=== PATIENT | female | born 1945 | race Caucasian/White ===

== ENCOUNTER 2018-06-07 09:00 | Outpatient (RCR) | payer MEDICARE, MEDICAID, SELFPAY ==
--- NOTE | 2018-06-04 09:00 | PTTR_ITS ---
DATE: 06/04/18 SUBJECTIVE: Alla indicates that she continues to note good improvement that has been made with her L shoulder. Denies any discomfort with her ADL's. Manual therapy: ([id number]). AROM reveals continued limited end range flexion and scaption approximately 10-20 degrees in comparison to contralateral side, continues to be extremely limited with IR bilaterally. Did receive mobilization of the L GH joint while in supine position. Mobilization did include inferior/posterior glides, caudal distraction, AAROM throughout all planes. Did utilize hold/relax with end range IR/ER with good results. Also performed PNF D1-D2 patterns for 10 reps each AA without complaints of discomfort as well as rhythmic stabilization at 80, 90 and 100 degrees of flexion against minimal resistance. Therapeutic procedures ([id number]). * x See flow sheet: focus was on scap stabilization and light cuff strengthening. * X Provided skilled instruction in proper exercise performance: * X Provided skilled manual cues to facilitate proper muscle recruitment and/ or movement pattern: Did receive 5 mins of cryotherapy to L shoulder at conclusion of therex. Direct treatment time: 35 MINS Total treatment time: 40 MINS SG/dl
--- NOTE | 2018-06-07 09:00 | PN_ITS ---
Date: 06/07/18 Referring: Marielos Caldera MD Referring Provider Diagnosis: chronic left shoulder pain Physical Therapy Diagnosis: left shoulder rotator cuff pathology Reporting period: 05/18/18-06/07/18 Subjective: Patient reports she feels like she is 98% better since starting PT. She is having no pain presently. States she has pain every once in while that she thinks is arthritis related. States she has been doing her HEP. Objective: ROM: Left shoulder AROM flexion 145 degrees, abduction 150 degrees, FIR to L2, extension 40 degrees, ER 60 degrees. Right shoulder AROM flexion 145 degrees, abduction 145 degrees, FIR T10, extension 40 degrees, ER 65 degrees. Strength: Left shoulder strength flexion 5/5, extension 5/5, ER 4+/5, ER 4+/5, abduction 5/5. Left elbow flexion and extension 5/5. Right shoulder flexion 5/5 , extension 5/5, abduction 5/5, ER 4+5, IR 4+/5. Right elbow flexion and extension 5/5. DASH score: 6.5% impaired Treatment: Manual therapy [id number] x 1. Performed reassessment of shoulder ROM and strength. Therapeutic Procedures [id number] x 1. Reviewed home exercise program with patient to ensure correct technique for scapular stabilization and rotator cuff strengthening. Patient given orange theratube for progression of HEP. Direct treatment time: 30 minutes Total treatment time: 30 minutes Assessment: Patient is a 73 year-old female referred for PT services with the diagnosis of chronic left shoulder pain. Patient presents with clinical signs and symptoms consistent with left rotator cuff pathology. She reports she is 98 % better since starting PT. She has no pain presently. States she has pain every once in a while and thinks its arthritic pain. At initial evaluation her pain rating was 6/10 at rest and 8/ Improvements were made in shoulder flexion, extension, and ER AROM. Improvements were made in left shoulder abductors, ER, IR, and elbow flexors strength as well in comparison to IE.. Her DASH score is 6.5% impaired compared to 35% impaired at initial evaluation. G-Codes (fill in modifier after appropriate code): Patient's primary functional limitation is in the category of: Projected Goal: Carrying,Moving, and handling objects : [id number] CI Discharge status: Carrying, Moving, and handling objects: [id number]-[CI] STG: __4__ weeks. 1. Patient will report no more than 5/10 pain in her left shoulder. Goat met. 2. Patient will demonstrate 5 degrees increase in left shoulder AROM. Goal met for left shoulder flexion, extension, and ER. Not met for abduction. 3. Patient will score 25% impaired or less on the DASH. Goal met. 4. Independent HEP. Goal met. LTG: __8__ weeks. 1. Patient will report no more than 3/10 pain in left shoulder. Goal met. 2. Patient will show 10 degree improvement in left shoulder AROM. Goal met for flexion, extension, and ER. No met for abduction. 3. Patient will demonstrate half grade improvement or better in left shoulder strength. Goal met. 4. Patient will score 19% impaired or less on the DASH. Goal met. 5. Independent HEP. Goal met. Plan: Plan to discharge from formal PT treatment at this time. All of the patient s goals have been met except for 10 degree improvement in left shoulder abduction. Patient instructed to continue with home exercise program for self management. Patient is in agreement with plan.
== END 2018-07-02 23:59 | disposition home or self-care (01) ==
LOC: PT 09:00
PROVIDERS: PCP Family Medicine; Referring Provider Family Medicine; Visit Provider Family Medicine
DX: M25.512 Pain in left shoulder (principal); S43.422D Sprain of left rotator cuff capsule, subsequent encounter; M25.812 Other specified joint disorders, left shoulder; R29.3 Abnormal posture
CPT/HCPCS: 97110; 97140

== ENCOUNTER → 2018-06-11 01:52 | Outpatient (CLI) | payer MEDICARE, SELFPAY ==
[2018-06-11 11:10] LABS: HCT 40.8 % (36.0-46.0); HGB 13.6 g/dL (12.0-15.5); Mean Corp. HGB Concentration 33.3 g/dL (32.0-36.0); Mean Corpuscular Hemoglobin 29.4 pg (27.0-33.0); Mean Corpuscular Volume 88.1 fL (80-95); Mean Platelet Volume 10.2 fL (8.0-11.0); Platelet Count 242 x1000/uL (130-400); RBC 4.63 m/cumm (4.00-5.20); White Blood Cell Count 3.71 k/cumm (4.4-10.8)
[2018-06-11 11:20] LABS: Hemoglobin A1C 6.4 % (4.5-6.2)
[2018-06-11 11:34] LABS: ALT 39 U/L (12-78); AST 29 U/L (15-37); Albumin 3.3 g/dL (3.4-5.0); Alkaline Phosphatase 96 U/L (46-116); BUN 12 mg/dL (7-18); Bilirubin, Total 0.4 mg/dL (0.2-1.0); CREATININE 0.74 mg/dL (0.55-1.02); Calcium 8.8 mg/dL (8.5-10.1); Chloride 100 mmol/L (98-107); Glucose 92 mg/dL (70-100); NT-proBNP 58 pg/mL; Potassium 4.8 mmol/L (3.5-5.1); Sodium 134 mmol/L (136-145); TSH (W/Ref FT4) 0.14 uIU/mL (0.358-3.74)
[2018-06-11 12:02] LABS: FREE T4 1.22 ng/dL (0.76-1.46)
[2018-06-11 12:15] LABS: Cholesterol 163 mg/dL (50-200); HDL Cholesterol 37 mg/dL (40-60); LDL CHOLESTEROL 101 mg/dL (<100); Triglyceride 209 mg/dL (30-150)
== END ==
PROVIDERS: PCP Family Medicine; Visit Provider Family Medicine
DX: E03.9 Hypothyroidism, unspecified (principal); E78.5 Hyperlipidemia, unspecified; I50.9 Heart failure, unspecified; R06.02 Shortness of breath; R73.09 Other abnormal glucose
CPT/HCPCS: 36415; 80053; 80061; 83721; 85027; 83036; 83880; 84439; 84443

== ENCOUNTER → 2018-06-14 12:53 | Outpatient (CLI) | payer MEDICARE, MEDICAID, SELFPAY ==
--- NOTE | 2018-06-14 13:00 | PFT_ITS ---
DATE OF SERVICE: June 14, 2018 REQUESTING PROVIDER: Marielos Caldera M.D. INTERPRETATION OF STUDY: Spirometry shows no evidence of obstructive airways disease. There was significant bronchodilator response which was mostly related to very poor patient effort for pre-bronchodilator spirometry, almost completely unacceptable patient effort. LUNG VOLUMES: Show no evidence of restriction. DIFFUSION CAPACITY: Mildly reduced, even when corrected to alveolar volume. AIRWAYS RESISTANCE: Normal. IMPRESSION: Pre-bronchodilator spirometry is an unacceptable patient effort. Post- bronchodilator spirometry shows mild obstructive airways disease. This is associated with mild diffusion defect. Clinical correlation recommended. cc: Kam Rothman/ct D/T: 06/16
[2018-06-14] MEDS: Inhaler, Assist Device 1 EACH MC (13:36)
[2018-06-14] MEDS: Albuterol HFA 18 GM 200 PUFF INH IH (13:36)
== END ==
PROVIDERS: PCP Family Medicine; Visit Provider Family Medicine
DX: R06.2 Wheezing (principal)
CPT/HCPCS: 94060; 94150; 94726; 94729

== ENCOUNTER → 2018-06-25 00:03 | Outpatient (CLI) | payer MEDICARE, MEDICAID, SELFPAY ==
--- NOTE | 2018-06-25 10:40 | MERGE_ITS ---
*[facility]* *[facility]* [address] [place] [address] Date of study: 06/25/2018 Transthoracic Echocardiography M-mode, complete 2D, complete spectral Doppler, and color Doppler *STUDY CONCLUSIONS* Summary: 1. Left ventricle: The cavity size was normal. Wall thickness was increased in a pattern of mild LVH. Systolic function was at the lower limits of normal. The estimated ejection fraction was 50-55%. Wall motion was normal; there were no regional wall motion abnormalities. 2. Right ventricle: The cavity size was normal. Systolic function was low normal. 3. Left atrium: The atrium was mildly dilated. 4. Aortic root: The aortic root was mildly dilated (39 mm). 5. Mitral valve: Mildly calcified annulus. Mildly thickened leaflets. There was mild regurgitation. 6. Inferior vena cava: The vessel was patent and normal in size. The respirophasic diameter changes were in the normal range (greater than or equal to 50%), consistent with normal central venous pressure. *PATIENT PRESENTATION* Height: 152.4cm ((60in) ) S/D Pressure: 1741 / 74 Weight: 86.2kg ((189.6lb) ) BSA: 1.96m^2 Test start time: 10:40 AM. Test stop time: 11:40 AM. ORDERING Marielos Caldera REFERRING Marielos Caldera PERFORMING Unknown PERFORMING [facility] [employer] RT Celestina Baird)(SHANTELLE)BUTCH *PROCEDURE DATA* Procedure information: The patient was identified by two identifiers. This study was interpreted by [facility]. Pertinent images and digital data are archived for permanent storage and are available for subsequent review. No prior study was available for comparison. Study status: Routine. Transthoracic echocardiography. M-mode, complete 2D, complete spectral Doppler, and color Doppler. A Transthoracic Echocardiogram was performed. Scanning was performed from the parasternal, apical, subcostal, and suprasternal notch acoustic windows. Images were obtained using an [id number] cardiac ultrasound machine. Image quality was adequate. Study completion: The patient tolerated the procedure well. There were no complications. History: PMH: Wheezing. Shortness of breath. *CARDIAC ANATOMY* Left ventricle: The cavity size was normal. Wall thickness was increased in a pattern of mild LVH. Systolic function was at the lower limits of normal. The estimated ejection fraction was 50-55%. Wall motion was normal; there were no regional wall motion abnormalities. Findings consistent with diastolic dysfunction. There was no evidence of elevated ventricular filling pressure by Doppler parameters. Aortic valve: Trileaflet; normal thickness leaflets. Mobility was not restricted. Doppler: Transvalvular velocity was within the normal range. There was no stenosis. There was no significant regurgitation. VTI ratio of LVOT to aortic valve: 0.88. Valve area (VTI): 2.7cm^2. Indexed valve area (VTI): 1.4cm^2/m^2. Peak velocity ratio of LVOT to aortic valve: 0.64. Valve area (Vmax): 2cm^2. Indexed valve area (Vmax): 1cm^2/m^2. Mean velocity ratio of LVOT to aortic valve: 0.62. Valve area (Vmean): 1.9cm^2. Indexed valve area (Vmean): 1cm^2/m^2. Mean gradient (S): 3.4mm Hg. Peak gradient (S): 7.2mm Hg. Aorta: Aortic root: The aortic root was mildly dilated (39 mm). Mitral valve: Mildly calcified annulus. Mildly thickened leaflets. Mobility was not restricted. Doppler: Transvalvular velocity was within the normal range. There was no evidence for stenosis. There was mild regurgitation. Valve area by pressure half-time: 2.7cm^2. Indexed valve area by pressure half-time: 1.4cm^2/m^2. Left atrium: The atrium was mildly dilated. Right ventricle: The cavity size was normal. Systolic function was low normal. Pulmonic valve: Poorly visualized. Doppler: Transvalvular velocity was within the normal range. There was no evidence for stenosis. There was mild regurgitation. Tricuspid valve: Structurally normal valve. Doppler: Transvalvular velocity was within the normal range. There was no evidence for stenosis. There was mild regurgitation. Pulmonary artery: Poorly visualized. Pulmonary systolic pressure was in the range of 30mm Hg to 35mm Hg. Right atrium: The atrium was normal in size. Pericardium: There was no pericardial effusion. Systemic veins: Inferior vena cava: Not well visualized. The vessel was patent and normal in size. The respirophasic diameter changes were in the normal range (greater than or equal to 50%), consistent with normal central venous pressure. Baseline ECG: Bradycardia. Measurements Left ventricle Value 12/09/2016 Reference LV ID, ED, PLAX 4.5 cm 4.5 3.5 - 6.0 LV ID, ES, PLAX 3.2 cm 2.8 2.1 - 4.0 LV PW thickness, ED, PLAX 1.1 cm 1.1 LV end-diastolic volume, 49 ml 1-p A2C LV ejection fraction, 1-p 52 % 56 A2C LV end-diastolic volume, 61 ml 1-p A4C LV ejection fraction, 1-p 50 % 53 A4C LV e', lateral 0.038 m/sec LV E/e', lateral 18 LV e', medial 0.046 m/sec LV E/e', medial 15 LV e', average 0.042 m/sec LV E/e', average 16 Ventricular septum Value 12/09/2016 Reference IVS thickness, ED, PLAX 1.0 cm 1.2 LVOT Value 12/09/2016 Reference LVOT ID, A-P 2.0 cm 2.0 LVOT area 3.1 cm^2 3 LVOT peak velocity, S 0.86 m/sec 0.8 LVOT mean velocity, S 0.54 m/sec LVOT VTI, S 24.3 cm 18.6 LVOT peak gradient, S 2.9 mm Hg LVOT mean gradient, S 1.4 mm Hg 1.2 Stroke volume (SV), LVOT 75 ml DP Stroke index (SV/bsa), 38 ml/m^2 LVOT DP Aortic valve Value 12/09/2016 Reference Aortic valve peak 1.3 m/sec velocity, S Aortic valve mean 0.87 m/sec velocity, S Aortic valve VTI, S 27.5 cm Aortic mean gradient, S 3.4 mm Hg Aortic peak gradient, S 7.2 mm Hg VTI ratio, LVOT/AV 0.88 Aortic valve area, VTI 2.7 cm^2 2 Velocity ratio, peak, 0.64 LVOT/AV Aortic valve area, peak 2 cm^2 2.5 velocity Velocity ratio, mean, 0.62 LVOT/AV Aortic valve area, mean 1.9 cm^2 velocity Aortic valve area/bsa, 1 cm^2/m^2 mean velocity Aorta Value 12/09/2016 Reference Aortic root ID, ED 3.9 cm 4.1 Ascending aorta ID, A-P, S 3.1 cm 3.3 RVOT Value 12/09/2016 Reference RVOT VTI, S 15.8 cm 16.2 Left atrium Value 12/09/2016 Reference LA ID, A-P, ES 2.9 cm LA ID/bsa, A-P 1.5 cm/m^2 <=2.2 LA area, ES, A4C 17.7 cm^2 18 8.8 - 23.4 LA area, ES, A2C 20 cm^2 20 LA volume/bsa, ES, 1-p A4C 29 ml/m^2 24 LA volume, ES, 2-p 55 ml LA volume/bsa, ES, 2-p 28 ml/m^2 LA/aortic root ratio 0.75 0.75 Mitral valve Value 12/09/2016 Reference Mitral E-wave peak 0.68 m/sec 0.59 velocity Mitral A-wave peak 0.87 m/sec 0.87 velocity Mitral deceleration time (H) 278 ms 150 - 230 Mitral pressure half-time 81 ms 89 Mitral E/A ratio, peak 0.77 0.68 Mitral valve area, PHT, DP 2.7 cm^2 2.5 Pulmonary veins Value 12/09/2016 Reference Pulmonary vein peak 0.59 m/sec velocity, S Pulmonary vein peak 0.38 m/sec velocity, D Pulmonary vein velocity 1.53 ratio, peak, S/D Pulmonary vein A-wave 0.33 m/sec reversal peak velocity Pulmonary vein A-wave 177 ms reversal duration Tricuspid valve Value 12/09/2016 Reference Tricuspid regurg peak 3.1 m/sec 2.3 velocity Tricuspid peak RV-RA 39.2 mm Hg 21.5 gradient Right atrium Value 12/09/2016 Reference RA area, ES, A4C 14.9 cm^2 18 8.3 - 19.5 Legend: (L) and (H) miguel values outside specified reference range. I have personally reviewed the images and have reviewed and edited the reported findings. Electronically signed by Niocle Camacho 06/25/2018 15:35
== END ==
PROVIDERS: PCP Family Medicine; Visit Provider Family Medicine
DX: R06.02 Shortness of breath (principal); R06.2 Wheezing; I05.1 Rheumatic mitral insufficiency
CPT/HCPCS: 93306

== ENCOUNTER 2018-10-05 00:32 | Outpatient (CLI) | payer MEDICARE, MEDICAID, SELFPAY ==
--- NOTE | 2018-10-05 08:50 | DI.MAMMO_ITS ---
SYMPTOM/DIAGNOSIS: SCREENING, Z12.31 MAMMOGRAMS: Mammograms were interpreted according to the usual protocol including computer analysis with CAD system, tomosynthesis and C view imaging. Comparison is made with the prior examinations. No suspicious masses or microcalcifications are seen. There is no definite evidence of malignancy. IMPRESSION: Negative mammogram. Routine screening is recommended. Category 1 , breast density B. MQSA ASSESSMENT OF FINDINGS: Negative. Category 1. Patient will receive a letter notifying them of these results. BI-RADS category B. There are scattered areas of fibroglandular density.
== END 2018-10-05 00:52 ==
PROVIDERS: PCP Family Medicine; Visit Provider Family Medicine
DX: Z12.31 Encounter for screening mammogram for malignant neoplasm of breast (principal)
CPT/HCPCS: 77063; 77067

== ENCOUNTER 2019-02-07 09:16 | Outpatient (CLI) | payer MEDICARE, MEDICAID, SELFPAY ==
[2019-02-07 12:49] LABS: Hemoglobin A1C 6.4 % (4.5-6.2)
[2019-02-07 12:54] LABS: COMMENT (LAB VIEW ONLY) 53.95 mg/dL
[2019-02-07 13:06] LABS: ALT 61 U/L (12-78); AST 38 U/L (15-37); Albumin 3.2 g/dL (3.4-5.0); Alkaline Phosphatase 96 U/L (46-116); Anion Gap 8.7 mmol/L (3-11); BUN 16 mg/dL (7-18); Bilirubin, Total 0.3 mg/dL (0.2-1.0); CO2 27.3 mmol/L (21.0-32.0); CREATININE 0.95 mg/dL (0.55-1.02); Calcium 9.7 mg/dL (8.5-10.1); Chloride 100 mmol/L (98-107); Cholesterol 199 mg/dL (50-200); Glucose 138 mg/dL (70-100); HDL Cholesterol 42 mg/dL (40-60); LDL CHOLESTEROL 134 mg/dL (<100); Potassium 4.6 mmol/L (3.5-5.1); Sodium 136 mmol/L (136-145); TSH (W/Ref FT4) 9.36 uIU/mL (0.358-3.74); Triglyceride 157 mg/dL (30-150)
[2019-02-07 13:11] LABS: Microalb ug/mg Crea 1676.9 ug/mg Cr
[2019-02-07 13:31] LABS: FREE T4 0.73 ng/dL (0.76-1.46)
== END 2019-02-07 09:36 ==
PROVIDERS: PCP Family Medicine; Visit Provider Family Medicine
DX: E11.9 Type 2 diabetes mellitus without complications (principal); E03.9 Hypothyroidism, unspecified; E78.5 Hyperlipidemia, unspecified; I10 Essential (primary) hypertension; R73.09 Other abnormal glucose
CPT/HCPCS: 36415; 80053; 80061; 83721; 82043; 82570; 83036; 84439; 84443

== ENCOUNTER 2019-12-01 01:27 | Outpatient (CLI) | payer MEDICARE, MEDICAID, SELFPAY ==
--- NOTE | 2019-12-01 11:20 | DI.MAMMO_ITS ---
EXAM: MAMMO SCREENING CLINICAL HISTORY: screening Z12.39 TECHNIQUE: Mammograms were interpreted according to the usual protocol including computer analysis w [employer] CAD system, tomosynthesis and C-view imaging. COMPARISON: October 2018 FINDINGS: The breasts are of moderate density with fairly symmetrical distribution of fibroglandular tissue. N o dominant mass or clumped microcalcification. Current examination is compared with previous examina tions including October 2018 and there has been no gross interval change in appearance in comparison with the previous studies. IMPRESSION: No specific evidence of malignancy at this time. Routine screening examinations are suggested at yea rly intervals in this age group according to the ACS/ACR guidelines. Category 1, breast density categ ory B. BI-RADS Cat 1 - Negative Breast Density - Category B - Scattered areas of fibroglandular density
== END 2019-12-01 01:47 ==
PROVIDERS: PCP Family Medicine; Visit Provider Family Medicine
DX: Z12.31 Encounter for screening mammogram for malignant neoplasm of breast (principal)
CPT/HCPCS: 77063; 77067

== ENCOUNTER 2019-12-02 00:11 | Outpatient (CLI) | payer MEDICARE, MEDICAID, SELFPAY ==
[2019-12-02 12:26] LABS: Hemoglobin A1C 6.3 % (3.8-5.6)
[2019-12-02 12:33] LABS: ALT 41 U/L (14-59); AST 26 U/L (15-37); Albumin 3.3 g/dL (3.4-5.0); Alkaline Phosphatase 85 U/L (46-116); Anion Gap 6.2 mmol/L (3-11); BUN 19 mg/dL (7-18); Bilirubin, Total 0.5 mg/dL (0.2-1.0); CO2 27.8 mmol/L (21.0-32.0); CREATININE 0.75 mg/dL (0.55-1.02); Calcium 8.8 mg/dL (8.5-10.1); Calculated LDL 97 mg/dL (<100); Chloride 98 mmol/L (98-107); Cholesterol 159 mg/dL (<200); Glucose 101 mg/dL (74-106); HDL Cholesterol 40 mg/dL (40-60); Sodium 132 mmol/L (136-145); TSH (W/Ref FT4) 6.53 uIU/mL (0.36-3.74); Total Protein 6.8 g/dL (6.4-8.2); Triglyceride 113 mg/dL (<150)
[2019-12-02 12:51] LABS: FREE T4 0.96 ng/dL (0.76-1.46)
[2019-12-02 13:17] LABS: COMMENT (LAB VIEW ONLY) 76.36 mg/dL
[2019-12-02 13:36] LABS: Microalb ug/mg Crea 501.3 ug/mg Cr
== END 2019-12-02 00:31 ==
PROVIDERS: PCP Family Medicine; Visit Provider Family Medicine
DX: E11.9 Type 2 diabetes mellitus without complications (principal); E78.5 Hyperlipidemia, unspecified; E83.52 Hypercalcemia; I10 Essential (primary) hypertension; I49.8 Other specified cardiac arrhythmias; K21.0 Gastro-esophageal reflux disease with esophagitis
CPT/HCPCS: 36415; 80053; 80061; 82043; 82570; 83036; 84439; 84443

== ENCOUNTER 2020-08-13 02:09 | Outpatient (CLI) | payer MEDICARE, MEDICAID, SELFPAY ==
[2020-08-13 13:03] LABS: ALT 44 U/L (14-59); AST 30 U/L (15-37); Albumin 3.7 g/dL (3.4-5.0); Alkaline Phosphatase 99 U/L (46-116); Anion Gap 7.2 mmol/L (3-11); BUN 16 mg/dL (7-18); Bilirubin, Total 0.4 mg/dL (0.2-1.0); CO2 30.8 mmol/L (21.0-32.0); CREATININE 0.76 mg/dL (0.55-1.02); Calcium 9.1 mg/dL (8.5-10.1); Calculated LDL 94 mg/dL (<100); Chloride 95 mmol/L (98-107); Cholesterol 168 mg/dL (<200); Glucose 97 mg/dL (74-106); HDL Cholesterol 48 mg/dL (40-60); Potassium 4.6 mmol/L (3.5-5.1); Sodium 133 mmol/L (136-145); TSH (W/Ref FT4) 1.87 uIU/mL (0.36-3.74); Total Protein 7.6 g/dL (6.4-8.2); Triglyceride 134 mg/dL (<150)
[2020-08-13 13:11] LABS: Hemoglobin A1C 6.2 % (<5.7)
[2020-08-13 13:24] LABS: Bilirubin Negative (Negative); Blood Negative (Negative); Clarity Clear (Clear); Glucose Negative (Negative); Ketones Negative (Negative); Leukocyte Esterase Trace (Negative); Nitrite Negative (Negative); Urobilinogen 0.2 EU/dL (Up TO 0.2); pH 7.5 (5-8)
[2020-08-13 13:36] LABS: Bacteria Few HPF (Negative); Epithelial Cells Many HPF (Negative); Other Cells Few Renal (Negative)
[2020-08-13 13:37] LABS: C & S Indicated? No/Sq. Contamination; Casts Negative LPF (Negative); Crystals Negative HPF (Negative); Mucus Negative (Negative)
== END 2020-08-13 02:29 ==
PROVIDERS: PCP Family Medicine; Visit Provider Family Medicine
DX: E11.9 Type 2 diabetes mellitus without complications (principal); E78.5 Hyperlipidemia, unspecified; E03.9 Hypothyroidism, unspecified; I10 Essential (primary) hypertension; I49.8 Other specified cardiac arrhythmias; R82.998 Other abnormal findings in urine
CPT/HCPCS: 36415; 80053; 80061; 81003; 81015; 83036; 84443

== ENCOUNTER 2020-12-07 09:20 | Inpatient (IN) | payer MEDICARE, MEDICAID, SELFPAY ==
[2020-12-07] VITALS (49 sets, daily range): BP systolic 133–191; BP diastolic 60–88; PULSE 55–82; RESP 12–23; TEMP 36.4–36.9; O2SAT 92–99
--- NOTE | 2020-12-07 09:15 | RT.EKG_ITS ---
APPROVED REPORT Exam: Resting ECG Patient Location: E HR:65 bpm ECG Measurements Heart Rate 65 AXIS OR 184 P 54 QRSd 107 QRS 55 QT 422 T 104 QTc 440 Conclusion Sinus rhythm...normal P axis, V-rate 60- 99 Anteroseptal infarct, age indeterminate...Q >35mS, T neg, V1-V2
--- NOTE | 2020-12-07 09:30 | RT.EKG_ITS ---
APPROVED REPORT Exam: Resting ECG Patient Location: E HR:60 bpm ECG Measurements Heart Rate 60 AXIS TN 190 P 59 QRSd 105 QRS 68 QT 455 T 110 QTc 457 Conclusion Sinus rhythm...normal P axis, V-rate 60- 99 Anteroseptal infarct, age indeterminate...Q >35mS, T neg, V1-V2
--- NOTE | 2020-12-07 09:30 | DI.CT_ITS ---
EXAM: CT HEAD WO CLINICAL HISTORY: ams. TECHNIQUE: Imaging Protocol: Axial computed tomography images with coronal and sagittal reformatted images were created and reviewed COMPARISON: No previous for comparison. FINDINGS: Ventricles and Extra axial spaces: Normal in size and morphology for the patient's age. Hemorrhage: None. Cerebral parenchyma: There are areas of decreased attenuation in the white matter most consistent wit h chronic microvascular ischemic change. No evidence of an acute territorial infarct. Midline shift: None. Brainstem/Cerebellum: Normal. Calvarium: Normal. Visualized Paranasal sinuses/Mastoids: Mild mucosal thickening in the maxillary sinuses. The remaini ng visualized paranasal sinuses are clear. Soft Tissues: Unremarkable. IMPRESSION: No acute intracranial process. Results of this exam have been verbally communicated with provider. RADIATION DOSE DELIVERED: 805.52mGy.cm Total DLP DATA REPOSITORY: All CT scans at this facility are submitted to the National Radiology Data Registry (NRDR) Dose Index Registry (DIR) with the [employer] ([employer]). RADIATION OPTIMIZATION: All CT scans at this facility use at least one of these dose optimization te chniques: automated exposure control; mA and/or kV adjustment per patient size (includes targeted exa ms where dose is matched to clinical indication); or iterative reconstruction.
[2020-12-07] MEDS: Normal Saline 1,000 ML 1000 ML IV (09:51)
[2020-12-07] MEDS: Normal Saline Flush 10 ML SYR IVP ×2 (09:51→17:35)
--- NOTE | 2020-12-07 09:53 | W.ED.GENAD ---
Discharge Plan Discharge Details Chief Complaint: AMS/LOC Primary Care Provider: Marielos Caldera ED Provider: Rasheeda Keith Home Meds and New Rx's Prescriptions: No Action albuterol sulfate 90 mcg/actuation HFA aerosol inhaler 2 puff IH 6XD PRN (Reason: shortness of breath or wheezing) Qty: 18 RF: 8 fluoxetine 40 mg capsule 40 mg PO DAILY Qty: 90 RF: 12 losartan 100 mg tablet 100 mg PO DAILY Qty: 90 RF: 4 omeprazole 40 mg capsule,delayed release(DR/EC) 40 mg PO DAILY Qty: 90 RF: 12 oxybutynin chloride 5 mg tablet 5 mg PO BID Qty: 180 RF: 4 pravastatin 40 mg tablet 40 mg PO DAILY Qty: 90 RF: 4 levothyroxine 112 mcg tablet 112 mcg PO DAILY Qty: 90 RF: 12 fluconazole 150 mg tablet 150 mg PO Q3D Qty: 2 RF: 0 qmecxqbh-cuwi-jfkjjx-hyalur ac 1 EACH capsule 2 cap PO DAILY RF: 0 docusate sodium [Colace] 100 MG capsule 100 mg PO BID Qty: 180 RF: 4 mirtazapine 7.5 mg tablet 7.5 mg PO HS Qty: 90 RF: 2 famotidine 40 mg tablet 40 mg PO DAILY Qty: 90 RF: 5 multivitamin [Once Daily] Tablet 1 tab PO DAILY Qty: 90 RF: 4 acetaminophen [Acetaminophen Extra Strength] 500 mg tablet 1,000 mg PO TID PRN Qty: 270 RF: 4 sennosides-docusate sodium [Senna with Docusate Sodium] 8.6-50 mg tablet 2 tab PO DAILY Qty: 180 RF: 11 betamethasone dipropionate 0.05 % cream 1 applic topical BID PRN (Reason: skin irritation) Qty: 45 RF: 2 triamcinolone acetonide 0.1 % cream 1 applic TP BID Qty: 80 RF: 2 Medical Decision Making Patient is alert, oriented, this is a change from yesterday per sisterMary Beth who I spoke with, patient is a full CODE STATUS confirmed No visible signs of trauma, I suspect her symptoms are related to hyponatremia confounded by urinary tract infection Patient received 1 L of saline, I will not give additional saline secondary to risk for cerebral edema She received ceftriaxone for urinary tract infection, urine culture pending Magnesium 1.6, supplemented EKG does not show acute pathology, initial troponin 0.18, repeat troponin request of admitting hospitalist 0.17, Dr. Cruz has agreed to admit the patient to inpatient status at this time, remains confused but stable throughout this evaluation Suspect troponin secondary to restrain from illness CT brain does not show acute pathology per radiology interpretation and my review, no evidence of CVA or intracranial trauma Chest x-ray shows evidence of possible volume overload Differential Diagnosis Differential Diagnosis: Electrolyte abnormality, urinary tract infection, subdural hematoma, CVA Medical Records Medical records reviewed: Yes I reviewed the patient's medical records. HPI This 75-year-old female presents with alteration in mental status. She was found by caregiver to be slowed and confused. Patient cannot tell me any complaints at this time. She was found seated and without evidence of trauma. EMS checked her blood sugar and found it to be 180. She also had normal vital signs per EMS. The last time she was known well was caregiver recheck 2 weeks prior. There was no noted vomiting, no incontinence stool or urine. The hospital in disarray. The dog was also well cared for per EMS. Unable to obtain additional history secondary to mental status change General Date/Time Provider Initiated Documentation: 12/07/20 09:21. Related Data Home Medications Medication Instructions Recorded Confirmed lenpsknx-regg-trvvuz-hyalur ac 2 cap PO DAILY 10/17/13 12/07/20 docusate sodium [Colace] 100 mg PO BID #180 tab-cap 05/04/18 12/07/20 albuterol sulfate 90 mcg/actuation 2 puff IH 6XD PRN #18 gm 11/03/19 12/07/20 aerosol inhaler mirtazapine 7.5 mg tablet 7.5 mg PO HS #90 tab 02/02/20 12/07/20 famotidine 40 mg tablet 40 mg PO DAILY #90 tab 03/16/20 12/07/20 multivitamin 1 tab PO DAILY #90 tab-cap 03/16/20 12/07/20 acetaminophen 500 mg tablet 1,000 mg PO TID PRN #270 tab-cap 04/03/20 12/07/20 sennosides 8.6 mg-docusate sodium 2 tab PO DAILY #180 tab-cap 04/27/20 12/07/20 50 mg tablet fluoxetine 40 mg capsule 40 mg PO DAILY #90 tab-cap 05/01/20 12/07/20 levothyroxine 112 mcg tablet 112 mcg PO DAILY #90 tab-cap 05/01/20 12/07/20 losartan 100 mg tablet 100 mg PO DAILY #90 tab-cap 05/01/20 12/07/20 omeprazole 40 mg capsule,delayed 40 mg PO DAILY #90 tab-cap 05/01/20 12/07/20 release oxybutynin chloride 5 mg tablet 5 mg PO BID #180 tab-cap 05/01/20 12/07/20 pravastatin 40 mg tablet 40 mg PO DAILY #90 tab-cap 05/01/20 12/07/20 betamethasone dipropionate 0.05 % 1 applic TOPICAL BID PRN #45 g 07/23/20 12/07/20 topical cream triamcinolone acetonide 0.1 % 1 applic TP BID #80 gm 08/08/20 12/07/20 topical cream fluconazole 150 mg tablet 150 mg PO Q3D #2 tab 11/08/20 12/07/20 Previous Rx's Medication Instructions Recorded docusate sodium [Colace] 100 mg PO BID #180 tab-cap 05/04/18 albuterol sulfate 90 mcg/actuation 2 puff IH 6XD PRN #18 gm 11/03/19 aerosol inhaler mirtazapine 7.5 mg tablet 7.5 mg PO HS #90 tab 02/02/20 famotidine 40 mg tablet 40 mg PO DAILY #90 tab 03/16/20 multivitamin 1 tab PO DAILY #90 tab-cap 03/16/20 acetaminophen 500 mg tablet 1,000 mg PO TID PRN #270 tab-cap 04/03/20 sennosides 8.6 mg-docusate sodium 2 tab PO DAILY #180 tab-cap 04/27/20 50 mg tablet fluoxetine 40 mg capsule 40 mg PO DAILY #90 tab-cap 05/01/20 levothyroxine 112 mcg tablet 112 mcg PO DAILY #90 tab-cap 05/01/20 losartan 100 mg tablet 100 mg PO DAILY #90 tab-cap 05/01/20 omeprazole 40 mg capsule,delayed 40 mg PO DAILY #90 tab-cap 05/01/20 release oxybutynin chloride 5 mg tablet 5 mg PO BID #180 tab-cap 05/01/20 pravastatin 40 mg tablet 40 mg PO DAILY #90 tab-cap 05/01/20 betamethasone dipropionate 0.05 % 1 applic TOPICAL BID PRN #45 g 07/23/20 topical cream triamcinolone acetonide 0.1 % 1 applic TP BID #80 gm 08/08/20 topical cream fluconazole 150 mg tablet 150 mg PO Q3D #2 tab 11/08/20 Allergies Allergy/AdvReac Type Severity Reaction Status Date / Time No Known Allergies Allergy Verified 11/08/20 08:24 General Stated Complaint: AMS/LOC [place]: 2 Review of Systems Unobtainable due to mental status [facility] Medical History (Updated 08/04/20 @ 20:42 by Katharina Ricardo NP) Abnormal cervical Papanicolaou smear (10/01/00) Age-related macular degeneration Ankle joint pain (06/21/13) Rickets as a child Balance problem Bilateral impacted cerumen (07/31/15) Bronchospasm Cataract (01/19/18) Cataract Chronic left shoulder pain (05/04/18) Depressive disorder (12/04/11) Diabetes Diverticulitis of colon 04/11 pre-op H P by Dr. Al Reid for lap sigmoid resection, secondary to acute episodes of diverticulitis. 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 Essential hypertension (10/14/13) Fall in exam room while getting off exam table Fatigue (06/21/13) Grief (03/04/16) Hip pain (06/24/13) Hypercalcemia (12/04/16) Hyperlipidemia (06/21/13) Hyponatremia (07/01/13) Hypothyroidism (06/24/13) Low back pain (06/21/13) XRay 09/09 - DJD, R hip DJD MRI - severe djd, no stenosis Low back pain (06/21/13) Multiple excoriations (07/20/14) Other specified cardiac dysrhythmias (10/01/04) bradycardia by ECG; Holter=rare PAC/PVC/burst SVT; <3sec pause Other specified cardiac dysrhythmias (10/01/04) Pelvic abscess (11/05/09) 10/10 CT: SMALL RESIDUAL ABSCESSED CAVITY IN CENTRAL PELVIS, W/ FISTULA BETWEEN ABSCESS SIGMOID COLON Pelvic abscess (11/05/09) Pruritic disorder (01/10/14) Reflux esophagitis (12/08/16) Rickets Sensorineural hearing loss, bilateral (01/14/18) Vaginitis and vulvovaginitis Wheezing (05/04/18) ? voacl cord dysfunction Surgical History Abdominal hysterectomy (~1983) Cholecystectomy (~1979) drainage of pelvic abcess Extraction of cataract LEFT EYE;12/14/17; DR. ALICEA Status post abdominal hysterectomy Status post cholecystectomy Status post hip replacement Status post incision and drainage Total replacement of hip (~2008) LEFT Family History (Updated 11/09/20 @ 15:32 by Janelle Armas) Mother , AGE 92 Diabetes Heart disease Father Heart disease Stomach cancer Sister Depression Heart disease COPD (chronic obstructive pulmonary disease) Asthma Brother Diabetes Essential hypertension Heart disease Hyperlipidemia Asthma Social History (Updated 11/09/20 @ 15:32 by Janelle Armas) Smoking/Tobacco Use Status: Never Smoking risk assessment performed?: Yes Alcohol Intake: current Alcohol Intake frequency: 0-2 drinks per day Alcohol type: beer and wine Drug use: Never Substance use type: does not use Caregiver/Support person: No Household members: spouse and none Housing: house Communication Needs: None Do you need help understanding health information?: Never Pets and animals: Yes Pets and animals: dog(s) Sexually active: No Do you think of yourself as: straight/heterosexual Current gender identity: female and decline to answer What is your relationship status?: How often do you talk on the phone with friends or family?: three or more times per week How often do you get together with friends or relatives?: once per week How often do you attend jainism or restoration services?: 4 or more times per year Do you belong to any clubs or organized social groups?: no Panel score (0-1 are the most socially isolated patients): 2 What type of physical activity do you participate in: walking Duration: 15-30 minutes/day Frequency: 1-2 times per week [place]/Episcopalian: Jewish Special medina needs: No Seatbelt use: always Helmet use: Yes Helmet use: always Drive intox or ride w/intox school bus driver/custodian: No Do you feel safe in your relationship?: Yes Victim of physical abuse: No Victim of emotional abuse: No Victim of sexual abuse: No Would you like helpful sources: No Exam Const General: cooperative and well groomed HENMT Head: normal to inspection Mouth: no muffled voice and oral mucosa abnormal Throat: uvula midline Eyes Pupils: PERRL Other: Follow light in all directions Neck Other: No carotid bruit Resp Effort & Inspection: normal respiratory effort Auscultation: clear to auscultation bilaterally Cardio Rate: regular rate Rhythm: regular rhythm GI Inspection: normal to inspection Auscultation: normal bowel sounds Other: Nontender Back/Spine/Pelvis Other: No palpable tenderness, no visible sign of trauma Skin General skin exam: no rashes or lesions noted Neuro General: patient alert and patient awake Other: Able to follow basic commands but generally weak Able to cross fingers bilaterally and push down on the hand with feet Extrem General: normal to inspection Course Vital Signs Vital signs: Vital Signs Temperature 36.7 C 12/07/20 09:18 Pulse 82 12/07/20 09:18 Respiratory Rate 20 12/07/20 09:18 Blood Pressure 191/71 H 12/07/20 09:18 Pulse Oximetry 95 12/07/20 09:18 Temperature 36.7 C 12/07/20 09:18 Temperature Source Skin 12/07/20 09:18 Pulse 82 12/07/20 09:18 Respiratory Rate 20 12/07/20 09:18 Respiratory Effort Non-Labored 12/07/20 09:52 Blood Pressure 191/71 H 12/07/20 09:18 Blood Pressure Position Sitting 12/07/20 09:18 Pulse Oximetry 95 12/07/20 09:18 Oxygen Delivery Method Room Air 12/07/20 09:18 Oxygen Flow Rate 0 12/07/20 09:18 Critical Care Time Critical Care Time Critical Care Time: Yes Total Critical Care Time: 35 Attestation: Critical care time was obtained for close observation for elevated troponin, hyponatremia, alteration of mental status, telemetry, IV fluid resuscitation, telemetry monitoring, and inpatient admission
[2020-12-07 09:59] LABS: Abs Immature Grans 0.07 10^3/uL (0.0-0.06); Absolute Basophil Count 0.03 10^3/uL (0.0-0.2); Absolute Eosinophil Count 0.03 10^3/uL (0.0-0.7); Absolute Lymphocyte Count 1.16 10^3/uL (1.2-3.4); Absolute Neutrophil Count 13.08 10^3/uL (1.2-6.7); Basophils % 0.2; Eosinophils % 0.2; HCT 40.3 % (36.0-46.0); HGB 14.2 g/dL (11.2-15.7); Immature Grans % 0.4; Lymphocytes % 7.4; MCH 30.7 pg (27.0-33.0); MCHC 35.2 % (32.0-36.0); MPV 9.3 fL (8.0-11.0); Monocytes % 8.3; Neutrophils % 83.5; Nucleated RBC 0 %; Platelet Count 311 10^3/uL (130-400); RBC 4.63 10^6/uL (3.93-5.22); RDW 12.2 % (11.7-14.6); RDW-SD 39.2 fL; WBC 15.67 10^3/uL (4.4-10.8)
[2020-12-07 10:04] LABS: Bilirubin Negative (Negative); Blood Negative (Negative); Clarity Sl Cloudy (Clear); Glucose Negative (Negative); Ketones Negative (Negative); Leukocyte Esterase Negative (Negative); Nitrite Negative (Negative); Specific Gravity 1.025 (1.005-1.025); Urobilinogen 0.2 EU/dL (Up TO 0.2); pH 7.5 (5-8)
[2020-12-07 10:07] LABS: ALT 73 U/L (14-59); AST 50 U/L (15-37); Albumin 3.3 g/dL (3.4-5.0); Alkaline Phosphatase 96 U/L (46-116); Anion Gap 6.6 mmol/L (3-11); BUN 19 mg/dL (7-18); Bilirubin, Total 0.8 mg/dL (0.2-1.0); CO2 28.4 mmol/L (21.0-32.0); CREATININE 0.7 mg/dL (0.55-1.02); Calcium 8.7 mg/dL (8.5-10.1); Chloride 85 mmol/L (98-107); Glucose 142 mg/dL (74-106); Magnesium 1.6 mg/dL (1.8-2.4); Potassium 4.6 mmol/L (3.5-5.1); Total Protein 7.7 g/dL (6.4-8.2)
[2020-12-07 10:09] LABS: Sodium 120 mmol/L (136-145); Troponin I 0.18 ng/mL (<0.06)
[2020-12-07 10:10] LABS: Epithelial Cells Rare HPF (Negative); Other Cells Rare Renal (Negative)
--- NOTE | 2020-12-07 10:10 | NUR.NOTE ---
Nursing Note: Pt states she doesn't take any meds but is confused at this time. PCP is Dr. Caldera, last clinic visit was 11/08, medication list was reconciled using clinic visit note. Unknown if/when she last took them since that visit.
[2020-12-07 10:11] LABS: C & S Indicated? Yes; Casts Negative LPF (Negative); Crystals Many Amorphous HPF (Negative); Mucus Moderate (Negative)
--- NOTE | 2020-12-07 10:12 | DI.RAD_ITS ---
EXAM: XR CHEST 1V IN DI DEPT CLINICAL HISTORY: ams TECHNIQUE: 2D digital imaging was performed. COMPARISON: CR CHEST 2 VIEWS PA,LAT from 01/11/2017 CR LEFT SHOULDER COMPLETE from 05/10/2018 FINDINGS: MEDIASTINUM: Normal. HEART: Normal. PULMONARY VASCULATURE: There is prominence of the pulmonary vasculature which may be due to crowding of the pulmonary vasculature due to poor inspiration versus pulmonary venous congestion. Atheroscler osis of the thoracic aorta is noted. LUNGS: No focal consolidating infiltrates. There is poor inspiration. PLEURAL SPACE: No pleural effusion or pneumothorax. BONE:Degenerative changes in the spine. OTHER FINDINGS:Normal. IMPRESSION: 1. Low lung volumes. 2. Prominence of the pulmonary vasculature. This may be due to crowding secondary to poor inspiratio n versus pulmonary venous congestion. Please correlate clinically. DATA REPOSITORY: RADIATION DOSE DELIVERED:
[2020-12-07] MEDS: MAGNESIUM SULFATE 1 GM/100 ML BAG IVPB (10:28)
[2020-12-07 13:01] LABS: Troponin I 0.17 ng/mL (<0.06)
--- NOTE | 2020-12-07 15:23 | W.PM.HP.N ---
Date of service: 12/07/20 Time of Service: 15:24 Assessment and Plan Assessment and plan (1) Diabetes: Status: Chronic Assessment and plan: Diet controlled. A1c in November was 5.8. Diabetic diet. Qualifiers: Diabetes mellitus type: type 2 Diabetes mellitus keno terminal operator insulin use: without keno terminal operator use Diabetes mellitus complication status: without complication Qualified Code(s): E11.9 - Type 2 diabetes mellitus without complications (2) Hypothyroidism: Status: Chronic Assessment and plan: Cont Levothyroxine TSH 3.7. Qualifiers: Hypothyroidism type: unspecified Qualified Code(s): E03.9 - Hypothyroidism, unspecified (3) Hyperlipidemia: Status: Chronic Assessment and plan: Cont pravastatin Qualifiers: Hyperlipidemia type: unspecified Qualified Code(s): E78.5 - Hyperlipidemia, unspecified (4) Essential hypertension: Status: Chronic Assessment and plan: Cont Losartan Monitor (5) Depressive disorder: Status: Chronic Assessment and plan: Cont Prozac. Monitor affect. (6) Hyponatremia: Status: Acute Assessment and plan: Na 120. Has had previously per records. Her sister was contacted and did not believe that she drinks copious amounts of water/fluids. She felt the patient didn't drink enough. Urine osmolality pending. Fluid restriction of 1500ml/day. Lasix 20mg IV x 1. Monitor. (7) Urinary tract infection: Status: Acute Assessment and plan: Culture pending. Rocephin given in ED; continue daily and adjust per culture results. History of Present Illness History of Present Illness Chief Complaint: confusion and weakness Narrative: This is a 75 yo female with a h/o DM2/not taking medications (A1c 5.8 11/2020), Hypothyroidism, HLD, HTN, depression. Her sister noted that she seemed mildly confused the day prior to admission and a caregiver noted the same on the day of admission; slow in her response time and using only short sentences. The patient denies any falls/trauma. EMS called. Blood glucose was 180. Vital signs were normal. Her UA was positive, WBC count elevated at 15.6 and her Na was 120. COVID testing sent. Rocephin administered in the ED. Admitted for further evaluation and treatment. Review of Systems All systems reviewed & are unremarkable except as noted in HPI and below and Unobtainable due to (Pt is confused; ROS from sister and ED provider) [facility] Medical History Abnormal cervical Papanicolaou smear (10/01/00) Age-related macular degeneration Ankle joint pain (06/21/13) Rickets as a child Balance problem Bilateral impacted cerumen (07/31/15) Bronchospasm Cataract (01/19/18) Cataract Chronic left shoulder pain (05/04/18) Depressive disorder (12/04/11) Diabetes Diverticulitis of colon 04/11 pre-op H P by Dr. Al Reid for lap sigmoid resection, secondary to acute episodes of diverticulitis. 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 Essential hypertension (10/14/13) Fall in exam room while getting off exam table Fatigue (06/21/13) Grief (03/04/16) Hip pain (06/24/13) Hypercalcemia (12/04/16) Hyperlipidemia (06/21/13) Hyponatremia (07/01/13) Hypothyroidism (06/24/13) Low back pain (06/21/13) XRay 09/09 - DJD, R hip DJD MRI - severe djd, no stenosis Low back pain (06/21/13) Multiple excoriations (07/20/14) Other specified cardiac dysrhythmias (10/01/04) bradycardia by ECG; Holter=rare PAC/PVC/burst SVT; <3sec pause Other specified cardiac dysrhythmias (10/01/04) Pelvic abscess (11/05/09) 10/10 CT: SMALL RESIDUAL ABSCESSED CAVITY IN CENTRAL PELVIS, W/ FISTULA BETWEEN ABSCESS SIGMOID COLON Pelvic abscess (11/05/09) Pruritic disorder (01/10/14) Reflux esophagitis (12/08/16) Rickets Sensorineural hearing loss, bilateral (01/14/18) Vaginitis and vulvovaginitis Wheezing (05/04/18) ? voacl cord dysfunction Surgical History Abdominal hysterectomy (~1983) Cholecystectomy (~1979) drainage of pelvic abcess Extraction of cataract LEFT EYE;12/14/17; DR. ALICEA Status post abdominal hysterectomy Status post cholecystectomy Status post hip replacement Status post incision and drainage Total replacement of hip (~2008) LEFT Family History Mother , AGE 92 Diabetes Heart disease Father Heart disease Stomach cancer Sister Depression Heart disease COPD (chronic obstructive pulmonary disease) Asthma Brother Diabetes Essential hypertension Heart disease Hyperlipidemia Asthma Social History Smoking/Tobacco Use Status: Never Smoking risk assessment performed?: Yes Alcohol Intake: current Alcohol Intake frequency: 0-2 drinks per day Alcohol type: beer and wine Drug use: Never Substance use type: does not use Caregiver/Support person: No Household members: spouse and none Housing: house Communication Needs: None Do you need help understanding health information?: Never Pets and animals: Yes Pets and animals: dog(s) Sexually active: No Do you think of yourself as: straight/heterosexual Current gender identity: female and decline to answer What is your relationship status?: How often do you talk on the phone with friends or family?: three or more times per week How often do you get together with friends or relatives?: once per week How often do you attend congregation or amish services?: 4 or more times per year Do you belong to any clubs or organized social groups?: no Panel score (0-1 are the most socially isolated patients): 2 What type of physical activity do you participate in: walking Duration: 15-30 minutes/day Frequency: 1-2 times per week [place]/Evangelical: Restorationist Special medina needs: No Seatbelt use: always Helmet use: Yes Helmet use: always Drive intox or ride w/intox pick up and delivery driver: No Do you feel safe in your relationship?: Yes Victim of physical abuse: No Victim of emotional abuse: No Victim of sexual abuse: No Would you like helpful sources: No Meds Home Medications and Allergies Home Medications Medication Instructions Recorded Confirmed Type vdfspqst-dpzq-mzhlbq-hyalur ac 2 cap PO DAILY 10/17/13 12/07/20 History docusate sodium [Colace] 100 mg PO BID #180 tab-cap 05/04/18 12/07/20 Rx albuterol sulfate 90 mcg/actuation 2 puff IH 6XD PRN #18 gm 11/03/19 12/07/20 Rx aerosol inhaler mirtazapine 7.5 mg tablet 7.5 mg PO HS #90 tab 02/02/20 12/07/20 Rx famotidine 40 mg tablet 40 mg PO DAILY #90 tab 03/16/20 12/07/20 Rx multivitamin 1 tab PO DAILY #90 tab-cap 03/16/20 12/07/20 Rx acetaminophen 500 mg tablet 1,000 mg PO TID PRN #270 tab-cap 04/03/20 12/07/20 Rx sennosides 8.6 mg-docusate sodium 2 tab PO DAILY #180 tab-cap 04/27/20 12/07/20 Rx 50 mg tablet fluoxetine 40 mg capsule 40 mg PO DAILY #90 tab-cap 05/01/20 12/07/20 Rx levothyroxine 112 mcg tablet 112 mcg PO DAILY #90 tab-cap 05/01/20 12/07/20 Rx losartan 100 mg tablet 100 mg PO DAILY #90 tab-cap 05/01/20 12/07/20 Rx omeprazole 40 mg capsule,delayed 40 mg PO DAILY #90 tab-cap 05/01/20 12/07/20 Rx release oxybutynin chloride 5 mg tablet 5 mg PO BID #180 tab-cap 05/01/20 12/07/20 Rx pravastatin 40 mg tablet 40 mg PO DAILY #90 tab-cap 05/01/20 12/07/20 Rx betamethasone dipropionate 0.05 % 1 applic TOPICAL BID PRN #45 g 07/23/20 12/07/20 Rx topical cream triamcinolone acetonide 0.1 % 1 applic TP BID #80 gm 08/08/20 12/07/20 Rx topical cream fluconazole 150 mg tablet 150 mg PO Q3D #2 tab 11/08/20 12/07/20 Rx Allergies Allergy/AdvReac Type Severity Reaction Status Date / Time No Known Allergies Allergy Verified 11/08/20 08:24 Exam Const General: cooperative, no acute distress and well groomed Nutritional Appearance: obese Orientation: alert and oriented to person [facility] Head: normocephalic and atraumatic Eyes Sclera: sclerae normal Pupils: PERRL Resp Effort & Inspection: normal respiratory effort Auscultation: clear to auscultation bilaterally Cardio Rate: regular rate Rhythm: regular rhythm Heart Sounds: S1 normal and S2 normal GI Palpation: soft and nontender Auscultation: normal bowel sounds Skin General skin exam: no rashes or lesions noted Neuro General: patient alert, moves all extremities and no focal motor deficits Cranial Nerves: gag reflex normal Extrem General: no pedal edema and no calf tenderness Psych Appearance: grossly normal Mood: congruent mood Affect: normal affect Results Labs Result diagrams: 12/07/20 09:37 12/07/20 09:37 Labs: Laboratory Results - last 24 hr 12/07/20 12/07/20 12/07/20 09:37 09:37 09:37 WBC 15.67 H RBC 4.63 Hgb 14.2 Hct 40.3 MCV 87.0 MCH 30.7 MCHC 35.2 RDW 12.2 Plt Count 311 MPV 9.3 Immature Gran % 0.4 Neutrophils % 83.5 Lymphocytes % 7.4 Monocytes % 8.3 Eosinophils % 0.2 Basophils % 0.2 Nucleated RBC % 0 Absolute Neutrophils 13.08 H Absolute Lymphocytes 1.16 L Absolute Monocytes 1.30 H Absolute Eosinophils 0.03 Absolute Basophils 0.03 Sodium 120 L* Potassium 4.6 Chloride 85 L Carbon Dioxide 28.4 Anion Gap 6.6 BUN 19 H Creatinine 0.7 Estimated GFR/1.73 m2 >= 60.00 Glucose 142 H Calcium 8.7 Magnesium 1.6 L Total Bilirubin 0.8 AST 50 H ALT 73 H Alkaline Phosphatase 96 Troponin I 0.18 H* Total Protein 7.7 Albumin 3.3 L TSH 3.70 Urine Color Urine Clarity Urine pH Ur Specific Smithers Urine Protein Urine Ketones Urine Blood Urine Nitrite Urine Bilirubin Urine Urobilinogen Ur Leukocyte Esterase Urine RBC Urine WBC Ur Epithelial Cells Urine Crystals Urine Bacteria Urine Casts Urine Mucus Urine Other Ur Culture Indicated? Urine Glucose 12/07/20 12/07/20 12/07/20 09:40 12:30 12:30 WBC RBC Hgb Hct MCV MCH MCHC RDW Plt Count MPV Immature Gran % Neutrophils % Lymphocytes % Monocytes % Eosinophils % Basophils % Nucleated RBC % Absolute Neutrophils Absolute Lymphocytes Absolute Monocytes Absolute Eosinophils Absolute Basophils Sodium Potassium Chloride Carbon Dioxide Anion Gap BUN Creatinine Estimated GFR/1.73 m2 Glucose Calcium Magnesium Total Bilirubin AST ALT Alkaline Phosphatase Troponin I 0.17 H* Cancelled Total Protein Albumin TSH Urine Color Yellow Urine Clarity Sl cloudy Urine pH 7.5 Ur Specific [place] 1.025 Urine Protein >=300 H Urine Ketones Negative Urine Blood Negative Urine Nitrite Negative Urine Bilirubin Negative Urine Urobilinogen 0.2 Ur Leukocyte Esterase Negative Urine RBC 5-10 H Urine WBC 10-20 H Ur Epithelial Cells Rare Urine Crystals Many amorphous Urine Bacteria Urine Casts Negative Urine Mucus Moderate Urine Other Rare renal Ur Culture Indicated? Yes Urine Glucose Negative 12/07/20 12/07/20 13:30 14:22 WBC RBC Hgb Hct MCV MCH MCHC RDW Plt Count MPV Immature Gran % Neutrophils % Lymphocytes % Monocytes % Eosinophils % Basophils % Nucleated RBC % Absolute Neutrophils Absolute Lymphocytes Absolute Monocytes Absolute Eosinophils Absolute Basophils Sodium Potassium Chloride Carbon Dioxide Anion Gap BUN Creatinine Estimated GFR/1.73 m2 Glucose Calcium Magnesium Total Bilirubin AST ALT Alkaline Phosphatase Troponin I Cancelled Cancelled Total Protein Albumin TSH Urine Color Urine Clarity Urine pH Ur Specific Smithers Urine Protein Urine Ketones Urine Blood Urine Nitrite Urine Bilirubin Urine Urobilinogen Ur Leukocyte Esterase Urine RBC Urine WBC Ur Epithelial Cells Urine Crystals Urine Bacteria Urine Casts Urine Mucus Urine Other Ur Culture Indicated? Urine Glucose Last Vital Signs Temp 36.7 C 12/07/20 09:18 Pulse 62 12/07/20 14:37 Resp 15 12/07/20 13:10 BP 140/62 12/07/20 13:01 Pulse Ox 94 12/07/20 12:10 COVID-19 Screening Have you, or household traveled for leisure in last 14 days?: No
[2020-12-07] MEDS: Furosemide 20 MG/2 ML VIAL IVP (16:17)
[2020-12-07 16:55] LABS: Troponin I 0.12 ng/mL (<0.06)
[2020-12-07] MEDS: Enoxaparin 40 MG/0.4 ML SYR SC (17:12)
[2020-12-07] MEDS: Aspirin 81 MG CHEW PO (17:16)
[2020-12-07] MEDS: Ondansetron 4 MG/2 ML VIAL IVP (17:35)
[2020-12-07] MEDS: amLODIPine 5 MG TAB PO (17:36)
[2020-12-07] MEDS: Pravastatin 40 MG TAB PO (19:41)
[2020-12-07] MEDS: Docusate Sodium 100 MG CAP PO (19:41)
[2020-12-07] MEDS: Oxybutynin 5 MG TAB PO (19:41)
[2020-12-07] MEDS: Mirtazapine 15 MG TAB 7.5 MG PO (21:39)
[2020-12-07 22:30] LABS: Osmolality, Urine 623 mOsm/kg (150-1,150)
[2020-12-07 22:34] LABS: COVID-19 RT-PCR UVMMC Result Negative (Negative)
[2020-12-08] VITALS (35 sets, daily range): BP systolic 133–177; BP diastolic 57–92; PULSE 61–84; RESP 15–24; TEMP 36.6–37.3; O2SAT 91–95
--- NOTE | 2020-12-08 | DI.RAD_ITS ---
EXAM: XR PORTABLE CHEST AP CLINICAL HISTORY: aspiration episode TECHNIQUE: 2D digital imaging was performed. COMPARISON: CR XR CHEST 1V IN DI DEPT from 12/07/2020 FINDINGS: MEDIASTINUM: Normal. HEART: Stable mild cardiomegaly. PULMONARY VASCULATURE: Normal. Atherosclerosis and tortuosity of the thoracic aorta. LUNGS: No focal consolidating infiltrates. The initial film shows poor inspiration and crowding the pulmonary vasculature. The subsequent upright AP portable image shows improved appearance of the pul monary vasculature and interstitium. There may be mild persistent interstitial prominence present. PLEURAL SPACE: No pleural effusion or pneumothorax. BONE:Within normal limits for the patient's age. OTHER FINDINGS:Surgical clips in the right upper quadrant of the abdomen which may reflect prior chol ecystectomy. IMPRESSION: Poor inspiration and crowding of pulmonary vasculature on the initial film which appears to clear on subsequent image. Mild persistent interstitial prominence is seen. Mild pulmonary edema or pneumoni a can't be excluded. No focal consolidating infiltrates. DATA REPOSITORY: RADIATION DOSE DELIVERED:
[2020-12-08] MEDS: Levothyroxine 112 MCG TAB PO (05:57)
[2020-12-08] MEDS: Sennosides/Docusate Sodium TAB 2 TAB PO (08:05)
[2020-12-08] MEDS: Multivitamin TAB 1 TAB PO (08:06)
[2020-12-08] MEDS: FLUoxetine 20 MG CAP 40 MG PO (08:06)
[2020-12-08] MEDS: Aspirin 81 MG CHEW PO (08:06)
[2020-12-08] MEDS: Docusate Sodium 100 MG CAP PO ×2 (08:06→19:50)
[2020-12-08] MEDS: Oxybutynin 5 MG TAB PO ×2 (08:06→19:51)
[2020-12-08] MEDS: Omeprazole 20 MG CAPCR 40 MG PO (08:06)
[2020-12-08] MEDS: Famotidine 20 MG TAB PO (08:06)
[2020-12-08] MEDS: amLODIPine 5 MG TAB PO (08:06)
--- NOTE | 2020-12-08 08:22 | PDOC.CMIN ---
- If Service Date Differs Date of service: 12/08/20 Time of Service: 08:22 Care Management Initial Assess REASON FOR HOSPITALIZATION:: Urinary Tract Infection and Hyponatremia. PAST MEDICAL HISTORY/PAST SURGICAL HISTORY:: Medical History: Abnormal cervical Papanicolaou smear (10/01/00),. Age-related macular degeneration, Ankle joint pain (06/21/13) - Rickets as a child, Balance problem, Bilateral impacted cerumen (07/31/15), Bronchospasm, Cataract (01/19/18), Chronic left shoulder pain (05/04/18),. Depressive disorder (12/04/11), Diabetes, Diverticulitis of colon - 04/11 pre-op H - P by Dr. Al Reid for lap sigmoid resection, secondary to acute episodes of diverticulitis. - 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, Essential hypertension (10/14/13), Fall in exam room while getting off exam table, Fatigue (06/21/13), Grief (03/04/16), Hip pain (06/24/13), Hypercalcemia (12/04/16), Hyperlipidemia (06/21/13), Hyponatremia (07/01/13), Hypothyroidism (06/24/13), Low back pain (06/21/13) - XRay 09/09 - DJD, R hip DJD, MRI - severe djd, no stenosis, Low back pain (06/21/13), Multiple excoriations (07/20/14), Other specified cardiac dysrhythmias (10/01/04), bradycardia by ECG; Holter=rare PAC/PVC/burst SVT; <3sec pause, Pelvic abscess (11/05/09) - 10/10 CT: SMALL RESIDUAL ABSCESSED CAVITY IN CENTRAL PELVIS, W/ FISTULA BETWEEN ABSCESS SIGMOID COLON, Pruritic disorder (01/10/14), Reflux esophagitis (12/08/16), Rickets, Sensorineural hearing loss, bilateral (01/14/18),. Vaginitis and vulvovaginitis, Wheezing (05/04/18), and ? vocal cord dysfunction. Surgical History: Abdominal hysterectomy (~1983), Cholecystectomy (~1979), drainage of pelvic abcess, Extraction of cataract - LEFT EYE;12/14/17; DR. ALICEA, Status post abdominal hysterectomy,. Status post cholecystectomy, Status post hip replacement, Status post incision and drainage, and Total replacement of hip (~2008) - LEFT. PREVIOUS FUNCTIONAL STATUS/SOCIAL/FAMILY SUPPORTS:: Alla is and lives alone in her own home in [place], [place], with her Pomeranian named Tiny. Alla enjoys playing cards with her sister and likes doing word searches. Per her sister, Mary Beth, Alla was twice. She did not have any children of her own but she and her first adopted two children. Unfortunately, after her first and Alla remarried, she became estranged from the children who were adults by then. 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 Her family supports consist of her sister, a brother who lives in [place], and a nephew who resides locally and helps fix things at her home. CURRENT FUNCTIONAL STATUS:: Alla is laying in bed watching television when CM comes to meet with her. She is pleasantly confused. She shares she became confused a few days ago and does not understand why. CM briefly discusses with her that as we age, medical problems such as UTIs can sometimes cause confusion. CM will continue to follow. ADVANCE DIRECTIVES:: COLST on file, Mary Beth Glass (sister) listed as healthcare agent. Has patient been provided with info about the portal/API?: No Did the patient sign up for the portal?: No CODE STATUS:: DNR/DNI INSURANCE COVERAGE / FINANCIAL ISSUES:: Medicaid and Medicare. CURRENT HOME/COMMUNITY SERVICES/EQUIPMENT:: Per her sister, Alla has a homemaker through [employer] who cleans her house on a weekly to bi-weekly basis. Prior to [facility], she attended [employer] 3 times a week. Alla owns a cane and FWW but, according to Mary Beth, only uses the FWW to walk to her mailbox. PRIMARY CARE PHYSICIAN:: Marielos Caldera MD POTENTIAL DISCHARGE NEEDS:: Follow up appointment with PCP and increased Home Health services. PATIENT/FAMILY EDUCATION NEEDS:: Discharge instructions, limitations, follow up plan of care including Ask Me Three and self management. ANTICIPATED BARRIERS TO DISCHARGE:: Patient's increased level of confusion and ability to care for herself. TRANSPORTATION:: To be determined based on discharge plan. If returning home, transport will be provided by her sister, Mary Beth, via private vehicle. PLAN:: Plan remains to be determined based on progress and Alla's ability to care for herself at home. CM will continue to follow.
[2020-12-08 09:28] LABS: Abs Immature Grans 0.04 10^3/uL (0.0-0.06); Absolute Basophil Count 0.02 10^3/uL (0.0-0.2); Absolute Eosinophil Count 0.01 10^3/uL (0.0-0.7); Absolute Lymphocyte Count 1.25 10^3/uL (1.2-3.4); Absolute Monocyte Count 0.89 10^3/uL (0.1-0.8); Absolute Neutrophil Count 8.59 10^3/uL (1.2-6.7); Basophils % 0.2; Eosinophils % 0.1; HCT 40.3 % (36.0-46.0); HGB 14.3 g/dL (11.2-15.7); Immature Grans % 0.4; Lymphocytes % 11.6; MCH 30.5 pg (27.0-33.0); MCHC 35.5 % (32.0-36.0); MCV 85.9 fL (80-95); MPV 9.3 fL (8.0-11.0); Monocytes % 8.2; Neutrophils % 79.5; Nucleated RBC 0 %; Platelet Count 317 10^3/uL (130-400); RBC 4.69 10^6/uL (3.93-5.22); RDW 12.3 % (11.7-14.6); RDW-SD 38.1 fL
[2020-12-08 09:43] LABS: ALT 62 U/L (14-59); AST 37 U/L (15-37); Albumin 3.2 g/dL (3.4-5.0); Alkaline Phosphatase 91 U/L (46-116); Anion Gap 8.5 mmol/L (3-11); BUN 21 mg/dL (7-18); Bilirubin, Total 0.8 mg/dL (0.2-1.0); CO2 26.5 mmol/L (21.0-32.0); CREATININE 0.8 mg/dL (0.55-1.02); Calcium 8.6 mg/dL (8.5-10.1); Chloride 84 mmol/L (98-107); Glucose 155 mg/dL (74-106); Magnesium 1.8 mg/dL (1.8-2.4); Total Protein 7.7 g/dL (6.4-8.2)
[2020-12-08 09:48] LABS: Sodium 119 mmol/L (136-145); Troponin I 0.07 ng/mL (<0.06)
--- NOTE | 2020-12-08 10:44 | PGE_ITS ---
Date of Service Date of service: 12/08/20 Time of Service: 10:44 Assessment and Plan Assessment and plan (1) Acute hyponatremia: Status: Acute Assessment and plan: Unfortunately, sodium is worse today. Ddx: dilutional (?acute CHF), due to medications (ARB, SSRI). Hold losartan. Diurese, monitoring I/O's and daily weights. TSH ok. Move to the ICU for closer monitoring of mental status and sodiums (concern for development of locked-in syndrome). (2) Non-STEMI (non-ST elevated myocardial infarction): Status: Acute Assessment and plan: asymptomatic. ?is this related to pulmonary edema. Echo ordered. Monitor BPs and volume status. Diuresing. Continue baby asa. Keep on tele. Patient's HR too low to initiate BB. Check fasting lipids. (3) Toxic metabolic encephalopathy: Status: Acute Assessment and plan: Multifactorial - due to UTI (POA) +/- hyponatremia +/- disorientation from dementia. Monitor mental status in the ICU. Continue empiric ceftriaxone. Await urine C&S (4) Urinary tract infection: Status: Acute Assessment and plan: Present on admission. As above. (5) Essential hypertension: Status: Chronic Assessment and plan: Losartan d/c'ed due to hyponatremia. Continue amlodipine; has prn clinidine ordered. (6) Diabetes: Status: Chronic Assessment and plan: Diet controlled (A1C 5.8). Continue carb consistent diet; add sodium restriction. Add SSI. Qualifiers: Diabetes mellitus type: type 2 Diabetes mellitus retirement insulin use: without retirement use Diabetes mellitus complication status: without complication Qualified Code(s): E11.9 - Type 2 diabetes mellitus without complications (7) Hypothyroidism: Status: Chronic Assessment and plan: TSH adequate. Continue levothyroxine. Qualifiers: Hypothyroidism type: unspecified Qualified Code(s): E03.9 - Hypothyroidism, unspecified (8) Hyperlipidemia: Status: Chronic Assessment and plan: Check FLP. Continue pravastatin Qualifiers: Hyperlipidemia type: unspecified Qualified Code(s): E78.5 - Hyperlipidemia, unspecified (9) Depressive disorder: Status: Chronic Assessment and plan: Serotonergic drugs could be contributing to hyponatremia. Consider d/c. (10) COVID-19 ruled out by laboratory testing: Status: Ruled-out (11) DVT prophylaxis: Status: Acute Assessment and plan: SC lovenox (12) Discharge planning issues: Status: Acute Assessment and plan: DNR/DNI Transfer to ICU for closer observation of neuro status as sodium is worse today. Total Critical Care Time 40 minutes. Subjective Subjective Interval history since last seen: Ms Tompkins remains pleasantly confused, per nursing. She denies dizziness, headache, nausea/vomiting, chest pain, shortness of breath. She was seen by Dr Caldera today - she has a COLST form saying she is DNR/DNI. Exam Narrative Exam Narrative: General: Very pleasant elderly obese female, A&Ox2, requires that each question be asked twice for her to answer it properly HEENT: EOMI, MMM Heart: RRR, no m/r/g Lungs: diminished breath sounds at B bases; I do not hear crackles, though these were reported earlier today Abdomen: soft, nontender, nondistended Extremities: no edema BLEs Objective Last Vital Signs Temp 37.3 C 12/08/20 07:45 Pulse 61 12/08/20 07:45 Resp 17 12/08/20 07:45 BP 147/75 H 12/08/20 07:45 Pulse Ox 93 12/08/20 07:45 Laboratory Results - last 24 hr 12/07/20 12/07/20 12/07/20 09:40 11:45 12:30 WBC RBC Hgb Hct MCV MCH MCHC RDW Plt Count MPV Immature Gran % Neutrophils % Lymphocytes % Monocytes % Eosinophils % Basophils % Nucleated RBC % Absolute Neutrophils Absolute Lymphocytes Absolute Monocytes Absolute Eosinophils Absolute Basophils Sodium Potassium Chloride Carbon Dioxide Anion Gap BUN Creatinine Estimated GFR/1.73 m2 Glucose Calcium Magnesium Total Bilirubin AST ALT Alkaline Phosphatase Troponin I 0.17 H* Total Protein Albumin Urine Osmolality 623 SARS-CoV-2 (PCR) Negative Nasopharyn COVID-19 PCR Not Applicable Ref Test Perform Site [facility] 12/07/20 12/07/20 12/07/20 12:30 13:30 14:22 WBC RBC Hgb Hct MCV MCH MCHC RDW Plt Count MPV Immature Gran % Neutrophils % Lymphocytes % Monocytes % Eosinophils % Basophils % Nucleated RBC % Absolute Neutrophils Absolute Lymphocytes Absolute Monocytes Absolute Eosinophils Absolute Basophils Sodium Potassium Chloride Carbon Dioxide Anion Gap BUN Creatinine Estimated GFR/1.73 m2 Glucose Calcium Magnesium Total Bilirubin AST ALT Alkaline Phosphatase Troponin I Cancelled Cancelled Cancelled Total Protein Albumin Urine Osmolality SARS-CoV-2 (PCR) [facility] Ref Test Perform Site 12/07/20 12/08/20 12/08/20 16:27 09:20 09:20 WBC 10.80 D RBC 4.69 Hgb 14.3 Hct 40.3 MCV 85.9 MCH 30.5 MCHC 35.5 RDW 12.3 Plt Count 317 MPV 9.3 Immature Gran % 0.4 Neutrophils % 79.5 Lymphocytes % 11.6 Monocytes % 8.2 Eosinophils % 0.1 Basophils % 0.2 Nucleated RBC % 0 Absolute Neutrophils 8.59 H Absolute Lymphocytes 1.25 Absolute Monocytes 0.89 H Absolute Eosinophils 0.01 Absolute Basophils 0.02 Sodium 119 L* Potassium 4.0 Chloride 84 L Carbon Dioxide 26.5 Anion Gap 8.5 BUN 21 H Creatinine 0.8 Estimated GFR/1.73 m2 >= 60.00 Glucose 155 H Calcium 8.6 Magnesium 1.8 Total Bilirubin 0.8 AST 37 ALT 62 H Alkaline Phosphatase 91 Troponin I 0.12 H* 0.07 Total Protein 7.7 Albumin 3.2 L Urine Osmolality SARS-CoV-2 (PCR) Nasopharyn COVID-19 PCR Ref Test Perform Site
[2020-12-08] MEDS: Furosemide 20 MG/2 ML VIAL IVP ×2 (10:51→15:56)
[2020-12-08] MEDS: Normal Saline Flush 10 ML SYR IVP (10:52)
[2020-12-08] MEDS: Normal Saline 500 ML 30 ML IV (11:00)
[2020-12-08 12:18] LABS: Anion Gap 8.4 mmol/L (3-11); BUN 22 mg/dL (7-18); CO2 27.6 mmol/L (21.0-32.0); CREATININE 0.7 mg/dL (0.55-1.02); Calcium 8.5 mg/dL (8.5-10.1); Chloride 83 mmol/L (98-107); Glucose 130 mg/dL (74-106); Potassium 3.9 mmol/L (3.5-5.1)
[2020-12-08 12:21] LABS: Sodium 119 mmol/L (136-145)
--- NOTE | 2020-12-08 13:07 | PCNE_ITS ---
Date of service: 12/08/20 Time of Service: 09:07 History of Present Illness History of Present Illness Chief Complaint: mental status changes Narrative: Patient is a 75-year-old woman who has been a primary care patient of mine for about 20 years. She was admitted because of weakness and mental status changes and found to have a sodium of 120. She is being tested for UTI the differential is diabetes insipidus versus medications. I did speak to her sister Mary Beth who said that on Thursday she was doing well. She was playing cards and had normal cognition. By her cognition had greatly deteriorated and it was almost impossible for her play cards. On Thursday she came to the emergency room with the above findings. She was admitted to [facility] on telemetry. Patient did not recognize me. She smiled when she saw me but she could not come up with my name. This is unusual she states that she was feeling better. And had no real concerns or complaints. I did hear her prior to me entering the room saying that she was thirsty Consults Consult date: 12/08/20 Requesting physician: Isabella Hicks Assessment and Plan Assessment and plan (1) Acute hyponatremia: Status: Acute (2) Physician orders for life-sustaining treatment (POLST) form indicates patient wish for [id number] status: Status: Acute (3) Urinary tract infection: Status: Acute (4) Diabetes: Status: Chronic Qualifiers: Diabetes mellitus type: type 2 Diabetes mellitus mcfp insulin use: without mcfp use Diabetes mellitus complication status: without complication Qualified Code(s): E11.9 - Type 2 diabetes mellitus without complications (5) Palliative care patient: Status: Acute Assessment and plan: CODE STATUS?Alla and I have talked about this on numerous occasions. In November she made the decision to be DNR/DNI. A COLST form is in the EMR. While in the emergency room she was made a full code. I did speak with Sister Mary Beth who went known for many years and she agreed with Alla's choice to be DNR/DNI. She is uncertain if she was asked when she spoke with the ER providers. She also stated Alla Would not want a feeding tube although this was not clear on her COLST form. She did have a bump in her troponin. It is now normalized. I had spoken with Dr. Hicks about the [place] prison up her lung sosa on both sides. She was going to order an echo. Patient's sodium was not back when I saw her. I have asked nursing to contact Sister Mary Beth and let her know what it was when it was back. Prior to doing today's note, her sodium did return. It was actually lower than what it had been. There have been times when Prozac has been known to cause hyponatremia. She is presently on this. We will discuss with Dr. Hicks about stopping the Prozac. Dr. Hicks will be doing more of a work-up regarding the low sodium Covid NEGATIVE Review of Systems Unobtainable due to mental condition (Patient states that she is feeling good, but uncertain due to mental status) Cardiovascular Cardiovascular: Denies chest pain and Denies dyspnea Respiratory Respiratory: Denies dyspnea Gastrointestinal Gastrointestinal: Denies abdominal pain Psychiatric Psychiatric: Denies depression [facility] Medical History (Updated 12/08/20 @ 13:17 by Marielos Caldera MD, [place]) Abnormal cervical Papanicolaou smear (10/01/00) Age-related macular degeneration Ankle joint pain (06/21/13) Rickets as a child Balance problem Bilateral impacted cerumen (07/31/15) Bronchospasm Cataract (01/19/18) Cataract Chronic left shoulder pain (05/04/18) Depressive disorder (12/04/11) Diabetes Diverticulitis of colon 04/11 pre-op H P by Dr. Al Reid for lap sigmoid resection, secondary to acute episodes of diverticulitis. 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 Essential hypertension (10/14/13) Fall in exam room while getting off exam table Fatigue (06/21/13) Grief (03/04/16) Hip pain (06/24/13) Hypercalcemia (12/04/16) Hyperlipidemia (06/21/13) Hyponatremia (07/01/13) Hypothyroidism (06/24/13) Low back pain (06/21/13) XRay 09/09 - DJD, R hip DJD MRI - severe djd, no stenosis Low back pain (06/21/13) Multiple excoriations (07/20/14) Other specified cardiac dysrhythmias (10/01/04) bradycardia by ECG; Holter=rare PAC/PVC/burst SVT; <3sec pause Other specified cardiac dysrhythmias (10/01/04) Pelvic abscess (11/05/09) 10/10 CT: SMALL RESIDUAL ABSCESSED CAVITY IN CENTRAL PELVIS, W/ FISTULA BETWEEN ABSCESS SIGMOID COLON Pelvic abscess (11/05/09) Pruritic disorder (01/10/14) Reflux esophagitis (12/08/16) Rickets Sensorineural hearing loss, bilateral (01/14/18) Vaginitis and vulvovaginitis Wheezing (05/04/18) ? voacl cord dysfunction Surgical History Abdominal hysterectomy (~1983) Cholecystectomy (~1979) drainage of pelvic abcess Extraction of cataract LEFT EYE;12/14/17; DR. ALICEA Status post abdominal hysterectomy Status post cholecystectomy Status post hip replacement Status post incision and drainage Total replacement of hip (~2008) LEFT Family History Mother , AGE 92 Diabetes Heart disease Father Heart disease Stomach cancer Sister Depression Heart disease COPD (chronic obstructive pulmonary disease) Asthma Brother Diabetes Essential hypertension Heart disease Hyperlipidemia Asthma Social History Smoking/Tobacco Use Status: Never Smoking risk assessment performed?: Yes Alcohol Intake: current Alcohol Intake frequency: 0-2 drinks per day Alcohol type: beer and wine Drug use: Never Substance use type: does not use Caregiver/Support person: No Household members: spouse and none Housing: house Communication Needs: None Do you need help understanding health information?: Never Pets and animals: Yes Pets and animals: dog(s) Sexually active: No Do you think of yourself as: straight/heterosexual Current gender identity: female and decline to answer What is your relationship status?: How often do you talk on the phone with friends or family?: three or more times per week How often do you get together with friends or relatives?: once per week How often do you attend religious or rastafarian services?: 4 or more times per year Do you belong to any clubs or organized social groups?: no Panel score (0-1 are the most socially isolated patients): 2 What type of physical activity do you participate in: walking Duration: 15-30 minutes/day Frequency: 1-2 times per week Medina/Moravian: Yarsani Special medina needs: No Seatbelt use: always Helmet use: Yes Helmet use: always Drive intox or ride w/intox wrecking car driver: No Do you feel safe in your relationship?: Yes Victim of physical abuse: No Victim of emotional abuse: No Victim of sexual abuse: No Would you like helpful sources: No Exam Narrative Exam Narrative: 75-year-old woman sitting in her chair. Her glasses of water is empty. She is smiling and cooperative. She does not have any JVD. I can hear crackles prison up her chest and both sides. Cardiac exam normal rate, a little muffled today Extremities?there is no edema today. Skin she has multiple excoriations. She itches constantly and has for many years. IMPRESSION: Head CT No acute intracranial process. Resp Effort & Inspection: able to speak in complete sentences (short sentences) Results Last Vital Signs Temp 98.2 F 12/08/20 12:46 Pulse 72 12/08/20 12:46 Resp 19 12/08/20 12:01 BP 133/72 12/08/20 12:01 Pulse Ox 94 12/08/20 12:01 Labs Result diagrams: 12/08/20 09:20 12/08/20 12:04 Labs: Laboratory Results - last 24 hr 12/07/20 12/07/20 12/07/20 09:40 11:45 16:27 WBC RBC Hgb Hct MCV MCH MCHC RDW Plt Count MPV Immature Gran % Neutrophils % Lymphocytes % Monocytes % Eosinophils % Basophils % Nucleated RBC % Absolute Neutrophils Absolute Lymphocytes Absolute Monocytes Absolute Eosinophils Absolute Basophils Sodium Potassium Chloride Carbon Dioxide Anion Gap BUN Creatinine Estimated GFR/1.73 m2 Glucose Calcium Magnesium Total Bilirubin AST ALT Alkaline Phosphatase Troponin I 0.12 H* Total Protein Albumin Urine Osmolality 623 SARS-CoV-2 (PCR) Negative Nasopharyn COVID-19 PCR Not Applicable Ref Test Perform Site [facility] [facility] 12/08/20 12/08/20 12/08/20 09:20 09:20 12:04 WBC 10.80 D RBC 4.69 Hgb 14.3 Hct 40.3 MCV 85.9 MCH 30.5 MCHC 35.5 RDW 12.3 Plt Count 317 MPV 9.3 Immature Gran % 0.4 Neutrophils % 79.5 Lymphocytes % 11.6 Monocytes % 8.2 Eosinophils % 0.1 Basophils % 0.2 Nucleated RBC % 0 Absolute Neutrophils 8.59 H Absolute Lymphocytes 1.25 Absolute Monocytes 0.89 H Absolute Eosinophils 0.01 Absolute Basophils 0.02 Sodium 119 L* 119 L* Potassium 4.0 3.9 Chloride 84 L 83 L Carbon Dioxide 26.5 27.6 Anion Gap 8.5 8.4 BUN 21 H 22 H Creatinine 0.8 0.7 Estimated GFR/1.73 m2 >= 60.00 >= 60.00 Glucose 155 H 130 H Calcium 8.6 8.5 Magnesium 1.8 Total Bilirubin 0.8 AST 37 ALT 62 H Alkaline Phosphatase 91 Troponin I 0.07 Total Protein 7.7 Albumin 3.2 L Urine Osmolality SARS-CoV-2 (PCR) Nasopharyn COVID-19 PCR Ref Test Perform Site
--- NOTE | 2020-12-08 13:45 | NUR.NOTE ---
Nursing Note: Patient choked on her carrots at lunch time today. This nurse called kitchen and requested future meals be soft and chopped.
[2020-12-08 14:03] LABS: NT-proBNP 6298 pg/mL (<300)
[2020-12-08] MEDS: Enoxaparin 40 MG/0.4 ML SYR SC (14:03)
--- NOTE | 2020-12-08 16:25 | DI.VRAD_ITS ---
PROCEDURE INFORMATION: Exam: XR Chest, 1 View Exam date and time: 12/08/2020 4:10 PM Age: 75 years old Clinical indication: Other: Aspiration episode TECHNIQUE: Imaging protocol: XR of the chest Views: 1 view. COMPARISON: CR XR CHEST 1V IN DI DEPT 12/07/2020 10:06 AM FINDINGS: Tubes, catheters and devices: Overlying EKG wires Lungs: Patchy bilateral opacities may represent multifocal pneumonia including COVID-19.. Pleural spaces: Possible small left pleural effusion Heart/Mediastinum: Stable cardiac silhouette Bones/joints: Stable IMPRESSION: Patchy bilateral opacities may represent multifocal pneumonia including COVID-19.. Dictated and Authenticated by: Neftali Keating MD. Ordering:MINNA Mason MD
[2020-12-08] MEDS: Insulin Aspart 300 UNITS/3 ML PEN SC (17:16)
[2020-12-08 18:16] LABS: Anion Gap 9.5 mmol/L (3-11); BUN 23 mg/dL (7-18); CO2 26.5 mmol/L (21.0-32.0); CREATININE 0.8 mg/dL (0.55-1.02); Calcium 8.7 mg/dL (8.5-10.1); Chloride 80 mmol/L (98-107); Glucose 195 mg/dL (74-106); Potassium 3.9 mmol/L (3.5-5.1)
[2020-12-08 18:21] LABS: Sodium 116 mmol/L (136-145)
[2020-12-08] MEDS: SODIUM CHLORIDE 3% 100 ML 600 ML IV ×2 (19:03→21:45)
[2020-12-08] MEDS: Pravastatin 40 MG TAB PO (19:51)
[2020-12-08] MEDS: Lachydrin 12% LOTION 225 GM BTL TP (20:08)
[2020-12-08 21:26] LABS: BUN 24 mg/dL (7-18); CO2 26.5 mmol/L (21.0-32.0); CREATININE 0.8 mg/dL (0.55-1.02); Calcium 8.4 mg/dL (8.5-10.1); Glucose 152 mg/dL (74-106); Potassium 3.8 mmol/L (3.5-5.1)
[2020-12-08 21:28] LABS: Sodium 118 mmol/L (136-145)
[2020-12-08 21:29] LABS: Anion Gap 8.5 mmol/L (3-11); Chloride 83 mmol/L (98-107)
[2020-12-08] MEDS: Mirtazapine 15 MG TAB 7.5 MG PO (22:26)
[2020-12-09] VITALS (35 sets, daily range): BP systolic 109–174; BP diastolic 39–94; PULSE 53–81; RESP 15–24; TEMP 36.1–37.2; O2SAT 91–97
[2020-12-09 00:09] LABS: BUN 24 mg/dL (7-18); CREATININE 0.8 mg/dL (0.55-1.02); Calcium 8.2 mg/dL (8.5-10.1); Chloride 84 mmol/L (98-107); Glucose 152 mg/dL (74-106); Potassium 3.7 mmol/L (3.5-5.1)
[2020-12-09 00:10] LABS: Sodium 118 mmol/L (136-145)
[2020-12-09] MEDS: SODIUM CHLORIDE 3% 100 ML 600 ML IV (00:40)
[2020-12-09 03:15] LABS: Anion Gap 7.2 mmol/L (3-11); BUN 26 mg/dL (7-18); CO2 26.8 mmol/L (21.0-32.0); CREATININE 0.8 mg/dL (0.55-1.02); Calcium 8.4 mg/dL (8.5-10.1); Chloride 85 mmol/L (98-107); Glucose 136 mg/dL (74-106); Potassium 3.8 mmol/L (3.5-5.1)
[2020-12-09 03:21] LABS: Sodium 119 mmol/L (136-145)
[2020-12-09] MEDS: SODIUM CHLORIDE 3% 500 ML 600 ML IV (03:45)
[2020-12-09] MEDS: Levothyroxine 112 MCG TAB PO (05:51)
[2020-12-09 06:34] LABS: Abs Immature Grans 0.05 10^3/uL (0.0-0.06); Absolute Basophil Count 0.05 10^3/uL (0.0-0.2); Absolute Eosinophil Count 0.11 10^3/uL (0.0-0.7); Absolute Lymphocyte Count 1.64 10^3/uL (1.2-3.4); Absolute Monocyte Count 1.95 10^3/uL (0.1-0.8); Basophils % 0.4; Eosinophils % 0.9; HGB 14.3 g/dL (11.2-15.7); Immature Grans % 0.4; MCH 30.5 pg (27.0-33.0); MCHC 35.8 % (32.0-36.0); MCV 85.3 fL (80-95); MPV 9.3 fL (8.0-11.0); Monocytes % 16.6; Neutrophils % 67.7; Nucleated RBC 0 %; Platelet Count 321 10^3/uL (130-400); RBC 4.69 10^6/uL (3.93-5.22); RDW 12.2 % (11.7-14.6); RDW-SD 37.6 fL; WBC 11.72 10^3/uL (4.4-10.8)
[2020-12-09 06:39] LABS: Absolute Neutrophil Count 7.93 10^3/uL (1.2-6.7)
[2020-12-09 06:52] LABS: Calculated LDL 97 mg/dL (<100); Cholesterol 173 mg/dL (<200); HDL Cholesterol 56 mg/dL (40-60); Magnesium 1.7 mg/dL (1.8-2.4); Triglyceride 101 mg/dL (<150)
[2020-12-09 06:54] LABS: Anion Gap 8.7 mmol/L (3-11); BUN 25 mg/dL (7-18); CO2 25.3 mmol/L (21.0-32.0); CREATININE 0.8 mg/dL (0.55-1.02); Calcium 8.4 mg/dL (8.5-10.1); Chloride 87 mmol/L (98-107); Glucose 135 mg/dL (74-106); Potassium 3.7 mmol/L (3.5-5.1)
[2020-12-09 07:01] LABS: Sodium 121 mmol/L (136-145)
[2020-12-09] MEDS: Famotidine 20 MG TAB PO (08:11)
[2020-12-09] MEDS: Multivitamin TAB 1 TAB PO (08:11)
[2020-12-09] MEDS: Omeprazole 20 MG CAPCR 40 MG PO (08:11)
[2020-12-09] MEDS: Sennosides/Docusate Sodium TAB 2 TAB PO (08:11)
[2020-12-09] MEDS: Furosemide 20 MG/2 ML VIAL IVP ×2 (08:12→17:14)
[2020-12-09] MEDS: Aspirin 81 MG CHEW PO (08:12)
[2020-12-09] MEDS: Docusate Sodium 100 MG CAP PO ×2 (08:12→19:32)
[2020-12-09] MEDS: Normal Saline Flush 10 ML SYR IVP ×2 (08:12→09:27)
[2020-12-09] MEDS: Oxybutynin 5 MG TAB PO ×2 (08:12→19:32)
--- NOTE | 2020-12-09 08:20 | PGE_ITS ---
Date of Service Date of service: 12/09/20 Time of Service: 10:08 Assessment and Plan Assessment and plan (1) Acute hyponatremia: Status: Acute Assessment and plan: SIADH suspected, and there is definitely a dilutional/hypervolemic component. Initiated on conivaptan. We have now also d/c'ed prozac and mirtazapine in addition to continuing holding ARB. S/p hypertonic saline overnight. Continue lasix for now. Continue to trend BMP Q6H. Continue fluid restriction. Keep in the ICU. (2) Non-STEMI (non-ST elevated myocardial infarction): Status: Acute Assessment and plan: asymptomatic. ?is this related to pulmonary edema. Echo ordered. Monitor BPs and volume status. Diuresing. Continue baby asa. Keep on tele. Patient's HR too low to initiate BB. lipids at goal (3) Aspiration pneumonia: Status: Suspected Assessment and plan: Change abx to zosyn. Await repeat CXR. Obtain swallow eval. Continue modified diet (minced/moist/mildly thick) (4) Dysphagia: Status: Acute Assessment and plan: As above. (5) Toxic metabolic encephalopathy: Status: Acute Assessment and plan: Multifactorial - due to possible mild UTI (POA) +/- hyponatremia +/- disorientation from dementia. Monitor mental status in the ICU. Mental status remains stable with correction of sodium. Continue to monitor. (6) Urinary tract infection: Status: Resolved Assessment and plan: Present on admission. D/c ceftriaxone. Further antibiotics on this admission are aimed at suspected aspiration pneumonia. (7) Essential hypertension: Status: Chronic Assessment and plan: Monitor BP on conivaptan/lasix. Conivaptan interacts with amlodipine - d/c'ed. Losartan d/c'ed due to hyponatremia. HR too low to initiated BB. Consider hydralazine PO. has prn clonidine (8) Diabetes: Status: Chronic Assessment and plan: Diet controlled (A1C 5.8). Continue carb consistent diet with sodium restriction. Continue SSI. Qualifiers: Diabetes mellitus type: type 2 Diabetes mellitus care home insulin use: without supervisor intermediates use Diabetes mellitus complication status: without complication Qualified Code(s): E11.9 - Type 2 diabetes mellitus without complications (9) Hypothyroidism: Status: Chronic Assessment and plan: TSH adequate. Continue levothyroxine. Qualifiers: Hypothyroidism type: unspecified Qualified Code(s): E03.9 - Hypothyroidism, unspecified (10) Hyperlipidemia: Status: Chronic Assessment and plan: Lipids at goal. Continue pravastatin Qualifiers: Hyperlipidemia type: unspecified Qualified Code(s): E78.5 - Hyperlipidemia, unspecified (11) Depressive disorder: Status: Chronic Assessment and plan: D/c prozac and mirtazapine. (12) COVID-19 ruled out by laboratory testing: Status: Ruled-out (13) DVT prophylaxis: Status: Acute Assessment and plan: SC lovenox (14) Discharge planning issues: Status: Acute Assessment and plan: DNR/DNI Keep in ICU Total Critical Care Time 40 minutes. Subjective Subjective Interval history since last seen: Ms Tompkins denies headache, dizziness, visual changes, chest pain, shortness of breath, nausea. A&Ox2 (thinks she is in the [facility]). Received hypertonic saline last night. Initiated on Conivaptan now. Na had gone down to 116, now 121. Afebrile. SBPs 129-170s. Neurologically intact. No seizures. No arrhythmias. Chocking on food - doing better with chopped moistened meats, mildly thick. No cough. Exam Narrative Exam Narrative: General: Very pleasant elderly obese female, A&Ox2, neurologically unchanged from yesterday, attempting to do a word puzzle HEENT: EOMI, MMM Heart: RRR, no m/r/g Lungs: diminished breath sounds at B bases, no crackles Abdomen: soft, nontender, nondistended Extremities: no edema BLEs Objective Last Vital Signs Temp 37.2 C 12/09/20 04:00 Pulse 64 12/09/20 07:01 Resp 21 12/09/20 07:01 BP 144/63 H 12/09/20 07:01 Pulse Ox 93 12/09/20 07:01 Laboratory Results - last 24 hr 12/08/20 12/08/20 12/08/20 09:20 09:20 09:20 WBC 10.80 D RBC 4.69 Hgb 14.3 Hct 40.3 MCV 85.9 MCH 30.5 MCHC 35.5 RDW 12.3 Plt Count 317 MPV 9.3 Immature Gran % 0.4 Neutrophils % 79.5 Lymphocytes % 11.6 Monocytes % 8.2 Eosinophils % 0.1 Basophils % 0.2 Nucleated RBC % 0 Absolute Neutrophils 8.59 H Absolute Lymphocytes 1.25 Absolute Monocytes 0.89 H Absolute Eosinophils 0.01 Absolute Basophils 0.02 Sodium 119 L* Potassium 4.0 Chloride 84 L Carbon Dioxide 26.5 Anion Gap 8.5 BUN 21 H Creatinine 0.8 Estimated GFR/1.73 m2 >= 60.00 Glucose 155 H Calcium 8.6 Magnesium 1.8 Total Bilirubin 0.8 AST 37 ALT 62 H Alkaline Phosphatase 91 Troponin I 0.07 NT-Pro-B Natriuret Pep Cancelled Total Protein 7.7 Albumin 3.2 L Triglycerides Total Cholesterol LDL Cholesterol, Calc HDL Cholesterol 12/08/20 12/08/20 12/08/20 09:20 12:04 18:02 WBC RBC Hgb Hct MCV MCH MCHC RDW Plt Count MPV Immature Gran % Neutrophils % Lymphocytes % Monocytes % Eosinophils % Basophils % Nucleated RBC % Absolute Neutrophils Absolute Lymphocytes Absolute Monocytes Absolute Eosinophils Absolute Basophils Sodium 119 L* 116 L* Potassium 3.9 3.9 Chloride 83 L 80 L Carbon Dioxide 27.6 26.5 Anion Gap 8.4 9.5 BUN 22 H 23 H Creatinine 0.7 0.8 Estimated GFR/1.73 m2 >= 60.00 >= 60.00 Glucose 130 H 195 H Calcium 8.5 8.7 Magnesium Total Bilirubin AST ALT Alkaline Phosphatase Troponin I NT-Pro-B Natriuret Pep 6298 H Total Protein Albumin Triglycerides Total Cholesterol LDL Cholesterol, Calc HDL Cholesterol 12/08/20 12/08/20 12/08/20 21:10 22:00 23:50 WBC RBC Hgb Hct MCV MCH MCHC RDW Plt Count MPV Immature Gran % Neutrophils % Lymphocytes % Monocytes % Eosinophils % Basophils % Nucleated RBC % Absolute Neutrophils Absolute Lymphocytes Absolute Monocytes Absolute Eosinophils Absolute Basophils Sodium 118 L* Cancelled 118 L* Potassium 3.8 Cancelled 3.7 Chloride 83 L Cancelled 84 L Carbon Dioxide 26.5 Cancelled 26.0 Anion Gap 8.5 Cancelled 8.0 BUN 24 H Cancelled 24 H Creatinine 0.8 Cancelled 0.8 Estimated GFR/1.73 m2 >= 60.00 Cancelled >= 60.00 Glucose 152 H Cancelled 152 H Calcium 8.4 L Cancelled 8.2 L Magnesium Total Bilirubin AST ALT Alkaline Phosphatase Troponin I NT-Pro-B Natriuret Pep Total Protein Albumin Triglycerides Total Cholesterol LDL Cholesterol, Calc HDL Cholesterol 12/09/20 12/09/20 12/09/20 00:00 03:00 06:09 WBC RBC Hgb Hct MCV MCH MCHC RDW Plt Count MPV Immature Gran % Neutrophils % Lymphocytes % Monocytes % Eosinophils % Basophils % Nucleated RBC % Absolute Neutrophils Absolute Lymphocytes Absolute Monocytes Absolute Eosinophils Absolute Basophils Sodium Cancelled 119 L* Potassium Cancelled 3.8 Chloride Cancelled 85 L Carbon Dioxide Cancelled 26.8 Anion Gap Cancelled 7.2 BUN Cancelled 26 H Creatinine Cancelled 0.8 Estimated GFR/1.73 m2 Cancelled >= 60.00 Glucose Cancelled 136 H Calcium Cancelled 8.4 L Magnesium 1.7 L Total Bilirubin AST ALT Alkaline Phosphatase Troponin I NT-Pro-B Natriuret Pep Total Protein Albumin Triglycerides 101 Total Cholesterol 173 LDL Cholesterol, Calc 97 HDL Cholesterol 56 12/09/20 12/09/20 06:09 06:09 WBC 11.72 H RBC 4.69 Hgb 14.3 Hct 40.0 MCV 85.3 MCH 30.5 MCHC 35.8 RDW 12.2 Plt Count 321 MPV 9.3 Immature Gran % 0.4 Neutrophils % 67.7 Lymphocytes % 14.0 Monocytes % 16.6 Eosinophils % 0.9 Basophils % 0.4 Nucleated RBC % 0 Absolute Neutrophils 7.93 H Absolute Lymphocytes 1.64 Absolute Monocytes 1.95 H Absolute Eosinophils 0.11 Absolute Basophils 0.05 Sodium 121 L* Potassium 3.7 Chloride 87 L Carbon Dioxide 25.3 Anion Gap 8.7 BUN 25 H Creatinine 0.8 Estimated GFR/1.73 m2 >= 60.00 Glucose 135 H Calcium 8.4 L Magnesium Total Bilirubin AST ALT Alkaline Phosphatase Troponin I NT-Pro-B Natriuret Pep Total Protein Albumin Triglycerides Total Cholesterol LDL Cholesterol, Calc HDL Cholesterol Objective Narrative Objective Narrative: CXR: pending this morning. CXR from yesterday: per my read: pulmonary edema with cephalization [facility] read: Patchy bilateral opacities may represent multifocal pneumonia including COVID-19. (Patient tested negative for COVID-19, not requiring oxygen, not short of breath, not coughing, does not clinically have COVID-19).
[2020-12-09] MEDS: Lachydrin 12% LOTION 225 GM BTL TP ×3 (09:28→19:32)
[2020-12-09] MEDS: MAGNESIUM SULFATE 2 GM/50 ML BAG IVPB (09:28)
[2020-12-09] MEDS: Normal Saline 500 ML IV (09:39)
--- NOTE | 2020-12-09 09:41 | IN_ITS ---
Date of service: 12/09/20 Time of Service: 09:15 PT Notes Visit Reasons: URINARY TRACT INFECTION, HYPONATREMIA Inpatient Physical Therapy Evaluation Date: 12/09/20 Referring Doctor: Dr. Isabella Hicks PT Orders: PT CONSULT: Limited ability Precautions: Fall risk, standard precautions Patient Profile/Admitting Diagnosis: Patient is a 75-year-old woman admitted to [facility] ICU on 12/07/20 secondary to urinary tract infection and hyponatremia. Patient's caregiver indicated she is more confused and was slow to response and using short sentences. There was no incidence of fall. PMHX: Medical History Abnormal cervical Papanicolaou smear (10/01/00) Age-related macular degeneration Ankle joint pain (06/21/13) Rickets as a child Balance problem Bilateral impacted cerumen (07/31/15) Bronchospasm Cataract (01/19/18) Cataract Chronic left shoulder pain (05/04/18) Depressive disorder (12/04/11) Diabetes Diverticulitis of colon 04/11 pre-op H P by Dr. Al Reid for lap sigmoid resection, secondary to acute episodes of diverticulitis. 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 Essential hypertension (10/14/13) Fall in exam room while getting off exam table Fatigue (06/21/13) Grief (03/04/16) Hip pain (06/24/13) Hypercalcemia (12/04/16) Hyperlipidemia (06/21/13) Hyponatremia (07/01/13) Hypothyroidism (06/24/13) Low back pain (06/21/13) XRay 09/09 - DJD, R hip DJD MRI - severe djd, no stenosis Low back pain (06/21/13) Multiple excoriations (07/20/14) Other specified cardiac dysrhythmias (10/01/04) bradycardia by ECG; Holter=rare PAC/PVC/burst SVT; <3sec pause Other specified cardiac dysrhythmias (10/01/04) Pelvic abscess (11/05/09) 10/10 CT: SMALL RESIDUAL ABSCESSED CAVITY IN CENTRAL PELVIS, W/ FISTULA BETWEEN ABSCESS SIGMOID COLON Pelvic abscess (01/04/10) Pruritic disorder (01/10/14) Reflux esophagitis (12/08/16) Rickets Sensorineural hearing loss, bilateral (01/14/18) Vaginitis and vulvovaginitis Wheezing (05/04/18) ? voacl cord dysfunction Surgical History Abdominal hysterectomy (~1983) Cholecystectomy (~1979) drainage of pelvic abcess Extraction of cataract LEFT EYE;12/14/17; DR. ALICEA Status post abdominal hysterectomy Status post cholecystectomy Status post hip replacement Status post incision and drainage Total replacement of hip (~2008) LEFT Social History/Home Situation: Patient lives in a single level trailer with ramp upon entry. She has grab bars in her bathroom. Difficult to gain home situatio n as patient does indicate her sister who lives in [place] checks on her frequently and it sounds though there is a caregiver as well. Equipment Owned/DME: Standard cane and front wheeled walker Subjective: Patient met she is feeling better. Is agreeable to evaluation. No complaints of pain. Objective: General Observation: Upon start of initial valuation patient seated in chair in room. Nursing states she had assist x1 minimally for supine to sit and sit to chair transfers. She has IV ports in both upper extremities, on telemetry, catheter, O2 saturation monitor right hand Mental Status: Alert and oriented to person and place but not time Pain: None ROM: Right Upper Extremity: GH flexion 140, abduction 120, elbow flexion and extension within functional limits. Left Upper Extremity: GH ready, abduction 120, elbow flexion extension within functional limits Right Lower Extremity: Hip flexion 110 degrees in sitting, abduction 30 degrees, external rotation 30 degrees, internal rotation 15. Knee flexion and extension within functional limits. Ankle ROM within functional limits. Left Lower Extremity: Hip flexion 95 degrees in sitting active assisted 105, abduction 20 degrees, external rotation 20 degrees,internal rotation 10. Flexion and extension within functional limits. Ankle range of motion within functional limits Strength: Right Upper Extremity: Glenohumeral joint flexion 4/5, abduction 4 -/5, bicep 4/5, tricep 4/5. Good labor relations director Left Upper Extremity: Glenohumeral joint flexion 4/5, abduction 4 -/5, bicep and tricep 4/5. Good labor relations director Right Lower Extremity: Hip flexion 4/5, abduction in sitting 4/5, hip adduction 4/5, quads 4/5, hamstrings 4 -/5, plantar and dorsiflexion 4/5. Left Lower Extremity: Hip flexion 4 -/5, abduction in sitting 4/5, hip adduction 4/5 in sitting, quads 4/5, hamstrings 4 -/5, plantarflexion and dorsiflexion 4/5 Sensation: Intact sensation light touch bilateral lower extremities Bed Mobility/Transfers: Bed mobility: Min assist x1 (per nursing) Supine?sit: Min assist x1 (per nursing) Sit to stand: Min assist x1 to front wheeled walker verbal cues for hand placement and shifting weight forward in chair Stand to sit: Contact-guard x1 with verbal cues for proper hand placement on chair Gait: 10 feet x 2 with contact-guard x1 use of front wheeled walker. Balance: Static Sitting: Good Dynamic Sitting: Good Static Standing: Fair Dynamic Standing: Fair Special Tests: Mobility Limitations Standardized Measure [facility] AM-PAC 6 clicks Basic Mobility Inpatient Short Form: Raw Score: 17 standardized Score: 42.13 CMS Score: 50.57 Informed Consent/Education: Patient instructed in purpose of PT consult and plan of care. Assessment: Patient is a 75 year old female referred to physical therapy services with the diagnosis of urinary tract infection and hyponatremia. Patient presents with clinical signs and symptoms consistent with above diagnosis, as demonstrated by the following impairment level findings: 1. Decreased by lower extremity strength major muscle groups. 2. Impaired activity tolerance 3. Impaired standing balance. Impairments are contributing to the following functional limitations: AMPAC score. 1. Increased dependence with transfers 2. Inability to safely ambulate without assistive device assistance 3. Increase completion time for mobility ADL performance 4. Increased fall risk Patient is assessed as a [] Low 52754 X Moderate 24610 [] High 55242 complexity based on the following: History: 75-year-old female with multiple medical comorbidities. Complicating factors include underlying balance impairment and extensive past medical history Examination: See above Presentation: evolving Decision Making: Moderate 97135 Goals: Goals X1 week 1. Supine-Sit: SBA 2. Sit-Supine: Independent 3. Sit-Stand: SBA with FWW 4. Stand-Sit : SBA from FWW 5. Bed-Chair: SBA with use of FWW 6. Chair-Bed: SBA with use of FWW 7. Gait: 150 with CG x1 and use of FWW Plan of Care/Treatment Plan: 1-2x/day, 7 days/week x 1 week. Plan of care has been reviewed with the DAYCARE WORKER providing the service under Physical Therapy direction. Initiate Physical Therapy intervention for strengthening, bed mobility, transfers, gait, stairs, balance training, use of assistive device. DISCHARGE RECOMMENDATIONS: Recommend SNF vs HHPT with caregiver if applicable. TREATMENT CODE/TIME: 86035 initial eval, 9:15-9:45 Gaudencio Sparrow PT, DPT Disclaimer: This note was created using [employer] voice recognition software. It was reviewed for major content. However, there may be multiple small discrepancies and errors due to the voice recognition aspects of the software.
[2020-12-09] MEDS: PIPERACILLIN/TAZO 3.375 GM in Normal Saline 50 ML IVPB ×3 (10:10→22:28)
--- NOTE | 2020-12-09 10:50 | DI.RAD_ITS ---
EXAM: XR PORTABLE CHEST AP CLINICAL HISTORY: follow up aspiration event TECHNIQUE: 2D digital imaging was performed. COMPARISON: CR,XR XR PORTABLE CHEST AP from 12/08/2020 FINDINGS: There is continued clearing of the lungs. No new infiltrates are seen no pleural effusion is present . Cardiac silhouette appears stable. IMPRESSION: Continued clearing of the lungs. No new infiltrates. DATA REPOSITORY: RADIATION DOSE DELIVERED:
--- NOTE | 2020-12-09 11:09 | DI.VRAD_ITS ---
PROCEDURE INFORMATION: Exam: XR Chest, 1 View Exam date and time: 12/09/2020 8:27 AM Age: 75 years old Clinical indication: Other: F/u aspiration event TECHNIQUE: Imaging protocol: XR of the chest Views: 1 view. COMPARISON: CR XR PORTABLE CHEST AP 12/08/2020 3:55 PM FINDINGS: Lungs: Decreasing pulmonary vascular congestion. Improving aeration bilaterally with mild patchy opacities remaining in the right upper lobe and left base. Pleural spaces: Unremarkable. No pleural effusion. No pneumothorax. Heart/Mediastinum: Cardiac silhouette stable. Bones/joints: Unremarkable. IMPRESSION: 1. Decreasing pulmonary vascular congestion. 2. Improving aeration bilaterally with mild patchy opacities remaining in the right upper lobe and left base. Dictated and Authenticated by: Lizbeth Villanueva MD. Ordering:MINNA Mason MD
[2020-12-09 12:16] LABS: Anion Gap 8.7 mmol/L (3-11); BUN 27 mg/dL (7-18); CO2 26.3 mmol/L (21.0-32.0); CREATININE 0.8 mg/dL (0.55-1.02); Calcium 8.4 mg/dL (8.5-10.1); Chloride 87 mmol/L (98-107); Glucose 123 mg/dL (74-106); Potassium 3.7 mmol/L (3.5-5.1)
[2020-12-09 12:30] LABS: Sodium 122 mmol/L (136-145)
[2020-12-09] MEDS: Enoxaparin 40 MG/0.4 ML SYR SC (13:35)
--- NOTE | 2020-12-09 14:32 | W.PALPGNOTE ---
Date of service: 12/09/20 Time of Service: 10:32 Assessment and Plan Assessment and plan (1) Aspiration pneumonia: Status: Suspected (2) Acute metabolic encephalopathy: Status: Acute (3) Hyponatremia: Status: Acute (4) Palliative care patient: Status: Acute Assessment and plan: Reassurance regarding her dog being safe with Mary Beth She was better today and that she recognized who I was but could not come up with my name. Regarding dysphagia?I think speech therapy would be good. She does not have any teeth and so I think it makes it very difficult for her to have a regular diet Hyponatremia starting to reverse with IV therapy, fluid restriction and Lasix Patient remains DNR/DNI. Baseline Alla is a wonderful kind person, but cognitively has a difficult time and needs help from her sister to do some basic things such as shopping Thank you for this consult Subjective Subjective Interval history since last seen: Alla stated that she felt like she was doing better, but was very tired.SHe remains in the ICU due to hyponatremia. Dr Hicks had stopped many of her meds due to the potential to cause adverse reactions of hyponatremia No CP, headache, loss of taste or smell, runny nose,nausea and vomiting or diarrhea. Exam Narrative Exam Narrative: Alal knew I was her dr, but couldn't remember my name. She knew she was in the hospital Xray today: mona(s) humphrey RAD:XR portable chest AP EXAM: XR PORTABLE CHEST AP CLINICAL HISTORY: follow up aspiration event TECHNIQUE: 2D digital imaging was performed. COMPARISON: CR,XR XR PORTABLE CHEST AP from 12/08/2020 FINDINGS: There is continued clearing of the lungs. No new infiltrates are seen no pleural effusion is present. Cardiac silhouette appears stable. IMPRESSION: Continued clearing of the lungs. No new infiltrates. Resp Effort & Inspection: able to speak in complete sentences Other: decrease in rales in posterior lung sosa from yesterday Objective Last Vital Signs Temp 97.9 F 12/09/20 12:42 Pulse 68 12/09/20 12:42 Resp 15 12/09/20 12:42 BP 143/71 H 12/09/20 12:00 Pulse Ox 92 12/09/20 12:42 Laboratory Results - last 24 hr 12/08/20 12/08/20 12/08/20 18:02 21:10 22:00 WBC RBC Hgb Hct MCV MCH MCHC RDW Plt Count MPV Immature Gran % Neutrophils % Lymphocytes % Monocytes % Eosinophils % Basophils % Nucleated RBC % Absolute Neutrophils Absolute Lymphocytes Absolute Monocytes Absolute Eosinophils Absolute Basophils Sodium 116 L* 118 L* Cancelled Potassium 3.9 3.8 Cancelled Chloride 80 L 83 L Cancelled Carbon Dioxide 26.5 26.5 Cancelled Anion Gap 9.5 8.5 Cancelled BUN 23 H 24 H Cancelled Creatinine 0.8 0.8 Cancelled Estimated GFR/1.73 m2 >= 60.00 >= 60.00 Cancelled Glucose 195 H 152 H Cancelled Calcium 8.7 8.4 L Cancelled Magnesium Triglycerides Total Cholesterol LDL Cholesterol, Calc HDL Cholesterol 12/08/20 12/09/20 12/09/20 23:50 00:00 03:00 WBC RBC Hgb Hct MCV MCH MCHC RDW Plt Count MPV Immature Gran % Neutrophils % Lymphocytes % Monocytes % Eosinophils % Basophils % Nucleated RBC % Absolute Neutrophils Absolute Lymphocytes Absolute Monocytes Absolute Eosinophils Absolute Basophils Sodium 118 L* Cancelled 119 L* Potassium 3.7 Cancelled 3.8 Chloride 84 L Cancelled 85 L Carbon Dioxide 26.0 Cancelled 26.8 Anion Gap 8.0 Cancelled 7.2 BUN 24 H Cancelled 26 H Creatinine 0.8 Cancelled 0.8 Estimated GFR/1.73 m2 >= 60.00 Cancelled >= 60.00 Glucose 152 H Cancelled 136 H Calcium 8.2 L Cancelled 8.4 L Magnesium Triglycerides Total Cholesterol LDL Cholesterol, Calc HDL Cholesterol 12/09/20 12/09/20 12/09/20 06:09 06:09 06:09 WBC 11.72 H RBC 4.69 Hgb 14.3 Hct 40.0 MCV 85.3 MCH 30.5 MCHC 35.8 RDW 12.2 Plt Count 321 MPV 9.3 Immature Gran % 0.4 Neutrophils % 67.7 Lymphocytes % 14.0 Monocytes % 16.6 Eosinophils % 0.9 Basophils % 0.4 Nucleated RBC % 0 Absolute Neutrophils 7.93 H Absolute Lymphocytes 1.64 Absolute Monocytes 1.95 H Absolute Eosinophils 0.11 Absolute Basophils 0.05 Sodium 121 L* Potassium 3.7 Chloride 87 L Carbon Dioxide 25.3 Anion Gap 8.7 BUN 25 H Creatinine 0.8 Estimated GFR/1.73 m2 >= 60.00 Glucose 135 H Calcium 8.4 L Magnesium 1.7 L Triglycerides 101 Total Cholesterol 173 LDL Cholesterol, Calc 97 HDL Cholesterol 56 12/09/20 12:00 WBC RBC Hgb Hct MCV MCH MCHC RDW Plt Count MPV Immature Gran % Neutrophils % Lymphocytes % Monocytes % Eosinophils % Basophils % Nucleated RBC % Absolute Neutrophils Absolute Lymphocytes Absolute Monocytes Absolute Eosinophils Absolute Basophils Sodium 122 L* Potassium 3.7 Chloride 87 L Carbon Dioxide 26.3 Anion Gap 8.7 BUN 27 H Creatinine 0.8 Estimated GFR/1.73 m2 >= 60.00 Glucose 123 H Calcium 8.4 L Magnesium Triglycerides Total Cholesterol LDL Cholesterol, Calc HDL Cholesterol
[2020-12-09] MEDS: Insulin Aspart 300 UNITS/3 ML PEN SC (17:08)
--- NOTE | 2020-12-09 17:23 | PDOC.CMPRO ---
- If Service Date Differs Date of service: 12/09/20 Time of Service: 17:23 Care Management Progress Note S/O: Alla is laying in bed watching television when CM comes to meet with her. She remains pleasantly confused. She talks about her dog Tiny and how small he was when he came to live with her. Alla's sodium level was low at 118 upon admission yesterday. Per MD note, the hyponatremia is being treated with IV therapy. Lab work drawn this morning reveals a sodium level of 122. CM will continue to follow. A: Alla is a 75 year old female who was admitted to [facility] on 12/08/2020 for a urinary tract infection and hyponatremia. P: Plan remains to be determined based on progress. If Alla continues to improve, anticipate she will likely return home with new services when medically cleared by provider. CM will continue to support patient and assess for discharge planning needs.
[2020-12-09 18:30] LABS: Anion Gap 7.5 mmol/L (3-11); BUN 28 mg/dL (7-18); CO2 26.5 mmol/L (21.0-32.0); CREATININE 1.1 mg/dL (0.55-1.02); Calcium 8.6 mg/dL (8.5-10.1); Chloride 88 mmol/L (98-107); Estimated GFR 48.42 (mL/min/1.73m2); Glucose 154 mg/dL (74-106); Potassium 4.2 mmol/L (3.5-5.1)
[2020-12-09 18:31] LABS: Sodium 122 mmol/L (136-145)
[2020-12-09] MEDS: Pravastatin 40 MG TAB PO (19:32)
[2020-12-10] VITALS (20 sets, daily range): BP systolic 110–170; BP diastolic 50–92; PULSE 52–77; RESP 16–24; TEMP 36.1–37.6; O2SAT 92–98
[2020-12-10 00:32] LABS: Anion Gap 6.3 mmol/L (3-11); BUN 30 mg/dL (7-18); CO2 27.7 mmol/L (21.0-32.0); CREATININE 1.1 mg/dL (0.55-1.02); Calcium 8.4 mg/dL (8.5-10.1); Chloride 91 mmol/L (98-107); Estimated GFR 48.42 (mL/min/1.73m2); Glucose 133 mg/dL (74-106); Sodium 125 mmol/L (136-145)
[2020-12-10] MEDS: PIPERACILLIN/TAZO 3.375 GM in Normal Saline 50 ML IVPB ×2 (03:18→10:00)
[2020-12-10] MEDS: Levothyroxine 112 MCG TAB PO (05:49)
[2020-12-10 07:09] LABS: HCT 43.1 % (36.0-46.0); HGB 14.9 g/dL (11.2-15.7); MCH 30.2 pg (27.0-33.0); MCHC 34.6 % (32.0-36.0); MCV 87.2 fL (80-95); MPV 9.3 fL (8.0-11.0); Nucleated RBC 0 %; Platelet Count 303 10^3/uL (130-400); RBC 4.94 10^6/uL (3.93-5.22); RDW 12.5 % (11.7-14.6); RDW-SD 39.7 fL; WBC 12.18 10^3/uL (4.4-10.8)
[2020-12-10 07:16] LABS: Anion Gap 7.2 mmol/L (3-11); BUN 28 mg/dL (7-18); CO2 28.8 mmol/L (21.0-32.0); Calcium 8.3 mg/dL (8.5-10.1); Chloride 92 mmol/L (98-107); Estimated GFR 54.05 (mL/min/1.73m2); Glucose 110 mg/dL (74-106); Magnesium 2.2 mg/dL (1.8-2.4); Potassium 3.8 mmol/L (3.5-5.1); Sodium 128 mmol/L (136-145)
[2020-12-10 07:29] LABS: Absolute Eosinophil Count 0.12 10^3/uL (0.0-0.7); Absolute Lymphocyte Count 2.19 10^3/uL (1.2-3.4); Absolute Neutrophil Count 8.65 10^3/uL (1.2-6.7); Atypical Lymphocytes % 4; Myelocytes % 1
[2020-12-10 07:30] LABS: Diff Comment Manual Differential; RBC Morphology Normal
--- NOTE | 2020-12-10 07:36 | DI.US_ITS ---
APPROVED REPORT EXAM: Comprehensive 2D, Doppler, and color-flow Echocardiogram Patient Location: In-Patient Construction Director: Myrna Ayoub RDCS (AE) Indications: CHF Other Information Study Quality: Fair. Technically limited study due to body habitus, inability to position patient. Conclusion Left Ventricle : The left ventricle is normal size. The left ventricular systolic function is mildly reduced There is normal left ventricular wall thickness. There is normal LV segmental wall motion. T he diastolic function is abnormal. LVEF is 45%. Right Ventricle : Right ventricle is not well visualized. Right ventricular systolic function could n ot be assessed. The RVSP is 25.4mmHg. Atria : The left atrium size is normal. The right atrium size is normal. Valves: There are no hemodynamically significant valvular lesions. Great Vessels : The aortic root is normal in size. The ascending aorta is normal in size. Due to poor image quality, the IVC could not be assessed. Paired to study from 06/25/2018, patient's ejection fraction has decreased slightly. Wall motion Left Ventricle The left ventricle is normal size. The left ventricular systolic function is mildly reduced There is normal left ventricular wall thickness. There is normal LV segmental wall motion. The diastolic funct ion is abnormal. There is no ventricular septal defect visualized. LVEF is 45%. Right Ventricle Right ventricle is not well visualized. Right ventricular systolic function could not be assessed. Th e RVSP is 25.4mmHg. Atria The left atrium size is normal. The right atrium size is normal. The interatrial septum is intact wit h no evidence for an atrial septal defect. Aortic Valve The aortic valve is normal in structure. Aortic valve is trileaflet. There is no aortic valvular sten osis. No aortic regurgitation is present. Mitral Valve Moderate mitral annular calcification. No evidence of mitral valve stenosis. Trace mitral regurgitati on. Tricuspid Valve The tricuspid valve is normal in structure. There is no tricuspid valve stenosis. Trace tricuspid reg urgitation. Pulmonic Valve The pulmonary valve is normal in structure. There is no pulmonic valvular stenosis. Trace pulmonic re gurgitation. Great Vessels The aortic root is normal in size. The ascending aorta is normal in size. Due to poor image quality, the IVC could not be assessed. Pericardium There is no pericardial effusion. 2D Dimensions IVSD d PLAX 1.02 cm F: 0.6-1.0 LV Vol A2C d MOD 120.3 mL LVPW d PLAX 1.02 cm F: 0.6 - 1.0 LV Vol A4C d MOD 109.4 mL LVID d PLAX 4.57 cm F: 3.8 - 5.2 LV EF A4C MOD 42.8 % LVDs 3.40 cm F: 2.2 - 3.5 LV EF A2C MOD 45.3 % Ao Root d 2.98 cm F: 2.7 - 3.3 LV EF Biplane MOD 45.0 % RA Area A4C 15.91 cm2 SV 53.83 mL Ao Asc Diam d 3.09 cm F: 2.3 - 3.1 LV EF Teichholz 49.4 % LVEF ([facility]) 44.98 % F: 54 - 74 LV Volume 119.67 mL F: 46 - 106 LV Volume Index 65.03 mL/m2 F: 29 - 61 LV Vol Biplane MOD 119.7 mL FS 24.85 % M-Mode TAPSE 1.56 cm (M/F) >1.7 LV Diastology MV E' medial 0.037 (>0.07 m/s) E/A Ratio 0.7 LV E/e MED 15.55 (<14) MV E Vmax 0.57 (0.4-1.3 m/s) MV E' lateral 0.044 (>0.1 m/s) MV A Vmax 0.80 (0.4-1.3 m/s) LV E/e LAT 12.95 (<14) MV E/A Ratio 0.71 MV E/E' medial 15.59 MV E/E' lateral 12.99 Aortic Valve LVOT Area 2.85 cm2 AoV Area Vmax 2.23 cm2 LVOT Vmax 1.03 m/s ROSELINE Mean Carlin. 1.90 cm2 LVOT Mean Carlin. 0.58 m/s LVOT Peak Grad 4.3 mmHg LVOT Mean Grad 1.7 mmHg LVOT VTI 0.218 m LVOT Diam s 1.90 cm AoV Vmax 1.32 m/s Velocity Ratio 0.78 AoV Mean Carlin. 0.87 m/s AoV Peak Grad 7.0 mmHg LVOT SV 62.24 mL AoV Mean Grad 3.4 mmHg AoV VTI 0.240 m AoV Area VTI 2.59 cm2 Mitral Valve MV DT 315 (160-240 msec) MV PHT 91 msec MV Area PHT 2.41 cm2 Pulmonary Valve PV Vmax 0.91 (0.5-1.5 m/s) RVOT Peak Gr. 2.30 mmHg PV Peak Grad 3.3 mmHg RVOT Mean Gr. 1.10 mmHg PV Mean Grad 2.0 mmHg RVOT VTI 0.159 m PV VTI 0.191 m RVOT Vmax 0.76 m/s Tricuspid Valve TR Peak Grad 22.3 mmHg TR Vmax 2.37 m/s RA Pressure 3.00 mmHg RVSP (TR) 25.4 mmHg
--- NOTE | 2020-12-10 07:53 | W.PALPGNOTE ---
Date of service: 12/10/20 Time of Service: 07:53 Assessment and Plan Assessment and plan (1) Dysphagia: Status: Acute (2) Acute hyponatremia: Status: Acute (3) Palliative care patient: Status: Acute Assessment and plan: She is more cognitively aware - called me by name today! She is anxious to get home to her dog Numbers improving. Dr. Hicks is doing a great job determining cause of her hyponatremia. I am glad that it is improving. Alal did ask me about taking medication for her memory. We will address this outpatient when I see her after her discharge. I recommend PT zechariah Spoke rene Clinton, her sister. She has a scheduled Covid Vaccine on Thursday. Please be aware of this so gordo can reschedule or do thru HH Has difficulties with constipation. PLease be sure she is having a BM daily Subjective Subjective Interval history since last seen: Alla is feeling much better. She is anxious to get home and be with her dog. She immediately called me Marielos when I walked in the room. Exam Narrative Exam Narrative: Laboratory Tests 08/13/20 11/08/20 12/07/20 08:25 08:28 11:45 WBC Sodium Creatinine Estimated GFR/1.73 m2 >= 60.00 Hemoglobin A1c 5.8 H Total Cholesterol 168 LDL Cholesterol, Calc 94 TSH 1.87 SARS-CoV-2 (PCR) Negative 12/09/20 12/09/20 12/10/20 06:09 18:12 06:30 WBC 11.72 H Sodium 122 L* 128 L Creatinine 1.1 H 1.0 Estimated GFR/1.73 m2 Hemoglobin A1c Total Cholesterol LDL Cholesterol, Calc TSH SARS-CoV-2 (PCR) 12/10/20 06:30 WBC 12.18 H Sodium Creatinine Estimated GFR/1.73 m2 Hemoglobin A1c Total Cholesterol LDL Cholesterol, Calc TSH SARS-CoV-2 (PCR) 12/09/20 EXAM: XR PORTABLE CHEST AP CLINICAL HISTORY: follow up aspiration event TECHNIQUE: 2D digital imaging was performed. COMPARISON: CR,XR XR PORTABLE CHEST AP from 12/08/2020 FINDINGS: There is continued clearing of the lungs. No new infiltrates are seen no pleural effusion is present. Cardiac silhouette appears stable. IMPRESSION: Continued clearing of the lungs. No new infiltrates. She is much more bright eyed. She is appropriately answering questions. She is pretty fixated on going home. Heart sounds are muffled. I still hear some rales posteriorly but not as much as the last couple of days. GI Palpation: soft and no hepatosplenomegaly Objective Last Vital Signs Temp 97.9 F 12/10/20 04:02 Pulse 57 L 12/10/20 07:00 Resp 19 12/10/20 07:00 BP 150/58 H 12/10/20 07:00 Pulse Ox 94 12/10/20 07:00 Laboratory Results - last 24 hr 12/09/20 12/09/20 12/10/20 12:00 18:12 00:10 WBC RBC Hgb Hct MCV MCH MCHC RDW Plt Count MPV Immature Gran % Neutrophils % Lymphocytes % Atypical Lymphs % Monocytes % Eosinophils % Basophils % Myelocytes % Nucleated RBC % Absolute Neutrophils Absolute Lymphocytes Absolute Monocytes Absolute Eosinophils Absolute Basophils RBC Morphology Sodium 122 L* 122 L* 125 L Potassium 3.7 4.2 4.0 Chloride 87 L 88 L 91 L Carbon Dioxide 26.3 26.5 27.7 Anion Gap 8.7 7.5 6.3 BUN 27 H 28 H 30 H Creatinine 0.8 1.1 H 1.1 H Estimated GFR/1.73 m2 >= 60.00 48.42 48.42 Glucose 123 H 154 H 133 H Calcium 8.4 L 8.6 8.4 L Magnesium 12/10/20 12/10/20 06:30 06:30 WBC 12.18 H RBC 4.94 Hgb 14.9 Hct 43.1 MCV 87.2 MCH 30.2 MCHC 34.6 RDW 12.5 Plt Count 303 MPV 9.3 Immature Gran % See Differential Neutrophils % 71.0 Lymphocytes % 14.0 Atypical Lymphs % 4 Monocytes % 9.0 Eosinophils % 1.0 Basophils % 0.0 Myelocytes % 1 Nucleated RBC % 0 Absolute Neutrophils 8.65 H Absolute Lymphocytes 2.19 Absolute Monocytes 1.10 H Absolute Eosinophils 0.12 Absolute Basophils 0.00 RBC Morphology Normal Sodium 128 L Potassium 3.8 Chloride 92 L Carbon Dioxide 28.8 Anion Gap 7.2 BUN 28 H Creatinine 1.0 Estimated GFR/1.73 m2 54.05 Glucose 110 H Calcium 8.3 L Magnesium 2.2
[2020-12-10] MEDS: Lachydrin 12% LOTION 225 GM BTL TP ×2 (08:00→19:32)
--- NOTE | 2020-12-10 08:29 | W.PM.PROGNOT ---
Date of Service Date of service: 12/10/20 Time of Service: 12:10 Assessment and Plan Assessment and plan (1) Acute hyponatremia: Status: Acute Assessment and plan: SIADH suspected, and there is definitely a dilutional/hypervolemic component. Na 128 now post conivaptan x 24 hrs, transitioned to tolvaptan. We d/c'ed prozac and mirtazapine in addition to continuing holding ARB. S/p hypertonic saline. Continue lasix. Monitor I/O's and daily weights. Next BMP tomorrow am. Can likely transfer out of ICU. Continue fluid restriction. (2) Non-STEMI (non-ST elevated myocardial infarction): Status: Acute Assessment and plan: asymptomatic - however, the patient was also confused. ?is this related to pulmonary edema. EKG this am looks different. Troponins did turn around. Echo without wall motion abnormalities, but with worsened EF (45%; also diastolic dysfunction). Discussed with the patient and with Dr Caldera: will obtain an MPI tomorrow. Monitor BPs and volume status. Diuresing. Continue baby asa. Continue cardiac catheterization technician. Patient's HR too low to initiate BB. lipids at goal (3) Aspiration pneumonia: Status: Suspected Assessment and plan: Switch abx to augmentin. Await swallow eval. Continue modified diet (minced/moist/mildly thick) (4) Dysphagia: Status: Acute Assessment and plan: As above. (5) Toxic metabolic encephalopathy: Status: Resolved Assessment and plan: Multifactorial - due to possible mild UTI (POA) +/- hyponatremia +/- disorientation from dementia. Much better. Continue to monitor. (6) Urinary tract infection: Status: Resolved Assessment and plan: Present on admission. Further antibiotics on this admission are aimed at suspected aspiration pneumonia. (7) Essential hypertension: Status: Chronic Assessment and plan: Monitor BP on tolvaptan/lasix. Conivaptan interacts with amlodipine - d/c'ed. Losartan d/c'ed due to hyponatremia. HR too low to initiated BB. Consider hydralazine PO. has prn clonidine (8) Diabetes: Status: Chronic Assessment and plan: Diet controlled (A1C 5.8). Continue carb consistent diet with sodium restriction. Continue SSI. Qualifiers: Diabetes mellitus complication status: without complication Diabetes mellitus traffic officer insulin use: without traffic officer use Diabetes mellitus type: type 2 Qualified Code(s): E11.9 - Type 2 diabetes mellitus without complications (9) Hypothyroidism: Status: Chronic Assessment and plan: TSH adequate. Continue levothyroxine. Qualifiers: Hypothyroidism type: unspecified Qualified Code(s): E03.9 - Hypothyroidism, unspecified (10) Hyperlipidemia: Status: Chronic Assessment and plan: Lipids at goal. Continue pravastatin Qualifiers: Hyperlipidemia type: unspecified Qualified Code(s): E78.5 - Hyperlipidemia, unspecified (11) Depressive disorder: Status: Chronic Assessment and plan: No longer on prozac and mirtazapine due to hyponatremia. (12) COVID-19 ruled out by laboratory testing: Status: Ruled-out (13) DVT prophylaxis: Status: Acute Assessment and plan: SC lovenox (14) Discharge planning issues: Status: Acute Assessment and plan: DNR/DNI Transfer out of ICU. Subjective Subjective Interval history since last seen: Ms Tompkins states she is feeling generally better. She does not know what feels better specifically. She denies dizziness, headache, visual changes, chest pain, shortness of breath, nausea. Mentation has improved dramatically, both per nursing and per Dr Caldera who saw the patient this morning. The patient recognized Dr Caldera. UOP 1150/12 hrs. Conivaptan bag finished. Na 128 this am. NSR 60, 150/58, 94-98% RA. On fluid restriction. Exam Narrative Exam Narrative: General: Very pleasant elderly obese female, A&Ox3 today, definitely sharper/faster answers. She did not remember the names of Trump/Biden. HEENT: EOMI, MMM Heart: RRR, no m/r/g Lungs: diminished breath sounds at B bases, no crackles Abdomen: soft, nontender, nondistended Extremities: no edema BLEs Objective Last Vital Signs Temp 36.6 C 12/10/20 04:02 Pulse 57 L 12/10/20 07:00 Resp 19 12/10/20 07:00 BP 150/58 H 12/10/20 07:00 Pulse Ox 94 12/10/20 07:00 Laboratory Results - last 24 hr 12/09/20 12/09/20 12/10/20 12:00 18:12 00:10 WBC RBC Hgb Hct MCV MCH MCHC RDW Plt Count MPV Immature Gran % Neutrophils % Lymphocytes % Atypical Lymphs % Monocytes % Eosinophils % Basophils % Myelocytes % Nucleated RBC % Absolute Neutrophils Absolute Lymphocytes Absolute Monocytes Absolute Eosinophils Absolute Basophils RBC Morphology Sodium 122 L* 122 L* 125 L Potassium 3.7 4.2 4.0 Chloride 87 L 88 L 91 L Carbon Dioxide 26.3 26.5 27.7 Anion Gap 8.7 7.5 6.3 BUN 27 H 28 H 30 H Creatinine 0.8 1.1 H 1.1 H Estimated GFR/1.73 m2 >= 60.00 48.42 48.42 Glucose 123 H 154 H 133 H Calcium 8.4 L 8.6 8.4 L Magnesium 12/10/20 12/10/20 06:30 06:30 WBC 12.18 H RBC 4.94 Hgb 14.9 Hct 43.1 MCV 87.2 MCH 30.2 MCHC 34.6 RDW 12.5 Plt Count 303 MPV 9.3 Immature Gran % See Differential Neutrophils % 71.0 Lymphocytes % 14.0 Atypical Lymphs % 4 Monocytes % 9.0 Eosinophils % 1.0 Basophils % 0.0 Myelocytes % 1 Nucleated RBC % 0 Absolute Neutrophils 8.65 H Absolute Lymphocytes 2.19 Absolute Monocytes 1.10 H Absolute Eosinophils 0.12 Absolute Basophils 0.00 RBC Morphology Normal Sodium 128 L Potassium 3.8 Chloride 92 L Carbon Dioxide 28.8 Anion Gap 7.2 BUN 28 H Creatinine 1.0 Estimated GFR/1.73 m2 54.05 Glucose 110 H Calcium 8.3 L Magnesium 2.2 Objective Narrative Objective Narrative: Echo: Left Ventricle : The left ventricle is normal size. The left ventricular systolic function is mildly reduced There is normal left ventricular wall thickness. There is normal LV segmental wall motion. The diastolic function is abnormal. LVEF is 45%. Right Ventricle : Right ventricle is not well visualized. Right ventricular systolic function could not be assessed. The RVSP is 25.4mmHg. Atria : The left atrium size is normal. The right atrium size is normal. Valves: There are no hemodynamically significant valvular lesions. Great Vessels : The aortic root is normal in size. The ascending aorta is normal in size. Due to poor image quality, the IVC could not be assessed. Paired to study from 06/25/2018, patient's ejection fraction has decreased slightly. EKG: Changes to QRS morphology in leads V3-V5, repeat pending. Consider septal infarct. This is new from EKG on 12/07/2020.
[2020-12-10] MEDS: Sennosides/Docusate Sodium TAB 2 TAB PO (09:25)
[2020-12-10] MEDS: Aspirin 81 MG CHEW PO (09:25)
[2020-12-10] MEDS: Famotidine 20 MG TAB PO (09:25)
[2020-12-10] MEDS: Oxybutynin 5 MG TAB PO ×2 (09:25→19:30)
[2020-12-10] MEDS: Omeprazole 20 MG CAPCR 40 MG PO (09:26)
[2020-12-10] MEDS: Multivitamin TAB 1 TAB PO (09:26)
[2020-12-10] MEDS: Furosemide 20 MG/2 ML VIAL IVP ×2 (09:27→16:29)
[2020-12-10] MEDS: Docusate Sodium 100 MG CAP PO ×2 (09:27→19:31)
--- NOTE | 2020-12-10 09:39 | PT.INTREAT ---
Date of service: 12/10/20 Time of Service: 08:50 PT Notes Visit Reasons: URINARY TRACT INFECTION, HYPONATREMIA Inpatient Physical Therapy Treatment Note [facility] Date: 12/10/2020 PRECAUTIONS: Fall SUBJECTIVE: Alla is pleasant and agreeable to participating in PT. When asked how she is feeling today, she reports I'm not sure, I haven't been out of bed yet. OBJECTIVE: PAIN: No c/o pain BED MOBILITY/TRANSFERS Supine-sit: Min A with HOB at 30 degrees Sit-stand: SBA Stand-sit: SBA Bed-Chair: SBA Chair-bed: SBA GAIT Assistive Device: FWW Weight bearing: Full Assist: CGA-SBA in a.m.; SBA in p.m. Distance: 50' in a.m.; 200' + 75' in p.m. Deviation: Cues for FWW management THEREX: Patient was instructed in a LE strengthening program, in a seated position, as per flow sheet. She requires verbal and visual cueing for proper exercise performance. STAIRS: Up/down 3x4 and 2x6 using B rails and a step-to pattern with CGA TOILETING: Patient toileted with assist ASSESSMENT: Patient tolerated session well, without complaint. She was able to tolerate a progression in gait distance with FWW support and CGA-SBA. She requires cueing for FWW management due to several instances of path deviations which led to hitting stationary items. PLAN: Patient would benefit from continued gait and transfer training, as well as continued global strengthening for improved mobility. TREATMENT CODE/TIME: Session 1: 30 minutes; 13981, [id number] (08:50) Session 2: 30 minutes; 13968 x2 (15:05)
--- NOTE | 2020-12-10 10:00 | RT.EKG_ITS ---
APPROVED REPORT Exam: Resting ECG Patient Location: I HR:60 bpm ECG Measurements Heart Rate 60 AXIS CA 179 P 54 QRSd 92 QRS 87 QT 480 T 110 QTc 478 Conclusion Sinus rhythm...normal P axis, V-rate 60- 99 Anteroseptal infarct, age indeterminate...Q >35mS, T neg, V1-V2 Abnormal T, consider ischemia, lateral leads...T <-0.20mV, I aVL V5 V6
[2020-12-10] MEDS: Tolvaptan 15 MG TAB PO (11:13)
--- NOTE | 2020-12-10 12:07 | PHA.REVIEW ---
Pharmacy Admission Review - Admission Clinical Review (Last Updated 12/07/20 @ 15:37 by Tigre Cruz MD) Dysphagia (Acute) Palliative care patient (Acute) Discharge planning issues (Acute) DVT prophylaxis (Acute) Toxic metabolic encephalopathy (Acute) Acute metabolic encephalopathy (Acute) Non-STEMI (non-ST elevated myocardial infarction) (Acute) Acute hyponatremia (Acute) Physician orders for life-sustaining treatment (POLST) form indicates patient wish for [id number] status (Acute) Hyponatremia (Acute 07/01/13) No Known Allergies Allergy (Verified 11/08/20 08:24) Height 5 ft 0.5 in Weight 88.7 kg - Renal Dosing Renal Dosing: BUN 28 mg/dL (7-18) H 12/10/20 06:30 Creatinine 1.0 mg/dL (0.55-1.02) 12/10/20 06:30 Medications needing adjustments: Reviewed (Crcl ~48.7 mL/min using adjusted body weight, current meds okay. Famotidine renally adjusted.) - Anticoagulation Anticoagulation: Hgb 14.9 g/dL (11.2-15.7) 12/10/20 06:30 Hct 43.1 % (36.0-46.0) 12/10/20 06:30 Plt Count 303 10^3/uL (130-400) 12/10/20 06:30 Creatinine 1.0 mg/dL (0.55-1.02) 12/10/20 06:30 DVT Prohphylaxis: Reviewed Medications: Enoxaparin Therapeutic Anticoagulation: N/A - Opiate Usage Evaluate Pain Scale/Pains Meds: N/A - Relevant Labs Sodium 128 mmol/L (136-145) L 12/10/20 06:30 Potassium 3.8 mmol/L (3.5-5.1) 12/10/20 06:30 Chloride 92 mmol/L (98-107) L 12/10/20 06:30 Magnesium 2.2 mg/dL (1.8-2.4) 12/10/20 06:30 Electrolytes, C-Reactive P, ESR: Reviewed (Sodium improved. Conivaptan ordered x1 bag as that was all that was in the hospital, unable to get from [facility] or other hospitals. Tolvaptan ordered X1 dose today, provider to reassess tomorrow.) - DM Control DM Control: Glucose 110 mg/dL (74-106) H 12/10/20 06:30 Finger Stick Blood Glucose 108 Finger Stick Blood Glucose 112 Insulin Dosing: Reviewed (BG mildly elevated, has sliding scale aspart ordered) - Heart Failure/NM Heart Failure/NM: Troponin I 0.07 ng/mL (<0.06) 12/08/20 09:20 NT-Pro-B Natriuret Pep 6298 pg/mL (<300) H 12/08/20 09:20 NT-Pro-B Natriuret Pep Cancelled 12/08/20 09:20 EF%, WILLIAMS's, B-Blockers, Diuretics: Reviewed - BP Control BP Control: Blood Pressure 137/67 Blood Pressure 137/60 Blood Pressure 137/60 Blood Pressure 137/60 Blood Pressure 150/62 Blood Pressure 150/58 If elevated: Reviewed (Has been mainly elevated so far this admission, but within normal limits most recently.) - Qtc Review If Elevated: N/A (QTc 457 on admission, new EKG done today bu no report yet.) - IV to PO Switch IV Medications: Reviewed - Home Meds Home Med List reviewed: Reviewed (Separate admin of levothyroxine from multivitamin.) Relevent Home Meds Not ordered & why?: losartan, mirtazapine, and fluoxetine (held due to sodium), fluconazole, glucosamine/chondroitin, triamcinolone - Current meds Current Medication Order Review: Intervened (Pt has senna/docusate and docusate ordered in the morning, will ask provider about possibly spreading out the docusate dosing. Palliative note mentions pt should have a BM daily, but no BM since 12/07 documented.) - Comments Comments/Follow Ups: Watch BP, BG, sodium, SCr, and for med changes (renal dose adjustments, additional BM meds if needed, home meds pending sodium). Antibiotic Activity - Pharmacy Antibiotic Review Pharmacy Antibiotic Activity: Reviewed, no change (Zosyn ordered to cover for aspiration pneumonia.)
--- NOTE | 2020-12-10 12:15 | RT.EKG_ITS ---
APPROVED REPORT Exam: Resting ECG Patient Location: I HR:61 bpm ECG Measurements Heart Rate 61 AXIS MO 174 P 54 QRSd 94 QRS 117 QT 478 T 113 QTc 481 Conclusion Sinus rhythm...normal P axis, V-rate 60- 99 Anteroseptal infarct, age indeterminate...Q >35mS, T neg, V1-V2 Abnormal T, consider ischemia, lateral leads...T <-0.20mV, I aVL V5 V6
[2020-12-10 12:20] LABS: Anion Gap 9.8 mmol/L (3-11); BUN 28 mg/dL (7-18); CO2 27.2 mmol/L (21.0-32.0); Calcium 8.4 mg/dL (8.5-10.1); Chloride 91 mmol/L (98-107); Estimated GFR 54.05 (mL/min/1.73m2); Glucose 109 mg/dL (74-106); Potassium 3.8 mmol/L (3.5-5.1); Sodium 128 mmol/L (136-145)
--- NOTE | 2020-12-10 13:51 | PDOC.CMPRO ---
- If Service Date Differs Date of service: 12/10/20 Time of Service: 13:51 Care Management Progress Note S/O: Alla was sitting up in her chair when CM met with her. She stated that she feels that she would do better in a more private room. Later in the afternoon, she was transferred to M/S. The MD was in the room when CM was visiting, who stated that she is being recommended for a stress test tomorrow, which Alla is agreeable to. Her discharge plan will be determined by the results of the stress test. Alla reported that she does not currently have any services at home, but she is open to having help. CM will coordinate HH services, if indicated. CM will continue to follow. A: Alla is a 75 year old female who was admitted to [facility] on 12/08/2020 for a urinary tract infection and hyponatremia. P: Plan remains to be determined based on progress. If Alla continues to improve, anticipate she will likely return home with new HH services when medically cleared by provider. CM will continue to support patient and assess for discharge planning needs.
[2020-12-10] MEDS: Senna TAB 1 TAB PO ×2 (14:03→19:31)
[2020-12-10] MEDS: Bisacodyl 5 MG TABEC PO (14:03)
[2020-12-10] MEDS: Enoxaparin 40 MG/0.4 ML SYR SC (14:04)
--- NOTE | 2020-12-10 14:51 | W.NUTRFU ---
Date of service: 12/10/20 Time of Service: 14:51 Nutritional Follow up NOTE: 75 year old endentulous female admitted with aspiration PNA, dysphagia, with diet controlled DM. Most recent A1c: 5.8%. Followed by pallative care. BMI indicates class 1 obesity. Following diabetic moist and minced diet with mildly thick liquids. PO intake has been adequate to meet nutrient and fluid needs. BS well controlled. Not at nutritional risk at this time. Will continue to follow. Time Spent in Nutritional Counseling and Treatment: 0
[2020-12-10] MEDS: Normal Saline Flush 10 ML SYR IVP (16:29)
[2020-12-10] MEDS: Insulin Aspart 300 UNITS/3 ML PEN SC (17:06)
--- NOTE | 2020-12-10 18:07 | W.SPSTE ---
Date of service: 12/10/20 Time of Service: 18:07 Subjective Patient received upright in chair watching television; alert and orientedx2, required verbal cue for name of hospital/current location; mild confusion during conversation, however able to express wants/needs and follow 1-2 step directions. States she has had to go [to the bathroom] 3 times tonight, also stated she wants to go home. Required assistance with utilizing remote for television. Stated she has been confused sometimes about the system here. Objective Objective Clinical (Bedside) Swallow Evaluation Speech Language Pathology Referring Doctor: Isabella Hicks MD WATER TEAM LEADER Orders: aspiration episode Precautions: DNR/DNI, Palliative care patient HPI: 75 year old edentulous female admitted 12/07/20 with UTI, aspiration pna, dysphagia, with diet controlled DM, following diabetic moist and minced diet with mildly thick liquids upon evaluation. Transferred from ICU to [place] today with improvements in cognitive status. Also followed by RD: PO intake has been adequate to meet nutrient and fluid needs, is not at nutritional risk at this time. Imaging: Chest X-Ray 12/10/20 IMPRESSION: 1. Decreasing pulmonary vascular congestion. 2. Improving aeration bilaterally with mild patchy opacities remaining in the right upper lobe and left base. PMHX: Medical History Abnormal cervical Papanicolaou smear (10/01/00) Age-related macular degeneration Ankle joint pain (06/21/13) Rickets as a child Balance problem Bilateral impacted cerumen (07/31/15) Bronchospasm Cataract (01/19/18) Cataract Chronic left shoulder pain (05/04/18) Depressive disorder (12/04/11) Diabetes Diverticulitis of colon 04/11 pre-op H P by Dr. Al Reid for lap sigmoid resection, secondary to acute episodes of diverticulitis. 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 Essential hypertension (10/14/13) Fall in exam room while getting off exam table Fatigue (06/21/13) Grief (03/04/16) Hip pain (06/24/13) Hypercalcemia (12/04/16) Hyperlipidemia (06/21/13) Hyponatremia (07/01/13) Hypothyroidism (06/24/13) Low back pain (06/21/13) XRay 09/09 - DJD, R hip DJD MRI - severe djd, no stenosis Low back pain (06/21/13) Multiple excoriations (07/20/14) Other specified cardiac dysrhythmias (10/01/04) bradycardia by ECG; Holter=rare PAC/PVC/burst SVT; <3sec pause Other specified cardiac dysrhythmias (10/01/04) Pelvic abscess (11/05/09) 10/10 CT: SMALL RESIDUAL ABSCESSED CAVITY IN CENTRAL PELVIS, W/ FISTULA BETWEEN ABSCESS SIGMOID COLON Pelvic abscess (11/05/09) Pruritic disorder (01/10/14) Reflux esophagitis (12/08/16) Rickets Sensorineural hearing loss, bilateral (01/14/18) Vaginitis and vulvovaginitis Wheezing (05/04/18) ? vocal cord dysfunction Surgical History Abdominal hysterectomy (~1983) Cholecystectomy (~1979) drainage of pelvic abcess Extraction of cataract LEFT EYE;12/14/17; DR. ALICEA Status post abdominal hysterectomy Status post cholecystectomy Status post hip replacement Status post incision and drainage Total replacement of hip (~2008) LEFT Social History/Home Situation: Patient lives in a single level trailer with ramp upon entry. She has grab bars in her bathroom. Difficult to gain home situation as patient does indicate her sister who lives in [place] checks on her frequently and it sounds though there is a caregiver as well. Equipment Owned/DME: Standard cane and front wheeled walker, requires verbal cueing during use per most recent PT note OBJECTIVE: Predisposing dysphagia risk factors: hx toxic metabolic encephalopathy, hyponatremia, reflux esophagitis Clinical signs of possible chronic dysphagia: cough with po intake Precipitating dysphagia risk factors / triggering event: UTI, altered mental status Temp: 98.4 F RR: 16 / room air Cranial nerve exam / Oral Motor: CN V: facial sensation intact to light touch labial protrusion symmetrical labial coordination/ROM WFL Jaw excursion/lateralization intact mastication impaired secondary to edentulous status lingual/labial sensation intact suspect superior hyoid movement is intact although cannot rule out at bedside CN VII: lateral sulcus residue absent anterior spillage not observed salivation intact CN IX/X: palatal elevation -unable to view Vocal Quality -WFL taste -WFL onset of swallow -suspect WFL pharyngeal residue -WFL per report nasopharyngeal regurgitation -none reported by patient CN XII: lingual protrusion symmetrical lingual coordination/ROM WFL lingual residue absent Dentition/Oral Structures/Hygiene: edentulous oral hygiene appears adequate-reports consistent and appropriate oral care regimen Language: verbal expression/fluency-intact however slow processing speed noted during conversation, naming-intact, repetition-intact, and auditory comprehension WFL with verbal cues (lack of visual cues with mask) Hearing: Unknown Mental Status: AAOx2, requires cue for identifying current location/town; recall of current events mostly intact, deficits noted with delayed recall Speech: WFL; slightly reduced intelligibility secondary to edentulous status Laryngeal function exam: Secretions: WFL Vocal quality: WFL MPT: DNT S/Z ratio: DNT Pitch range: WFL Cough: (volitional) perceptually WFL PO intake IDDSI 0: 3 oz water via cup [place] Swallow Protocol: Pass negative (-) overt s/s aspiration IMPRESSIONS: Patient is at low-moderate risk for recurrent aspiration-related pulmonary complications at this time, given adequate oral hygiene & presumed reduced immunocompetence; improvements in physical mobility and overall pulmonary function likely to further reduce this risk. Changes in mental status/confusion should be monitored during po intake, recommend 1:1 distant supervision for all PO intake, risk management as outlined below. Instrumentation: N/A at this time Diet Texture Modification(s): IDDSI Level(s) 5-Minced & Moist Solids 0-Thin Liquids Medication Intake: Whole with 0-Thin Liquids or 4-Pureed solids as tolerated Alter medications only as advised by MD or Pharmacist RISK MANAGEMENT: Oral hygiene 3x per day using friction with toothbrush on all oral structures as tolerated HOB upright as tolerated; upright for all PO intake. Encourage physical mobility as tolerated. Level of Assistance/Supervision: 1:1 distant supervision for all PO intake PO intake only when awake/alert Strategies/Adaptations/Assistive Equipment: Reduce auditory and/or visual distractions when eating Provide verbal and/or visual cues to use recommended strategies Small sips and bites when eating Slow rate of intake Posture/Positioning Needs: Maintain upright position at least 30 minutes after meals Avoid meals/snacks 2-3 hours prior to reclining/sleeping Sleep with head of bed elevated to reduce likelihood of nocturnal reflux Specialist referrals: N/A Ancillary tests: N/A Therapy: WATER TEAM LEADER to monitor while on unit. Please re-consult PRN. Goal: Patient to demonstrate safe/efficient po intake with IDDSI levels 5-Minced & Moist Solids, 0-Thin Liquids with risk management as outlined, as evidenced by negative overt s/sx aspiration within 1 week PLAN: WATER TEAM LEADER to follow. Milla Ulrich MA CCC-WATER TEAM LEADER [phone] WATER TEAM LEADER CPT Code: 48950 Clinical Swallowing Evaluation
[2020-12-10] MEDS: Pravastatin 40 MG TAB PO (19:31)
[2020-12-10] MEDS: Amoxicillin 875/Clav. 125 TAB PO (19:31)
[2020-12-11] VITALS (7 sets, daily range): BP systolic 122–159; BP diastolic 72–82; PULSE 59–69; RESP 17–20; TEMP 36–37.2; O2SAT 91–96
[2020-12-11] MEDS: Levothyroxine 112 MCG TAB PO (06:55)
[2020-12-11 07:27] LABS: BUN 30 mg/dL (7-18); CREATININE 0.8 mg/dL (0.55-1.02); Calcium 8.9 mg/dL (8.5-10.1); Chloride 95 mmol/L (98-107); Glucose 109 mg/dL (74-106); Magnesium 2.3 mg/dL (1.8-2.4); Potassium 4.1 mmol/L (3.5-5.1); Sodium 131 mmol/L (136-145)
--- NOTE | 2020-12-11 08:00 | DI.NM_ITS ---
APPROVED REPORT Exam: Pharmacologic Patient Location: In-Patient Room/Bed: 228 Stress Nurse: Maci Cosme RN Ordering Provider:KECIA MENENDEZ, Contact Number: [phone] BMI: 38.07 Baseline Rhythm: Sinus Bradycardia Comment: T wave abnormality, inversion in lead aVL and V2 Indications: NSTEMI and EKG changes this admission Medical History Medical History: NSTEMI, DM II, hypothyroidism, HLD, HTN, depression, hyponatremia, fatigue, bradycar reggie Cardiac Medications: ASA, enoxaparin, famotidine, furosemide, levothyroxine, omeprazole, pravastatin, insulin Allergies: NKA Cardiac Risk Factors: family hx, HTN, diabetes, HLD Previous Cardiac Procedures: None Pretest Chest Pain Characteristics: None Exercise History: Sedentary Lung Sounds: Clear to auscultation, Clear to auscultation Heart Sounds: Regular Stress Test Details Test: Pharmacologic stress testing performed using 0.4 mg of regadenoson per 5 mL given IV over 10 s econds. Reason for pharmacologic stress test: physical limitation. Nuclear Acquisition: Rest Tc-99m/Stress Tc-99m 1 day Rest Isotope: Tc-99m Sestamibi. Dose: 11.0 Date: 12/11/20 Injection Time: 0900 Stress Isotope: Tc-99m Sestamibi. Dose: 37.0 Date: 12/11/20 Injection Time: 1110 HR Resting HR Supine: 57 bpm Max Heart Rate (APMHR): 145.902720 bpm Target HR (85% APMHR): 123.017230 bpm Max HR Achieved: 82 bpm % of APMHR: 56.55 Recovery HR: 73 bpm BP Resting BP Supine: 136/80 mmHg Max BP: 130/80 mmHg Recovery BP: 130/80 mmHg ECG Resting ECG: Sinus Bradycardia Ectopy: PVC Comment: T wave inversion noted in leads aVL and V2 Stress ECG: Sinus Rhythm ST Change: No significant ST segment changes noted Arrhythmia: None Recovery ECG: Sinus Rhythm Recovery ST Change: No significant ST segment changes noted Clinical Stress Symptoms: None Rate Pressure Product: 08943 Stress ECG Conclusion 1. This is a pharmacological stress test. 2. The ECG portion of this exam is nondiagnostic. 3. Patient no symptoms suggestive of ischemia. Stress Test Summary STAGE HR BP Symptoms NOTES Supine 57 136/80 1 min post Lexiscan injection 72 130/78 3 min post Lexiscan injection 80 128/74 6 min post Lexiscan injection 73 130/80 MPI Conclusion Ejection fraction was 54% with stress. There were no wall motion abnormalities. There is no evidence of ischemia on the imaging portion exam. This represents a normal SPECT stress test. Radiologist Interpretation Radiologist agrees with Health Informatics Specialist's Interpretation. Radiologist Interpretation by: Ashley Jimenez MD Interpretation Date/Time: 12/12/2020 14:22:21
--- NOTE | 2020-12-11 08:25 | PT.INTREAT ---
Date of service: 12/11/20 Time of Service: 07:45 PT Notes Visit Reasons: URINARY TRACT INFECTION, HYPONATREMIA Inpatient Physical Therapy Treatment Note [facility] Date: 12/11/2020 PRECAUTIONS: Fall SUBJECTIVE: Alla is pleasant and agreeable to participating in PT. She reports that she is feeling good and that she slept well. In afternoon, patient is hesitant but agreeable to participating in PT, she states that she is very tired as she has had a very busy day. OBJECTIVE: PAIN: No c/o pain BED MOBILITY/TRANSFERS Supine-sit: SBA with HOB flat Sit-supine: S with HOB flat Sit-stand: SBA in a.m.; S in p.m. Stand-sit: SBA in a.m.; S in p.m. Bed-Chair: SBA in a.m.; S in p.m. Chair-bed: SBA in a.m.; S in p.m. GAIT Assistive Device: FWW 4WW in a.m.; FWW in p.m. Weight bearing: Full Assist: SBA Distance: 150' with FWW 50' with 4WW in a.m.; 150' in p.m. Deviation: Cues for FWW management THEREX: Patient was instructed in a LE strengthening program, in a supine position, as per flow sheet. She requires verbal and visual cueing for proper exercise performance. STAIRS: Up/down 3x4 and 2x6 using B rails and a step-to pattern with supervision ASSESSMENT: Patient tolerated session well, without complaint. She was able to tolerate a progression in gait distance with FWW support and SBA. She requires cueing for FWW and 4WW management due to several instances of path deviations which led to hitting stationary items and holding it out at a distance. PLAN: Patient would benefit from continued gait and transfer training, as well as continued global strengthening for improved mobility. TREATMENT CODE/TIME: Session 1: 30 minutes; 76465, 51806 (07:45) Session 2: 10 minutes; 48768 (14:45)
[2020-12-11] MEDS: Regadenoson 0.4 MG/5 ML SYR IVP (11:06)
[2020-12-11] MEDS: Omeprazole 20 MG CAPCR 40 MG PO (12:46)
[2020-12-11] MEDS: Aspirin 81 MG CHEW PO (12:46)
[2020-12-11] MEDS: Famotidine 20 MG TAB PO (12:46)
[2020-12-11] MEDS: Furosemide 20 MG TAB PO ×2 (12:46→17:03)
[2020-12-11] MEDS: Multivitamin TAB 1 TAB PO (12:46)
[2020-12-11] MEDS: Amoxicillin 875/Clav. 125 TAB PO ×2 (12:47→20:09)
[2020-12-11] MEDS: Insulin Aspart 300 UNITS/3 ML PEN SC (12:51)
--- NOTE | 2020-12-11 14:21 | W.PM.DS.N ---
Date of service: 12/11/20 Time of Service: 14:21 DS: Diagnosis Discharge Diagnosis (1) Acute hyponatremia: Status: Resolved (2) Non-STEMI (non-ST elevated myocardial infarction): Status: Acute (3) Aspiration pneumonia: Status: Suspected (4) Dysphagia: Status: Acute (5) Toxic metabolic encephalopathy: Status: Resolved (6) Urinary tract infection: Status: Resolved (7) Essential hypertension: Status: Chronic (8) Diabetes: Status: Chronic (9) Hypothyroidism: Status: Chronic (10) Hyperlipidemia: Status: Chronic (11) Depressive disorder: Status: Chronic (12) COVID-19 ruled out by laboratory testing: Status: Ruled-out Discharge Plan Disposition Patient Disposition: HOME W/HOME HEALTH SERVICE Condition: Stable Discharge Details Reason For Visit: URINARY TRACT INFECTION, HYPONATREMIA Admit Date/Time: 12/07/20 11:10 Admit Provider: Tigre Cruz Attending Provider: Tigre Cruz Primary Care Provider: Marielos Caldera [facility] Course Hospital Course: This is a 75 yo female with a history of diet controlled type 2 DM with A1c 5.8 11/2020, Hypothyroidism, HLD, HTN, depression presented to the ED with mild confusion as per reported by her sister, starting the day prior to presentation; she was reportedly slow in her response time and using only short sentences. The patient denies any falls/trauma. Work up in the ED was concerning for a UA that appeared positive, WBC count elevated at 15.6 and Na of 120. COVID testing sent and was negative. She was started on Rocephin and admitted for further evaluation and treatment. Overnight her sodium worsened and her losartan was placed on hold and she was put on lasix. She was moved to ICU and received hypertonic saline. SIADH suspected and she was initiated on conivaptan and then transitioned to tolvaptan. her sodium remained stable after treatment and she was maintained on fluid restriction of 1500 cc. sodium on discharge is 130 prozac and mirtazapine were then discontinued and ARB continues to be held. she should have her bmp checked tomorrow and then directed by pcp. Hospitalization also complicated by aspiration pneumonia and ceftriaxone broadened to zosyn. her respiratory status remained stable. she was seen by speech and diet modifications were initiated which she tolerated well. she will complete a one week course of augmentin and continue with minced & moist solids with thin liquids. Elevated troponin, NSTEMI possibly related to pulmonary edema. EKG with subtle differences. Troponins did trend downward. Echo without wall motion abnormalities, but with worsened EF (45%; also diastolic dysfunction). She underwent a stress MPI which showed no evidence of ischemia or wall motion abnormalities. discharge discussed with Dr Hicks. Home Meds and New Rx's Prescriptions: New aspirin 81 mg Tablet,Chewable 81 mg PO DAILY Qty: 0 RF: 0 amoxicillin-pot clavulanate 875-125 mg Tablet 1 tab PO BID Qty: 14 RF: 0 Continued albuterol sulfate 90 mcg/actuation HFA aerosol inhaler 2 puff IH 6XD PRN (Reason: shortness of breath or wheezing) Qty: 18 RF: 8 omeprazole 40 mg capsule,delayed release(DR/EC) 40 mg PO DAILY Qty: 90 RF: 12 oxybutynin chloride 5 mg tablet 5 mg PO BID Qty: 180 RF: 4 pravastatin 40 mg tablet 40 mg PO DAILY Qty: 90 RF: 4 levothyroxine 112 mcg tablet 112 mcg PO DAILY Qty: 90 RF: 12 docusate sodium [Colace] 100 MG capsule 100 mg PO BID Qty: 180 RF: 4 famotidine 40 mg tablet 40 mg PO DAILY Qty: 90 RF: 5 multivitamin [Once Daily] Tablet 1 tab PO DAILY Qty: 90 RF: 4 acetaminophen [Acetaminophen Extra Strength] 500 mg tablet 1,000 mg PO TID PRN Qty: 270 RF: 4 sennosides-docusate sodium [Senna with Docusate Sodium] 8.6-50 mg tablet 2 tab PO DAILY Qty: 180 RF: 11 triamcinolone acetonide 0.1 % cream 1 applic TP BID Qty: 80 RF: 2 Discontinued fluoxetine 40 mg capsule 40 mg PO DAILY Qty: 90 RF: 12 losartan 100 mg tablet 100 mg PO DAILY Qty: 90 RF: 4 fluconazole 150 mg tablet 150 mg PO Q3D Qty: 2 RF: 0 nywnttew-duiu-cdhica-hyalur ac 1 EACH capsule 2 cap PO DAILY RF: 0 mirtazapine 7.5 mg tablet 7.5 mg PO HS Qty: 90 RF: 2 Discharge Instructions Instructions: Heart Failure (DC), Hyponatremia (DC), Aspiration Pneumonia (DC) Additional Instructions: continue to hold fluoxetine, losartan and mirtazapine. limit free water to 1 1/2 liters per day. weight yourself 2 times weekly and report greater than 5 pound weight gain have basic metabolic panel drawn on December Maintain upright position at least 30 minutes after meals Avoid meals/snacks 2-3 hours prior to reclining/sleeping Sleep with head of bed elevated to reduce likelihood of nocturnal reflux Stand Alone Forms: Nursing Discharge Form Referrals: Marielos Caldera MD, [place] [Primary Care Provider] - 12/17/20 3:00 pm Activity:: Activity as Tolerated Equipment/Supplies:: No Equipment Needed Diet:: minced and moist solids, thin liquids Discharge Orders Other Ambulatory Orders: Basic Metabolic Panel (Routine) Location: None Selected Ordered By: Aida Lerner DS: Summary Time Spent with Patient providing and/or coordinating discharge services: Greater than 30 minutes Status at Discharge Functional status at discharge: uses cane/walker Overall status at discharge: patient is back to baseline Mental Status: mental status grossly normal Speech and Movement: speech and movement normal Mood: congruent mood Affect: normal affect Exam Const General: cooperative, no acute distress and well groomed Nutritional Appearance: obese Orientation: alert and oriented to person HENFL Head: normocephalic and atraumatic Eyes Sclera: sclerae normal Pupils: PERRL Resp Effort & Inspection: normal respiratory effort and able to speak in complete sentences Auscultation: clear to auscultation bilaterally Cardio Rate: regular rate Rhythm: regular rhythm Heart Sounds: S1 normal and S2 normal GI Palpation: soft, no hepatosplenomegaly and nontender Auscultation: normal bowel sounds Skin General skin exam: no rashes or lesions noted Neuro General: patient alert, moves all extremities, no focal motor deficits and other (poor historian) Cranial Nerves: gag reflex normal Extrem General: no pedal edema Psych Appearance: grossly normal Mental Status: mental status grossly normal Speech and Movement: speech and movement normal Mood: congruent mood Affect: normal affect DS: Data Vitals/I&O Vitals and I&O: Vital Signs Temperature 36.9 C 12/11/20 07:58 Temperature Source Temporal Artery Scan 12/11/20 07:58 Pulse 69 12/11/20 07:58 Pulse Rhythm Regular 12/11/20 08:30 Pulse 61 12/10/20 09:11 Respiratory Rate 19 12/11/20 07:58 Respiratory Effort Non-Labored 12/11/20 08:30 Respiratory Depth Normal 12/11/20 08:30 Respiratory Pattern Normal 12/11/20 08:30 Blood Pressure 137/78 12/11/20 07:58 Blood Pressure Mean 84 12/10/20 11:01 Blood Pressure Position Supine 12/09/20 23:30 Pulse Oximetry 92 12/11/20 07:58 Oxygen Delivery Method Room Air 12/11/20 07:58 Oxygen Flow Rate 0 12/11/20 07:58 Pain Level 0 12/11/20 07:58 Comment 12/10/20 22:59 Intake & Output 12/10/20 12/11/20 12/11/20 23:59 11:59 23:59 Intake Total 140 / 240 100 / 100 Output Total 250 / 250 Balance 140 / -910 -150 / -150 Intake: IV 20 / 120 Oral 120 / 120 100 / 100 Output: Urine 250 / 250 Other: Urine Color Pale Yellow Urine Appearance Clear Clear Stool Size Large Stool Characteristics Formed Hard Voiding Methods Toilet Toilet Data Completed and Pending Labs on day of discharge: Labs from last 24 hours 12/11/20 06:40 Sodium 131 L Potassium 4.1 Chloride 95 L Carbon Dioxide 30.0 Anion Gap 6.0 BUN 30 H Creatinine 0.8 Estimated GFR/1.73 m2 >= 60.00 Glucose 109 H Calcium 8.9 Magnesium 2.3 Preliminary micro results at discharge 12/07/20 09:40 Urine Culture - Preliminary Urine - Reflex from Enterococcus Faecalis Gram Positive Diana,Mixed [facility] Medical History (Updated 12/11/20 @ 15:43 by Aida Lerner NP) Abnormal cervical Papanicolaou smear (10/01/00) Age-related macular degeneration Ankle joint pain (06/21/13) Rickets as a child Balance problem Bilateral impacted cerumen (07/31/15) Bronchospasm Cataract (01/19/18) Cataract Chronic left shoulder pain (05/04/18) Depressive disorder (12/04/11) Diabetes Diverticulitis of colon 04/11 pre-op H P by Dr. Al Reid for lap sigmoid resection, secondary to acute episodes of diverticulitis. 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 Essential hypertension (10/14/13) Fall in exam room while getting off exam table Fatigue (06/21/13) Grief (03/04/16) Hip pain (06/24/13) Hypercalcemia (12/04/16) Hyperlipidemia (06/21/13) Hyponatremia (07/01/13) Hypothyroidism (06/24/13) Low back pain (06/21/13) XRay 09/09 - DJD, R hip DJD MRI - severe djd, no stenosis Low back pain (06/21/13) Multiple excoriations (07/20/14) Other specified cardiac dysrhythmias (10/01/04) bradycardia by ECG; Holter=rare PAC/PVC/burst SVT; <3sec pause Other specified cardiac dysrhythmias (10/01/04) Pelvic abscess (11/05/09) 10/10 CT: SMALL RESIDUAL ABSCESSED CAVITY IN CENTRAL PELVIS, W/ FISTULA BETWEEN ABSCESS SIGMOID COLON Pelvic abscess (11/05/09) Pruritic disorder (01/10/14) Reflux esophagitis (12/08/16) Rickets Sensorineural hearing loss, bilateral (01/14/18) Vaginitis and vulvovaginitis Wheezing (05/04/18) ? voacl cord dysfunction Surgical History Abdominal hysterectomy (~1983) Cholecystectomy (~1979) drainage of pelvic abcess Extraction of cataract LEFT EYE;12/14/17; DR. ALICEA Status post abdominal hysterectomy Status post cholecystectomy Status post hip replacement Status post incision and drainage Total replacement of hip (~2008) LEFT Family History Mother , AGE 92 Diabetes Heart disease Father Heart disease Stomach cancer Sister Depression Heart disease COPD (chronic obstructive pulmonary disease) Asthma Brother Diabetes Essential hypertension Heart disease Hyperlipidemia Asthma Social History Smoking/Tobacco Use Status: Never Smoking risk assessment performed?: Yes Alcohol Intake: current Alcohol Intake frequency: 0-2 drinks per day Alcohol type: beer and wine Drug use: Never Substance use type: does not use Caregiver/Support person: No Household members: spouse and none Housing: house Communication Needs: None Do you need help understanding health information?: Never Pets and animals: Yes Pets and animals: dog(s) Sexually active: No Do you think of yourself as: straight/heterosexual Current gender identity: female and decline to answer What is your relationship status?: How often do you talk on the phone with friends or family?: three or more times per week How often do you get together with friends or relatives?: once per week How often do you attend alevism or anglican services?: 4 or more times per year Do you belong to any clubs or organized social groups?: no Panel score (0-1 are the most socially isolated patients): 2 What type of physical activity do you participate in: walking Duration: 15-30 minutes/day Frequency: 1-2 times per week Medina/Mosque: Muslim Special medina needs: No Seatbelt use: always Helmet use: Yes Helmet use: always Drive intox or ride w/intox transport truck driver: No Do you feel safe in your relationship?: Yes Victim of physical abuse: No Victim of emotional abuse: No Victim of sexual abuse: No Would you like helpful sources: No
--- NOTE | 2020-12-11 14:52 | PDOC.HHF2F_ITS ---
Home Health Certification Home Health Certification: 1. Encounter Date and Reason I certify that JUSTYN JONES was seen by Aida Lerner on 12/11/20 and that I had a [id number] encounter with this patient that meets the physician face to face encounter requirements. 2. Clinical Findings Supporting Skilled Need and Homebound Status I certify that home health services are medically necessary, include either intermittent chcf and/or physical/speech therapy, and that this patient is homebound in that absences from the home require considerable and taxing effort and are infrequent or of short duration, or are attributable to the need to receive medical care. [X] (a) Attached documentation from encounter provides clinical findings supporting skilled need and homebound status (including what assistance patient requires to leave the home). The encounter with the patient was in whole, or in part, for the following medical condition, which is the primary reason for home health care: URINARY TRACT INFECTION, HYPONATREMIA [facility]: routine medication oversight, nursing evaluation Physical Therapy: routine evaluation and treatment for continued gait and transfer training, as well as continued global strengthening for improved mobility. Homebound: patient is unable to safely need the house unattended d/t gait instability. 3. Certification and Authentication I certify that I composed the above information based on my clinical judgement relating to this patient's medical condition and, if applicable, clinical fin dings communicated to me by the NPP or inpatient physician who performed the Home Health Referral. All further orders will be obtained through (Community Based Physician - PCP)
[2020-12-11] MEDS: Enoxaparin 40 MG/0.4 ML SYR SC (15:13)
[2020-12-11] MEDS: Lachydrin 12% LOTION 225 GM BTL TP ×2 (15:14→20:10)
--- NOTE | 2020-12-11 15:32 | PDOC.CMDIS ---
- If Service Date Differs Date of service: 12/11/20 Time of Service: 15:32 Care Management Discharge Reason for Hospitalization: Urinary Tract Infection and Hyponatremia. Discharge Plan: Alla will return home today with new orders for HH RN, PT. She will stay with her sister for a couple of days post discharge to help with the transition after her acute admission. Her sister will drive her home, and will pickle cutter her prescriptions for her. CM discussed the plan with HH. She will follow up with her PCP and discharge plan of care. She is happy to be going home.
--- NOTE | 2020-12-11 15:42 | W.PM.PROGNOT ---
Date of Service Date of service: 12/11/20 Time of Service: 15:42 Assessment and Plan Assessment and plan (1) Acute hyponatremia: Status: Resolved Assessment and plan: SIADH suspected, and there is definitely a dilutional/hypervolemic component. Na 131 today now post conivaptan x 48 hrs, transitioned to tolvaptan. d/c'ed prozac and mirtazapine in addition to continuing holding ARB. S/p hypertonic saline. Continue lasix. Monitor I/O's and daily weights. repeat BMP tomorrow and later this week at home Continue fluid restriction. (2) Non-STEMI (non-ST elevated myocardial infarction): Status: Acute Assessment and plan: asymptomatic - however, the patient was also confused. ?is this related to pulmonary edema. EKG this am looks different. Troponins did turn around. Echo without wall motion abnormalities, but with worsened EF (45%; also diastolic dysfunction). MPI today. Monitor BPs and volume status. Diuresing. Continue baby asa. Continue quality assurance monitor. Patient's HR too low to initiate BB. lipids at goal (3) Aspiration pneumonia: Status: Suspected Assessment and plan: Switch abx to augmentin, complete one week. swallow eval. Continue modified diet (minced/moist/mildly thick) (4) Dysphagia: Status: Acute Assessment and plan: As above. (5) Urinary tract infection: Status: Resolved (6) Essential hypertension: Status: Chronic Assessment and plan: Monitor BP on tolvaptan/lasix and have been stable. Conivaptan interacts with amlodipine - d/c'ed. Losartan d/c'ed due to hyponatremia. HR too low to initiated BB. (7) Diabetes: Status: Chronic Assessment and plan: Diet controlled (A1C 5.8). Continue carb consistent diet with sodium restriction. Continue SSI. Qualifiers: Diabetes mellitus complication status: without complication Diabetes mellitus senior living insulin use: without buttermaker continuous churn use Diabetes mellitus type: type 2 Qualified Code(s): E11.9 - Type 2 diabetes mellitus without complications (8) Hypothyroidism: Status: Chronic Assessment and plan: TSH adequate. Continue levothyroxine. Qualifiers: Hypothyroidism type: unspecified Qualified Code(s): E03.9 - Hypothyroidism, unspecified (9) Hyperlipidemia: Status: Chronic Assessment and plan: Lipids at goal. Continue pravastatin Qualifiers: Hyperlipidemia type: unspecified Qualified Code(s): E78.5 - Hyperlipidemia, unspecified (10) Depressive disorder: Status: Chronic Assessment and plan: No longer on prozac and mirtazapine due to hyponatremia. (11) DVT prophylaxis: Status: Acute Assessment and plan: enoxaparin (12) Discharge planning issues: Status: Acute Assessment and plan: case management following, will go home with PT and nursing after Stress testing read, likely tomorrow discussed with DR Hicks Subjective Subjective Patient reports: no new complaints, feels better, tolerating liquids well, tolerating a regular diet, voiding w/o difficulty and afebrile Exam Const General: cooperative, no acute distress and well groomed Nutritional Appearance: obese Orientation: alert and oriented to person [facility] Head: normocephalic and atraumatic Eyes Sclera: sclerae normal Pupils: PERRL Resp Effort & Inspection: normal respiratory effort and able to speak in complete sentences Auscultation: clear to auscultation bilaterally Cardio Rate: regular rate Rhythm: regular rhythm Heart Sounds: S1 normal and S2 normal GI Palpation: soft, no hepatosplenomegaly and nontender Auscultation: normal bowel sounds Skin General skin exam: no rashes or lesions noted Neuro General: patient alert, moves all extremities, no focal motor deficits and other (poor historian) Cranial Nerves: gag reflex normal Extrem General: no pedal edema Psych Appearance: grossly normal Mood: congruent mood Affect: normal affect Objective Last Vital Signs Temp 36.9 C 12/11/20 07:58 Pulse 69 12/11/20 07:58 Resp 19 12/11/20 07:58 BP 137/78 12/11/20 07:58 Pulse Ox 92 12/11/20 07:58 Laboratory Results - last 24 hr 12/11/20 06:40 Sodium 131 L Potassium 4.1 Chloride 95 L Carbon Dioxide 30.0 Anion Gap 6.0 BUN 30 H Creatinine 0.8 Estimated GFR/1.73 m2 >= 60.00 Glucose 109 H Calcium 8.9 Magnesium 2.3
--- NOTE | 2020-12-11 15:46 | PDOC.CMPRO ---
- If Service Date Differs Date of service: 12/11/20 Time of Service: 15:46 Care Management Progress Note S/O: Alla was sitting up in her chair when CM met with her. She stated that she is feeling better and would like to return home. The provider planned to discharge her today following her stress test, as long as it was normal. CM coordinated a ride home from her sister, Mary Beth. Later, her discharge was cancelled. CM called and attempted to reach Mary Beth, without success. CM left a voicemail for her at 3:40. She was planning on picking up Alla at 4:15. CM notified HH about the delay in discharge as well. CM will continue to follow. A: Alla is a 75 year old female who was admitted to [facility] on 12/08/2020 for a urinary tract infection and hyponatremia. P: Anticipate Alla will return home with new HH RN, PT when medically cleared by provider. Her sister will pick her up via private vehicle. Alla will stay with her sister, Mary Beth for a few days prior to returning home. She will follow up with her PCP and discharge plan of care. CM will continue to support patient and assess for discharge planning needs.
--- NOTE | 2020-12-11 16:15 | CHAPLAIN ---
I visited Alla in the early afternoon and she was waiting to have lunch, which has been postponed due to tests. I checked with her nurse who was going to check on the late lunch that had been ordered for Alla. Alla was pleasant, and reserved in conversation. I will continue to visit.
[2020-12-11] MEDS: Acetaminophen 325 MG TAB 650 MG PO (20:08)
[2020-12-11] MEDS: Pravastatin 40 MG TAB PO (20:08)
[2020-12-11] MEDS: Senna TAB 1 TAB PO (20:08)
[2020-12-11] MEDS: Docusate Sodium 100 MG CAP PO (20:09)
[2020-12-11] MEDS: Oxybutynin 5 MG TAB PO (20:09)
[2020-12-12 03:19] VITALS: BP 148/71; PULSE 56; RESP 18; TEMP 36.4; O2SAT 94
[2020-12-12] MEDS: Levothyroxine 112 MCG TAB PO (06:52)
[2020-12-12 07:10] VITALS: PULSE 57
[2020-12-12] MEDS: Furosemide 20 MG TAB PO ×2 (08:12→15:05)
[2020-12-12] MEDS: Oxybutynin 5 MG TAB PO (08:12)
[2020-12-12] MEDS: Multivitamin TAB 1 TAB PO (08:12)
[2020-12-12] MEDS: Senna TAB 1 TAB PO (08:12)
[2020-12-12] MEDS: Docusate Sodium 100 MG CAP PO (08:12)
[2020-12-12] MEDS: Famotidine 20 MG TAB PO (08:13)
[2020-12-12] MEDS: Lachydrin 12% LOTION 225 GM BTL TP ×2 (08:13→15:05)
[2020-12-12] MEDS: Aspirin 81 MG CHEW PO (08:13)
[2020-12-12] MEDS: Amoxicillin 875/Clav. 125 TAB PO (08:13)
[2020-12-12] MEDS: Omeprazole 20 MG CAPCR 40 MG PO (08:13)
[2020-12-12 08:35] VITALS: BP 129/75; PULSE 60; RESP 18; TEMP 35.7; O2SAT 93
[2020-12-12 09:32] LABS: Anion Gap 7.8 mmol/L (3-11); BUN 29 mg/dL (7-18); CO2 29.2 mmol/L (21.0-32.0); CREATININE 0.9 mg/dL (0.55-1.02); Chloride 93 mmol/L (98-107); Glucose 136 mg/dL (74-106); Potassium 4.3 mmol/L (3.5-5.1); Sodium 130 mmol/L (136-145)
[2020-12-12 11:22] VITALS: BP 109/68; PULSE 59; RESP 18; TEMP 35.9; O2SAT 96
--- NOTE | 2020-12-12 12:25 | PT.INTREAT ---
Date of service: 12/12/20 Time of Service: 09:25 PT Notes Visit Reasons: URINARY TRACT INFECTION, HYPONATREMIA Inpatient Physical Therapy Treatment Note [facility] Date: 12/12/2020 PRECAUTIONS: Fall SUBJECTIVE: Alla is pleasant and agreeable to participating in PT. She hopes that she will be discharged home today, stating I don't like being in the hospital. OBJECTIVE: PAIN: No c/o pain BED MOBILITY/TRANSFERS Sit-stand: S Stand-sit: S Bed-Chair: S Chair-bed: S GAIT Assistive Device: FWW Weight bearing: Full Assist: S Distance: 400' in both a.m. and p.m. Deviation: Shuffling gait noted in p.m. THEREX: Patient was instructed in an UE and LE strengthening program, performed in a seated position, as per flow sheet. She requires verbal and visual cueing for proper exercise performance. ASSESSMENT: Patient tolerated session well, without complaint. She was able to tolerate a progression in gait distance with FWW support and supervision. PLAN: Patient would benefit from continued gait and transfer training, as well as continued global strengthening for improved mobility. TREATMENT CODE/TIME: Session 1: 25 minutes; [id number], [id number] (09:25) Session 2: 15 minutes; 70217 (15:00)
[2020-12-12] MEDS: Enoxaparin 40 MG/0.4 ML SYR SC (15:05)
[2020-12-12 16:12] VITALS: BP 116/66; PULSE 59; RESP 18; TEMP 36; O2SAT 100
--- NOTE | 2020-12-12 17:20 | PT.INDS ---
Date of service: 12/12/20 PT Notes Visit Reasons: URINARY TRACT INFECTION, HYPONATREMIA Physical Therapy Inpatient Discharge Summary Date: 12/12/2020 Dates of service: 12/09/2020 through 12/12/2020 This is a clinical summary of care provided on the duration of dates listed above. No charge was made in the completion of this documentation. Referring Doctor: Dr. Isabella Hicks PT Orders: PT CONSULT: Limited ability Precautions: Fall risk, standard precautions Patient Profile/Admitting Diagnosis: Patient is a 75-year-old woman admitted to [facility] ICU on 12/07/20 secondary to urinary tract infection and hyponatremia. Patient's caregiver indicated she is more confused and was slow to response and using short sentences. There was no incidence of fall. PMHX: Medical History Abnormal cervical Papanicolaou smear (10/01/00) Age-related macular degeneration Ankle joint pain (06/21/13) Rickets as a child Balance problem Bilateral impacted cerumen (07/31/15) Bronchospasm Cataract (01/19/18) Cataract Chronic left shoulder pain (05/04/18) Depressive disorder (12/04/11) Diabetes Diverticulitis of colon 04/11 pre-op H P by Dr. Al Reid for lap sigmoid resection, secondary to acute episodes of diverticulitis. 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 voacl cord dysfunction Surgical History Abdominal hysterectomy (~1983) Cholecystectomy (~1979) drainage of pelvic abcess Extraction of cataract LEFT EYE;12/14/17; DR. ALICEA Status post abdominal hysterectomy Status post cholecystectomy Status post hip replacement Status post incision and drainage Total replacement of hip (~2008) LEFT Social History/Home Situation: Patient lives in a single level trailer with ramp upon entry. She has grab bars in her bathroom. Difficult to gain home situation as patient does indicate her sister who lives in [place] checks on her frequently and it sounds though there is a caregiver as well. Equipment Owned/DME: Standard cane and front wheeled walker Subjective: NT. See most recent CHAINSTITCH TUNNEL ELASTIC OPERATOR notes. Objective: General Observation: NT. See most recent CHAINSTITCH TUNNEL ELASTIC OPERATOR notes. Mental Status: NT. See most recent CHAINSTITCH TUNNEL ELASTIC OPERATOR notes. Pain: NT. See most recent CHAINSTITCH TUNNEL ELASTIC OPERATOR notes. ROM: Right Upper Extremity: GH flexion 140, abduction 120, elbow flexion and extension within functional limits. Left Upper Extremity: GH ready, abduction 120, elbow flexion extension within functional limits Right Lower Extremity: Hip flexion 110 degrees in sitting, abduction 30 degrees, external rotation 30 degrees, internal rotation 15. Knee flexion and extension within functional limits. Ankle ROM within functional limits. Left Lower Extremity: Hip flexion 95 degrees in sitting active assisted 105, abduction 20 degrees, external rotation 20 degrees,internal rotation 10. Flexion and extension within functional limits. Ankle range of motion within functional limits Strength: Right Upper Extremity: Glenohumeral joint flexion 4/5, abduction 4 -/5, bicep 4/5, tricep 4/5. Good medicinal chemist Left Upper Extremity: Glenohumeral joint flexion 4/5, abduction 4 -/5, bicep and tricep 4/5. Good medicinal chemist Right Lower Extremity: Hip flexion 4/5, abduction in sitting 4/5, hip adduction 4/5, quads 4/5, hamstrings 4 -/5, plantar and dorsiflexion 4/5. Left Lower Extremity: Hip flexion 4 -/5, abduction in sitting 4/5, hip adduction 4/5 in sitting, quads 4/5, hamstrings 4 -/5, plantarflexion and dorsiflexion 4/5 Sensation: Intact sensation light touch bilateral lower extremities Bed Mobility/Transfers: Bed mobility: Independent Supine?sit: Independent Sit to stand: Supervision Stand to sit: Supervision Gait: Patient is able to tolerate up to 400 feet of level surface ambulation using the front wheeled walker with full weightbearing on bilateral lower extremities requiring only supervision assist. Shuffling gait Balance: Static Sitting: Normal Dynamic Sitting: Normal Static Standing: Fair Dynamic Standing: Fair Assessment: Alla demonstrated improvement in functional mobility performance during this episode of care as evidenced by mobility level above and goal status below. Patient continues to present with clinical signs and symptoms consistent with above diagnosis, as demonstrated by the following impairment level findings: 1. Decreased by lower extremity strength major muscle groups. 2. Impaired activity tolerance 3. Impaired standing balance Impairments are doing to contribute to the following functional limitations: AMPAC score. 1. Inability to safely ambulate without assistive device assistance 2. Increase completion time for mobility ADL performance 3. Increased fall risk Goals X1 week 1. Supine-Sit: SBA MET 2. Sit-Supine: Independent MET 3. Sit-Stand: SBA with FWW MET 4. Stand-Sit : SBA from FWW MET 5. Bed-Chair: SBA with use of FWW MET 6. Chair-Bed: SBA with use of FWW MET 7. Gait: 150 with CG x1 and use of FWW MET DISCHARGE RECOMMENDATIONS: Recommend SNF vs HHPT with caregiver if applicable. TREATMENT CODE/TIME: NC Thank you for the opportunity to participate in the care of this patient. Hayley Mendez PT, DPT, CLT [facility] [place], [place]
--- NOTE | 2020-12-12 17:46 | PDOC.CMDIS ---
- If Service Date Differs Date of service: 12/12/20 Time of Service: 17:46 LACE Index Scoring Tool - Questions: Length of Stay (in days): 4 - 6 Acuity (Admit via E.D.?): Yes Comorbidities: Previous M.I. E.D. Visits: 1 - Answers: Total Score: 9 Risk of Readmission: Low Risk Care Management Discharge Reason for Hospitalization: Urinary Tract Infection and Hyponatremia. Discharge Plan: Alla will return home with her sister today, who will drive her home. She will have new RN, PT. She will follow up with her PCP and discharge plan of care. She is happy to be going home. Patient/Family Education Needs: Review discharge instructions regarding activity and medications, discussion of self care needs. Services Needed at Discharge: Home Health Care Services (RN, PT)
== END 2020-12-12 16:55 | disposition home health service (06) | DRG 689 ==
LOC: ER 13:09 → MS 13:38 → ICU 12-08 11:18 → MS 12-10 21:01
PROVIDERS: Internal Medicine; Nurse Practitioner Acute Care; Admitting Provider Family Medicine; Emergency Provider Physician Assistant; PCP Family Medicine; Visit Provider Family Medicine
DX: N39.0 Urinary tract infection, site not specified (principal); I21.4 Non-ST elevation (NSTEMI) myocardial infarction; G92 Toxic encephalopathy; J69.0 Pneumonitis due to inhalation of food and vomit; E22.2 Syndrome of inappropriate secretion of antidiuretic hormone; E11.9 Type 2 diabetes mellitus without complications; E03.9 Hypothyroidism, unspecified; E78.5 Hyperlipidemia, unspecified; F32.9 Major depressive disorder, single episode, unspecified; H90.3 Sensorineural hearing loss, bilateral; M54.5 Low back pain; K21.00 Gastro-esophageal reflux disease with esophagitis, without bleeding; F03.90 Unspecified dementia, unspecified severity, without behavioral disturbance, psychotic disturbance, mood disturbance, and anxiety; Z20.828 Contact with and (suspected) exposure to other viral communicable diseases; Z66 Do not resuscitate; E66.9 Obesity, unspecified; R13.10 Dysphagia, unspecified; R00.1 Bradycardia, unspecified
CPT/HCPCS: 36415; 78452; 80048; 80053; 80061; 83935; 87077; 92610; 93005; 93016; 93018; 93306; 96361; 96365; 96367; 97110; 97162; 97530; 99222; 99232; 99233; 99239; 99254; 99291; J1650; U0003; U0005; 70450; 71045; 81003; 81015; 83735; 83880; 84443; 84484; 85025; 87086; 87186; 93010; 93017; J0696; J1941; J2405; J2543; J2785; J3475; J3490

== ENCOUNTER 2020-12-20 16:59 | Inpatient (IN) | payer MEDICARE, MEDICAID, SELFPAY ==
[2020-12-20] VITALS (17 sets, daily range): BP systolic 116–202; BP diastolic 45–111; PULSE 46–60; RESP 12–20; TEMP 36.2–36.5; O2SAT 93–98
--- NOTE | 2020-12-20 16:45 | RT.EKG_ITS ---
APPROVED REPORT Exam: Resting ECG Patient Location: E HR:54 bpm ECG Measurements Heart Rate [address] 186 P 51 QRSd 112 QRS 53 QT 454 T 88 QTc 431 Conclusion Sinus bradycardia...rate< 60 Low voltage, precordial leads...precordial leads <1.0mV Nonspecific T abnormalities, lateral leads...T <-0.10mV, I aVL V5 V6 I have reviewed and interpreted ECG and agree with software generated interpretation.
--- NOTE | 2020-12-20 16:59 | W.ED.GENAD ---
Discharge Plan Disposition Patient Disposition: [facility] INPATIENT Condition: Stable Discharge Details Clinical Impression: TIA (transient ischemic attack), Altered mental status, Vomiting Admit Date/Time: 12/20/20 19:14 Admit Provider: Vishnu Lo Attending Provider: Vishnu Lo Primary Care Provider: Marielos Caldera ED Provider: Karina Christianson Discharge Data Discharge Date/Time-TO BE ENTERED AT DEPARTURE: 12/20/20 20:40 Medical Decision Making 1700 -- 75-year-old female with a history of balance problem, diabetes, hypertension, hypothyroidism with recent hospital admission for hyponatremia, UTI, pneumonia and NSTEMI presented to the ED for possible stroke alert. EMS reported that patient had right-sided headache and weakness that resolved prior to arrival. Patient has no acute complaints at this time. Patient also had a fall at home yesterday with no reported injury. Patient does not recall the fall. Per discussion with care management earlier today, patient has been accepted to go to the [facility] on Thursday. Blood pressure hypertensive at 202/72. She is afebrile and appears nontoxic. She is currently oriented to person and place but not time which is her baseline. No focal deficits. No evidence of head trauma. Normal range of motion of extremities without deformity. Consider possible TIA, viral syndrome, dehydration, electrolyte abnormality, arrhythmia. We will check screening labs, urinalysis, CTA head and neck, chest x-ray. 1800 -- patient reported to be vomiting in radiology. Dose of Compazine will be taken to patient. Labs and imaging reviewed. White blood cell count normal at 10. Sodium 131. Troponin negative. Urinalysis negative for infection. CTA head and neck negative for acute findings. Chest x-ray negative. We will admit patient for continued monitoring, antiemetics, IV fluids, PT evaluation. Case discussed with hospitalist who accepts patient for admission. Medical Records Medical records reviewed: Yes I reviewed the patient's medical records. Imaging Data Radiologic Study: Radiologist's impression: XR Chest, 2 Views Exam date and time: 12/20/2020 6:26 PM Age: 75 years old Clinical indication: Other: Cvi/ TIA. Vomitting TECHNIQUE: Imaging protocol: XR of the chest Views: 2 views. COMPARISON: CR XR PORTABLE CHEST AP 12/09/2020 10:37 AM FINDINGS: Lungs: The lungs are clear. No consolidation. Pleural spaces: No pleural effusion. No pneumothorax. Heart/Mediastinum: No cardiomegaly. The mediastinal contour is unremarkable. Bones/joints: Degenerative spondylosis of the thoracic spine. Organs: Status post cholecystectomy. IMPRESSION: No acute abnormality. CT Angiography Head With Contrast, Arteries Exam date and time: 12/20/2020 5:50 PM Age: 75 years old Clinical indication: Weakness TECHNIQUE: Imaging protocol: Computed tomography angiography of the head with intravenous contrast. 3D rendering (Not supervised by radiologist): MIP and/or 3D reconstructed images were created by the technologist. Contrast material: OMNIPAQUE 350; Contrast volume: 90 ml; Contrast route: INTRAVENOUS (IV); COMPARISON: No relevant prior studies available. FINDINGS: ANTERIOR CIRCULATION: Right internal carotid artery: Mild calcified plaque of the right cavernous carotid artery with mild stenosis. Right middle cerebral artery: Unremarkable. No occlusion or significant stenosis. No aneurysm. Right anterior cerebral artery: Patent right A1 segment. Diminutive right A2 segment.. No occlusion or significant stenosis. No aneurysm. Left internal carotid artery: Mild calcified plaque within the left cavernous carotid artery with mild stenosis. Left middle cerebral artery: Unremarkable. No occlusion or significant stenosis. No aneurysm. Left anterior cerebral artery: Patent left A1 segment. Dominant left A2 segment. 4 mm aneurysm at a bifurcation of the left ALONA A2 segment within the anterior intrahemispheric fissure (axial images 79 and 80 of series 10 and coronal reformatted images 21 through 24 series 11). POSTERIOR CIRCULATION: Right vertebral artery: Unremarkable. No occlusion or significant stenosis. No aneurysm. Left vertebral artery: Unremarkable. No occlusion or significant stenosis. No aneurysm. Basilar artery: Unremarkable. No occlusion or significant stenosis. No aneurysm. Right posterior cerebral artery: Unremarkable. No occlusion or significant stenosis. No aneurysm. Left posterior cerebral artery: Unremarkable. No occlusion or significant stenosis. No aneurysm. Brain: Global cerebral atrophy is consistent with patient's age. Decreased attenuation within the white matter tracts of both cerebral hemispheres is nonspecific but typically seen with small vessel disease/chronic white matter ischemic changes of aging. No intracranial hemorrhage or mass effect. No intracranial mass or abnormal enhancement. No abnormal intra-axial or extra-axial fluid collections. Cerebral ventricles: Mild ventriculomegaly consistent with global cerebral atrophy. Bones/joints: Unremarkable. No acute fracture. Soft tissues: Unremarkable. IMPRESSION: 1. No intracranial arterial significant stenosis or occlusion. 2. 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 3. Global cerebral atrophy and findings typically seen with small vessel disease /chronic white-matter ischemic changes of aging. CT Angiography Neck With Contrast Exam date and time: 12/20/2020 5:50 PM Age: 75 years old Clinical indication: Weakness TECHNIQUE: Imaging protocol: Computed tomography angiography of the neck with intravenous contrast. 3D rendering (Not supervised by radiologist): MIP and/or 3D reconstructed images were created by the technologist. Contrast material: OMNIPQUE 350; Contrast volume: 90 ml; Contrast route: INTRAVENOUS (IV); COMPARISON: No relevant prior studies available. FINDINGS: Right common carotid artery: Minimal calcified plaque within the right common carotid artery without significant stenosis, occlusion or dissection. Right internal carotid artery: Minimal calcified plaque at the the right carotid bulb without stenosis, occlusion or dissection. Right external carotid artery: No occlusion or stenosis of the origin. Right vertebral artery: No stenosis. No dissection or occlusion. Left common carotid artery: No stenosis. No dissection or occlusion. Left internal carotid artery: Mild calcified plaque within the proximal left ICA with mild stenosis. Left external carotid artery: No occlusion or stenosis of the origin. Left vertebral artery: No stenosis. No dissection or occlusion. Bones/joints: Degenerative spondylosis throughout the cervical spine. No severe bony spinal stenosis. Soft tissues: Normal. No significant soft tissue swelling. IMPRESSION: Mild carotid atherosclerosis Lab Data Lab results reviewed: Yes I reviewed the patient's lab results. Labs: Laboratory Tests Range/Units 12/20/20 12/20/20 12/20/20 17:35 17:35 17:35 WBC (4.4-10.8) 10^3/uL 10.22 RBC (3.93-5.22) 10^6/uL 4.80 Hgb (11.2-15.7) g/dL 14.4 Hct (36.0-46.0) % 43.0 MCV (80-95) fL 89.6 MCH (27.0-33.0) pg 30.0 MCHC (32.0-36.0) % 33.5 RDW (11.7-14.6) % 12.7 Plt Count (130-400) 10^3/uL 328 MPV (8.0-11.0) fL 9.6 Immature Gran % 0.3 Neutrophils % 77.0 Lymphocytes % 12.4 Monocytes % 8.2 Eosinophils % 1.6 Basophils % 0.5 Nucleated RBC % % 0 Absolute Neutrophils (1.2-6.7) 10^3/uL 7.87 H Absolute Lymphocytes (1.2-3.4) 10^3/uL 1.27 Absolute Monocytes (0.1-0.8) 10^3/uL 0.84 H Absolute Eosinophils (0.0-0.7) 10^3/uL 0.16 Absolute Basophils (0.0-0.2) 10^3/uL 0.05 PT (9.3-11.0) sec 10.4 INR (0.9-1.1) 1.0 APTT (21.0-27.5) sec 23.8 Sodium (136-145) mmol/L 131 L Potassium (3.5-5.1) mmol/L 4.2 Chloride (98-107) mmol/L 95 L Carbon Dioxide (21.0-32.0) mmol/L 28.8 Anion Gap (3-11) mmol/L 7.2 BUN (7-18) mg/dL 14 Creatinine (0.55-1.02) mg/dL 0.7 Estimated GFR/1.73 m2 (mL/min/1.73m2) >= 60.00 Glucose (74-106) mg/dL 129 H Calcium (8.5-10.1) mg/dL 9.3 Magnesium (1.8-2.4) mg/dL 1.9 Total Bilirubin (0.2-1.0) mg/dL 0.3 AST (15-37) U/L 23 ALT (14-59) U/L 39 Alkaline Phosphatase (46-116) U/L 88 Troponin I (<0.06) ng/mL < 0.05 Total Protein (6.4-8.2) g/dL 7.7 Albumin (3.4-5.0) g/dL 3.2 L Urine Color (Yellow) Urine Clarity (Clear) Urine pH (5-8) Ur Specific Gooding (1.005-1.025) Urine Protein (Negative) mg/dL Urine Ketones (Negative) mg/dL Urine Blood (Negative) Urine Nitrite (Negative) Urine Bilirubin (Negative) Urine Urobilinogen (Up TO 0.2) EU/dL Ur Leukocyte Esterase (Negative) Urine RBC (0-2) HPF Urine WBC (0-5) HPF Ur Epithelial Cells (Negative) HPF Urine Crystals (Negative) HPF Urine Bacteria (Negative) HPF Urine Casts (Negative) LPF Urine Mucus (Negative) Urine Other (Negative) Ur Culture Indicated? Urine Glucose (Negative) mg/dL Range/Units 12/20/20 18:52 WBC (4.4-10.8) 10^3/uL RBC (3.93-5.22) 10^6/uL Hgb (11.2-15.7) g/dL Hct (36.0-46.0) % MCV (80-95) fL MCH (27.0-33.0) pg MCHC (32.0-36.0) % RDW (11.7-14.6) % Plt Count (130-400) 10^3/uL MPV (8.0-11.0) fL Immature Gran % Neutrophils % Lymphocytes % Monocytes % Eosinophils % Basophils % Nucleated RBC % % Absolute Neutrophils (1.2-6.7) 10^3/uL Absolute Lymphocytes (1.2-3.4) 10^3/uL Absolute Monocytes (0.1-0.8) 10^3/uL Absolute Eosinophils (0.0-0.7) 10^3/uL Absolute Basophils (0.0-0.2) 10^3/uL PT (9.3-11.0) sec INR (0.9-1.1) APTT (21.0-27.5) sec Sodium (136-145) mmol/L Potassium (3.5-5.1) mmol/L Chloride (98-107) mmol/L Carbon Dioxide (21.0-32.0) mmol/L Anion Gap (3-11) mmol/L BUN (7-18) mg/dL Creatinine (0.55-1.02) mg/dL Estimated GFR/1.73 m2 (mL/min/1.73m2) Glucose (74-106) mg/dL Calcium (8.5-10.1) mg/dL Magnesium (1.8-2.4) mg/dL Total Bilirubin (0.2-1.0) mg/dL AST (15-37) U/L ALT (14-59) U/L Alkaline Phosphatase (46-116) U/L Troponin I (<0.06) ng/mL Total Protein (6.4-8.2) g/dL Albumin (3.4-5.0) g/dL Urine Color (Yellow) Yellow Urine Clarity (Clear) Clear Urine pH (5-8) 7.0 Ur Specific Gooding (1.005-1.025) 1.025 Urine Protein (Negative) mg/dL >=300 H Urine Ketones (Negative) mg/dL Negative Urine Blood (Negative) Trace-intact H Urine Nitrite (Negative) Negative Urine Bilirubin (Negative) Negative Urine Urobilinogen (Up TO 0.2) EU/dL 0.2 Ur Leukocyte Esterase (Negative) Negative Urine RBC (0-2) HPF 5-10 H Urine WBC (0-5) HPF 0-2 Ur Epithelial Cells (Negative) HPF Many Urine Crystals (Negative) HPF Negative Urine Bacteria (Negative) HPF Negative Urine Casts (Negative) LPF Negative Urine Mucus (Negative) Negative Urine Other (Negative) Negative Ur Culture Indicated? No/sq. contamination Urine Glucose (Negative) mg/dL Negative ECG Data Attestation: I personally reviewed and interpreted this ECG (s) as follows: Interpretation: Rate of 54, sinus, no acute ST elevation or depression. No acute change from previous EKG. WA 186. QRS 112. QTc 431. HPI General Mode of arrival: EMS. Date/Time Provider Initiated Documentation: 12/20/20 17:04. Limitations to Documentation: no limitations. Information obtained by: patient and family. HPI Narrative: Patient is a 75-year-old female with a history of balance problem, depression, diabetes, hypertension presents for evaluation for potential stroke. EMS called to report that patient had an episode of a headache and an episode of right-sided weakness today that are now resolved. Patient stated she had a headache on her right side and behind her right eye that lasted approximately 1 hour and then resolved. Patient denies any headache at present. Patient does not recall an episode of right-sided this. Case discussed with patient's sister over the phone who stated that patient has been newly using a walker and she fell in the bathroom today but there was no report of trauma. She states it appeared that patient had a brief episode of right-sided weakness and she was unable to elaborate on this. She states that patient has been more confused lately and staring out the window and does not appear to be acting like himself . She states patient has been sleeping more than usual. Patient has been accepted to be a resident of the [facility] as of next Thursday. Sister also states that patient was newly started on Aricept. She states patient vomited a few times yesterday and she is unsure of his due to this medication. She states she is also concerned that patient is potentially depressed. Patient denies any current headache, chest pain, shortness breath, abdominal pain, dizziness. She states patient is usually oriented to person and place but not time at baseline. Related Data Home Medications Medication Instructions Recorded Confirmed docusate sodium [Colace] 100 mg PO BID #180 tab-cap 05/04/18 12/20/20 albuterol sulfate 90 mcg/actuation 2 puff IH 6XD PRN #18 gm 11/03/19 12/20/20 aerosol inhaler famotidine 40 mg tablet 40 mg PO DAILY #90 tab 03/16/20 12/20/20 multivitamin 1 tab PO DAILY #90 tab-cap 03/16/20 12/20/20 acetaminophen 500 mg tablet 1,000 mg PO TID PRN #270 tab-cap 04/03/20 12/20/20 sennosides 8.6 mg-docusate sodium 2 tab PO DAILY #180 tab-cap 04/27/20 12/20/20 50 mg tablet levothyroxine 112 mcg tablet 112 mcg PO DAILY #90 tab-cap 05/01/20 12/20/20 omeprazole 40 mg capsule,delayed 40 mg PO DAILY #90 tab-cap 05/01/20 12/20/20 release oxybutynin chloride 5 mg tablet 5 mg PO BID #180 tab-cap 05/01/20 12/20/20 pravastatin 40 mg tablet 40 mg PO DAILY #90 tab-cap 05/01/20 12/20/20 triamcinolone acetonide 0.1 % 1 applic TP BID #80 gm 08/08/20 12/20/20 topical cream aspirin 81 mg PO DAILY #0 tab 12/11/20 12/20/20 donepezil 10 mg tablet 10 mg PO DAILY #30 tab 12/17/20 12/20/20 Previous Rx's Medication Instructions Recorded docusate sodium [Colace] 100 mg PO BID #180 tab-cap 05/04/18 albuterol sulfate 90 mcg/actuation 2 puff IH 6XD PRN #18 gm 11/03/19 aerosol inhaler famotidine 40 mg tablet 40 mg PO DAILY #90 tab 03/16/20 multivitamin 1 tab PO DAILY #90 tab-cap 03/16/20 acetaminophen 500 mg tablet 1,000 mg PO TID PRN #270 tab-cap 04/03/20 sennosides 8.6 mg-docusate sodium 2 tab PO DAILY #180 tab-cap 04/27/20 50 mg tablet levothyroxine 112 mcg tablet 112 mcg PO DAILY #90 tab-cap 05/01/20 omeprazole 40 mg capsule,delayed 40 mg PO DAILY #90 tab-cap 05/01/20 release oxybutynin chloride 5 mg tablet 5 mg PO BID #180 tab-cap 05/01/20 pravastatin 40 mg tablet 40 mg PO DAILY #90 tab-cap 05/01/20 triamcinolone acetonide 0.1 % 1 applic TP BID #80 gm 08/08/20 topical cream aspirin 81 mg PO DAILY #0 tab 12/11/20 donepezil 10 mg tablet 10 mg PO DAILY #30 tab 12/17/20 Allergies Allergy/AdvReac Type Severity Reaction Status Date / Time No Known Allergies Allergy Verified 12/20/20 17:08 General [place]: 2 Review of Systems All systems reviewed & are unremarkable except as noted in HPI and below Constitutional Constitutional: Reports as per HPI, Denies chills, Denies fever(s) and Reports headache(s) Eyes Eyes: Denies blurry vision ENT Ears, Nose, Mouth, and Throat: Denies dizziness, Reports headache(s), Denies sore throat and Denies throat swelling Cardiovascular Cardiovascular: Denies chest pain and Denies dyspnea Respiratory Respiratory: Denies cough and Denies dyspnea Gastrointestinal Gastrointestinal: Denies abdominal pain, Denies diarrhea and Denies vomiting Genitourinary Genitourinary: Denies hematuria and Denies dysuria Musculoskeletal Musculoskeletal: Denies back pain and Denies numbness Integumentary/Breasts Skin/Breast: Denies lesions and Denies rash Neurologic Neurologic: Denies dizziness, Reports headache(s), Denies localized weakness and Denies numbness Allergic/Immunologic Allergic/Immunologic: Denies throat swelling REPLACED BY [facility] Medical History Abnormal cervical Papanicolaou smear (10/01/00) Age-related macular degeneration Ankle joint pain (06/21/13) Rickets as a child Balance problem Bilateral impacted cerumen (07/31/15) Bronchospasm Cataract (01/19/18) Cataract Chronic left shoulder pain (05/04/18) Depressive disorder (12/04/11) Diabetes Diverticulitis of colon 04/11 pre-op H P by Dr. Al Reid for lap sigmoid resection, secondary to acute episodes of diverticulitis. 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 Essential hypertension (10/14/13) Fall in exam room while getting off exam table Fatigue (06/21/13) Grief (03/04/16) Hip pain (06/24/13) Hypercalcemia (12/04/16) Hyperlipidemia (06/21/13) Hyponatremia (07/01/13) Hypothyroidism (06/24/13) Low back pain (06/21/13) XRay 09/09 - DJD, R hip DJD MRI - severe djd, no stenosis Low back pain (06/21/13) Multiple excoriations (07/20/14) Other specified cardiac dysrhythmias (10/01/04) bradycardia by ECG; Holter=rare PAC/PVC/burst SVT; <3sec pause Other specified cardiac dysrhythmias (10/01/04) Pelvic abscess (11/05/09) 10/10 CT: SMALL RESIDUAL ABSCESSED CAVITY IN CENTRAL PELVIS, W/ FISTULA BETWEEN ABSCESS SIGMOID COLON Pelvic abscess (11/05/09) Pruritic disorder (01/10/14) Reflux esophagitis (12/08/16) Rickets Sensorineural hearing loss, bilateral (01/14/18) Vaginitis and vulvovaginitis Wheezing (05/04/18) ? voacl cord dysfunction Surgical History Abdominal hysterectomy (~1983) Cholecystectomy (~1979) drainage of pelvic abcess Extraction of cataract LEFT EYE;12/14/17; DR. ALICEA Status post abdominal hysterectomy Status post cholecystectomy Status post hip replacement Status post incision and drainage Total replacement of hip (~2008) LEFT Family History Mother , AGE 92 Diabetes Heart disease Father Heart disease Stomach cancer Sister Depression Heart disease COPD (chronic obstructive pulmonary disease) Asthma Brother Diabetes Essential hypertension Heart disease Hyperlipidemia Asthma Social History Smoking/Tobacco Use Status: Never Smoking risk assessment performed?: Yes Alcohol Intake: former Drug use: Never Substance use type: does not use Caregiver/Support person: No Household members: spouse and none Housing: house Communication Needs: None Do you need help understanding health information?: Never Pets and animals: Yes Pets and animals: dog(s) Sexually active: No Do you think of yourself as: straight/heterosexual Current gender identity: female What is your relationship status?: How often do you talk on the phone with friends or family?: three or more times per week How often do you get together with friends or relatives?: once per week How often do you attend evangelical or pentecostalism services?: 4 or more times per year Do you belong to any clubs or organized social groups?: no Panel score (0-1 are the most socially isolated patients): 2 What type of physical activity do you participate in: walking Duration: 15-30 minutes/day Frequency: 1-2 times per week Medina/Muslim: Spiritism Special medina needs: No Seatbelt use: always Helmet use: Yes Helmet use: always Drive intox or ride w/intox crude oil driver: No Do you feel safe at home: Yes Do you feel safe in your relationship?: Yes Victim of physical abuse: No Victim of emotional abuse: No Victim of sexual abuse: No Would you like helpful sources: No Exam Const General: cooperative and no acute distress HENMT Head: normal to inspection Face and sinus: normal facial exam Eyes General: appearance normal, both eyes and all related structures Pupils: PERRL EOM: EOM intact bilaterally Neck Neck: normal visual inspection and No submandibular swelling Lymphatic: no lymphadenopathy noted Chest Chest: normal inspection of the chest and no tenderness Resp Effort & Inspection: normal respiratory effort and able to speak in complete sentences Auscultation: clear to auscultation bilaterally Cardio Rate: regular rate Rhythm: regular rhythm GI Inspection: normal to inspection Palpation: soft, not firm, not rigid and nontender Auscultation: normal bowel sounds Back/Spine/Pelvis Thoracic/Lumbar Spine: thoracic and lumbar spine normal to inspection Skin General skin exam: no rashes or lesions noted Neuro General: patient alert, patient awake, patient oriented x3 and no meningeal signs Cranial Nerves: CN's II-XI intact bilaterally Cognition: normal cognition Speech: speech normal Motor: muscle tone normal throughout Sensory Exam: no sensory deficits noted Extrem General: normal to inspection, full ROM, capillary refill normal, no calf tenderness bilaterally and no edema Psych Appearance: grossly normal Mental Status: mental status grossly normal Speech and Movement: speech and movement normal Affect: normal affect
--- NOTE | 2020-12-20 17:15 | DI.RAD_ITS ---
EXAM: XR CHEST 2V PA LATERAL CLINICAL HISTORY: possible cva, r/o acute disease. TECHNIQUE: 2D digital imaging was performed. COMPARISON: Prior chest x-ray 12/09/2020 FINDINGS: Heart size is upper normal, unchanged in the mediastinum is not widened Lungs are clear. No infiltrates nor pleural effusions. IMPRESSION: No acute pulmonary findings. DATA REPOSITORY: RADIATION DOSE DELIVERED:
--- NOTE | 2020-12-20 17:15 | DI.CT_ITS ---
EXAM: CT BRAIN NECK CTA CLINICAL HISTORY: headache, weakness, r/o acute cva. TECHNIQUE: Imaging Protocol: Axial CT angiography was performed with multi-slice acquisition and mu lti-planar and/or 3D reconstructions. CONTRAST MATERIAL: Intravenous: Omnipaque 350 Contrast volume:structured data in ml COMPARISON: CT,NM MPI RESTING AND STRESS from 12/24/2016 FINDINGS: CTA Neck W: Aortic arch anatomy: Cannot be assessed as the images of this study start above the level of the aort ic arch. Anterior circulation: The visualized common carotid arteries are slightly tortuous but without significant stenosis in thei r visualized lumens. There is mild calcified plaque at the right carotid bifurcation without significant stenosis at this level nor in the proximal right internal carotid artery. There is no significant plaque at the left carotid bifurcation. Some calcified plaque is noted on the medial wall of the left internal carotid artery located 8 millimeters above the bifurcation but with only mild stenosis at this level. above this level the visualized internal carotid arteries are patent in the upper neck. Posterior circulation: Both vertebral arteries originated conventional fashion off of the subclavian arteries. There is no obvious significant stenosis within the subclavian arteries proximal to the vertebral artery takeoff points. Both vertebral arteries ascend with normal and approximately equal luminal diameters within the foramen transversarium. There is no evidence of intraluminal filling defects within these vessels nor dissection flap in both contribute to the formation of the basilar artery at the skull base. CTA Brain W: Anterior circulation: There is calcification within the flores of the internal carotid arteries in the cavernous sinuses but no hemodynamically significant stenosis. Both middle cerebral arteries are demonstrated to be patent out to the sylvian fissure branches. Lef t A1 segment is patent. Left a 2 segment is dominant. There is fusiform dilatation at a bifurcation of the left anterior cerebral artery within the anterior interhemispheric fissure. Posterior circulation: Basilar artery is formed by both vertebral arteries.. Distally it gives off superior cerebellar mt leslie and both right and left posterior cerebral arteries are patent. There is no evidence of aneurys m at the tip of the basilar artery. CT BRAIN: There is no evidence of intracranial hemorrhage. No ring enhancing lesions. Amount of inv olutional changes consistent with the patient's age. Periventricular hypodensities consistent with c hronic small vessel disease. IMPRESSION: 1. 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 No other aneurysm is evident. 2. No evidence of significant intracranial arterial stenosis nor intraluminal thrombus. 3. Chronic small vessel ischemic changes in the periventricular white matter noted. No evidence of intracranial hemorrhage and no ring enhancing lesions in the brain. Although there is no significant stenosis in the carotid arteries in the neck, please note that the i mages of this study start above the level of the aortic arch and therefore it is not possible to dete rmine if there is significant stenosis of the origin of the great vessels off of the aortic arch on t his study. RADIATION DOSE DELIVERED: 2,336.57mGy.cm Total DLP DATA REPOSITORY: All CT scans at this facility are submitted to the National Radiology Data Registry (NRDR) Dose Index Registry (DIR) with the [employer] (ACR). RADIATION OPTIMIZATION: All CT scans at this facility use at least one of these dose optimization te chniques: automated exposure control; mA and/or kV adjustment per patient size (includes targeted exa ms where dose is matched to clinical indication); or iterative reconstruction.
[2020-12-20 17:51] LABS: Abs Immature Grans 0.03 10^3/uL (0.0-0.06); Absolute Basophil Count 0.05 10^3/uL (0.0-0.2); Absolute Eosinophil Count 0.16 10^3/uL (0.0-0.7); Absolute Lymphocyte Count 1.27 10^3/uL (1.2-3.4); Absolute Monocyte Count 0.84 10^3/uL (0.1-0.8); Absolute Neutrophil Count 7.87 10^3/uL (1.2-6.7); Basophils % 0.5; Eosinophils % 1.6; HGB 14.4 g/dL (11.2-15.7); Immature Grans % 0.3; Lymphocytes % 12.4; MCHC 33.5 % (32.0-36.0); MCV 89.6 fL (80-95); MPV 9.6 fL (8.0-11.0); Monocytes % 8.2; Nucleated RBC 0 %; Platelet Count 328 10^3/uL (130-400); RDW 12.7 % (11.7-14.6); RDW-SD 41.4 fL; WBC 10.22 10^3/uL (4.4-10.8)
[2020-12-20 18:08] LABS: PTT Activated 23.8 sec (21.0-27.5); Prothrombin Time 10.4 sec (9.3-11.0)
[2020-12-20 18:10] LABS: ALT 39 U/L (14-59); AST 23 U/L (15-37); Albumin 3.2 g/dL (3.4-5.0); Alkaline Phosphatase 88 U/L (46-116); Anion Gap 7.2 mmol/L (3-11); BUN 14 mg/dL (7-18); Bilirubin, Total 0.3 mg/dL (0.2-1.0); CO2 28.8 mmol/L (21.0-32.0); CREATININE 0.7 mg/dL (0.55-1.02); Calcium 9.3 mg/dL (8.5-10.1); Chloride 95 mmol/L (98-107); Glucose 129 mg/dL (74-106); Magnesium 1.9 mg/dL (1.8-2.4); Potassium 4.2 mmol/L (3.5-5.1); Sodium 131 mmol/L (136-145); Total Protein 7.7 g/dL (6.4-8.2)
[2020-12-20 18:11] LABS: Troponin I < 0.05 ng/mL (<0.06)
[2020-12-20] MEDS: Prochlorperazine 10 MG/2 ML VIAL IVP (18:20)
[2020-12-20] MEDS: Normal Saline 50 ML (18:21)
[2020-12-20] MEDS: Normal Saline - Diluent 50 ML VIAL IV (18:32)
[2020-12-20] MEDS: Omnipaque 350 MG/ML 100 ML BTL IJ (18:33)
--- NOTE | 2020-12-20 18:53 | DI.VRAD_ITS ---
Addendum created by Osito Medrano MD on 12/20/2020 6:56:21 PM EST: THIS REPORT CONTAINS FINDINGS THAT MAY BE CRITICAL TO PATIENT CARE. The pertinent findings were verbally communicated via telephone conference with Karina Christianson at 6:56 PM EST on 12/20/2020. The findings were acknowledged and understood. Initial report created on 12/20/2020 6:52:55 PM EST: PROCEDURE INFORMATION: Exam: CT Angiography Head With Contrast, Arteries Exam date and time: 12/20/2020 5:50 PM Age: 75 years old Clinical indication: Weakness TECHNIQUE: Imaging protocol: Computed tomography angiography of the head with intravenous contrast. 3D rendering (Not supervised by radiologist): MIP and/or 3D reconstructed images were created by the technologist. Contrast material: OMNIPAQUE 350; Contrast volume: 90 ml; Contrast route: INTRAVENOUS (IV); COMPARISON: No relevant prior studies available. FINDINGS: ANTERIOR CIRCULATION: Right internal carotid artery: Mild calcified plaque of the right cavernous carotid artery with mild stenosis. Right middle cerebral artery: Unremarkable. No occlusion or significant stenosis. No aneurysm. Right anterior cerebral artery: Patent right A1 segment. Diminutive right A2 segment.. No occlusion or significant stenosis. No aneurysm. Left internal carotid artery: Mild calcified plaque within the left cavernous carotid artery with mild stenosis. Left middle cerebral artery: Unremarkable. No occlusion or significant stenosis. No aneurysm. Left anterior cerebral artery: Patent left A1 segment. Dominant left A2 segment. 4 mm aneurysm at a bifurcation of the left AL[place] A2 segment within the anterior intrahemispheric fissure (axial images 79 and 80 of series 10 and coronal reformatted images 21 through 24 series 11). POSTERIOR CIRCULATION: Right vertebral artery: Unremarkable. No occlusion or significant stenosis. No aneurysm. Left vertebral artery: Unremarkable. No occlusion or significant stenosis. No aneurysm. Basilar artery: Unremarkable. No occlusion or significant stenosis. No aneurysm. Right posterior cerebral artery: Unremarkable. No occlusion or significant stenosis. No aneurysm. Left posterior cerebral artery: Unremarkable. No occlusion or significant stenosis. No aneurysm. Brain: Global cerebral atrophy is consistent with patient's age. Decreased attenuation within the white matter tracts of both cerebral hemispheres is nonspecific but typically seen with small vessel disease/chronic white matter ischemic changes of aging. No intracranial hemorrhage or mass effect. No intracranial mass or abnormal enhancement. No abnormal intra-axial or extra-axial fluid collections. Cerebral ventricles: Mild ventriculomegaly consistent with global cerebral atrophy. Bones/joints: Unremarkable. No acute fracture. Soft tissues: Unremarkable. IMPRESSION: 1. No intracranial arterial significant stenosis or occlusion. 2. 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 3. Global cerebral atrophy and findings typically seen with small vessel disease /chronic white-matter ischemic changes of aging. PROCEDURE INFORMATION: Exam: CT Angiography Neck With Contrast Exam date and time: 12/20/2020 5:50 PM Age: 75 years old Clinical indication: Weakness TECHNIQUE: Imaging protocol: Computed tomography angiography of the neck with intravenous contrast. 3D rendering (Not supervised by radiologist): MIP and/or 3D reconstructed images were created by the technologist. Contrast material: OMNIPQUE 350; Contrast volume: 90 ml; Contrast route: INTRAVENOUS (IV); COMPARISON: No relevant prior studies available. FINDINGS: Right common carotid artery: Minimal calcified plaque within the right common carotid artery without significant stenosis, occlusion or dissection. Right internal carotid artery: Minimal calcified plaque at the the right carotid bulb without stenosis, occlusion or dissection. Right external carotid artery: No occlusion or stenosis of the origin. Right vertebral artery: No stenosis. No dissection or occlusion. Left common carotid artery: No stenosis. No dissection or occlusion. Left internal carotid artery: Mild calcified plaque within the proximal left ICA with mild stenosis. Left external carotid artery: No occlusion or stenosis of the origin. Left vertebral artery: No stenosis. No dissection or occlusion. Bones/joints: Degenerative spondylosis throughout the cervical spine. No severe bony spinal stenosis. Soft tissues: Normal. No significant soft tissue swelling. IMPRESSION: Mild carotid atherosclerosis with mild stenosis of the left ICA. REFERENCES: NASCET CRITERIA. The degree of internal carotid artery stenosis is based on NASCET criteria. Normal is no stenosis. Mild is less than 50% stenosis. Moderate is 50-69% stenosis. Severe is 70% to 99% stenosis. Total occlusion is no detectable patent lumen. Dictated and Authenticated by: Osito Medrano MD. Ordering:JONES Collins MD
--- NOTE | 2020-12-20 18:56 | DI.VRAD_ITS ---
PROCEDURE INFORMATION: Exam: XR Chest, 2 Views Exam date and time: 12/20/2020 6:26 PM Age: 75 years old Clinical indication: Other: Cvi/ TIA. Vomitting TECHNIQUE: Imaging protocol: XR of the chest Views: 2 views. COMPARISON: CR XR PORTABLE CHEST AP 12/09/2020 10:37 AM FINDINGS: Lungs: The lungs are clear. No consolidation. Pleural spaces: No pleural effusion. No pneumothorax. Heart/Mediastinum: No cardiomegaly. The mediastinal contour is unremarkable. Bones/joints: Degenerative spondylosis of the thoracic spine. Organs: Status post cholecystectomy. IMPRESSION: No acute abnormality. Dictated and Authenticated by: Osito Medrano MD. Ordering:JONES Collins MD
[2020-12-20 18:59] LABS: Bilirubin Negative (Negative); Blood Trace-intact (Negative); Clarity Clear (Clear); Glucose Negative (Negative); Ketones Negative (Negative); Leukocyte Esterase Negative (Negative); Nitrite Negative (Negative); Specific Gravity 1.025 (1.005-1.025); Urobilinogen 0.2 EU/dL (Up TO 0.2)
[2020-12-20] MEDS: Normal Saline 500 ML IV (19:03)
[2020-12-20 19:05] LABS: WBC 0-2 HPF (0-5)
[2020-12-20 19:06] LABS: Bacteria Negative HPF (Negative); C & S Indicated? No/Sq. Contamination; Casts Negative LPF (Negative); Crystals Negative HPF (Negative); Epithelial Cells Many HPF (Negative); Mucus Negative (Negative); Other Cells Negative (Negative)
[2020-12-20 19:26] LABS: Source Nasopharynx
[2020-12-20 20:08] LABS: COVID-19 PCR Negative (Negative); Influenza A PCR Negative (Negative); Influenza B PCR Negative (Negative); RSV PCR Negative (Negative)
--- NOTE | 2020-12-20 22:58 | W.PM.HP.N ---
Date of service: 12/20/20 Time of Service: 22:58 Assessment and Plan Assessment and plan (1) TIA (transient ischemic attack): Status: Acute Assessment and plan: You agree with the concern for transient ischemic attack. She is at high risk based on her ABCD2 or and that should be admitted for observation. She has been been placed on telemetry. 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 We will treat with aspirin and high intensity statin therapy and await MRI. (2) Vomiting: Status: Acute Assessment and plan: Patient does not remember this, though it is documented by others. Benign exam, but she was just started on donepezil which can commonly cause nausea and vomiting. Given is very unlikely this medication will improve her cognitive status at this stage, I will hold this. (3) Dysphagia: Status: Acute Assessment and plan: Speech therapy note from last admission reviewed, given dysphagia diet. (4) Altered mental status: Status: Acute Assessment and plan: Possibly related to cerebrovascular disease as above. No signs of seizure-like activity. Given her dementia, I am holding her anticholinergic. (5) Hyponatremia: Status: Acute Assessment and plan: Mild at this point, not low enough to cause symptoms. Monitor and reinstitute fluid restriction if trending down. (6) Hypothyroidism: Status: Chronic Assessment and plan: TSH was within normal range earlier this month. Continue current dose of levothyroxine. Qualifiers: Hypothyroidism type: unspecified Qualified Code(s): E03.9 - Hypothyroidism, unspecified (7) Essential hypertension: Status: Chronic Assessment and plan: Blood pressure elevated on admission, but given concern for cerebrovascular disease I would not give any additional antihypertensives and permit some hypertension to maintain cerebral perfusion. (8) Urinary tract infection: Status: Resolved Assessment and plan: Culture from earlier this week growing Enterococcus that is pansensitive. She has been on amoxicillin clavulanic acid, will continue just the amoxicillin as this should suffice. (9) DVT prophylaxis: Status: Acute Assessment and plan: Lovenox (10) Discharge planning issues: Status: Acute Assessment and plan: Patient is currently stable on the medical floor. DNR/DNI is documented. She is a palliative care patient with Dr. Caldera as her PCP, will consult plan of care in case they are able to help give us input. History of Present Illness History of Present Illness Chief Complaint: Headache, right-sided weakness Narrative: 75-year-old female with recent admission for non-ST elevation IL, aspiration pneumonia, and acute hyponatremia who was brought to the emergency room by EMS after a stroke alert for a new right-sided headache and weakness. The headache was constant behind the right eye. Both symptoms resolved in about an hour, and are not currently present. She does not complain of nausea, but sister reports that she vomited several times since yesterday. She also vomited while in the radiology department. Sister also reports that she has been dazed for the past 2 days. She also reports a fall, which the patient does not remember. Of note, the patient was seen in the clinic on December 17 and treated for urinary tract infection with amoxicillin/clavulanic acid. She was also started on donepezil for cognitive impairment with Mini-Mental status 16 out of 30. Details of history from the patient are not limited by her cognitive and memory impairment chronic progressive issue per the patient's chart. Review of Systems Constitutional Constitutional: Denies anorexia, Denies chills, Denies fever(s) and Denies weight loss Eyes Eyes: Denies change in vision, Denies diplopia, Denies irritation and Denies loss of vision ENT Ears, Nose, Mouth, and Throat: Denies dysphagia, Denies vertigo, Denies dizziness, Denies nasal congestion, Denies nasal discharge and Denies sore throat Cardiovascular Cardiovascular: Denies chest pain, Denies palpitations and Denies orthopnea Respiratory Respiratory: Denies cough, Denies excessive phlegm production and Denies wheezing Gastrointestinal Gastrointestinal: Denies abdominal pain, Denies dysphagia, Denies heartburn and Denies vomiting Genitourinary Genitourinary: Denies hematuria, Denies dysuria and Denies urinary incontinence Integumentary/Breasts Skin/Breast: Denies rash and Denies skin ulcer Neurologic Neurologic: Denies vertigo, Denies dizziness, Denies lack of coordination, Denies loss of vision and Denies sensory deficit Psychiatric Psychiatric: Denies mood swings and Denies panic attacks Endocrine Endocrine: Denies palpitations Hematologic/Lymphatic Hematologic/Lymphatic: Denies easy bleeding Allergic/Immunologic Allergic/Immunologic: Denies wheezing [facility] Medical History Abnormal cervical Papanicolaou smear (10/01/00) Age-related macular degeneration Ankle joint pain (06/21/13) Rickets as a child Balance problem Bilateral impacted cerumen (07/31/15) Bronchospasm Cataract (01/19/18) Cataract Chronic left shoulder pain (05/04/18) Depressive disorder (12/04/11) Diabetes Diverticulitis of colon 04/11 pre-op H P by Dr. Al Reid for lap sigmoid resection, secondary to acute episodes of diverticulitis. 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 Essential hypertension (10/14/13) Fall in exam room while getting off exam table Fatigue (06/21/13) Grief (03/04/16) Hip pain (06/24/13) Hypercalcemia (12/04/16) Hyperlipidemia (06/21/13) Hyponatremia (07/01/13) Hypothyroidism (06/24/13) Low back pain (06/21/13) XRay 09/09 - DJD, R hip DJD MRI - severe djd, no stenosis Low back pain (06/21/13) Multiple excoriations (07/20/14) Other specified cardiac dysrhythmias (10/01/04) bradycardia by ECG; Holter=rare PAC/PVC/burst SVT; <3sec pause Other specified cardiac dysrhythmias (10/01/04) Pelvic abscess (11/05/09) 10/10 CT: SMALL RESIDUAL ABSCESSED CAVITY IN CENTRAL PELVIS, W/ FISTULA BETWEEN ABSCESS SIGMOID COLON Pelvic abscess (11/05/09) Pruritic disorder (01/10/14) Reflux esophagitis (12/08/16) Rickets Sensorineural hearing loss, bilateral (01/14/18) Vaginitis and vulvovaginitis Wheezing (05/04/18) ? voacl cord dysfunction Surgical History Abdominal hysterectomy (~1983) Cholecystectomy (~1979) drainage of pelvic abcess Extraction of cataract LEFT EYE;12/14/17; DR. ALICEA Status post abdominal hysterectomy Status post cholecystectomy Status post hip replacement Status post incision and drainage Total replacement of hip (~2008) LEFT Family History Mother , AGE 92 Diabetes Heart disease Father Heart disease Stomach cancer Sister Depression Heart disease COPD (chronic obstructive pulmonary disease) Asthma Brother Diabetes Essential hypertension Heart disease Hyperlipidemia Asthma Social History Smoking/Tobacco Use Status: Never Smoking risk assessment performed?: Yes Alcohol Intake: former Drug use: Never Substance use type: does not use Caregiver/Support person: No Household members: spouse and none Housing: house Communication Needs: None Do you need help understanding health information?: Never Pets and animals: Yes Pets and animals: dog(s) Sexually active: No Do you think of yourself as: straight/heterosexual Current gender identity: female What is your relationship status?: How often do you talk on the phone with friends or family?: three or more times per week How often do you get together with friends or relatives?: once per week How often do you attend catholic or presybeterian services?: 4 or more times per year Do you belong to any clubs or organized social groups?: no Panel score (0-1 are the most socially isolated patients): 2 What type of physical activity do you participate in: walking Duration: 15-30 minutes/day Frequency: 1-2 times per week Medina/Hindu: Scientologist Special medina needs: No Seatbelt use: always Helmet use: Yes Helmet use: always Drive intox or ride w/intox milk tanker driver: No Do you feel safe at home: Yes Do you feel safe in your relationship?: Yes Victim of physical abuse: No Victim of emotional abuse: No Victim of sexual abuse: No Would you like helpful sources: No Meds Home Medications and Allergies Home Medications Medication Instructions Recorded Confirmed Type docusate sodium [Colace] 100 mg PO BID #180 tab-cap 05/04/18 12/20/20 Rx albuterol sulfate 90 mcg/actuation 2 puff IH 6XD PRN #18 gm 11/03/19 12/20/20 Rx aerosol inhaler famotidine 40 mg tablet 40 mg PO DAILY #90 tab 03/16/20 12/20/20 Rx multivitamin 1 tab PO DAILY #90 tab-cap 03/16/20 12/20/20 Rx acetaminophen 500 mg tablet 1,000 mg PO TID PRN #270 tab-cap 04/03/20 12/20/20 Rx sennosides 8.6 mg-docusate sodium 2 tab PO DAILY #180 tab-cap 04/27/20 12/20/20 Rx 50 mg tablet levothyroxine 112 mcg tablet 112 mcg PO DAILY #90 tab-cap 05/01/20 12/20/20 Rx omeprazole 40 mg capsule,delayed 40 mg PO DAILY #90 tab-cap 05/01/20 12/20/20 Rx release oxybutynin chloride 5 mg tablet 5 mg PO BID #180 tab-cap 05/01/20 12/20/20 Rx pravastatin 40 mg tablet 40 mg PO DAILY #90 tab-cap 05/01/20 12/20/20 Rx triamcinolone acetonide 0.1 % 1 applic TP BID #80 gm 08/08/20 12/20/20 Rx topical cream amoxicillin-pot clavulanate 1 tab PO BID #14 tab 12/11/20 Rx aspirin 81 mg PO DAILY #0 tab 12/11/20 12/20/20 Rx donepezil 10 mg tablet 10 mg PO DAILY #30 tab 12/17/20 12/20/20 Rx Allergies Allergy/AdvReac Type Severity Reaction Status Date / Time No Known Allergies Allergy Verified 12/20/20 17:08 Exam Narrative Exam Narrative: GEN: Alert and oriented to self, tells me he is in [place]. pleasent and cooperative, but unable to give a linear history. No acute distress at rest. HEENT: Head atraumatic. Conjunctiva clear, no icterus. PEERL, EOMI. no rhinorrhea. MMM, OP benign. Neck is supple with no masses or lymphadenopathy, trachea midline. Symmetric carotid pulse bilaterally, no bruits. LUNGS: CTAB with normal effort CV: RRR with no murmurs, gallops, or rubs. ABD: +BS, soft, NT/ND EXT: no cyanosis, clubbing, or edema MSK: No joint redness or swelling NEURO: CN 2-12 grossly intact, though she does seem to neglect her left side and fever looking towards the right. Normal movement of 4 extremities. Normal speech and coordination. Negative pronator drift. SKIN: No rashs or open wounds. PSYCH: normal mood and affect Results Chest x-ray: No acute abnormality CT head and neck with contrast: IMPRESSION: 1. No acute intra-abdominal or pelvic process. No acute interval change compared to 11/15/2019. 2. No generalized ileus or bowel obstruction. 3. Scattered colon diverticuli without evidence of diverticulitis. 4. Compared to the prior examination dated 10/15/2020, once again noted are scattered areas of increased density within the skeleton (e.g. T10, and L2 through L5) - metastatic disease cannot be excluded. Labs Result diagrams: 12/20/20 17:35 12/20/20 17:35 Labs: Laboratory Results - last 24 hr 12/20/20 12/20/20 12/20/20 17:35 17:35 17:35 WBC 10.22 RBC 4.80 Hgb 14.4 Hct 43.0 MCV 89.6 MCH 30.0 MCHC 33.5 RDW 12.7 Plt Count 328 MPV 9.6 Immature Gran % 0.3 Neutrophils % 77.0 Lymphocytes % 12.4 Monocytes % 8.2 Eosinophils % 1.6 Basophils % 0.5 Nucleated RBC % 0 Absolute Neutrophils 7.87 H Absolute Lymphocytes 1.27 Absolute Monocytes 0.84 H Absolute Eosinophils 0.16 Absolute Basophils 0.05 PT 10.4 INR 1.0 APTT 23.8 Sodium 131 L Potassium 4.2 Chloride 95 L Carbon Dioxide 28.8 Anion Gap 7.2 BUN 14 Creatinine 0.7 Estimated GFR/1.73 m2 >= 60.00 Glucose 129 H Calcium 9.3 Magnesium 1.9 Total Bilirubin 0.3 AST 23 ALT 39 Alkaline Phosphatase 88 Troponin I < 0.05 Total Protein 7.7 Albumin 3.2 L Urine Color Urine Clarity Urine pH Ur Specific [place] Urine Protein Urine Ketones Urine Blood Urine Nitrite Urine Bilirubin Urine Urobilinogen Ur Leukocyte Esterase Urine RBC Urine WBC Ur Epithelial Cells Urine Crystals Urine Bacteria Urine Casts Urine Mucus Urine Other Ur Culture Indicated? Urine Glucose COVID-19 Source SARS-CoV-2 (PCR) Influenza Type A (PCR) Influenza Type B (PCR) RSV (PCR) 12/20/20 12/20/20 18:52 19:21 WBC RBC Hgb Hct MCV MCH MCHC RDW Plt Count MPV Immature Gran % Neutrophils % Lymphocytes % Monocytes % Eosinophils % Basophils % Nucleated RBC % Absolute Neutrophils Absolute Lymphocytes Absolute Monocytes Absolute Eosinophils Absolute Basophils PT INR APTT Sodium Potassium Chloride Carbon Dioxide Anion Gap BUN Creatinine Estimated GFR/1.73 m2 Glucose Calcium Magnesium Total Bilirubin AST ALT Alkaline Phosphatase Troponin I Total Protein Albumin Urine Color Yellow Urine Clarity Clear Urine pH 7.0 Ur Specific [place] 1.025 Urine Protein >=300 H Urine Ketones Negative Urine Blood Trace-intact H Urine Nitrite Negative Urine Bilirubin Negative Urine Urobilinogen 0.2 Ur Leukocyte Esterase Negative Urine RBC 5-10 H Urine WBC 0-2 Ur Epithelial Cells Many Urine Crystals Negative Urine Bacteria Negative Urine Casts Negative Urine Mucus Negative Urine Other Negative Ur Culture Indicated? No/sq. contamination Urine Glucose Negative COVID-19 Source Nasopharynx SARS-CoV-2 (PCR) Negative Influenza Type A (PCR) Negative Influenza Type B (PCR) Negative RSV (PCR) Negative Last Vital Signs Temp 36.2 C L 12/20/20 21:25 Pulse 47 L 12/20/20 22:33 Resp 20 12/20/20 21:25 BP 178/76 H 12/20/20 21:25 Pulse Ox 98 12/20/20 21:25 COVID-19 Screening Have you, or household traveled for leisure in last 14 days?: No Had IN PERSON contact w/suspected or confirmed C-19 person: No
[2020-12-20] MEDS: Enoxaparin 40 MG/0.4 ML SYR SC (23:05)
[2020-12-21] VITALS (9 sets, daily range): BP systolic 148–179; BP diastolic 74–89; PULSE 46–88; RESP 18; TEMP 36.1–36.6; O2SAT 94–100
--- NOTE | 2020-12-21 06:00 | DI.MRI_ITS ---
EXAM: MR BRAIN WO CLINICAL HISTORY: right sided weakness and headache, transient. TECHNIQUE: Multiplanar multisequence MRI of the brain was performed. CONTRAST MATERIAL: IV Contrast: ML of Dotarem contrast administered. COMPARISON: CT CT BRAIN NECK CTA from 12/20/[address] BRAIN NECK CTA from 12/20/2020 FINDINGS: The exam is somewhat limited by patient motion. There is moderate atrophy. There are prominent whit e matter changes bilaterally, roughly symmetric, consistent with sequela chronic microvascular ischem ia. No area of restricted diffusion is seen to indicate an acute infarct. No evidence of hemorrhage or mass. The ventricles are normal in size for the degree of atrophy. The orbits, sinuses and mast oid air cells are unremarkable. Vascular flow voids are intact. IMPRESSION: Atrophy and severe white matter changes of small vessel disease. No acute abnormality. DATA REPOSITORY:
[2020-12-21] MEDS: Levothyroxine 112 MCG TAB PO (06:19)
[2020-12-21 07:03] LABS: Anion Gap 7.6 mmol/L (3-11); BUN 12 mg/dL (7-18); CO2 26.4 mmol/L (21.0-32.0); CREATININE 0.7 mg/dL (0.55-1.02); Calcium 8.9 mg/dL (8.5-10.1); Chloride 98 mmol/L (98-107); Glucose 107 mg/dL (74-106); Potassium 3.9 mmol/L (3.5-5.1); Sodium 132 mmol/L (136-145)
[2020-12-21] MEDS: Docusate Sodium 100 MG CAP PO ×2 (08:36→20:08)
[2020-12-21] MEDS: Famotidine 20 MG TAB 40 MG PO (08:36)
[2020-12-21] MEDS: Aspirin 81 MG CHEW PO (08:36)
[2020-12-21] MEDS: Omeprazole 20 MG CAPCR 40 MG PO (08:36)
[2020-12-21] MEDS: Amoxicillin 875 MG TAB PO ×2 (08:36→20:08)
[2020-12-21] MEDS: Sennosides/Docusate Sodium TAB 2 TAB PO (08:36)
[2020-12-21] MEDS: Multivitamin TAB 1 TAB PO (08:36)
--- NOTE | 2020-12-21 09:27 | W.PM.PROGNOT ---
Date of Service Date of service: 12/21/20 Time of Service: 09:27 Assessment and Plan Assessment and plan (1) TIA (transient ischemic attack): Status: Acute Assessment and plan: no events on telemetry, uneventful overnight. 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 continue aspirin and high intensity statin therapy MRI pending. (2) Vomiting: Status: Acute Assessment and plan: resolved. antiemetics if needed. (3) Dysphagia: Status: Acute Assessment and plan: Speech therapy note from last admission reviewed, given dysphagia diet. (4) Altered mental status: Status: Acute Assessment and plan: Possibly related to cerebrovascular disease as above. No signs of seizure-like activity. Given her dementia, continue to hold anticholinergic. (5) Hyponatremia: Status: Acute Assessment and plan: Mild at this point, not low enough to cause symptoms. Monitor and reinstitute fluid restriction if trending down. (6) Hypothyroidism: Status: Chronic Assessment and plan: TSH was within normal range earlier this month. Continue current dose of levothyroxine. Qualifiers: Hypothyroidism type: unspecified Qualified Code(s): E03.9 - Hypothyroidism, unspecified (7) Essential hypertension: Status: Chronic Assessment and plan: Blood pressure elevated on admission, but given concern for cerebrovascular disease I would not give any additional antihypertensives and permit some hypertension to maintain cerebral perfusion. (8) Urinary tract infection: Status: Resolved Assessment and plan: Culture from earlier this week growing Enterococcus that is pansensitive. continue augmentin (9) DVT prophylaxis: Status: Acute Assessment and plan: Lovenox (10) Discharge planning issues: Status: Acute Assessment and plan: Patient is currently stable on the medical floor. DNR/DNI is documented. She is a palliative care patient with Dr. Caldera as her PCP, will consult plan of care in case they are able to help give us input. was to be admitted to the [facility], case management following, anticipate swing level discharge for possible LTCP discussed with DR Isaacs Subjective Subjective Patient reports: no new complaints, tolerating liquids well, tolerating a regular diet, voiding w/o difficulty and afebrile Interval history since last seen: patient appears back at her baseline, uneventful overnight. Exam Const General: cooperative, comfortable and no acute distress Nutritional Appearance: overweight Orientation: alert, awake and oriented to person [facility] Head: normal to inspection, normocephalic and atraumatic Mouth: oral mucosae normal Resp Effort & Inspection: normal respiratory effort Auscultation: clear to auscultation bilaterally Cardio Rate: regular rate Rhythm: regular rhythm GI Inspection: normal to inspection Palpation: soft Auscultation: normal bowel sounds Skin General skin exam: no rashes or lesions noted Neuro General: patient alert, patient awake, patient oriented x3 and moves all extremities Extrem General: normal to inspection, full ROM and pedal edema (trace) bilaterally Objective Last Vital Signs Temp 36.6 C 12/21/20 07:47 Pulse 55 L 12/21/20 07:47 Resp 18 12/21/20 07:47 BP 179/77 H 12/21/20 07:47 Pulse Ox 95 12/21/20 07:47 Laboratory Results - last 24 hr 12/20/20 12/20/20 12/20/20 17:35 17:35 17:35 WBC 10.22 RBC 4.80 Hgb 14.4 Hct 43.0 MCV 89.6 MCH 30.0 MCHC 33.5 RDW 12.7 Plt Count 328 MPV 9.6 Immature Gran % 0.3 Neutrophils % 77.0 Lymphocytes % 12.4 Monocytes % 8.2 Eosinophils % 1.6 Basophils % 0.5 Nucleated RBC % 0 Absolute Neutrophils 7.87 H Absolute Lymphocytes 1.27 Absolute Monocytes 0.84 H Absolute Eosinophils 0.16 Absolute Basophils 0.05 PT 10.4 INR 1.0 APTT 23.8 Sodium 131 L Potassium 4.2 Chloride 95 L Carbon Dioxide 28.8 Anion Gap 7.2 BUN 14 Creatinine 0.7 Estimated GFR/1.73 m2 >= 60.00 Glucose 129 H Calcium 9.3 Magnesium 1.9 Total Bilirubin 0.3 AST 23 ALT 39 Alkaline Phosphatase 88 Troponin I < 0.05 Total Protein 7.7 Albumin 3.2 L Urine Color Urine Clarity Urine pH Ur Specific [place] Urine Protein Urine Ketones Urine Blood Urine Nitrite Urine Bilirubin Urine Urobilinogen Ur Leukocyte Esterase Urine RBC Urine WBC Ur Epithelial Cells Urine Crystals Urine Bacteria Urine Casts Urine Mucus Urine Other Ur Culture Indicated? Urine Glucose COVID-19 Source SARS-CoV-2 (PCR) Influenza Type A (PCR) Influenza Type B (PCR) RSV (PCR) 12/20/20 12/20/20 12/21/20 18:52 19:21 06:34 WBC RBC Hgb Hct MCV MCH MCHC RDW Plt Count MPV Immature Gran % Neutrophils % Lymphocytes % Monocytes % Eosinophils % Basophils % Nucleated RBC % Absolute Neutrophils Absolute Lymphocytes Absolute Monocytes Absolute Eosinophils Absolute Basophils PT INR APTT Sodium 132 L Potassium 3.9 Chloride 98 Carbon Dioxide 26.4 Anion Gap 7.6 BUN 12 Creatinine 0.7 Estimated GFR/1.73 m2 >= 60.00 Glucose 107 H Calcium 8.9 Magnesium Total Bilirubin AST ALT Alkaline Phosphatase Troponin I Total Protein Albumin Urine Color Yellow Urine Clarity Clear Urine pH 7.0 Ur Specific [place] 1.025 Urine Protein >=300 H Urine Ketones Negative Urine Blood Trace-intact H Urine Nitrite Negative Urine Bilirubin Negative Urine Urobilinogen 0.2 Ur Leukocyte Esterase Negative Urine RBC 5-10 H Urine WBC 0-2 Ur Epithelial Cells Many Urine Crystals Negative Urine Bacteria Negative Urine Casts Negative Urine Mucus Negative Urine Other Negative Ur Culture Indicated? No/sq. contamination Urine Glucose Negative COVID-19 Source Nasopharynx SARS-CoV-2 (PCR) Negative Influenza Type A (PCR) Negative Influenza Type B (PCR) Negative RSV (PCR) Negative
--- NOTE | 2020-12-21 09:55 | PT.INIE ---
Date of service: 12/21/20 PT Notes Visit Reasons: ALTERED MENTAL STATUS, TIA, VOMITING Physical Therapy Inpatient Initial Evaluation Date: 12/21/2020 Referring Doctor: Vishnu fernandez MD PT Orders: PT CONSULT: Fall safety assessment. Frequent falls at home, admitted for TIA. Precautions: Fall. Standard. Activity as tolerated. Sensorineural hearing loss. Patient Profile/Admitting Diagnosis: Alla is a 75-year-old female who presented to the ED on 12/20/2020 with suspected stroke with complaints of right-sided headache and weakness. Per ED notes, patient fell yesterday and has reportedly been demonstrating periods of being dazed for the past 2 days prior to admission. Patient is diagnosed with TIA, vomiting, dysphagia, altered mental status, hyponatremia, hypothyroidism, essential hypertension and urinary tract infection. PMHX: Medical History Abnormal cervical Papanicolaou smear (10/01/00) Age-related macular degeneration Ankle joint pain (06/21/13) Rickets as a child Balance problem Bilateral impacted cerumen (07/31/15) Bronchospasm Cataract (01/19/18) Cataract Chronic left shoulder pain (05/04/18) Depressive disorder (12/04/11) Diabetes Diverticulitis of colon 04/11 pre-op H P by Dr. Al Reid for lap sigmoid resection, secondary to acute episodes of diverticulitis. 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 Essential hypertension (10/14/13) Fall in exam room while getting off exam table Fatigue (06/21/13) Grief (03/04/16) Hip pain (06/24/13) Hypercalcemia (12/04/16) Hyperlipidemia (06/21/13) Hyponatremia (07/01/13) Hypothyroidism (06/24/13) Low back pain (06/21/13) XRay 09/09 - DJD, R hip DJD MRI - severe djd, no stenosis Low back pain (06/21/13) Multiple excoriations (07/20/14) Other specified cardiac dysrhythmias (10/01/04) bradycardia by ECG; Holter=rare PAC/PVC/burst SVT; <3sec pause Other specified cardiac dysrhythmias (10/01/04) Pelvic abscess (11/05/09) 10/10 CT: SMALL RESIDUAL ABSCESSED CAVITY IN CENTRAL PELVIS, W/ FISTULA BETWEEN ABSCESS SIGMOID COLON Pelvic abscess (11/05/09) Pruritic disorder (01/10/14) Reflux esophagitis (12/08/16) Rickets Sensorineural hearing loss, bilateral (01/14/18) Vaginitis and vulvovaginitis Wheezing (05/04/18) ? voacl cord dysfunction Surgical History Abdominal hysterectomy (~1983) Cholecystectomy (~1979) drainage of pelvic abcess Extraction of cataract LEFT EYE;12/14/17; DR. ALICEA Status post abdominal hysterectomy Status post cholecystectomy Status post hip replacement Status post incision and drainage Total replacement of hip (~2008) LEFT Social History/Home Situation: Lives alone in a trailer home with a ramp to enter. She indicates that she has a sister and a lady who comes in regularly to help with chores, grocery shopping, and medical transportation. She is modified independent using the front wheeled walker prior to admission. Equipment Owned/DME: Front wheeled walker Subjective: Agreeable to PT consult. Reports pain on the right side of her forehead and her right eye at 5?6/10 that has been reported to nurse Pasha immediately who then gave the patient Tylenol. Patient reported good relief from pain with 1-2/10 pain at time of ambulation activity. Objective: General Observation: Seated on side reclining chair. Mental Status: Had a short-lived episode of needing maximal verbal cueing and redirection as she appeared dazed and not able to follow instructions during testing for dysmetria. Pain: 5-6/10 R frontotemporal pain ROM: Right Upper Extremity: Shoulder Flexion WFL. Shoulder abduction WFL. Elbow flexion WFL. Wrist flexion WFL. Opening and closing of hand WFL. Left Upper Extremity: Shoulder Flexion WFL. Shoulder abduction WFL. Elbow flexion WFL. Wrist flexion WFL. Opening and closing of hand WFL. Right Lower Extremity: Hip flexion WFL. Hip abduction WFL. Knee flexion WFL. Ankle dorsiflexion to neutral only. Ankle plantarflexion WFL. Left Lower Extremity: Hip flexion WFL. Hip abduction WFL. Knee flexion WFL. Ankle dorsiflexion to neutral only. Ankle plantarflexion WFL. Strength: Right Upper Extremity: Shoulder flexors 4-/5. Shoulder abductors 4-/5. Elbow flexors 4/5. Elbow extensors 4/5. Bag Adjuster strong. Left Upper Extremity: Shoulder flexors 4-/5. Shoulder abductors 4-/5. Elbow flexors 4/5. Elbow extensors 4/5. Bag Adjuster strong. Right Lower Extremity: Hip flexors 4-/5. Hip abductors 4-/5. Knee flexors 4/5. Knee extensors 4-/5. Ankle dorsiflexors 3-/5. Ankle plantarflexors 5/5. Left Lower Extremity:Hip flexors 4/5. Hip abductors 5/5. Knee flexors 5/5. Knee extensors 5/5. Ankle dorsiflexors 3-/5. Ankle plantarflexors 4/5. Sensation: Intact as to pain and pressure on bilateral lower extremities. Bed Mobility/Transfers: Sit to stand contact-guard assist Bed to chair contact-guard assist Chair to bed contact-guard assist Gait: Guided patient through level surface ambulation of 80 feet using front wheeled walker with full weight bearing and contact-guard assist with orthopedic shoes on on B sides. Reports resolution of right-sided frontal orbital headache to 1-12/12. Denies chest pain and dizziness throughout. Balance: Static Sitting: Normal Dynamic Sitting: Normal Static Standing: Fair Dynamic Standing: Fair Special Tests: Mobility Limitations Standardized Measure [facility] AM-PAC 6 clicks Basic Mobility Inpatient Short Form: Raw Score: 18 CMS Score: 47% deficit 4-stage balance test: Unable to maintain feet together, semitandem, full tandem and 1 legged stance for 10 seconds indicating at high risk for falls without use of a front wheeled walker. Dysmetria: Positive Dysdiadochokineisa: Positive Informed Consent/Education: Patient instructed in purpose of PT consult and plan of care. Assessment: BUE and LE strength symmetric. Unable to discriminate distance of objects in front of her. Limited ability to perform rapid alternating movements. At high risk for falls as indicated by 4-stage balance test. Demonstrated short-lived absence of awareness of objects on her left side with sustained head rotation to the right during testing. Requires the use of a front wheeled walker and assistance of another caregiver for safety of transfer and ambulation task performance at this time. Patient presents with clinical signs and symptoms consistent with current/admitting diagnoses that have resulted to mobility limitations, gait instability, generalized weakness, and impairment of motor control as demonstrated by the following impairment level findings: 1. Decreased strength to BUE/LE major muscle groups 2. Impaired standing balance 3. Impaired activity tolerance 4. Dysmetria 5. Dysdiadochokinesia 6. L hemineglect Impairments are contributing to the following functional limitations: 1. Increased dependence with transfers 2. Inability to safely ambulate without assistive device and physical assistance 3. Increase completion time for mobility ADL performance 4. Increased fall risk 5. Inability to negotiate steps alone safely Patient is assessed as a 40745 moderate complexity based on the following: History: 35-year-old female with impairment level findings, functional limitations, and past medical history as indicated above Examination: Demonstrable impairment in strength, balance, and mobility level with underlying impairments and functional limitations as documented above Presentation:Evolving Decision Makin moderate complexity Goals: Goals X1 week 1. Supine-Sit independent 2. Sit-Supine independent 3. Sit-Stand independent 4. Stand-Sit independent 5. Bed-Chair independent 6. Chair-Bed independent 7. Independent gait on level surface with use of least restrictive device for at least 300 feet without report of pain nor dyspnea 8. Independent stair negotiation while holding onto bilateral rails for at least 10 steps without report of pain nor dyspnea 9. Independent with home exercise program 10. Good static and dynamic standing balance/tolerance Plan of Care/Treatment Plan: 1-2x/day, 7 days/week x 1 week. Plan of care has been reviewed with the UPPER CUTTER MACHINE providing the service under Physical Therapy direction. Initiate Physical Therapy intervention for strengthening, bed mobility, transfers, gait, stairs, balance training, use of assistive device. DISCHARGE RECOMMENDATIONS: Home when medically cleared by hospitalist. Patient will benefit from home health PT services in order to progress mobility level using front wheeled walker, assess home safety, identify additional equipment needs, and establish a functional maintenance program that will increase ability of patient to remain at home. TREATMENT CODE/TIME: 97695 x 25 minutes, 00451 x 10 minutes beginning at 9:55 AM. Thank you for the opportunity to participate in the care of this patient. Hayley Mendez PT, DPT, CLT [facility] [place], [place]
[2020-12-21] MEDS: Acetaminophen 500 MG TAB 1000 MG PO (10:06)
--- NOTE | 2020-12-21 11:57 | CHAPLAIN ---
When I walked into Alla's room she began asking me questions, and telling me that she was waiting to hear from someone, but she wasn't sure who. She was sitting up in a chair and had the phone on the table in front of her. She didn't know if she'd spoke with any family members yet today. I let her nurse, CLAUDINE Pak, know that Alla was waiting to speak to someone, and he said now that she was awake, he would arrange for Alla's sister to call Alla.
[2020-12-21] MEDS: Ibuprofen 600 MG TAB PO (14:05)
--- NOTE | 2020-12-21 14:10 | INITIAL_ITS ---
- If Service Date Differs Date of service: 12/21/20 Time of Service: 14:10 Care Management Initial Assess REASON FOR HOSPITALIZATION:: Altered Mental Status, TIA, Vomiting PAST MEDICAL HISTORY/PAST SURGICAL HISTORY:: Medical History . Abnormal cervical Papanicolaou smear (10/01/00). Age- related macular degeneration. Ankle joint pain (06/21/13). Rickets as a child. Balance problem. Bilateral impacted cerumen (07/31/15). Bronchospasm. Cataract (01/19/18). Cataract. Chronic left shoulder pain (05/04/18). Depressive disorder (12/04/11). Diabetes. Diverticulitis of colon. 04/11 pre- op H P by Dr. Al Reid for lap sigmoid resection, secondary to acute episodes of diverticulitis. 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. Essential hypertension (10/14/13). Fall. in exam room while getting off exam table. Fatigue (06/21/13). Grief (03/04/16). Hip pain (06/24/13). Hypercalcemia (12/04/16). Hyperlipidemia (06/21/13). Hyponatremia (07/01/13). Hypothyroidism (06/24/13). Low back pain (06/21/13). XRay 09/09 - DJD, R hip DJD. MRI - severe djd, no stenosis. Low back pain (06/21/13). Multiple excoriations (07/20/14). Other specified cardiac dysrhythmias (10/01/04). bradycardia by ECG; Holter=rare PAC/PVC/burst SVT; <3sec pause. Other specified cardiac dysrhythmias (10/01/04). Pelvic abscess (11/05/09). 10/10 CT: SMALL RESIDUAL ABSCESSED CAVITY IN CENTRAL PELVIS, W/ FISTULA BETWEEN ABSCESS SIGMOID COLON. Pelvic abscess (11/05/09). Pruritic disorder (01/10/14). Reflux esophagitis (12/08/16). Rickets. Sensorineural hearing loss, bilateral (01/14/18). Vaginitis and vulvovaginitis. Wheezing (05/04/18). ? voacl cord dysfunction. Surgical History . Abdom inal hysterectomy (~1983). Cholecystectomy (~1979). drainage of pelvic abcess. Extraction of cataract. LEFT EYE;12/14/17; DR. ALICEA. Status post abdominal hysterectomy. Status post cholecystectomy. Status post hip replacement. Status post incision and drainage. Total replacement of hip (~2008). LEFT PREVIOUS FUNCTIONAL STATUS/SOCIAL/FAMILY SUPPORTS:: Alla is and lives alone in her own home in [place], [place], with her Pomeranian named Tiny. Alla enjoys playing cards with her sister and likes doing word searches. Per her sister, Mary Beth, Alla was twice. She did not have any children of her own but she and her first adopted two children. Unfortunately, after her first and Alla remarried, she became estranged from the children who were adults by then. 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 Her family supports consist of her sister, a brother who lives in [place], and a nephew who resides locally and helps fix things at her home. CURRENT FUNCTIONAL STATUS:: Alla was sitting up in her chair when CM met with her. She stated that she has a head ache, and is tired. She worked with PT today, who reported concern regarding her left sided weakness. CM will continue to follow. ADVANCE DIRECTIVES:: [employer] on file, Mary Beth Glass (sister) listed as healthcare agent. Has patient been provided with info about the portal/API?: No Did the patient sign up for the portal?: No CODE STATUS:: DNR/DNI INSURANCE COVERAGE / FINANCIAL ISSUES:: Medicaid and Medicare. CURRENT HOME/COMMUNITY SERVICES/EQUIPMENT:: Per her sister, Alla has a homemaker through [employer] who cleans her house on a weekly to bi-weekly basis. Prior to [employer], she attended [employer] 3 times a week. Alla owns a cane and FWW but, according to Mary Beth, only uses the FWW to walk to her mailbox. PRIMARY CARE PHYSICIAN:: Marielos Caldera POTENTIAL DISCHARGE NEEDS:: Alla's family and community supports have been working on placement at the [facility], and a bed offer was extended for Thursday. CM followed up on this referral and they now have a bed available for Thursday. PATIENT/FAMILY EDUCATION NEEDS:: Discharge instructions, limitations, follow up plan of care including Ask Me Three and self management. ANTICIPATED BARRIERS TO DISCHARGE:: Patient's increased level of confusion and ability to care for herself. TRANSPORTATION:: [facility] vs family to the [facility] PLAN:: Alla will transition to the [facility] on Thursday, when a bed becomes available. She will continue to be followed by Palliative care. She will transport by [facility] vs family via private vehicle. CM will continue to follow.
--- NOTE | 2020-12-21 15:03 | PT.INTREAT ---
Date of service: 12/21/20 Time of Service: 14:15 PT Notes Visit Reasons: ALTERED MENTAL STATUS, TIA, VOMITING Inpatient Physical Therapy Treatment Note [facility] Date: 12/21/2020 PRECAUTIONS: Fall SUBJECTIVE: Alla is pleasant and agreeable to participating in PT. She discusses that she will be going to the [facility] for rehab for a while, and that her dog, Jacquelin, is being cared for by her sister. OBJECTIVE: Patient noted to have some left-sided neglect. PAIN: No c/o pain BED MOBILITY/TRANSFERS Supine-sit: S Sit-stand: CGA Stand-sit: CGA GAIT Assistive Device: FWW Weight bearing: Full Assist: CGA - SBA Distance: 350' Deviation: Orthopedic shoes, cueing for increased step height, path deviation requiring max cueing to avoid hitting stationary objects THEREX: Patient was instructed in a LE and UE strengthening program, completed in a seated position, as per flow sheet. Strengthening and ROM appear equal, bilaterally. ASSESSMENT: Patient tolerated session well, without complaint. She demonstrates left-sided neglect, although appears to have equal strength and ROM, bilaterally. She was able to tolerate a progression in gait distance, although does require cueing for increased step-height for safety, as well as max cues to avoid stationary objects due to path deviation. PLAN: Continue with gait training and transfer training, as well as global strengthening TREATMENT CODE/TIME: 30 minutes; 55234, 72130 (14:15)
--- NOTE | 2020-12-21 15:34 | PHA.REVIEW ---
Pharmacy Admission Review - Admission Clinical Review (Last Reviewed 12/20/20 @ 23:05 by Vishnu Lo) TIA (transient ischemic attack) (Acute) Altered mental status (Acute) Vomiting (Acute) Dysphagia (Acute) Discharge planning issues (Acute) DVT prophylaxis (Acute) Hyponatremia (Acute 07/01/13) No Known Allergies Allergy (Verified 12/20/20 17:08) Height 5 ft Weight 76.1 kg - Renal Dosing Renal Dosing: BUN 12 mg/dL (7-18) 12/21/20 06:34 Creatinine 0.7 mg/dL (0.55-1.02) 12/21/20 06:34 Medications needing adjustments: Reviewed List of meds needing interventions: famotidine adjusted from 40mg to 20mg daily - Anticoagulation Anticoagulation: Hgb 14.4 g/dL (11.2-15.7) 12/20/20 17:35 Hct 43.0 % (36.0-46.0) 12/20/20 17:35 Plt Count 328 10^3/uL (130-400) 12/20/20 17:35 INR 1.0 (0.9-1.1) 12/20/20 17:35 Creatinine 0.7 mg/dL (0.55-1.02) 12/21/20 06:34 DVT Prohphylaxis: Reviewed Medications: Enoxaparin - Opiate Usage Evaluate Pain Scale/Pains Meds: N/A - Relevant Labs Sodium 132 mmol/L (136-145) L 12/21/20 06:34 Potassium 3.9 mmol/L (3.5-5.1) 12/21/20 06:34 Chloride 98 mmol/L (98-107) 12/21/20 06:34 Magnesium 1.9 mg/dL (1.8-2.4) 12/20/20 17:35 Electrolytes, C-Reactive P, ESR: Reviewed (hyponatremia not low enough to causes symptoms, restrict fluids of decreases further) - DM Control DM Control: Glucose 107 mg/dL (74-106) H 12/21/20 06:34 Insulin Dosing: N/A - Heart Failure/PA Heart Failure/PA: Troponin I < 0.05 ng/mL (<0.06) 12/20/20 17:35 EF%, WILLIAMS's, B-Blockers, Diuretics: Reviewed - BP Control BP Control: Blood Pressure 164/88 Blood Pressure 179/77 If elevated: Reviewed - Qtc Review If Elevated: Reviewed List meds needing interventions: QTc 431 on admission - IV to PO Switch IV Medications: Reviewed - Home Meds Home Med List reviewed: Reviewed Relevent Home Meds Not ordered & why?: oxybutynin and donepezil but both are not ordered likely to be dc'd -- Concurrent use of DONEPEZIL and OXYBUTYNIN may result in interference with the cholinergic effects of donepezil or the anticholinergic agent effects of oxybutynin; increased risk of seizure. - Current meds Current Medication Order Review: Reviewed - Comments Comments/Follow Ups: monitor BMP, med changes
--- NOTE | 2020-12-21 15:54 | PCNE_ITS ---
Date of service: 12/21/20 Time of Service: 16:55 History of Present Illness History of Present Illness Chief Complaint: altered mental status Narrative: Patient is a 75-year-old woman who is well-known to me. I have been her PCP for about 20 years. I also did see her in the hospital on her recent admission and earlier this week as an outpatient. She has had a big drying rack changer the last 2 weeks going from being independent and caring for her dog, playing cards with her sister, etc. to not really understanding some very simple tasks a nd procedures. I did do a Mini-Mental status exam. Baseline she probably would have been about 20 out of 30, but she was only 16 out of 30 on Thursday. She had asked me 3 times in the last week to give her some pills to help her memory. She felt that her memory was considerably better. Home health had been seeing her regularly at home after discharge. Her sister Mary Beth has been helpful with caring for pt. Unfortunately all of this tumbled down on when pts mental status worsened. She was brought back to the hospital and admitted for further care. Of note it was already coordinated for patient to move to the [facility] for residential care and if possible transition to assisted living when she improved. This was slated for Thursday. All the paperwork has been done. Consults Consult date: 12/21/20 Requesting physician: Vishnu Lo Assessment and Plan Assessment and plan (1) TIA (transient ischemic attack): Status: Acute (2) Altered mental status: Status: Acute (3) Dysphagia: Status: Acute (4) Palliative care patient: Status: Acute Assessment and plan: Although it did not show an acute event on her CT sca n, I do feel that the patient did have a definite event. She does have vascular dementia and recently scored 16 out of 30 on MMSE. I agree with Dr. Bean to discontinue the Aricept. I had just started this on Thursday mostly at the patient's request (3 times in about 5 days) She is stable today. Testing is near completion. I have heard from care management that they have moved up her moved to the [facility] to 12/25/2020. I think the sooner she gets settled with a better She continues to be hyponatremic, but significantly better than her last admission. I would cautiously put back the mirtazapine as that is not associated with hyponatremia. She did well on that with anxiety and improved sleep. She continues to be a DNR/DNI. She has discussed this with me approximately a month and a half ago prior to her recent event. I have also discussed this with her sister Mary Beth who agrees. Thank you very much for this consult Review of Systems Narrative: Patient said to me that she was feeling fine. She was not particularly tired. She had no chest pain, shortness of breath, belly pain. She did say to me about 4 times in 2 minutes that she was going to the [facility] to stay [facility] Medical History Abnormal cervical Papanicolaou smear (10/01/00) Age-related macular degeneration Ankle joint pain (06/21/13) Rickets as a child Balance problem Bilateral impacted cerumen (07/31/15) Bronchospasm Cataract (01/19/18) Cataract Chronic left shoulder pain (05/04/18) Depressive disorder (12/04/11) Diabetes Diverticulitis of colon 04/11 pre-op H P by Dr. Al Reid for lap sigmoid resection, secondary to acute episodes of diverticulitis. 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 Essential hypertension (10/14/13) Fall in exam room while getting off exam table Fatigue (06/21/13) Grief (03/04/16) Hip pain (06/24/13) Hypercalcemia (12/04/16) Hyperlipidemia (06/21/13) Hyponatremia (07/01/13) Hypothyroidism (06/24/13) Low back pain (06/21/13) XRay 09/09 - DJD, R hip DJD MRI - severe djd, no stenosis Low back pain (06/21/13) Multiple excoriations (07/20/14) Other specified cardiac dysrhythmias (10/01/04) bradycardia by ECG; Holter=rare PAC/PVC/burst SVT; <3sec pause Other specified cardiac dysrhythmias (10/01/04) Pelvic abscess (11/05/09) 10/10 CT: SMALL RESIDUAL ABSCESSED CAVITY IN CENTRAL PELVIS, W/ FISTULA BETWEEN ABSCESS SIGMOID COLON Pelvic abscess (11/05/09) Pruritic disorder (01/10/14) Reflux esophagitis (12/08/16) Rickets Sensorineural hearing loss, bilateral (01/14/18) Vaginitis and vulvovaginitis Wheezing (05/04/18) ? voacl cord dysfunction Surgical History Abdominal hysterectomy (~1983) Cholecystectomy (~1979) drainage of pelvic abcess Extraction of cataract LEFT EYE;12/14/17; DR. ALICEA Status post abdominal hysterectomy Status post cholecystectomy Status post hip replacement Status post incision and drainage Total replacement of hip (~2008) LEFT Family History Mother , AGE 92 Diabetes Heart disease Father Heart disease Stomach cancer Sister Depression Heart disease COPD (chronic obstructive pulmonary disease) Asthma Brother Diabetes Essential hypertension Heart disease Hyperlipidemia Asthma Social History Smoking/Tobacco Use Status: Never Smoking risk assessment performed?: Yes Alcohol Intake: former Drug use: Never Substance use type: does not use Caregiver/Support person: No Household members: spouse and none Housing: house Communication Needs: None Do you need help understanding health information?: Never Pets and animals: Yes Pets and animals: dog(s) Sexually active: No Do you think of yourself as: straight/heterosexual Current gender identity: female What is your relationship status?: How often do you talk on the phone with friends or family?: three or more times per week How often do you get together with friends or relatives?: once per week How often do you attend mu-ism or scientology services?: 4 or more times per year Do you belong to any clubs or organized social groups?: no Panel score (0-1 are the most socially isolated patients): 2 What type of physical activity do you participate in: walking Duration: 15-30 minutes/day Frequency: 1-2 times per week Medina/Yazdanism: Islam Special medina needs: No Seatbelt use: always Helmet use: Yes Helmet use: always Drive intox or ride w/intox trailer tank truck driver: No Do you feel safe at home: Yes Do you feel safe in your relationship?: Yes Victim of physical abuse: No Victim of emotional abuse: No Victim of sexual abuse: No Would you like helpful sources: No Exam Narrative Exam Narrative: Laboratory Tests 12/20/20 12/20/20 12/21/20 17:35 19:21 06:34 WBC 10.22 Hct 43.0 Sodium 132 L Glucose 107 H SARS-CoV-2 (PCR) Negative MRI 12/21/20: MRI:MR brain wo EXAM: MR BRAIN WO CLINICAL HISTORY: right sided weakness and headache, transient. TECHNIQUE: Multiplanar multisequence MRI of the brain was performed. CONTRAST MATERIAL: IV Contrast: ML of Dotarem contrast administered. COMPARISON: CT CT BRAIN NECK CTA from 12/20/[address] BRAIN NECK CTA from 12/20/2020 FINDINGS: The exam is somewhat limited by patient motion. There is moderate atrophy. There are prominent white matter changes bilaterally, roughly symmetric, consistent with sequela chronic microvascular ischemia. No area of restricted diffusion is seen to indicate an acute infarct. No evidence of hemorrhage or mass. The ventricles are normal in size for the degree of atrophy. The orbits, sinuses and mastoid air cells are unremarkable. Vascular flow voids are intact. IMPRESSION: Atrophy and severe white matter changes of small vessel disease. No acute abnormality. Patient is sitting in her chair. She is able to turn off the TV on her own. When I asked her questions she was a bit vague in answering them. She could easily do [id number] on the right side but could not on the left side. There was definitely left side neglect. Upper and lower extremities were 2+ bilaterally symmetrical for strength. Field of vision difficult to do due to patient's inattention. Her heart was somewhat muffled but sounded regular. Breath sounds were diminished but I did not appreciate any rales. Results Last Vital Signs Temp 97.0 F L 12/21/20 15:41 Pulse 66 12/21/20 15:41 Resp 18 12/21/20 15:41 BP 153/79 H 12/21/20 15:41 Pulse Ox 100 12/21/20 15:41 Labs Result diagrams: 12/23/20 06:25 12/23/20 06:25 Labs: Laboratory Results - last 24 hr 12/20/20 12/20/20 12/20/20 17:35 17:35 17:35 WBC 10.22 RBC 4.80 Hgb 14.4 Hct 43.0 MCV 89.6 MCH 30.0 MCHC 33.5 RDW 12.7 Plt Count 328 MPV 9.6 Immature Gran % 0.3 Neutrophils % 77.0 Lymphocytes % 12.4 Monocytes % 8.2 Eosinophils % 1.6 Basophils % 0.5 Nucleated RBC % 0 Absolute Neutrophils 7.87 H Absolute Lymphocytes 1.27 Absolute Monocytes 0.84 H Absolute Eosinophils 0.16 Absolute Basophils 0.05 PT 10.4 INR 1.0 APTT 23.8 Sodium 131 L Potassium 4.2 Chloride 95 L Carbon Dioxide 28.8 Anion Gap 7.2 BUN 14 Creatinine 0.7 Estimated GFR/1.73 m2 >= 60.00 Glucose 129 H Calcium 9.3 Magnesium 1.9 Total Bilirubin 0.3 AST 23 ALT 39 Alkaline Phosphatase 88 Troponin I < 0.05 Total Protein 7.7 Albumin 3.2 L Urine Color Urine Clarity Urine pH Ur Specific [place] Urine Protein Urine Ketones Urine Blood Urine Nitrite Urine Bilirubin Urine Urobilinogen Ur Leukocyte Esterase Urine RBC Urine WBC Ur Epithelial Cells Urine Crystals Urine Bacteria Urine Casts Urine Mucus Urine Other Ur Culture Indicated? Urine Glucose COVID-19 Source SARS-CoV-2 (PCR) Influenza Type A (PCR) Influenza Type B (PCR) RSV (PCR) 12/20/20 12/20/20 12/21/20 18:52 19:21 06:34 WBC RBC Hgb Hct MCV MCH MCHC RDW Plt Count MPV Immature Gran % Neutrophils % Lymphocytes % Monocytes % Eosinophils % Basophils % Nucleated RBC % Absolute Neutrophils Absolute Lymphocytes Absolute Monocytes Absolute Eosinophils Absolute Basophils PT INR APTT Sodium 132 L Potassium 3.9 Chloride 98 Carbon Dioxide 26.4 Anion Gap 7.6 BUN 12 Creatinine 0.7 Estimated GFR/1.73 m2 >= 60.00 Glucose 107 H Calcium 8.9 Magnesium Total Bilirubin AST ALT Alkaline Phosphatase Troponin I Total Protein Albumin Urine Color Yellow Urine Clarity Clear Urine pH 7.0 Ur Specific [place] 1.025 Urine Protein >=300 H Urine Ketones Negative Urine Blood Trace-intact H Urine Nitrite Negative Urine Bilirubin Negative Urine Urobilinogen 0.2 Ur Leukocyte Esterase Negative Urine RBC 5-10 H Urine WBC 0-2 Ur Epithelial Cells Many Urine Crystals Negative Urine Bacteria Negative Urine Casts Negative Urine Mucus Negative Urine Other Negative Ur Culture Indicated? No/sq. contamination Urine Glucose Negative COVID-19 Source Nasopharynx SARS-CoV-2 (PCR) Negative Influenza Type A (PCR) Negative Influenza Type B (PCR) Negative RSV (PCR) Negative
[2020-12-21] MEDS: Atorvastatin 40 MG TAB 80 MG PO (20:07)
[2020-12-21] MEDS: Enoxaparin 40 MG/0.4 ML SYR SC (21:22)
[2020-12-22] VITALS (10 sets, daily range): BP systolic 119–176; BP diastolic 67–85; PULSE 54–78; RESP 18–20; TEMP 36.2–37.1; O2SAT 91–98
[2020-12-22] MEDS: levETIRAcetam 1,000 MG in Normal Saline 100 ML 400 MG IVPB (03:33)
[2020-12-22] MEDS: LORazepam 2 MG/ML VIAL IVP (03:36)
--- NOTE | 2020-12-22 03:44 | W.PM.PROGNOT ---
Date of Service Date of service: 12/22/20 Time of Service: 03:44 Subjective Subjective Interval history since last seen: Called for seizure, described as generalized, lasting 2 minutes. No post ictal state, patient speaking immediately afterwards. 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 Stat BMP ordered. Patient then had second seizure, ordered for Keppra 1000 IV. At this point exam demonstrates patent awake and speaking, responding appropriately; left visual field cut and 1/5 left hemiparesis with upgoing toe on left. Patient then had a third seizure, which I witnessed. Vigorous tonic-clonic movements of the right, less so on left, with grunting sounds, but patient able to tell me her name during ictus. Given Ativan 2 IV, Keppra infusing in meantime. Alert and conversant immediately after. A/P: Seizures. Given the lack of LOC or post ictal state I think it more likely that we are in fact witnessing partial seizures, and would have to county court judge this then as having left cerebral focus give the predominance of right sided symptoms, though the presence of prior left hemiparesis could mask a more generalized nature. I cannot explain the left hemiparesis at this point, though it is noted that on initial presentation there was felt to have been some left sided neglect (though transient right sided weakness by history). In any case will obtain stat head CT, check electrolytes and continue Keppra for now. Objective Last Vital Signs Temp 36.1 C L 12/21/20 23:15 Pulse 88 12/21/20 23:15 Resp 18 12/21/20 23:15 BP 148/80 H 12/21/20 23:15 Pulse Ox 94 12/21/20 23:15 Laboratory Results - last 24 hr 12/21/20 06:34 Sodium 132 L Potassium 3.9 Chloride 98 Carbon Dioxide 26.4 Anion Gap 7.6 BUN 12 Creatinine 0.7 Estimated GFR/1.73 m2 >= 60.00 Glucose 107 H Calcium 8.9
--- NOTE | 2020-12-22 04:09 | DI.CT_ITS ---
EXAM: CT HEAD WO CLINICAL HISTORY: seizure, left hemiparesis. TECHNIQUE: Imaging Protocol: Axial computed tomography images with coronal and sagittal reformatted images were created and reviewed COMPARISON: CT CT BRAIN NECK CTA from 12/20/2020 MR MR BRAIN WO from 12/21/2020 Also reviewed brain MRI scan performed 12/21/2020 FINDINGS: There are no skull fractures nor fluid in the visualized paranasal sinuses. There is no evidence of intracranial hemorrhage, mass effect, or shift of midline structures. There are no extra-axial fluid collections. The ventricles are not enlarged or shifted and there is no blo od within the ventricular system nor within the basal cisterns. Again noted is abundant bilateral periventricular hypodensity consistent with chronic small vessel di sease. Moderate age related atrophy is again noted. IMPRESSION: No acute intracranial findings on this noninfused CT scan of the brain. Chronic white matter ischemic small vessel changes again noted. No evidence of intracranial hemorrhage, intra or extra-axial. Sign rib RADIATION DOSE DELIVERED: 764.03mGy.cm Total DLP DATA REPOSITORY: All CT scans at this facility are submitted to the National Radiology Data Registry (NRDR) Dose Index Registry (DIR) with the [employer] (A[employer]). RADIATION OPTIMIZATION: All CT scans at this facility use at least one of these dose optimization te chniques: automated exposure control; mA and/or kV adjustment per patient size (includes targeted exa ms where dose is matched to clinical indication); or iterative reconstruction.
[2020-12-22 04:21] LABS: Anion Gap 14.2 mmol/L (3-11); BUN 17 mg/dL (7-18); CO2 20.8 mmol/L (21.0-32.0); CREATININE 0.9 mg/dL (0.55-1.02); Chloride 95 mmol/L (98-107); Glucose 142 mg/dL (74-106); Potassium 3.8 mmol/L (3.5-5.1); Sodium 130 mmol/L (136-145)
--- NOTE | 2020-12-22 04:30 | DI.VRAD_ITS ---
PROCEDURE INFORMATION: Exam: CT Head Without Contrast Exam date and time: 12/22/2020 3:28 AM Age: 75 years old Clinical indication: Hemiplegia and hemiparesis; Nondominant left side; Patient HX: HX stroke, 3 seizures in last 24 hours, left hemiparesis, dominant side unknown TECHNIQUE: Imaging protocol: Computed tomography of the head without contrast. Radiation optimization: All CT scans at this facility use at least one of these dose optimization techniques: automated exposure control; mA and/or kV adjustment per patient size (includes targeted exams where dose is matched to clinical indication); or iterative reconstruction. COMPARISON: CT HEAD WO 12/07/2020 10:04 AM FINDINGS: Brain: Decreased attenuation within the periventricular white matter slightly more prominent on the right than the left, with more focal decreased attenuation at the level of the centrum semiovale on the right appears similar to the CT scan of 12/07/2020. There is moderate diffuse heterogeneity of the white matter attenuation, consistent with chronic white matter microangiopathic ischemic changes. There is moderate diffuse cerebral atrophy present. There is no evidence of intracranial hemorrhage. There is no evidence of acute intracranial injury or other pathologic process. There is no evidence of an acute ischemic event. Cerebral ventricles: The ventricular system demonstrates mild to moderate diffuse compensatory enlargement. Bones/joints: The orbits are normal without evidence of fracture. The bony cranium shows no evidence of injury or other acute pathologic processes. Paranasal sinuses: Mucoperiosteal thickening consistent with chronic sinusitis. No air-fluid levels to suggest evidence of acute sinusitis. Mastoid air cells: The mastoid aircells are normal. Orbital cavity: There is no evidence of retro-bulbar hemorrhage. There is no evidence of globe or lens injury. Vasculature: Vascular calcifications seen consistent with chronic atherosclerotic cerebrovascular disease. Soft tissues: The extracranial soft tissues are normal. IMPRESSION: 1. No evidence of an acute intracranial abnormality. 2. There is moderate age-related atrophy and chronic white matter ischemic changes, with compensatory ventricular dilation. 3. Decreased attenuation within the periventricular white matter slightly more prominent on the right than the left, with more focal decreased attenuation at the level of the centrum semiovale on the right appears similar to the CT scan of 12/07/2020. Dictated and Authenticated by: Osmani Thompson MD. Ordering:HUONG Mitchell MD
[2020-12-22] MEDS: Normal Saline 1,000 ML 75 ML IV ×2 (04:45→18:08)
[2020-12-22] MEDS: Normal Saline Flush 10 ML SYR IVP (04:46)
[2020-12-22] MEDS: levETIRAcetam 500 MG TAB PO ×2 (09:36→19:48)
[2020-12-22] MEDS: Omeprazole 20 MG CAPCR 40 MG PO (09:36)
[2020-12-22] MEDS: Sennosides/Docusate Sodium TAB 2 TAB PO (09:36)
[2020-12-22] MEDS: Aspirin 81 MG CHEW PO (09:37)
[2020-12-22] MEDS: Amoxicillin 875 MG TAB PO (09:37)
[2020-12-22] MEDS: Famotidine 20 MG TAB PO (09:37)
[2020-12-22] MEDS: Multivitamin TAB 1 TAB PO (09:37)
[2020-12-22] MEDS: Docusate Sodium 100 MG CAP PO ×2 (09:37→19:48)
--- NOTE | 2020-12-22 10:58 | PT.INTREAT ---
Date of service: 12/22/20 Time of Service: 10:58 PT Notes Visit Reasons: ALTERED MENTAL STATUS, TIA, VOMITING Inpatient Physical Therapy Treatment Note [facility] Date: 12/22/2020 PRECAUTIONS: Fall. L visual field cut vs. L hemineglect. SUBJECTIVE: Per Nurse Sammie, patient had 3 episodes of seizures and had a flaccid L upper extremity. Patient's eyes were closed when PT came in for session but she responded right away when her name was called. Agreed to getting out of bed for lunch. Denies any headache nor chest pain throughout this session. OBJECTIVE: Unable to discriminate objects on her left side. With PT on the patient's left and Nurse Sammie on the patient's right side, patient was asked if she could tell what color shirt we were wearing. Alla could not tell what color shirt PT was wearing but could identify Nurse Sammie's shirt as black. When PT moved to stand on the patient's R, she was able to correctly identify shirt color as blue. Noted L beating horizontal nystagmus provoked when patient turned head to L, none noted when she turned head to the right. L UE muscle tone improved and no longer flaccid with shoulder flexors and abductor muscle strength now at 3-/5, elbow and wrist also at 3-/5. Alligator Shear Operator was weak but functional enabling patient to hold onto walker handle. PAIN: None BED MOBILITY/TRANSFERS Supine to sit moderate ssist of 2 Sit to stand moderate assist of 2 Stand to sit moderate assist of 2 Bed to chair moderate assist of 2 GAIT Assistive Device: FWW Weight bearing: Full Assist: Minimal assist of 2 Distance: 3-5 steps Deviation: Required moderate to maximal cueing for safety with turn made towards the right side where patient can discriminate better ASSESSMENT: Left visual field cut vs. L hemineglect limits safety of mobility ADL performance at this time. Patient declined from being able to walk up to 350 feet yesterday to only 3-5 steps this morning due to weakness and new onset perceptual/visual deficit. Patient will continue to benefit from PT services to achieve initially established goals. Provided assistance with bed to bedside commode transfer as well as bedside commode to bedside reclining chair transfer with nurses Sammie and Roopa assisting. PLAN: Continue with PT plan of care achieve initially established goals TREATMENT CODE/TIME: [id number] x 57 minutes beginning at 10:58 AM.
--- NOTE | 2020-12-22 11:13 | W.PM.PROGNOT ---
Date of Service Date of service: 12/22/20 Time of Service: 11:13 Assessment and Plan Assessment and plan (1) Dysphagia: Status: Acute Assessment and plan: Swallowed pills this AM w/o difficulty (2) Urinary tract infection: Status: Resolved Assessment and plan: On Augmentin, however, cultures grew no organisms greater than 10-50,000 cfu's. Will stop Augmentin. (3) Hyponatremia: Status: Acute Assessment and plan: Now 130. Has been in the low 130's. Monitor. (4) Hyperlipidemia: Status: Chronic Assessment and plan: Now on high dose Atorvastatin Qualifiers: Hyperlipidemia type: unspecified Qualified Code(s): E78.5 - Hyperlipidemia, unspecified (5) Essential hypertension: Status: Chronic Assessment and plan: Holding ARB d/t potential cause of hyponatremia. Avoiding ACEI d/t hyponatremia. Will initiate amlodipine 5mg daily. (6) Seizure-like activity: Status: Acute Assessment and plan: Witnessed by staff and physician. Appeared to be tonic-clonic. Did verbalize during the episode witnessed by Dr. Rasmussen. No post-ictal state and no loss of bowel/bladder. Loaded with Keppra. Lethargic this AM but improving. Cont oral Keppra and will consult neurology; won't be available until Thursday. (7) Upper extremity weakness: Status: Acute Assessment and plan: Likely CVA' CT head this AM was negative for any acute findings. Pt had an MRI yesterday before developing L sided weakness and no acute findings were noted. Repeat CT head w and w/o contrast in AM Is on high dose statin and ASA Add Plavix 75mg daily. Subjective Subjective Patient reports: afebrile Interval history since last seen: S/P 3 episodes of seizure-like activity early this AM/overnight. See on-call hospitalist note. Now with LUE paresis. Exam Const General: no acute distress and lethargic Nutritional Appearance: obese HENMT Head: normocephalic and atraumatic Resp Effort & Inspection: normal respiratory effort Auscultation: clear to auscultation bilaterally Cardio Rate: regular rate Rhythm: regular rhythm Heart Sounds: S1 normal and S2 normal GI Palpation: soft Auscultation: normal bowel sounds Neuro General: other (asleep. Doesn't open eyes when wakened but does follow simple commands.) Cranial Nerves: PERRL and tongue midline Speech: other (Did not verbalize) Motor: strength abnormal (LUE 3/5 strength. LLE 3-4/5 with slow response.) Extrem General: no pedal edema and no calf tenderness Objective Last Vital Signs Temp 37.1 C 12/22/20 11:08 Pulse 61 12/22/20 11:08 Resp 19 12/22/20 11:08 BP 176/85 H 12/22/20 11:08 Pulse Ox 97 12/22/20 11:08 Laboratory Results - last 24 hr 12/22/20 03:40 Sodium 130 L Potassium 3.8 Chloride 95 L Carbon Dioxide 20.8 L Anion Gap 14.2 H BUN 17 Creatinine 0.9 Estimated GFR/1.73 m2 >= 60.00 Glucose 142 H Calcium 9.0
[2020-12-22] MEDS: Clopidogrel 75 MG TAB PO (11:42)
[2020-12-22] MEDS: amLODIPine 5 MG TAB PO (12:06)
[2020-12-22] MEDS: Ibuprofen 600 MG TAB PO (16:12)
[2020-12-22] MEDS: Acetaminophen 500 MG TAB 1000 MG PO (17:21)
--- NOTE | 2020-12-22 18:32 | PDOC.CMPRO ---
- If Service Date Differs Date of service: 12/22/20 Time of Service: 18:32 Care Management Progress Note S/O: Alla was lying in bed asleep each time CM came to see her and did not awaken when CM called her name. Early this morning, around 3 am, she had 3 episodes that appeared to be seizure-like activity, tonic/clonic in nature. During these episodes she was able to speak and did not appear post-ictal. Afterward she exhibited L sided weakness. A CT of her head did not show any acute changes but it is possible that she experienced a CVA, per hospitalist. She was loaded with Keppra per provider and remained quite sleepy throughout the morning. Per nursing report, Alla is confused. A: Alla is a 75 year old woman admitted on 12/20/20 with AMS and TIA P:Alla will transition to the [facility] when medically stable and a bed is available, likely on on Thursday. She will continue to be followed by Palliative care. She will transport by [facility] vs family via private vehicle. CM will continue to follow.
[2020-12-22] MEDS: Atorvastatin 40 MG TAB 80 MG PO (19:50)
[2020-12-22] MEDS: Enoxaparin 40 MG/0.4 ML SYR SC (21:22)
[2020-12-23] VITALS (10 sets, daily range): BP systolic 145–183; BP diastolic 70–88; PULSE 50–78; RESP 17–18; TEMP 36.4–36.8; O2SAT 94–98
[2020-12-23] MEDS: Levothyroxine 112 MCG TAB PO (05:26)
[2020-12-23] MEDS: Normal Saline 1,000 ML 75 ML IV ×2 (05:34→19:55)
[2020-12-23 06:55] LABS: Platelet Count 279 10^3/uL (130-400)
[2020-12-23 07:10] LABS: Anion Gap 6.9 mmol/L (3-11); BUN 15 mg/dL (7-18); CO2 28.1 mmol/L (21.0-32.0); CREATININE 0.7 mg/dL (0.55-1.02); Calcium 8.8 mg/dL (8.5-10.1); Chloride 98 mmol/L (98-107); Glucose 104 mg/dL (74-106); Potassium 3.9 mmol/L (3.5-5.1); Sodium 133 mmol/L (136-145)
--- NOTE | 2020-12-23 08:00 | DI.CT_ITS ---
EXAM: CT BRAIN CTA CLINICAL HISTORY: LUE weakness. Visual field deficit.. TECHNIQUE: Imaging Protocol: Axial CT angiography was performed with multi-slice acquisition and mu lti-planar and/or 3D reconstructions. IV Contrast Dose =85 cc CONTRAST MATERIAL: Intravenous: Omnipaque 350 Contrast volume:85 cc COMPARISON: Recent brain CT scan was reviewed. FINDINGS: CTA Brain W: Anterior circulation: Both internal carotid arteries are patent in the skull base-carotid canals as well as within the cave rnous sinuses. Both middle cerebral arteries are patent out to the sylvian fissure branches. No evidence of intralu brenna thrombus nor aneurysm in these vessels. Right A1 segment is patent. Left A1 segment is patent but thinner. 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 M ore distally in the anterior interhemispheric fissure there is prominent IM focal prominent diameter of the anterior cerebral artery which exhibits a diameter of 4.3 millimeters at this level. Posterior circulation: At the skull base both vertebral arteries contribute of the formation of the basilar artery which asc ends in somewhat dolichoectatic fashion but with patent lumen and no evidence of intraluminal thrombu s nor dissection. Distally the basilar artery gives off the superior cerebral arteries and above thi s level terminates as posterior cerebral arteries. The posterior cerebral arteries also benefit from thin posterior communicating arteries on both sides of the atqjla-ev-Lxzfov. There is no evidence o f aneurysm at the tip of the basilar artery. CT Head : No evidence of intracranial hemorrhage. Again noted is abundant bilateral periventricular hypodensity consistent with chronic small vessel di sease, as evident on study 1 day prior. IMPRESSION: 1. Patent intracerebral vessels with no evidence of intra arterial thrombus nor occlusion nor dissec tion. 2. 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 There is no evidence of hemorrhage at this level nor elsewhere in the brain 3. Focal fusiform prominence of the anterior cerebral artery in the anterior interhemispheric fissure noted, exhibiting diameter of 4-5 millimeters at this level. RADIATION DOSE DELIVERED: 1,940.98mGy.cm Total DLP 1,940.98mGy.cm Total DLP DATA REPOSITORY: All CT scans at this facility are submitted to the National Radiology Data Registry (NRDR) Dose Index Registry (DIR) with the [employer] (A[employer]). RADIATION OPTIMIZATION: All CT scans at this facility use at least one of these dose optimization te chniques: automated exposure control; mA and/or kV adjustment per patient size (includes targeted exa ms where dose is matched to clinical indication); or iterative reconstruction.
[2020-12-23] MEDS: Normal Saline Flush 10 ML SYR IVP ×2 (08:15→09:12)
[2020-12-23] MEDS: Famotidine 20 MG TAB PO (09:07)
[2020-12-23] MEDS: Aspirin 81 MG CHEW PO (09:07)
[2020-12-23] MEDS: amLODIPine 5 MG TAB PO (09:07)
[2020-12-23] MEDS: Sennosides/Docusate Sodium TAB 2 TAB PO (09:07)
[2020-12-23] MEDS: levETIRAcetam 500 MG TAB PO ×2 (09:07→19:55)
[2020-12-23] MEDS: Clopidogrel 75 MG TAB PO (09:08)
[2020-12-23] MEDS: Docusate Sodium 100 MG CAP PO ×2 (09:08→19:55)
[2020-12-23] MEDS: Multivitamin TAB 1 TAB PO (09:08)
[2020-12-23] MEDS: Normal Saline - Diluent 50 ML VIAL IV ×2 (09:10→09:11)
[2020-12-23] MEDS: Omnipaque 350 MG/ML 100 ML BTL 85 ML IJ (09:11)
--- NOTE | 2020-12-23 09:45 | DI.VRAD_ITS ---
Addendum created by Lizbeth Villanueva MD on 12/23/2020 9:53:44 AM EST: In addition, 4 mm aneurysm within the left A2 segment again noted, within the anterior interhemispheric fissure. Addendum created by Lizbeth Villanueva MD on 12/23/2020 9:46:13 AM EST: Previous examination dated 12/20/2020 now made available. Confirmation of aneurysm, seen better on previous imaging. Initial report created on 12/23/2020 9:44:48 AM EST: PROCEDURE INFORMATION: Exam: CT Angiography Head With Contrast, Arteries Exam date and time: 12/23/2020 12:00 AM Age: 75 years old Clinical indication: Other: Lue weakness. Visual field deficit. TECHNIQUE: Imaging protocol: Computed tomography angiography of the head with intravenous contrast. 3D rendering (Not supervised by radiologist): MIP and/or 3D reconstructed images were created by the technologist. Radiation optimization: All CT scans at this facility use at least one of these dose optimization techniques: automated exposure control; mA and/or kV adjustment per patient size (includes targeted exams where dose is matched to clinical indication); or iterative reconstruction. Contrast material: OMNIPAQUE 350; Contrast volume: 85 ml; Contrast route: INTRAVENOUS (IV); COMPARISON: CT BRAIN NECK CTA 12/20/2020 5:49 PM FINDINGS: ANTERIOR CIRCULATION: Right internal carotid artery: Unremarkable. Intracranial segment is patent with no significant stenosis. No aneurysm. Right middle cerebral artery: Unremarkable. No occlusion or significant stenosis. No aneurysm. Right anterior cerebral artery: Unremarkable. No occlusion or significant stenosis. No aneurysm. Left internal carotid artery: Unremarkable. Intracranial segment is patent with no significant stenosis. No aneurysm. Left middle cerebral artery: Unremarkable. No occlusion or significant stenosis. No aneurysm. Left anterior cerebral artery: No occlusion or significant stenosis. Questionable 2 mm aneurysm arising from the junction of the A1 segment and anterior communicating artery. Best visualized on axial images (series 11, image 26). POSTERIOR CIRCULATION: Right vertebral artery: Unremarkable. No occlusion or significant stenosis. No aneurysm. Left vertebral artery: Unremarkable. No occlusion or significant stenosis. No aneurysm. Basilar artery: Unremarkable. No occlusion or significant stenosis. No aneurysm. Right posterior cerebral artery: Unremarkable. No occlusion or significant stenosis. No aneurysm. Left posterior cerebral artery: Unremarkable. No occlusion or significant stenosis. No aneurysm. Brain: No definite mass, mass effect, or midline shift. Stable decreased attenuation in the periventricular white matter. Cerebral ventricles: No ventriculomegaly. Bones/joints: Unremarkable. No acute fracture. Soft tissues: Unremarkable. IMPRESSION: 1. No large vessel stenosis or occlusion. 2. Questionable 2 mm aneurysm on the left as detailed above. Dictated and Authenticated by: Lizbeth Villanueva MD. Ordering:CHIKI Landeros MD
--- NOTE | 2020-12-23 09:49 | PDOC.CMPRO ---
- If Service Date Differs Date of service: 12/23/20 Time of Service: 09:49 Care Management Progress Note S/O: Alla was sitting up in a chair when CM met with her. She was dozing and when awakened by CM stated that she was tired. She fell asleep again immediately and CM again spoke to her and when asked how she was feeling, repeated I am tired. She would not elaborate beyond that one statement. Per provider, Alla continues to exhibit left sided neglect. She has been interacting with staff and is alert and oriented X2 when awake. Alla's vital signs are stable and she complains only of a mild headache. A: Alla is a 75 year old woman admitted on 12/20/20 with AMS and TIA P:Alla will transition to the [facility] when medically stable and a bed is available, likely on on Thursday. She will continue to be followed by Palliative care. She will transport by [facility] vs family via private vehicle. CM will continue to follow.
--- NOTE | 2020-12-23 11:49 | PT.INTREAT ---
PT Notes Visit Reasons: ALTERED MENTAL STATUS, TIA, VOMITING Inpatient Physical Therapy Treatment Note [facility] Date: 12/23/20 SUBJECTIVE: Alla states that she is so tired, and unsure why. She reports missing her sister and her dog. She is agreeable to exercises, however refuses to stand or walk. OBJECTIVE: [] BED MOBILITY/TRANSFERS pt sitting in recliner, transferred using lift and nsg. THEREX: performed a global LE strength and stabilization routine while seated in chair. See flowsheet for details. ASSESSMENT: tolerated session fairly well. She kept falling asleep during ex routine, but I was able to arouse her with conversation, even though she did not open her eyes. I did go back to try to encourage her to walk and get out of her chair, but she refused a second time stating she has had enough and too tired. PLAN: continue to progress her global strength and functional mobility following PT POC. TREATMENT CODE/TIME: 20 min beginning at 1115. [id number].
--- NOTE | 2020-12-23 12:20 | W.PM.PROGNOT ---
Date of Service Date of service: 12/23/20 Time of Service: 12:20 Assessment and Plan Assessment and plan (1) Seizure-like activity: Status: Acute Assessment and plan: Witnessed by staff and physician. Appeared to be tonic-clonic. Did verbalize during the episode witnessed by Dr. Rasmussen. No post-ictal state and no loss of bowel/bladder. Loaded with Keppra. EEG order placed Cont oral Keppra and will consult neurology; won't be available until Thursday. (2) Upper extremity weakness: Status: Acute Assessment and plan: Likely CVA CT head this AM was negative for any acute findings. Pt had an MRI yesterday before developing L sided weakness and no acute findings were noted. Repeat CT head w and w/o contrast today negative Is on high dose statin and ASA continue Plavix 75mg daily. (3) Dysphagia: Status: Acute Assessment and plan: Swallowed pills this AM w/o difficulty (4) Hyponatremia: Status: Acute Assessment and plan: Now 130. Has been in the low 130's. Monitor. (5) Hyperlipidemia: Status: Chronic Assessment and plan: Now on high dose Atorvastatin Qualifiers: Hyperlipidemia type: unspecified Qualified Code(s): E78.5 - Hyperlipidemia, unspecified (6) Essential hypertension: Status: Chronic Assessment and plan: Holding ARB d/t potential cause of hyponatremia. Avoiding ACEI d/t hyponatremia. Will initiate amlodipine 5mg daily. discussed with DR Cruz Subjective Subjective Patient reports: tolerating liquids well, tolerating a regular diet and afebrile Interval history since last seen: patient continues to have periods of left sided neglect, leaning towards right side and able to talk and is awake during episodes of 'convulsions', she reports right sided headache, mild, with no nausea or vomiting or visual disturbances. Exam Const General: cooperative, comfortable and no acute distress Nutritional Appearance: overweight Orientation: alert, awake and oriented to person [facility] Head: normal to inspection, normocephalic and atraumatic Mouth: oral mucosae normal Resp Effort & Inspection: normal respiratory effort Auscultation: clear to auscultation bilaterally Cardio Rate: regular rate Rhythm: regular rhythm GI Inspection: normal to inspection Palpation: soft Auscultation: normal bowel sounds Skin General skin exam: no rashes or lesions noted Neuro General: patient alert, patient awake, patient oriented x3 and moves all extremities Extrem General: normal to inspection, full ROM and pedal edema (trace) bilaterally Objective Last Vital Signs Temp 36.5 C 12/23/20 11:13 Pulse 61 12/23/20 11:13 Resp 17 12/23/20 11:13 BP 164/88 H 12/23/20 11:13 Pulse Ox 95 12/23/20 11:13 Laboratory Results - last 24 hr 12/23/20 12/23/20 06:25 06:25 Plt Count 279 Sodium 133 L Potassium 3.9 Chloride 98 Carbon Dioxide 28.1 Anion Gap 6.9 BUN 15 Creatinine 0.7 Estimated GFR/1.73 m2 >= 60.00 Glucose 104 Calcium 8.8
[2020-12-23] MEDS: Acetaminophen 500 MG TAB 1000 MG PO (17:01)
[2020-12-23] MEDS: Atorvastatin 40 MG TAB 80 MG PO (19:55)
[2020-12-23] MEDS: Enoxaparin 40 MG/0.4 ML SYR SC (22:22)
[2020-12-24] VITALS (7 sets, daily range): BP systolic 150–177; BP diastolic 75–90; PULSE 54–89; RESP 18–20; TEMP 36.4–36.6; O2SAT 91–97
--- NOTE | 2020-12-24 | DI.MRI_ITS ---
EXAM: MR BRAIN WO/W CLINICAL HISTORY: r/o CVA, left sided hemiparesis TECHNIQUE: Multiplanar multisequence MRI of the brain was performed. Both noninfused and contrast i nfused sequences were performed. IV Contrast injected was 16 cc Dotarem. COMPARISON: MR MR BRAIN WO from 12/21/[address] and is brain CTA study FINDINGS: CEREBRAL PARENCHYMA: No evidence of intracranial hemorrhage, mass effect nor shift of midline structu re. No extraaxial fluid collections. There is symmetrical atrophy. The again noted is abundant bilateral periventricular signal abnormality consistent with chronic smal l vessel disease. There also signal abnormality in the central daniel. None of these findings are ass ociated with hemorrhage, surrounding edema, nor abnormal enhancement. However, there is an area of a bnormal enhancement in the right temporal lobe, medial aspect extending from the middle cranial fossa posteriorly and measuring 4.5 cm by 1 cm, exhibiting minimal increased signal on diffusion imaging PITUITARY GLAND: No mass nor parasellar abnormality. No obvious abnormality in the cavernous sinuses. FLOW VOIDS: The expected flow void are noted. No evidence of obvious aneurysm nor obvious vascular ma lformation. PARANASAL SINUSES: The visualized paranasal sinuses appear unremarkable. ORBITS: No obvious abnormal findings. IMPRESSION: 1. Abundant bilateral periventricular signal abnormality consistent with chronic small vessel disease . Similar findings also seen in the central daniel. 2. There is a prominent area abnormal enhancement in the right temporal lobe, both in the middle cran ial fossa and posterior to the right middle cranial fossa. Very mild but abnormal signal at this loc ation seen on the other sequences. Differential is between neoplasm and inflammatory/possibly infect ious etiology. 3. Please note that recent CTA study revealed a small aneurysm at the level of the anterior communic ating artery. This is not able to be seen on this type of study. If clinically indicated brain MRA study can be ordered. There was also suggestion of focal vascular dilatation in the anterior cerebra l artery within the interhemispheric fissure. DATA REPOSITORY:
[2020-12-24] MEDS: Levothyroxine 112 MCG TAB PO (06:00)
[2020-12-24] MEDS: Acetaminophen 500 MG TAB 1000 MG PO (06:18)
[2020-12-24 07:26] LABS: Abs Immature Grans 0.02 10^3/uL (0.0-0.06); Absolute Basophil Count 0.04 10^3/uL (0.0-0.2); Absolute Eosinophil Count 0.41 10^3/uL (0.0-0.7); Absolute Lymphocyte Count 1.21 10^3/uL (1.2-3.4); Absolute Monocyte Count 0.58 10^3/uL (0.1-0.8); Absolute Neutrophil Count 4.22 10^3/uL (1.2-6.7); Basophils % 0.6; Eosinophils % 6.3; HCT 40.9 % (36.0-46.0); HGB 13.8 g/dL (11.2-15.7); Immature Grans % 0.3; Lymphocytes % 18.7; MCH 30.1 pg (27.0-33.0); MCHC 33.7 % (32.0-36.0); MCV 89.1 fL (80-95); MPV 9.8 fL (8.0-11.0); Neutrophils % 65.1; Nucleated RBC 0 %; Platelet Count 320 10^3/uL (130-400); RBC 4.59 10^6/uL (3.93-5.22); RDW 13.1 % (11.7-14.6); RDW-SD 42.6 fL; WBC 6.48 10^3/uL (4.4-10.8)
[2020-12-24 07:39] LABS: BUN 14 mg/dL (7-18); CREATININE 0.6 mg/dL (0.55-1.02); Calcium 8.9 mg/dL (8.5-10.1); Chloride 98 mmol/L (98-107); Glucose 109 mg/dL (74-106); Potassium 4.1 mmol/L (3.5-5.1); Sodium 134 mmol/L (136-145)
--- NOTE | 2020-12-24 07:42 | W.PALPGNOTE ---
Date of service: 12/24/20 Time of Service: 07:43 Assessment and Plan Assessment and plan (1) Upper extremity weakness: Status: Acute (2) Seizure-like activity: Status: Acute (3) Altered mental status: Status: Acute (4) Palliative care patient: Status: Acute Assessment and plan: Hypertension?patient is presently on IV fluids. These need to be stopped as this could be contributing to her high blood pressure. Amlodipine was added yesterday. Staff states that it is difficult for her to get up and move to the toilet and that with the IV fluids running she requires toileting often. Again I would recommend that these be stopped Seizure-like activity continue Keppra I am anxious to hear what neurology has to say. Again a vet has been my patient for 20 years. She has had big change in sensorium with left neglect over the last week or so. In general she was a person with fairly low IQ, but this is very different than what she had been Thank you very much for this consult I understand that Alla will be going to the [facility] hopefully tomorrow Subjective Subjective Interval history since last seen: Patient is resting comfortably in her bed. Per staff she has had episodes of seizure-like activity with tonic-clonic reaction but she is able to talk during this time and she does not have any change in bowels or bladder. She was loaded with Keppra and will be seeing neurology hopefully today She does have IV fluids running Sulema her primary nurse overnight states that she is significantly different than she had been on day of admission. Exam Narrative Exam Narrative: Resting in bed. Her head does seem somewhat furloughed. Her arms have good movement. Her heart is regular. Her abdomen is soft nontender. Objective Last Vital Signs Temp 97.5 F L 12/24/20 07:32 Pulse 60 12/24/20 07:32 Resp 18 12/24/20 07:32 BP 177/90 H 12/24/20 07:32 Pulse Ox 97 12/24/20 07:32 Laboratory Results - last 24 hr 12/24/20 12/24/20 06:10 06:10 WBC 6.48 RBC 4.59 Hgb 13.8 Hct 40.9 MCV 89.1 MCH 30.1 MCHC 33.7 RDW 13.1 Plt Count 320 MPV 9.8 Immature Gran % 0.3 Neutrophils % 65.1 Lymphocytes % 18.7 Monocytes % 9.0 Eosinophils % 6.3 Basophils % 0.6 Nucleated RBC % 0 Absolute Neutrophils 4.22 Absolute Lymphocytes 1.21 Absolute Monocytes 0.58 Absolute Eosinophils 0.41 Absolute Basophils 0.04 Sodium 134 L Potassium 4.1 Chloride 98 Carbon Dioxide 28.0 Anion Gap 8.0 BUN 14 Creatinine 0.6 Estimated GFR/1.73 m2 >= 60.00 Glucose 109 H Calcium 8.9
[2020-12-24] MEDS: Famotidine 20 MG TAB PO (08:46)
[2020-12-24] MEDS: amLODIPine 5 MG TAB PO (08:46)
[2020-12-24] MEDS: Sennosides/Docusate Sodium TAB 2 TAB PO (08:46)
[2020-12-24] MEDS: Multivitamin TAB 1 TAB PO (08:46)
[2020-12-24] MEDS: Clopidogrel 75 MG TAB PO (08:47)
[2020-12-24] MEDS: Aspirin 81 MG CHEW PO (08:47)
[2020-12-24] MEDS: Docusate Sodium 100 MG CAP PO ×2 (08:47→20:38)
[2020-12-24] MEDS: levETIRAcetam 500 MG TAB PO (08:47)
[2020-12-24] MEDS: Normal Saline Flush 10 ML SYR IVP ×3 (08:47→14:03)
[2020-12-24 09:56] LABS: NT-proBNP 187 pg/mL (<300)
[2020-12-24] MEDS: Gadoterate meglumine 20 ML VIAL 16 ML IVP (10:57)
--- NOTE | 2020-12-24 12:55 | PGE_ITS ---
Date of Service Date of service: 12/24/20 Time of Service: 12:55 Assessment and Plan Assessment and plan (1) Upper extremity weakness: Start date: 12/24/20 Start time: 13:08 Status: Acute Assessment and plan: MRI revealing 1. Abundant bilateral periventricular signal abnormality consistent with chronic small vessel disease. Similar findings also seen in the central daniel. 2. There is a prominent area abnormal enhancement in the right temporal lobe, both in the middle cranial fossa and posterior to the right middle cranial fossa. Very mild but abnormal signal at this location seen on the other sequences. Differential is between neoplasm and inflammatory/possibly infectious etiology. 3. 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 This is not able to be seen on this type of study. If clinically indicated brain MRA study can be ordered. There was also suggestion of focal vascular dilatation in the anterior cerebral artery within the interhemispheric fissure. Will r/o infectious causes, bacterial and fungal, tick panel, syphillis, etc. Start on doxy and cefepime, no indication for vanco at this time. Will also give dose decadron for inflammation Blood cultures. Await for any more ideas from Dr. Amezcua (2) Seizure-like activity: Start date: 12/24/20 Start time: 13:11 Status: Acute Assessment and plan: Witnessed by staff and physician. Appeared to be tonic-clonic. Did verbalize during the episode witnessed by Dr. Rasmussen. No post-ictal state and no loss of bowel/bladder. Loaded with Keppra. EEG order placed will be done tomorrwo likely due from above (3) Altered mental status: Start date: 12/24/20 Start time: 13:12 Status: Acute Assessment and plan: as above (4) Palliative care patient: Start date: 12/24/20 Start time: 13:13 Status: Acute Assessment and plan: Being followed by Dr. Michael. above case discussed with Dr. Cruz Subjective Subjective Patient reports: other Interval history since last seen: Patient sitting up in chair, stating she is tired. Left sided weakness. drift to upper and lower extremities, no facial droop appreciated. She is able to follow short commands for a short period. She denies Pain. Exam Const General: cooperative, comfortable, no acute distress and lethargic Nutritional Appearance: obese and overweight Orientation: alert, awake and oriented to person [facility] Head: normal to inspection, normocephalic and atraumatic Mouth: oral mucosae normal Resp Effort & Inspection: normal respiratory effort Auscultation: clear to auscultation bilaterally Cardio Rate: regular rate Rhythm: regular rhythm Heart Sounds: S1 normal and S2 normal GI Inspection: normal to inspection Palpation: soft Auscultation: normal bowel sounds Skin General skin exam: no rashes or lesions noted Neuro General: patient alert, patient awake, patient oriented x3 and moves all extremities Cranial Nerves: tongue midline Cognition: abnormal cognition Speech: speech normal Motor: strength abnormal (LUE 3/5 strength. LLE 3-4/5 with slow response.) Pupils: Pinpoint: bilateral Extrem General: normal to inspection, full ROM, no pedal edema, no calf tenderness and pedal edema (trace) bilaterally Objective Last Vital Signs Temp 36.4 C L 12/24/20 10:43 Pulse 89 12/24/20 10:43 Resp 19 12/24/20 10:43 BP 158/86 H 12/24/20 10:43 Pulse Ox 91 L 12/24/20 10:43 Laboratory Results - last 24 hr 12/24/20 12/24/20 12/24/20 06:10 06:10 06:10 WBC 6.48 RBC 4.59 Hgb 13.8 Hct 40.9 MCV 89.1 MCH 30.1 MCHC 33.7 RDW 13.1 Plt Count 320 MPV 9.8 Immature Gran % 0.3 Neutrophils % 65.1 Lymphocytes % 18.7 Monocytes % 9.0 Eosinophils % 6.3 Basophils % 0.6 Nucleated RBC % 0 Absolute Neutrophils 4.22 Absolute Lymphocytes 1.21 Absolute Monocytes 0.58 Absolute Eosinophils 0.41 Absolute Basophils 0.04 Sodium 134 L Potassium 4.1 Chloride 98 Carbon Dioxide 28.0 Anion Gap 8.0 BUN 14 Creatinine 0.6 Estimated GFR/1.73 m2 >= 60.00 Glucose 109 H Calcium 8.9 NT-Pro-B Natriuret Pep 187
--- NOTE | 2020-12-24 13:52 | TELEFU_ITS ---
Date of service: 12/24/20 Time of Service: 13:52 Nutritional Follow up NOTE: 75 year old female admitted with AMS, with TIA. PMH: HTN, obesity, dysphagia, resident of [facility]. BMI indicates class 1 obesity. Following heart healthy minced and moist meal plan with thin liquids. PO intake > 50% of meals. Not at nutritional risk at this time. Will continue to follow. Time Spent in Nutritional Counseling and Treatment: 0
[2020-12-24 13:58] LABS: C-Reactive Protein 0.98 mg/dL (0.0-0.3)
[2020-12-24] MEDS: Dexamethasone 10 MG/ML VIAL IVP (14:04)
[2020-12-24] MEDS: CEFEPIME 2 GM in Normal Saline 100 ML IVPB (14:31)
--- NOTE | 2020-12-24 15:07 | CMPROGNOTE_ITS ---
- If Service Date Differs Date of service: 12/24/20 Time of Service: 15:07 Care Management Progress Note S/O: Alla was sitting up in her chair when CM met with her. She stated that she is tired, and that she is being kept busy today. She had an MRI today, which per report, showed some abnormalities. Per provider, the plan will be to rule out infectious causes, bacterial and fungal, tick panel, syphillis, etc. She was started on doxy and cefepime. She will not be ready to discharge to the [facility] tomorrow. CM will notify the [facility]. CM will continue to follow. A: Alla is a 75 year old woman admitted on 12/20/20 with AMS and TIA P:Alla will transition to the [facility] when medically stable and a bed is available. She will continue to be followed by Palliative care. She will transport by [facility] vs family via private vehicle. CM will continue to follow.
--- NOTE | 2020-12-24 15:23 | PTTR_ITS ---
Date of service: 12/24/20 Time of Service: 15:00 PT Notes Visit Reasons: ALTERED MENTAL STATUS, TIA, VOMITING Inpatient Physical Therapy Treatment Note [facility] Date: 12/24/2020 PRECAUTIONS: Fall. L visual field cut vs. L hemineglect. SUBJECTIVE: Patient was cooperative and was able to follow moderate to maximal verbal cueing for ambulation activity in the morning. In the afternoon, Alla appeared to be turning her head to the L so she can find the pills she is supposed to take. Perseverated on said pills needing to be taken. Nurse Audie made aware. Complained of being tired and dozed off right away when she was assisted back into bed after the short afternoon session. OBJECTIVE: L UE drift when asked to do B UE exercises. Needed tactile cues and frequent redirection to complete task today. PAIN: None BED MOBILITY/TRANSFERS Supine to sit moderate ssist Sit to stand moderate assist Stand to sit moderate assist Bed to chair moderate assist GAIT Assistive Device: FWW Weight bearing: Full Assist: Minimal assist of 2 Distance: 20 steps Deviation: Required maximal verbal, visual and tactile cueing for safety and walker propulsion ASSESSMENT: In the morning, patient covered up to 20 feet of level surface ambulation using the FWW with minimal assist of this PT and [employer]am. Patient required maximal tactile cueing with PT/[employer] Selam constantly moving the walker forward to facilitate continuous forward limb advancement by patient. In the afternoon, patient's head was mostly turned to the left and patient required extensive cueing to turn head to R. Horizontal L-beating nystagmus increased every time head is turned to the left. Level of awareness declined significantly compared to this morning which resulted to difficulty initiating and completing performance of seated exercises. Perseverated on wanting to take her pills despite several explanation given by PT about the nurse having given all her medications already. Patient will continue to benefit from PT services to achieve initially established goals. PLAN: Continue with PT plan of care achieve initially established goals TREATMENT CODE/TIME: Session 1--53349 x 23 minutes beginning at 11:52 AM. Session 2-- 02111 x 20 minutes beginning at 15:00 PM
--- NOTE | 2020-12-24 16:25 | W.NEUROCONSU ---
Date of service: 12/24/20 Time of Service: 16:25 Assessment and Plan Assessment and plan (1) Encephalopathy: Status: Acute (2) Focal seizure: Status: Acute (3) Cerebral aneurysm: Status: Acute (4) Abnormal brain MRI: Status: Acute Assessment and plan: Ms. Tompkins is a 75 year-old woman (unknown handedness) who was admitted with a ~2 day history of increased confusion, staring, and then ultimately a fall with ? right hemiparesis. Then on 12/22/20, witnessed to have seizure-like activity without LOC followed by left hemiparesis that has improved but remains. Her neurological exam was significant for confusion/orientation to self only, brief abnormal eye movements to the left without change in mental status, left gaze palsy, ?left visual field defect, perhaps subtle L hemiparesis vs hemineglect vs both, and a L Babinski. She has non-specific contrast enhancement of her right medial temporal lobe with some element of fullness and T2 hyperintensity. DDx per radiology includes infection vs neoplasm. I would add ictal/post-ictal changes in the differential (especially in light of exam findings), and specify lymphoma for the neoplastic differential. My exam today and clinical history concerning for ongoing seizure activity. I have ordered 1000mg IV levetiracetam stat and increased maintenance dose to 1000mg BID from 500mg BID (of note pharmacy called and said this was too high based on Cr 0.6, GFR>60, but CrCl of ~43; I over road the alert and will give this dose with noted increased risk of sedation). She will get started on long-term/stat EEG. In the meantime, I agree with antibiotic and antiviral IV coverage. I agree with LP including cell count, protein, glucose, IgG index, culture, cytology, HSV 1&2 (but can we do entire panel?), WNV, VDRL, adenovirus, entovirus. I will defer to primary team on serum testing but would add SPEP given concern for lymphoma. Ok to stop clopidogrel as none of her events thus far are due to a vascular etiology. In regards to the aneurysm findings, these can be monitored with repeat MRA/CTA annually as desired. Same Day Addendum. EEG prelim read consistent with encephalopathy without seizure activity. I also spoke with PCP Dr. Caldera who notes patient has had memory issues for > 1year. She has known patient for 20+ years and patient and sister are unlikely to want extensive or invasive work-up. Ok with continuing EEG tonight, but will need to have family discussion before proceeding with LP. History of Present Illness History of Present Illness Chief Complaint: altered mental status Narrative: Handedness: unknown. HPI: Ms. Tompkins is a 75 year-old woman with hypertension, hyperlipidemia, diabetes, dementia, depression, and hypothyroidism. Ms. Tompkins had a recent admission 12/07/20-12/12/20 for confusion found to have a UTI with hyponatermia (116 thought to be due to SSRI) and then subsequent aspiration pneumonia and NSTEMI. She was brought to the [facility] ER by ambulance on 12/20/20 with ~2 days of confusion and staring off followed by transient ?right hemiparesis on day of admission associated with a headache and fall - symptoms lasted about ~ 1 hour. In the ER, work-up was largely unremarkable. BP elevated 202/72. Na 131, WBC 10.22. She underwent a CTH and CTA H/Neck as below. Varying reports of right hemiparesis since admission. Then on 12/22/20 at ~0300, she was witnessed to have 3 sequential seizure-like events. One was witnessed by Dr. Rasmussen who noted R>>L GTC activity without MEGGAN with patient able to converse and speak during event. She was treated with Ativan IV 2mg along with LEV 1000mg x 1 at that time. She has been maintained on 500mg BID of levetiracetam since. Post-event she was noted to have a dense left hemiparesis, left visual field cut, and L Babinski. She has had further neuroimaging as below. Laboratory work-up has been stable. Her left hemiparesis has improved, but she continues to demonstrate per report mild left arm and leg weakness. She remains quite cognitively confused. Today, nursing notes that she could figure out to suck through a straw. Overnight, she was witnessed to have some odd left head turning movements as well as transient leaning to one side. Work-up: -CTH (12/20/20): no acute findings. Severe chronic vascular disease with moderate atrophy. I reviewed these images personally and this is my personal interpretation. 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 I reviewed these images personally and this is my personal interpretation. -MRI brain (12/21/20): no acute findings. Severe extensive chronic vascular changes of the WM including in the daniel. I reviewed these images personally and this is my personal interpretation. -CTH (12/22/20): no acute findings. No change from previous. I reviewed these images personally and this is my personal interpretation. -CTA head/neck (12/23/20): Stable ALONA aneurysm seen as previous. Radiology also mentioned a ~2mm L Acomm aneurysm but I was not able to visualize this. Otherwise unchanged from previous. I reviewed these images personally and this is my personal interpretation. -MRI brain w/wo (12/24/20): No acute findings. Irregular patchy enhancement in the right medial temporal lobe. On T2 sequencing, the right temporal lobe dose appear subtly demarco and hyperintense. Chronic vascular changes as previously noted. I reviewed these images personally and this is my personal interpretation. In regards to cognition, she has had memory issues for some time. Pre-COVID was attending [employer] during the day. 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 She has required assistance with ADLs and iADLs for some time. Pre-admission, plan was to admit to [facility] on 12/26/20. Consults Requesting physician: Tigre Cruz Review of Systems Unobtainable due to mental status [facility] Medical History Abnormal cervical Papanicolaou smear (10/01/00) Age-related macular degeneration Ankle joint pain (06/21/13) Rickets as a child Balance problem Bilateral impacted cerumen (07/31/15) Bronchospasm Cataract (01/19/18) Cataract Chronic left shoulder pain (05/04/18) Depressive disorder (12/04/11) Diabetes Diverticulitis of colon 04/11 pre-op H P by Dr. Al Reid for lap sigmoid resection, secondary to acute episodes of diverticulitis. 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 Essential hypertension (10/14/13) Fall in exam room while getting off exam table Fatigue (06/21/13) Grief (03/04/16) Hip pain (06/24/13) Hypercalcemia (12/04/16) Hyperlipidemia (06/21/13) Hyponatremia (07/01/13) Hypothyroidism (06/24/13) Low back pain (06/21/13) XRay 09/09 - DJD, R hip DJD MRI - severe djd, no stenosis Low back pain (06/21/13) Multiple excoriations (07/20/14) Other specified cardiac dysrhythmias (10/01/04) bradycardia by ECG; Holter=rare PAC/PVC/burst SVT; <3sec pause Other specified cardiac dysrhythmias (10/01/04) Pelvic abscess (11/05/09) 10/10 CT: SMALL RESIDUAL ABSCESSED CAVITY IN CENTRAL PELVIS, W/ FISTULA BETWEEN ABSCESS SIGMOID COLON Pelvic abscess (11/05/09) Pruritic disorder (01/10/14) Reflux esophagitis (12/08/16) Rickets Sensorineural hearing loss, bilateral (01/14/18) Vaginitis and vulvovaginitis Wheezing (05/04/18) ? voacl cord dysfunction Surgical History Abdominal hysterectomy (~1983) Cholecystectomy (~1979) drainage of pelvic abcess Extraction of cataract LEFT EYE;12/14/17; DR. ALICEA Status post abdominal hysterectomy Status post cholecystectomy Status post hip replacement Status post incision and drainage Total replacement of hip (~2008) LEFT Family History Mother , AGE 92 Diabetes Heart disease Father Heart disease Stomach cancer Sister Depression Heart disease COPD (chronic obstructive pulmonary disease) Asthma Brother Diabetes Essential hypertension Heart disease Hyperlipidemia Asthma Social History Smoking/Tobacco Use Status: Never Smoking risk assessment performed?: Yes Alcohol Intake: former Drug use: Never Substance use type: does not use Caregiver/Support person: No Household members: spouse and none Housing: house Communication Needs: None Do you need help understanding health information?: Never Pets and animals: Yes Pets and animals: dog(s) Sexually active: No Do you think of yourself as: straight/heterosexual Current gender identity: female What is your relationship status?: How often do you talk on the phone with friends or family?: three or more times per week How often do you get together with friends or relatives?: once per week How often do you attend jewish or mandaeism services?: 4 or more times per year Do you belong to any clubs or organized social groups?: no Panel score (0-1 are the most socially isolated patients): 2 What type of physical activity do you participate in: walking Duration: 15-30 minutes/day Frequency: 1-2 times per week Medina/Mandaeism: Yarsani Special medina needs: No Seatbelt use: always Helmet use: Yes Helmet use: always Drive intox or ride w/intox 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 Do you feel safe at home: Yes Do you feel safe in your relationship?: Yes Victim of physical abuse: No Victim of emotional abuse: No Victim of sexual abuse: No Would you like helpful sources: No Visit Medication and Allergies Active Medications Generic Name Dose Route Start Last Admin Trade Name Freq PRN Reason Stop Dose Admin Acetaminophen 1,000 mg 12/20/20 22:21 12/24/20 06:18 Acetaminophen 500 Mg Tab PO 1,000 mg TID PRN PRN Administration Amlodipine Besylate 5 mg 12/23/20 08:30 12/24/20 08:46 Amlodipine 5 Mg Tab PO 5 mg DAILY NISSA Administration Aspirin 81 mg 12/21/20 08:30 12/24/20 08:47 Aspirin 81 Mg Chew PO 81 mg DAILY NISSA Administration Atorvastatin Calcium 80 mg 12/21/20 20:00 12/23/20 19:55 Atorvastatin 40 Mg Tab PO 80 mg QPM NISSA Administration Clopidogrel Bisulfate 75 mg 12/23/20 08:30 12/24/20 08:47 Clopidogrel 75 Mg Tab PO 75 mg DAILY NISSA Administration Dimethicone/Zinc Oxide 0 gm 12/20/20 21:52 Etta Protect Cream 142 Gm Tube TP PRN PRN Docusate Sodium 100 mg 12/21/20 08:30 12/24/20 08:47 Docusate Sodium 100 Mg Cap PO 100 mg BID NISSA Administration Enoxaparin Sodium 40 mg 12/20/20 22:00 12/23/20 22:22 Enoxaparin 40 Mg/0.4 Ml Syr SC 40 mg Q24H NISSA Administration Famotidine 20 mg 12/22/20 08:30 12/24/20 08:46 Famotidine 20 Mg Tab PO 20 mg DAILY NISSA Administration Gadoterate Meglumine 16 ml 12/24/20 11:00 12/24/20 10:57 Gadoterate Meglumine 20 Ml Vial IVP 12/24/20 23:59 16 ml DIRECTED NISSA Administration Sodium Chloride 500 mls @ 0 mls/hr 12/20/20 19:13 Saline 500ml Bag IV PRN PRN As Directed Doxycycline Hyclate 100 mg/ 100 mls @ 100 mls/hr 12/24/20 16:00 Sodium Chloride IVPB Q12H NISSA Cefepime HCl 2 gm/ Sodium 100 mls @ 200 mls/hr 12/24/20 14:00 12/24/20 14:31 Chloride IVPB 200 mls/hr Q12H NISSA Administration Acyclovir Sodium 500 mg/ 100 mls @ 100 mls/hr 12/24/20 18:00 Sodium Chloride IVPB Q12H NISSA IV Miscellaneous Supplies 1 each 12/20/20 19:15 Iv Access IV DIRECTED [facility] Ibuprofen 600 mg 12/21/20 12:17 12/22/20 16:12 Ibuprofen 600 Mg Tab PO 600 mg TID PRN PRN Administration Levetiracetam 500 mg 12/22/20 08:30 12/24/20 08:47 Levetiracetam 500 Mg Tab PO 500 mg BID NISSA Administration Levothyroxine Sodium 112 mcg 12/21/20 06:00 12/24/20 06:00 Levothyroxine 112 Mcg Tab PO 112 mcg DAILY@0600 NISSA Administration Multivitamins 1 tab 12/21/20 08:30 12/24/20 08:46 Multivitamin Tab PO 1 tab DAILY NISSA Administration Senna/Docusate Sodium 2 tab 12/21/20 08:30 12/24/20 08:46 Sennosides/Docusate Sodium Tab PO 2 tab DAILY NISSA Administration Sodium Chloride 0 ml 12/20/20 19:13 12/24/20 14:03 Normal Saline Flush 10 Ml Syr IVP 20 ml PRN PRN Administration Sodium Chloride 10 ml 12/24/20 10:57 12/24/20 10:57 Normal Saline Flush 10 Ml Syr IVP 12/24/20 23:59 10 ml PRN PRN Administration Allergies No Known Allergies Allergy (Verified 12/20/20 17:08) Exam Narrative Exam Narrative: Physical Exam: Limited as patient was on the toilet for part of the exam Constitutional: Patient of apparent stated age, well nourished, well developed, no acute distress Neck: Supple, no meningismus CV: RRR Resp: CTAB Abd: Soft, nontender, nondistended Extrem: no edema, cyanosis, or bony deformity Neuro: MS/Language/Speech: Alert, oriented to self only - knew she was in the hospital but could not recall town or name of hospital; able to follow simple commands for the most part; no obvious aphasia; mild-moderate dysarthria (she is adentulous for my exam) CN: PERRL, left-gaze palsy, ?L visual field defect as well - hard to tell due to MM changes; trigeminal sensation intact, no facial asymmetry, hearing intact Motor: Normal bulk and tone. Unable to participate in FMM/pronation or formal strength testing. Perhaps subtle left hemiparesis +/- subtle left hemineglect? Sensation: Intact to PP/noxious stimuli in all extremities - withdraws in each Reflexes: 2+ DTRs, +L Babinski, R toe neutral Coordination: no obvious ataxia Gait: unable to assess safely at this time Of note, when I first walked in, she was sleeping. I woke her up. She immediately had forced eye turn to the left with some pulsation. This lasted ~10 seconds and she was conversing during this. Results Last Vital Signs Temp 36.4 C L 12/24/20 10:43 Pulse 89 12/24/20 10:43 Resp 19 12/24/20 10:43 BP 158/86 H 12/24/20 10:43 Pulse Ox 91 L 12/24/20 10:43 Labs Result diagrams: 12/24/20 06:10 12/24/20 06:10 Labs: Laboratory Results - last 24 hr 12/24/20 12/24/20 12/24/20 06:10 06:10 06:10 WBC 6.48 RBC 4.59 Hgb 13.8 Hct 40.9 MCV 89.1 MCH 30.1 MCHC 33.7 RDW 13.1 Plt Count 320 MPV 9.8 Immature Gran % 0.3 Neutrophils % 65.1 Lymphocytes % 18.7 Monocytes % 9.0 Eosinophils % 6.3 Basophils % 0.6 Nucleated RBC % 0 Absolute Neutrophils 4.22 Absolute Lymphocytes 1.21 Absolute Monocytes 0.58 Absolute Eosinophils 0.41 Absolute Basophils 0.04 Sodium 134 L Potassium 4.1 Chloride 98 Carbon Dioxide 28.0 Anion Gap 8.0 BUN 14 Creatinine 0.6 Estimated GFR/1.73 m2 >= 60.00 Glucose 109 H Calcium 8.9 C-Reactive Protein NT-Pro-B Natriuret Pep 187 A.phagocytophil DNA PCR B. divergens/MO-1 PCR Babesia duncani (PCR) Babesia microti DNA PCR Borrelia (PCR) E.chaffeensis DNA (PCR) E.ewingii/canis DNA PCR E. muris-like DNA (PCR) HSV Source Description HSV I DNA PCR HSV II DNA PCR 12/24/20 12/24/20 12/24/20 13:12 13:12 Unknown WBC RBC Hgb Hct MCV MCH MCHC RDW Plt Count MPV Immature Gran % Neutrophils % Lymphocytes % Monocytes % Eosinophils % Basophils % Nucleated RBC % Absolute Neutrophils Absolute Lymphocytes Absolute Monocytes Absolute Eosinophils Absolute Basophils Sodium Potassium Chloride Carbon Dioxide Anion Gap BUN Creatinine Estimated GFR/1.73 m2 Glucose Calcium C-Reactive Protein 0.98 H NT-Pro-B Natriuret Pep A.phagocytophil DNA PCR Cancelled B. divergens/MO-1 PCR Cancelled Babesia duncani (PCR) Cancelled Babesia microti DNA PCR Cancelled Borrelia (PCR) Cancelled E.chaffeensis DNA (PCR) Cancelled E.ewingii/canis DNA PCR Cancelled E. muris-like DNA (PCR) Cancelled HSV Source Description Cancelled HSV I DNA PCR Cancelled HSV II DNA PCR Cancelled
[2020-12-24] MEDS: DOXYCYCLINE 100 MG in Normal Saline 100 ML IVPB (16:40)
[2020-12-24 17:19] LABS: ESR 45 mm/hr (<or=30)
[2020-12-24] MEDS: levETIRAcetam 1,000 MG in Normal Saline 100 ML 400 MG IVPB (18:13)
[2020-12-24] MEDS: Normal Saline 500 ML 100 ML IV (18:16)
--- NOTE | 2020-12-24 18:16 | PDOC.EEG ---
Neurology EEG EEG: This is just a holding note. Overnight EEG started. Diffuse generalized slowing. No focal features. No seizures or epileptic discharges. Will continue EEG overnight.
--- NOTE | 2020-12-24 20:05 | W.PALPGNOTE ---
Date of service: 12/24/20 Time of Service: 18:05 Assessment and Plan Assessment and plan (1) Abnormal brain MRI: Status: Acute (2) Encephalopathy: Status: Acute (3) Seizure-like activity: Status: Acute (4) Palliative care patient: Status: Acute Assessment and plan: There is a significant work-up in progress including labs EEG a second MRI and possibly a spinal tap. Today for my encounter with Alla she does not have capacity to make decisions regarding her care. I spoke with her Sister Mary Beth who is her DPOA. Mary Beth kept emphasizing that Alla wants to be comfortable and not have a lot of complicated treatment. When I talked about the possible differential of inflammation, infection and possible cancer, mary beth was quick to say that she would not want to go through cancer treatment. She really did not understand what inflammation was and she was concerned that infection if treated with antibiotics could cause problems such as diarrhea and yeast infection. I did talk with mary beth about reversible causes and that they would have to go through the work-up in order to determine these. She was unsure if Alla would want to pursue more aggressive treatment and she kept emphasizing that Alla just wants to be comfortable. She also stated that her sister had really gone downhill in the last year. Mary Beth is Suraj DPOA. She would appreciate being kept in the loop about different testing and possible consequences of the tests to better determine if they should be pursued. She was on the fence as to what to do next. I have passed on to the team that Mary Beth does need to be called to determine further care. I did pass on mary beth's concern with Dr. Amezcua.. Again it is difficult because if patient has a reversible cause of her encephalopathy, it might not be known and treated appropriately without further testing. Dr. Amezcua did tell me that vanessa Gold is not in status epilepticus. They will know more in the AM regarding the amount of seizure activity Alla is experiencing Mary Beth would appreciate a phone call to discuss Alla's care in the morning. Subjective Subjective Interval history since last seen: Patient has had a busy day. She was seen by neurology, is having overnight EEG done, has had 6 series of labs drawn, and another contrast MRI. When I spoke with her all she could talk about was her dog and her sister normal. She really misses her dog. Exam Narrative Exam Narrative: MRI 12/24/20 EREBRAL PARENCHYMA: No evidence of intracranial hemorrhage, mass effect nor shift of midline structure. No extraaxial fluid collections. There is symmetrical atrophy. The again noted is abundant bilateral periventricular signal abnormality consistent with chronic small vessel disease. There also signal abnormality in the central daniel. None of these findings are associated with hemorrhage, surrounding edema, nor abnormal enhancement. However, there is an area of abnormal enhancement in the right temporal lobe, medial aspect extending from the middle cranial fossa posteriorly and measuring 4.5 cm by 1 cm, exhibiting minimal increased signal on diffusion imaging PITUITARY GLAND: No mass nor parasellar abnormality. No obvious abnormality in the cavernous sinuses. FLOW VOIDS: The expected flow void are noted. No evidence of obvious aneurysm nor obvious vascular malformation. PARANASAL SINUSES: The visualized paranasal sinuses appear unremarkable. ORBITS: No obvious abnormal findings. IMPRESSION: 1. Abundant bilateral periventricular signal abnormality consistent with chronic small vessel disease. Similar findings also seen in the central daniel. 2. There is a prominent area abnormal enhancement in the right temporal lobe, both in the middle cranial fossa and posterior to the right middle cranial fossa. Very mild but abnormal signal at this location seen on the other sequences. Differential is between neoplasm and inflammatory/possibly infectious etiology. 3. 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 This is not able to be seen on this type of study. If clinically indicated brain MRA study can be ordered. There was also suggestion of focal vascular dilatation in the anterior cerebral artery within the interhemispheric fissure. Laboratory Tests 12/24/20 12/24/20 12/24/20 06:10 13:12 13:12 ESR 45 H Sodium 134 L C-Reactive Protein 0.98 H There are several pending lab tests Alla is sitting on the bed. She has the EEG wires attached to her head. Guerrero, from respiratory, is doing the EEG as I was there. Resp Effort & Inspection: able to speak in complete sentences Psych Attitude: cooperative Insight: poor Judgment: poor Objective Last Vital Signs Temp 97.7 F 12/24/20 19:15 Pulse 66 12/24/20 19:15 Resp 20 12/24/20 19:15 BP 172/83 H 12/24/20 19:15 Pulse Ox 94 12/24/20 19:15 Laboratory Results - last 24 hr 12/24/20 12/24/20 12/24/20 06:10 06:10 06:10 WBC 6.48 RBC 4.59 Hgb 13.8 Hct 40.9 MCV 89.1 MCH 30.1 MCHC 33.7 RDW 13.1 Plt Count 320 MPV 9.8 Immature Gran % 0.3 Neutrophils % 65.1 Lymphocytes % 18.7 Monocytes % 9.0 Eosinophils % 6.3 Basophils % 0.6 Nucleated RBC % 0 Absolute Neutrophils 4.22 Absolute Lymphocytes 1.21 Absolute Monocytes 0.58 Absolute Eosinophils 0.41 Absolute Basophils 0.04 ESR Sodium 134 L Potassium 4.1 Chloride 98 Carbon Dioxide 28.0 Anion Gap 8.0 BUN 14 Creatinine 0.6 Estimated GFR/1.73 m2 >= 60.00 Glucose 109 H Calcium 8.9 C-Reactive Protein NT-Pro-B Natriuret Pep 187 A.phagocytophil DNA PCR B. divergens/MO-1 PCR Babesia duncani (PCR) Babesia microti DNA PCR Borrelia (PCR) E.chaffeensis DNA (PCR) E.ewingii/canis DNA PCR E. muris-like DNA (PCR) HSV Source Description HSV I DNA PCR HSV II DNA PCR 12/24/20 12/24/20 12/24/20 13:12 13:12 13:12 WBC RBC Hgb Hct MCV MCH MCHC RDW Plt Count MPV Immature Gran % Neutrophils % Lymphocytes % Monocytes % Eosinophils % Basophils % Nucleated RBC % Absolute Neutrophils Absolute Lymphocytes Absolute Monocytes Absolute Eosinophils Absolute Basophils ESR 45 H Sodium Potassium Chloride Carbon Dioxide Anion Gap BUN Creatinine Estimated GFR/1.73 m2 Glucose Calcium C-Reactive Protein 0.98 H NT-Pro-B Natriuret Pep A.phagocytophil DNA PCR Cancelled B. divergens/MO-1 PCR Cancelled Babesia duncani (PCR) Cancelled Babesia microti DNA PCR Cancelled Borrelia (PCR) Cancelled E.chaffeensis DNA (PCR) Cancelled E.ewingii/canis DNA PCR Cancelled E. muris-like DNA (PCR) Cancelled HSV Source Description HSV I DNA PCR HSV II DNA PCR 12/24/20 Unknown WBC RBC Hgb Hct MCV MCH MCHC RDW Plt Count MPV Immature Gran % Neutrophils % Lymphocytes % Monocytes % Eosinophils % Basophils % Nucleated RBC % Absolute Neutrophils Absolute Lymphocytes Absolute Monocytes Absolute Eosinophils Absolute Basophils ESR Sodium Potassium Chloride Carbon Dioxide Anion Gap BUN Creatinine Estimated GFR/1.73 m2 Glucose Calcium C-Reactive Protein NT-Pro-B Natriuret Pep A.phagocytophil DNA PCR B. divergens/MO-1 PCR Babesia duncani (PCR) Babesia microti DNA PCR Borrelia (PCR) E.chaffeensis DNA (PCR) E.ewingii/canis DNA PCR E. muris-like DNA (PCR) HSV Source Description Cancelled HSV I DNA PCR Cancelled HSV II DNA PCR Cancelled
[2020-12-24] MEDS: Atorvastatin 40 MG TAB 80 MG PO (20:38)
[2020-12-24] MEDS: Enoxaparin 40 MG/0.4 ML SYR SC (23:11)
[2020-12-24] MEDS: levETIRAcetam 500 MG TAB 1000 MG PO (23:12)
[2020-12-25] MEDS: CEFEPIME 2 GM in Normal Saline 100 ML IVPB (02:00)
[2020-12-25] MEDS: Normal Saline Flush 10 ML SYR IVP ×2 (02:03→07:52)
[2020-12-25] MEDS: DOXYCYCLINE 100 MG in Normal Saline 100 ML IVPB (03:41)
[2020-12-25 03:47] VITALS: BP 188/81; PULSE 73; RESP 18; TEMP 36.6; O2SAT 92
[2020-12-25 04:01] VITALS: PULSE 63
[2020-12-25] MEDS: Levothyroxine 112 MCG TAB PO (05:47)
[2020-12-25 06:34] LABS: Abs Immature Grans 0.03 10^3/uL (0.0-0.06); Absolute Basophil Count 0.01 10^3/uL (0.0-0.2); Absolute Eosinophil Count 0.02 10^3/uL (0.0-0.7); Absolute Lymphocyte Count 0.76 10^3/uL (1.2-3.4); Absolute Monocyte Count 0.35 10^3/uL (0.1-0.8); Basophils % 0.1; Eosinophils % 0.2; HCT 42.1 % (36.0-46.0); HGB 14.7 g/dL (11.2-15.7); Immature Grans % 0.3; Lymphocytes % 8.1; MCHC 34.9 % (32.0-36.0); MCV 88.8 fL (80-95); MPV 9.5 fL (8.0-11.0); Monocytes % 3.7; Neutrophils % 87.6; Nucleated RBC 0 %; Platelet Count 378 10^3/uL (130-400); RBC 4.74 10^6/uL (3.93-5.22); RDW 12.7 % (11.7-14.6); RDW-SD 41.4 fL; WBC 9.37 10^3/uL (4.4-10.8)
[2020-12-25 06:37] LABS: Absolute Neutrophil Count 8.21 10^3/uL (1.2-6.7)
[2020-12-25 06:53] LABS: Anion Gap 8.6 mmol/L (3-11); BUN 21 mg/dL (7-18); CO2 25.4 mmol/L (21.0-32.0); CREATININE 0.7 mg/dL (0.55-1.02); Calcium 9.7 mg/dL (8.5-10.1); Chloride 99 mmol/L (98-107); Glucose 127 mg/dL (74-106); Potassium 3.9 mmol/L (3.5-5.1); Sodium 133 mmol/L (136-145)
[2020-12-25 07:15] VITALS: PULSE 58
[2020-12-25 07:24] LABS: Vitamin B12 840 pg/mL (193-986)
[2020-12-25 07:25] VITALS: BP 151/73; PULSE 69; RESP 18; TEMP 36.3; O2SAT 99
[2020-12-25] MEDS: amLODIPine 5 MG TAB PO (07:50)
[2020-12-25] MEDS: Famotidine 20 MG TAB PO (07:51)
[2020-12-25] MEDS: levETIRAcetam 500 MG TAB 1000 MG PO ×2 (07:51→19:42)
[2020-12-25] MEDS: Sennosides/Docusate Sodium TAB 2 TAB PO (07:51)
[2020-12-25] MEDS: Aspirin 81 MG CHEW PO (07:51)
[2020-12-25] MEDS: Ibuprofen 600 MG TAB PO (07:52)
[2020-12-25] MEDS: Docusate Sodium 100 MG CAP PO ×2 (07:52→19:42)
[2020-12-25] MEDS: Acetaminophen 500 MG TAB 1000 MG PO (07:52)
[2020-12-25] MEDS: Multivitamin TAB 1 TAB PO (07:52)
--- NOTE | 2020-12-25 09:41 | PDOC.EEG_ITS ---
Neurology EEG EEG: [facility] Department of Neurology INPATIENT EEG REPORT Date of Recordin12/24/20 at 17:35:28 to 12/25/20 at 08:05:36 (though leads became disconnected at 05:30:10) Interpreting Physician: Dr. Diamante Amezcua Reason for study: Ms. Tompkins is a 75 year-old woman who was admitted with increased confusion, waxing and waning weakness, and witnessed seizure activity. Current Medications: Current Medications Acetaminophen (Acetaminophen 500 Mg Tab) 1,000 mg PO TID PRN PRN Last Admin: 12/25/20 07:52 Dose: 1,000 mg Documented by: Amlodipine Besylate (Amlodipine 5 Mg Tab) 5 mg PO DAILY [facility] Last Admin: 12/25/20 07:50 Dose: 5 mg Documented by: Aspirin (Aspirin 81 Mg Chew) 81 mg PO DAILY [facility] Last Admin: 12/25/20 07:51 Dose: 81 mg Documented by: Atorvastatin Calcium (Atorvastatin 40 Mg Tab) 80 mg PO QPM [facility] Last Admin: 12/24/20 20:38 Dose: 80 mg Documented by: Dimethicone/Zinc Oxide (Etta Protect Cream 142 Gm Tube) 0 gm TP PRN PRN Docusate Sodium (Docusate Sodium 100 Mg Cap) 100 mg PO BID [facility] Last Admin: 12/25/20 07:52 Dose: 100 mg Documented by: Enoxaparin Sodium (Enoxaparin 40 Mg/0.4 Ml Syr) 40 mg SC Q24H NISSA Last Admin: 12/24/20 23:11 Dose: 40 mg Documented by: Famotidine (Famotidine 20 Mg Tab) 20 mg PO DAILY [facility] Last Admin: 12/25/20 07:51 Dose: 20 mg Documented by: Sodium Chloride (Saline 500ml Bag) 500 mls @ 0 mls/hr IV PRN PRN Last Infusion: 12/24/20 18:31 Dose: 0 mls/hr Documented by: Doxycycline Hyclate 100 mg/ (Sodium Chloride) 100 mls @ 100 mls/hr IVPB Q12H [facility] Last Infusion: 12/25/20 05:05 Dose: Infused Documented by: Cefepime HCl 2 gm/ Sodium (Chloride) 100 mls @ 200 mls/hr IVPB Q12H [facility] Last Infusion: 12/25/20 02:45 Dose: Infused Documented by: Acyclovir Sodium 500 mg/ (Sodium Chloride) 100 mls @ 100 mls/hr IVPB Q12H [facility] Last Infusion: 12/25/20 07:07 Dose: Infused Documented by: IV Miscellaneous Supplies (Iv Access) 1 each IV DIRECTED [facility] Ibuprofen (Ibuprofen 600 Mg Tab) 600 mg PO TID PRN PRN Last Admin: 12/25/20 07:52 Dose: 600 mg Documented by: Levetiracetam (Levetiracetam 500 Mg Tab) 1,000 mg PO BID [facility] Last Admin: 12/25/20 07:51 Dose: 1,000 mg Documented by: Levothyroxine Sodium (Levothyroxine 112 Mcg Tab) 112 mcg PO DAILY@0600 [facility] Last Admin: 12/25/20 05:47 Dose: 112 mcg Documented by: Mirtazapine (Mirtazapine 15 Mg Tab) 7.5 mg PO HS [facility] Multivitamins (Multivitamin Tab) 1 tab PO DAILY [facility] Last Admin: 12/25/20 07:52 Dose: 1 tab Documented by: Senna/Docusate Sodium (Sennosides/Docusate Sodium Tab) 2 tab PO DAILY [facility] Last Admin: 12/25/20 07:51 Dose: 2 tab Documented by: Sodium Chloride (Normal Saline Flush 10 Ml Syr) 0 ml IVP PRN PRN Last Admin: 12/25/20 07:52 Dose: 10 ml Documented by: METHODS: A 21 channel digitized electroencephalogram was performed in the [facility] Med/Surg Floor or ICU. The 10/20 international system of electrode placement was used and bipolar and referential electrode montages were recorded. In addition to EEG the patient was monitored for EKG and lateral/vertical eye movements. Activation procedures of photic stimulation and hyperventilation were performed if applicable. Video was used during activation procedures and during events where applicable. The duration of the recording was ~12 hours (this is the time the electrodes became disconnected). DESCRIPTION OF EEG: Waking background activity: During maximal wakefulness a 6-7-Hz posterior background rhythm was present which was poorly-modulated, symmetrical, reactive to eye opening, and of moderate voltage. Faster frequencies were present in the bilateral anterior head regions. There was a normal anterior-posterior voltage gradient. Drowsy and sleeping background activity: During drowsiness, there was attenuation of the posterior dominant background rhythm and vertex waves. Normal stage II and III sleep was present with symmetrical sleep spindles, K- complexes, and vertex waves with slowing of the background rhythm to delta/theta frequencies. REM sleep was not clearly seen. Arousal was unremarkable. Interictal abnormalities: Diffuse, generalized, moderate delta and theta activity throughout. No epileptiform discharges. Ictal findings: Event #[id number]#13 at 19:10:54, 20:34:28, 21:09:28, 21:39:23, 22:58:06, 23:24:18, 00:45:10, 01:07:06, 01:44:52, 02:35:06, 03:07:17, 03:30:46, and 04:29:07 -Clinical manifestations: Most often associated with brief left head turn (face not visualized on video). Once noted with right arm extension. At other times noted to have automatisms of right arm usually rubbing/scratching face or top of her head. Some events with no clinical activity. -EEG findings: Sharp fast, mix alpha/beta build-up in O2 that then spreads to left occipital and posterior central leads, followed by spread toward the frontal leads on the right. Then right posterior leads shows sharp rhtyhmic theta activity until seizure end at which time baseline generalized delta is seen. Seizure activity lasting ~2minutes each. Activating Procedures: Photic stimulation and hyperventilation were not performed. EKG: EKG revealed normal sinus rhythm. INTERPRETATION: This EEG is abnormal due to: #1. Frequent right hemisphere focal seizures manifested by brief head turn to the left, though occasionally without clinical manifestation. #2. Moderate generalized slowing throughout wakefulness. PRIOR EEG: none CLINICAL CORRELATION: This patient is having frequent focal seizures generating from the right posterior brain. The background slowing is suggestive of a moderate diffuse cerebral encephalopathy of broad differential including toxic-metabolic etiology. This could be due to a post-ictal state or could be part of her known cognitive disorder as well. Clinical correlation is advised. Diamante Amezcua MD
[2020-12-25 10:22] VITALS: PULSE 68
[2020-12-25] MEDS: LORazepam 1 MG TAB PO ×2 (10:49→19:42)
[2020-12-25] MEDS: Divalproex 500 MG TABEC PO ×2 (10:49→19:42)
[2020-12-25 11:01] LABS: Syphilis Serology (RPR) Negative (Negative)
[2020-12-25 11:08] LABS: Lyme Ab w Rflx to Lyme Confirm Negative (Negative)
[2020-12-25 11:12] VITALS: BP 154/79; PULSE 62; RESP 20; TEMP 36.4; O2SAT 96
--- NOTE | 2020-12-25 13:27 | W.PM.PROGNOT ---
Date of Service Date of service: 12/25/20 Time of Service: 13:27 Assessment and Plan Assessment and plan (1) Upper extremity weakness: Start date: 12/25/20 Start time: 13:34 Status: Acute Assessment and plan: MRI revealing 1. Abundant bilateral periventricular signal abnormality consistent with chronic small vessel disease. Similar findings also seen in the central daniel. 2. There is a prominent area abnormal enhancement in the right temporal lobe, both in the middle cranial fossa and posterior to the right middle cranial fossa. Very mild but abnormal signal at this location seen on the other sequences. Differential is between neoplasm and inflammatory/possibly infectious etiology. 3. 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 This is not able to be seen on this type of study. If clinically indicated brain MRA study can be ordered. There was also suggestion of focal vascular dilatation in the anterior cerebral artery within the interhemispheric fissure. After discussion with Sister, patient has been made CM. She states her sister would not want to go through all of these tests and live her life in this manner. She would want to be comfortable. She has declined over the last 2 admissions. Her sister is agreeable to antiseizure medication for comfort and antibiotic trial for comfort but she is realistic in her situation. (2) Seizure-like activity: Start date: 12/25/20 Start time: 13:36 Status: Acute Assessment and plan: Witnessed by Dr. Regan she is going comfort measures and will be on keppra bid with depakote bid and ativan scheduled bid with prn as needed for seizures (3) Altered mental status: Start date: 12/25/20 Start time: 13:37 Status: Acute Assessment and plan: as above (4) Palliative care patient: Start date: 12/25/20 Start time: 13:37 Status: Acute Assessment and plan: Being followed by Dr. Michael. Has decided to be made comfort measures she will be discharged to [facility] tomorrow. above case discussed with Dr. Cruz Subjective Subjective Patient reports: other Interval history since last seen: After speaking with Normal Yvets sister it is very clear that she would not want all this testing nor would she want to be anything more than comfortable. It was agreed that we will continue oral antibiotics for comfort as this may help. We will continue PT for comfort and ativan with anti seizures for comfort. Mary Beth was very pleased with these decisions and understands what this could mean, she felt strongly that this is what her sister would want therefore she has been made comfort measures. [facility]. Alla continues to have weakness to her one side, which may or may not resolve, she has definitley had a decline over the last 2 admissions. Exam Const General: cooperative Nutritional Appearance: obese and overweight Orientation: oriented to person [facility] Head: normal to inspection, normocephalic and atraumatic Mouth: oral mucosae normal Resp Effort & Inspection: normal respiratory effort Auscultation: clear to auscultation bilaterally Cardio Rate: regular rate Rhythm: regular rhythm Heart Sounds: S1 normal and S2 normal GI Inspection: normal to inspection Palpation: soft Auscultation: normal bowel sounds Skin General skin exam: no rashes or lesions noted Neuro General: patient alert, patient awake, oriented (unable to make self decisions) Patient Orientation: Person and moves all extremities Cranial Nerves: tongue midline Cognition: abnormal cognition Speech: speech normal Motor: strength abnormal (LUE 3/5 strength. LLE 3-4/5 with slow response.) Pupils: Pinpoint: bilateral Extrem General: normal to inspection, full ROM, no pedal edema, no calf tenderness and pedal edema (trace) bilaterally Objective Last Vital Signs Temp 36.4 C L 12/25/20 11:12 Pulse 62 12/25/20 11:12 Resp 20 12/25/20 11:12 BP 154/79 H 12/25/20 11:12 Pulse Ox 96 12/25/20 11:12 Laboratory Results - last 24 hr 12/24/20 12/24/20 12/24/20 13:04 13:12 13:12 WBC RBC Hgb Hct MCV MCH MCHC RDW Plt Count MPV Immature Gran % Neutrophils % Lymphocytes % Monocytes % Eosinophils % Basophils % Nucleated RBC % Absolute Neutrophils Absolute Lymphocytes Absolute Monocytes Absolute Eosinophils Absolute Basophils ESR Sodium Potassium Chloride Carbon Dioxide Anion Gap BUN Creatinine Estimated GFR/1.73 m2 Glucose Calcium C-Reactive Protein Albumin Vitamin B12 CSF Glucose CSF Albumin CSF IgG CSF IgG/Albumin CSF IgG Index CSF VDRL CSF Enterovirus (PCR) CSF West Nile IgG Ab CSF West Nile IgM Ab CSF West Nile RNA IgG IgG Synthesis Rate Syphilis Serology Negative A.phagocytophil DNA PCR Cancelled B. divergens/MO-1 PCR Cancelled Babesia duncani (PCR) Cancelled Babesia microti DNA PCR Cancelled Borrelia (PCR) Cancelled Lyme Disease Antibody E.chaffeensis DNA (PCR) Cancelled E.ewingii/canis DNA PCR Cancelled E. muris-like DNA (PCR) Cancelled West Nile Virus Source Herpes Simplex Source HSV I DNA PCR HSV II DNA PCR M. hominis Spec Source Cancelled M. hominis (PCR) Cancelled 12/24/20 12/24/20 12/24/20 13:12 13:12 13:12 WBC RBC Hgb Hct MCV MCH MCHC RDW Plt Count MPV Immature Gran % Neutrophils % Lymphocytes % Monocytes % Eosinophils % Basophils % Nucleated RBC % Absolute Neutrophils Absolute Lymphocytes Absolute Monocytes Absolute Eosinophils Absolute Basophils ESR 45 H Sodium Potassium Chloride Carbon Dioxide Anion Gap BUN Creatinine Estimated GFR/1.73 m2 Glucose Calcium C-Reactive Protein 0.98 H Albumin Vitamin B12 CSF Glucose CSF Albumin CSF IgG CSF IgG/Albumin CSF IgG Index CSF VDRL CSF Enterovirus (PCR) CSF West Nile IgG Ab CSF West Nile IgM Ab CSF West Nile RNA IgG IgG Synthesis Rate Syphilis Serology A.phagocytophil DNA PCR B. divergens/MO-1 PCR Babesia duncani (PCR) Babesia microti DNA PCR Borrelia (PCR) Lyme Disease Antibody Negative E.chaffeensis DNA (PCR) E.ewingii/canis DNA PCR E. muris-like DNA (PCR) West Nile Virus Source Herpes Simplex Source HSV I DNA PCR HSV II DNA PCR M. hominis Spec Source M. hominis (PCR) 12/24/20 12/24/20 12/24/20 16:41 16:41 Unknown WBC RBC Hgb Hct MCV MCH MCHC RDW Plt Count MPV Immature Gran % Neutrophils % Lymphocytes % Monocytes % Eosinophils % Basophils % Nucleated RBC % Absolute Neutrophils Absolute Lymphocytes Absolute Monocytes Absolute Eosinophils Absolute Basophils ESR Sodium Potassium Chloride Carbon Dioxide Anion Gap BUN Creatinine Estimated GFR/1.73 m2 Glucose Calcium C-Reactive Protein Albumin Cancelled Vitamin B12 CSF Glucose Cancelled CSF Albumin Cancelled CSF IgG Cancelled CSF IgG/Albumin Cancelled CSF IgG Index Cancelled CSF VDRL Cancelled CSF Enterovirus (PCR) Cancelled CSF West Nile IgG Ab Cancelled CSF West Nile IgM Ab Cancelled CSF West Nile RNA Cancelled IgG Cancelled IgG Synthesis Rate Cancelled Syphilis Serology A.phagocytophil DNA PCR B. divergens/MO-1 PCR Babesia duncani (PCR) Babesia microti DNA PCR Borrelia (PCR) Lyme Disease Antibody E.chaffeensis DNA (PCR) E.ewingii/canis DNA PCR E. muris-like DNA (PCR) West Nile Virus Source Cancelled Herpes Simplex Source HSV I DNA PCR HSV II DNA PCR M. hominis Spec Source M. hominis (PCR) 12/24/20 12/25/20 12/25/20 Unknown 06:05 06:05 WBC RBC Hgb Hct MCV MCH MCHC RDW Plt Count MPV Immature Gran % Neutrophils % Lymphocytes % Monocytes % Eosinophils % Basophils % Nucleated RBC % Absolute Neutrophils Absolute Lymphocytes Absolute Monocytes Absolute Eosinophils Absolute Basophils ESR Sodium 133 L Potassium 3.9 Chloride 99 Carbon Dioxide 25.4 Anion Gap 8.6 BUN 21 H D Creatinine 0.7 Estimated GFR/1.73 m2 >= 60.00 Glucose 127 H Calcium 9.7 C-Reactive Protein Albumin Vitamin B12 840 CSF Glucose CSF Albumin CSF IgG CSF IgG/Albumin CSF IgG Index CSF VDRL CSF Enterovirus (PCR) CSF West Nile IgG Ab CSF West Nile IgM Ab CSF West Nile RNA IgG IgG Synthesis Rate Syphilis Serology A.phagocytophil DNA PCR B. divergens/MO-1 PCR Babesia duncani (PCR) Babesia microti DNA PCR Borrelia (PCR) Lyme Disease Antibody E.chaffeensis DNA (PCR) E.ewingii/canis DNA PCR E. muris-like DNA (PCR) West Nile Virus Source Herpes Simplex Source Cancelled HSV I DNA PCR Cancelled HSV II DNA PCR Cancelled M. hominis Spec Source M. hominis (PCR) 12/25/20 06:05 WBC 9.37 D RBC 4.74 Hgb 14.7 Hct 42.1 MCV 88.8 MCH 31.0 MCHC 34.9 RDW 12.7 Plt Count 378 MPV 9.5 Immature Gran % 0.3 Neutrophils % 87.6 Lymphocytes % 8.1 Monocytes % 3.7 Eosinophils % 0.2 Basophils % 0.1 Nucleated RBC % 0 Absolute Neutrophils 8.21 H Absolute Lymphocytes 0.76 L Absolute Monocytes 0.35 Absolute Eosinophils 0.02 Absolute Basophils 0.01 ESR Sodium Potassium Chloride Carbon Dioxide Anion Gap BUN Creatinine Estimated GFR/1.73 m2 Glucose Calcium C-Reactive Protein Albumin Vitamin B12 CSF Glucose CSF Albumin CSF IgG CSF IgG/Albumin CSF IgG Index CSF VDRL CSF Enterovirus (PCR) CSF West Nile IgG Ab CSF West Nile IgM Ab CSF West Nile RNA IgG IgG Synthesis Rate Syphilis Serology A.phagocytophil DNA PCR B. divergens/MO-1 PCR Babesia duncani (PCR) Babesia microti DNA PCR Borrelia (PCR) Lyme Disease Antibody E.chaffeensis DNA (PCR) E.ewingii/canis DNA PCR E. muris-like DNA (PCR) West Nile Virus Source Herpes Simplex Source HSV I DNA PCR HSV II DNA PCR M. hominis Spec Source M. hominis (PCR)
--- NOTE | 2020-12-25 15:32 | CHAPLAIN ---
Alla was sitting up in her chair when I visited. I reminded her that we'd met last week, but I don't think she recalls that. Alla said she had spoken recently to her niece. I don't know if this is accurate, but she couldn't remember what they talked about. Alla was frustrated because she couldn't remember where she's being moved to and I didn't know the answer to that. She said she was comfortable didn't need anything at the moment. I will continue to visit.
--- NOTE | 2020-12-25 16:42 | CMPROGNOTE_ITS ---
- If Service Date Differs Date of service: 12/25/20 Time of Service: 16:42 Care Management Progress Note S/O: Alla was sitting up in her chair when CM met with her. She was being fed lunch. She did not engage in conversation with CM. After discussing her care with the providers, Palliative care, and her sister, Alla has been transitioned to [employer] today. She will go to the [facility] tomorrow morning, coordinated by CM. CM will continue to follow. A: Alla is a 75 year old woman admitted on 12/20/20 with AMS and TIA P:Alla will transition to the [facility] when medically stable and a bed is available. She will continue to be followed by Palliative care. She will transport by ambulance due to confusion, multiple seizures. CM will continue to follow.
[2020-12-25] MEDS: Doxycycline Hyclate 100 MG CAP PO (17:35)
[2020-12-25] MEDS: Cefpodoxime 200 MG TAB 400 MG PO (19:41)
[2020-12-25] MEDS: Acyclovir 400 MG TAB PO (19:42)
[2020-12-25] MEDS: Mirtazapine 15 MG TAB 7.5 MG PO (21:35)
[2020-12-26] MEDS: Doxycycline Hyclate 100 MG CAP PO (06:35)
[2020-12-26] MEDS: Levothyroxine 112 MCG TAB PO (06:35)
[2020-12-26 07:28] VITALS: BP 170/80; PULSE 49; RESP 19; TEMP 36.9; O2SAT 96
[2020-12-26] MEDS: Docusate Sodium 100 MG CAP PO (08:08)
[2020-12-26] MEDS: Acyclovir 400 MG TAB PO (08:08)
[2020-12-26] MEDS: Divalproex 500 MG TABEC PO (08:08)
[2020-12-26] MEDS: Sennosides/Docusate Sodium TAB 2 TAB PO (08:08)
[2020-12-26] MEDS: Famotidine 20 MG TAB PO (08:08)
[2020-12-26] MEDS: LORazepam 1 MG TAB PO (08:08)
[2020-12-26] MEDS: amLODIPine 5 MG TAB PO (08:08)
[2020-12-26] MEDS: Cefpodoxime 200 MG TAB 400 MG PO (08:08)
[2020-12-26] MEDS: levETIRAcetam 500 MG TAB 1000 MG PO (08:09)
[2020-12-26] MEDS: Multivitamin TAB 1 TAB PO (08:09)
--- NOTE | 2020-12-26 08:57 | DSE_ITS ---
Date of service: 12/26/20 Time of Service: 08:57 DS: Diagnosis Discharge Diagnosis (1) Upper extremity weakness: Start date: 12/26/20 Start time: 09:00 Status: Acute Asessment and Plan: Assessment and plan: MRI revealing 1. Abundant bilateral periventricular signal abnormality consistent with chronic small vessel disease. Similar findings also seen in the central daniel. 2. There is a prominent area abnormal enhancement in the right temporal lobe, both in the middle cranial fossa and posterior to the right middle cranial fossa. Very mild but abnormal signal at this location seen on the other sequences. Differential is between neoplasm and inflammatory/possibly infectious etiology. 3. 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 This is not able to be seen on this type of study. If clinically indicated brain MRA study can be ordered. There was also suggestion of focal vascular dilatation in the anterior cerebral artery within the interhemispheric fissure. After discussion with Sister, patient has been made CM. She states her sister would not want to go through all of these tests and live her life in this manner. She would want to be comfortable. She has declined over the last 2 admissions. Her sister is agreeable to antiseizure medication for comfort and antibiotic trial for comfort but she is realistic in her situation. She will transferred to the [facility] today Covid negative (2) Seizure-like activity: Start date: 12/26/20 Start time: 09:01 Status: Acute Asessment and Plan: Witnessed by Dr. Regan having multiple focal seizures. she is going comfort measures and will be on keppra bid with depakote bid and ativan scheduled bid with prn as needed for seizures As she is [employer] she will also have medication to help with any discomfort and extra anxiety or seizure activity (3) Altered mental status: Start date: 12/26/20 Start time: 09:01 Status: Acute Asessment and Plan: from above (4) Palliative care patient: Start date: 12/26/20 Start time: 09:02 Status: Acute Asessment and Plan: Being followed by Dr. Michael. Has decided to be m smita comfort measures she will be discharged to [facility]. above case discussed with Dr. Cruz Discharge Plan Disposition Patient Disposition: SNF (LEVEL 1) [facility] Condition: Stable Discharge Details Reason For Visit: ALTERED MENTAL STATUS, TIA, VOMITING Admit Date/Time: 12/23/20 10:33 Admit Provider: Vishnu Lo Attending Provider: Vishnu Lo Primary Care Provider: Marielos Caldera Hospital Course Hospital Course: 75 y.o female admitted to m/s with recent admission for non st NH, asp. pneumo, and acute hyponatremia. She was brought to the ED by EMS after a stroke alert for a new right-sided headache and weakness. Headache was constant behind the right eye. Symptoms resolved in about an hour. she does appear to have cognitive deficit. She was admitted for further management. On admission labs were unremarkable. Initial brain MRI revealed Atrophy and severe white matter changes of small vessel disease. No acute abnormality. However over the course of 24 hours she became weak on her left side with deficits and loss of strength. Neurology was consulted. Due to this happening over the weekend a CT was preformed also revealing only chronic white matter ischemic small vessel changes. Patient was witnessed to have a seizure by overnight provider Dr. Rasmussen with no post ictal state. Keppra IV 1000 mg was ordered. Spoke with Dr. Regan regarding patient and she recommend MRI w/wo contrast. This revealed IMPRESSION: 1. Abundant bilateral periventricular signal abnormality consistent with chronic small vessel disease. Similar findings also seen in the central daniel. 2. There is a prominent area abnormal enhancement in the right temporal lobe, both in the middle cranial fossa and posterior to the right middle cranial fossa. Very mild but abnormal signal at this location seen on the other sequences. Differential is between neoplasm and inflammatory/possibly infectious etiology. 3. 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 This is not able to be seen on this type of study. If clinically indicated brain MRA study can be ordered. There was also suggestion of focal vascular dilatation in the anterior cerebral artery within the interhemispheric fissure. Due to the MRI results all infectious, fungal and inflammatory causes are being ruled out. She was started on doxy and cefepime initially along with acyclovir. Dr. Regan evaluated patient and while evaluating she had several focal seizures. Keppra was increased and added to BID. Dr. Michael is also following patient and spoke with patient and sister Mary Beth. Mary Beth is patients DPOA. She stated that her sister would not want all this medical stuff done. I called Mary Beth yesterday and had a discussion with her regarding her sisters findings and medical care. She was very clear that Alla would not want to have anything done, she is a DNR/DNI and would only want to be comfortable. She was agreeable to PO antibiotics for comfort and to antiseizure medication for comfort. After my discussion with Mary Beth Burkett was made comfort measures. She is being discharged to the [facility] today. We will continue antibitiocs for four weeks for comfort and antiseizure medication with ativan BID and prn due to overnight continuous EEG revealing seizure activity for comfort. I will also add morphine po prn if Alla needs it. At this time she has no complaints. Home Meds and New Rx's Prescriptions: New acyclovir 400 mg Tablet 400 mg PO TID Qty: 84 RF: 0 doxycycline hyclate 100 mg Capsule 100 mg PO Q12H Qty: 56 RF: 0 cefpodoxime 200 mg Tablet 400 mg PO BID Qty: 56 RF: 0 levetiracetam [Keppra] 500 mg Tablet 1,000 mg PO BID Qty: 60 RF: 0 divalproex 500 mg Tablet,Delayed Release (Dr/Ec) 500 mg PO BID Qty: 60 RF: 0 dexamethasone 4 mg Tablet 4 mg PO Q6H PRN PRN (Reason: For Increased ICP) Qty: 20 RF: 0 morphine 10 mg/5 mL Solution 2.5 mg PO Q4H PRN PRN (Reason: pain) Qty: 20 RF: 0 mirtazapine 15 mg Tablet 7.5 mg PO HS Qty: 30 RF: 0 lorazepam 1 mg Tablet 1 mg PO Q1H PRN PRN (Reason: Anxiety) Qty: 30 RF: 0 lorazepam 1 mg Tablet 1 mg PO BID Qty: 60 RF: 0 ibuprofen [IBU] 600 mg Tablet 600 mg PO TID PRN PRNQty: 20 RF: 0 Continued albuterol sulfate 90 mcg/actuation HFA aerosol inhaler 2 puff IH 6XD PRN (Reason: shortness of breath or wheezing) Qty: 18 RF: 8 omeprazole 40 mg capsule,delayed release(DR/EC) 40 mg PO DAILY Qty: 90 RF: 12 levothyroxine 112 mcg tablet 112 mcg PO DAILY Qty: 90 RF: 12 donepezil [Aricept] 10 mg tablet 10 mg PO DAILY Qty: 30 RF: 5 docusate sodium [Colace] 100 MG capsule 100 mg PO BID Qty: 180 RF: 4 famotidine 40 mg tablet 40 mg PO DAILY Qty: 90 RF: 5 Discontinued oxybutynin chloride 5 mg tablet 5 mg PO BID Qty: 180 RF: 4 pravastatin 40 mg tablet 40 mg PO DAILY Qty: 90 RF: 4 multivitamin [Once Daily] Tablet 1 tab PO DAILY Qty: 90 RF: 4 acetaminophen [Acetaminophen Extra Strength] 500 mg tablet 1,000 mg PO TID PRN Qty: 270 RF: 4 sennosides-docusate sodium [Senna with Docusate Sodium] 8.6-50 mg tablet 2 tab PO DAILY Qty: 180 RF: 11 triamcinolone acetonide 0.1 % cream 1 applic TP BID Qty: 80 RF: 2 aspirin 81 mg Tablet,Chewable 81 mg PO DAILY Qty: 0 RF: 0 Discharge Instructions Instructions: Recurrent Seizures in Adults (DC), Comfort Measures (GEN) Additional Instructions: Comfort measures Take antibiotics for four weeks for comfort may stop if you choose to Take seizure medication for comfort may stop if you choose take ativan and morphine for comfort. Transfer to the [facility] PATIENT IS COMFORT MEASURES Stand Alone Forms: Nursing Discharge Form Activity:: Activity as Tolerated Equipment/Supplies:: No Equipment Needed Diet:: As Tolerated Discharge Orders Discharge Orders: Discharge Order (Routine); Ordered 12/26/20 Ordered By: Xochitl Vail DS: Summary Time Spent with Patient providing and/or coordinating discharge services: Greater than 30 minutes (approx 50 mins spent discharging) Status at Discharge Functional status at discharge: independent ambulation Overall status at discharge: patient is not back to baseline Mental Status: other Speech and Movement: speech and movement normal Mood: other Affect: blunted Exam Const General: cooperative, comfortable, no acute distress and lethargic Nutritional Appearance: obese and overweight Orientation: oriented to person [facility] Head: normal to inspection, normocephalic and atraumatic Mouth: oral mucosae normal Resp Effort & Inspection: normal respiratory effort Auscultation: clear to auscultation bilaterally Cardio Rate: regular rate Rhythm: regular rhythm Heart Sounds: S1 normal and S2 normal GI Inspection: normal to inspection Palpation: soft Auscultation: normal bowel sounds Skin General skin exam: no rashes or lesions noted Neuro General: patient alert, patient awake, oriented (unable to make self decisions) Patient Orientation: Person and moves all extremities Cranial Nerves: tongue midline Cognition: abnormal cognition Speech: speech normal Motor: strength abnormal (LUE 3/5 strength. LLE 3-4/5 with slow response.) Pupils: Pinpoint: bilateral Extrem General: normal to inspection, full ROM, no pedal edema, no calf tenderness and pedal edema (trace) bilaterally Psych Mental Status: other Speech and Movement: speech and movement normal Mood: other Affect: blunted DS: Data Vitals/I&O Vitals and I&O: Vital Signs Temperature 36.9 C 12/26/20 07:28 Temperature Source Tympanic 12/26/20 07:28 Pulse 49 L 12/26/20 07:28 Pulse Rhythm Regular 12/25/20 07:45 Pulse 46 L 12/20/20 20:16 Respiratory Rate 19 12/26/20 07:28 Respiratory Effort Non-Labored 12/25/20 07:45 Respiratory Depth Normal 12/25/20 07:45 Respiratory Pattern Normal 12/25/20 07:45 Blood Pressure 170/80 H 12/26/20 07:28 Blood Pressure Mean 71 12/20/20 20:16 Blood Pressure Position Supine 12/20/20 16:56 Pulse Oximetry 96 12/26/20 07:28 Oxygen Delivery Method Room Air 12/26/20 07:28 Oxygen Flow Rate 0 12/26/20 07:28 Pain Level 0 12/26/20 07:28 Comment 12/25/20 03:47 Intake & Output 12/25/20 12/25/20 12/26/20 11:59 23:59 11:59 Intake Total 540 / 660 120 / 660 Output Total 1000 / 1200 200 / 1200 1350 / 1350 Balance -460 / -540 -80 / -540 -1350 / -1350 Weight 78.9 kg Intake: IV 300 / 300 Oral 240 / 360 120 / 360 Output: Urine 1000 / 1200 200 / 1200 1350 / 1350 Other: Urine Color Yellow Tom Green Yellow Urine Appearance Clear Cloudy Clear Urine Odor None Strong Comment x3 assist with steady lift to commode Voiding Methods Bedside Commode Bedside Commode Data Completed and Pending Completed studies during hospitalization [Text1]: FINDINGS: Heart size is upper normal, unchanged in the mediastinum is not widened Lungs are clear. No infiltrates nor pleural effusions. IMPRESSION: No acute pulmonary findings. Exam(s) a CT:CT brain & neck CTA EXAM: CT BRAIN NECK CTA CLINICAL HISTORY: headache, weakness, r/o acute cva. TECHNIQUE: Imaging Protocol: Axial CT angiography was performed with multi- slice acquisition and multi-planar and/or 3D reconstructions. CONTRAST MATERIAL: Intravenous: Omnipaque 350 Contrast volume:structured data in ml COMPARISON: CT,NM MPI RESTING AND STRESS from 12/24/2016 FINDINGS: CTA Neck W: Aortic arch anatomy: Cannot be assessed as the images of this study start above the level of the aortic arch. Anterior circulation: The visualized common carotid arteries are slightly tortuous but without significant stenosis in their visualized lumens. There is mild calcified plaque at the right carotid bifurcation without significant stenosis at this level nor in the proximal right internal carotid artery. There is no significant plaque at the left carotid bifurcation. Some calcified plaque is noted on the medial wall of the left internal carotid artery located 8 millimeters above the bifurcation but with only mild stenosis at this level. above this level the visualized internal carotid arteries are patent in the upper neck. Posterior circulation: Both vertebral arteries originated conventional fashion off of the subclavian arteries. There is no obvious significant stenosis within the subclavian arteries proximal to the vertebral artery takeoff points. Both vertebral arteries ascend with normal and approximately equal luminal diameters within the foramen transversarium. There is no evidence of intraluminal filling defects within these vessels nor dissection flap in both contribute to the formation of the basilar artery at the skull base. Exam(s) Addendum created by Osito Medrano MD on 12/20/2020 6:56:21 PM EST: THIS REPORT CONTAINS FINDINGS THAT MAY BE CRITICAL TO PATIENT CARE. The pertinent findings were verbally communicated via telephone conference with Karina Christianson at 6:56 PM EST on 12/20/2020. The findings were acknowledged and understood. Initial report created on 12/20/2020 6:52:55 PM EST: PROCEDURE INFORMATION: Exam: CT Angiography Head With Contrast, Arteries Exam date and time: 12/20/2020 5:50 PM Age: 75 years old Clinical indication: Weakness TECHNIQUE: Imaging protocol: Computed tomography angiography of the head with intravenous contrast. 3D rendering (Not supervised by radiologist): MIP and/or 3D reconstructed images were created by the technologist. Contrast material: OMNIPAQUE 350; Contrast volume: 90 ml; Contrast route: INTRAVENOUS (IV); COMPARISON: No relevant prior studies available. FINDINGS: ANTERIOR CIRCULATION: Right internal carotid artery: Mild calcified plaque of the right cavernous carotid artery with mild stenosis. Right middle cerebral artery: Unremarkable. No occlusion or significant stenosis. No aneurysm. Right anterior cerebral artery: Patent right A1 segment. Diminutive right A2 segment.. No occlusion or significant stenosis. No aneurysm. Left internal carotid artery: Mild calcified plaque within the left cavernous carotid artery with mild stenosis. Left middle cerebral artery: Unremarkable. No occlusion or significant stenosis. No aneurysm. Left anterior cerebral artery: Patent left A1 segment. Dominant left A2 segment. 4 mm aneurysm at a bifurcation of the left ALONA A2 segment within the anterior intrahemispheric fissure (axial images 79 and 80 of series 10 and coronal reformatted images 21 through 24 series 11). POSTERIOR CIRCULATION: Right vertebral artery: Unremarkable. No occlusion or significant stenosis. No aneurysm. Left vertebral artery: Unremarkable. No occlusion or significant stenosis. No aneurysm. Basilar artery: Unremarkable. No occlusion or significant stenosis. No aneurysm. Right posterior cerebral artery: Unremarkable. No occlusion or significant stenosis. No aneurysm. Left posterior cerebral artery: Unremarkable. No occlusion or significant stenosis. No aneurysm. Brain: Global cerebral atrophy is consistent with patient's age. Decreased attenuation within the white matter tracts of both cerebral hemispheres is nonspecific but typically seen with small vessel disease/chronic white matter ischemic changes of aging. No intracranial hemorrhage or mass effect. No intracranial mass or abnormal enhancement. No abnormal intra-axial or extra-axial fluid collections. Cerebral ventricles: Mild ventriculomegaly consistent with global cerebral atrophy. Bones/joints: Unremarkable. No acute fracture. Soft tissues: Unremarkable. IMPRESSION: 1. No intracranial arterial significant stenosis or occlusion. 2. 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 3. Global cerebral atrophy and findings typically seen with small vessel Exam(s) PROCEDURE INFORMATION: Exam: XR Chest, 2 Views Exam date and time: 12/20/2020 6:26 PM Age: 75 years old Clinical indication: Other: Cvi/ TIA. Vomitting TECHNIQUE: Imaging protocol: XR of the chest Views: 2 views. COMPARISON: CR XR PORTABLE CHEST AP 12/09/2020 10:37 AM FINDINGS: Lungs: The lungs are clear. No consolidation. Pleural spaces: No pleural effusion. No pneumothorax. Heart/Mediastinum: No cardiomegaly. The mediastinal contour is unremarkable. Bones/joints: Degenerative spondylosis of the thoracic spine. Organs: Status post cholecystectomy. IMPRESSION: No acute abnormality. Exam(s) a MRI:MR brain wo EXAM: MR BRAIN WO CLINICAL HISTORY: right sided weakness and headache, transient. TECHNIQUE: Multiplanar multisequence MRI of the brain was performed. CONTRAST MATERIAL: IV Contrast: ML of Dotarem contrast administered. COMPARISON: CT CT BRAIN NECK CTA from 12/20/[address] BRAIN NECK CTA from 12/20/2020 FINDINGS: The exam is somewhat limited by patient motion. There is moderate atrophy. There are prominent white matter changes bilaterally, roughly symmetric, consistent with sequela chronic microvascular ischemia. No area of restricted diffusion is seen to indicate an acute infarct. No evidence of hemorrhage or mass. The ventricles are normal in size for the degree of atrophy. The orbits, sinuses and mastoid air cells are unremarkable. Vascular flow voids are intact. IMPRESSION: Atrophy and severe white matter changes of small vessel disease. No acute abnormality. Exam(s) a CT:CT head wo EXAM: CT HEAD WO CLINICAL HISTORY: seizure, left hemiparesis. TECHNIQUE: Imaging Protocol: Axial computed tomography images with coronal and sagittal reformatted images were created and reviewed COMPARISON: CT CT BRAIN NECK CTA from 12/20/2020 MR MR BRAIN WO from 12/21/2020 Also reviewed brain MRI scan performed 12/21/2020 FINDINGS: There are no skull fractures nor fluid in the visualized paranasal sinuses. There is no evidence of intracranial hemorrhage, mass effect, or shift of midline structures. There are no extra-axial fluid collections. The ventricles are not enlarged or shifted and there is no blood within the ventricular system nor within the basal cisterns. Again noted is abundant bilateral periventricular hypodensity consistent with chronic small vessel disease. Moderate age related atrophy is again noted. IMPRESSION: No acute intracranial findings on this noninfused CT scan of the brain. Chronic white matter ischemic small vessel changes again noted. No evidence of intracranial hemorrhage, intra or extra-axial. Sign rib Exam(s) a CT:CT brain CTA EXAM: CT BRAIN CTA CLINICAL HISTORY: LUE weakness. Visual field deficit.. TECHNIQUE: Imaging Protocol: Axial CT angiography was performed with multi- slice acquisition and multi-planar and/or 3D reconstructions. IV Contrast Dose =85 cc CONTRAST MATERIAL: Intravenous: Omnipaque 350 Contrast volume:85 cc COMPARISON: Recent brain CT scan was reviewed. FINDINGS: CTA Brain W: Anterior circulation: Both internal carotid arteries are patent in the skull base-carotid canals as well as within the cavernous sinuses. Both middle cerebral arteries are patent out to the sylvian fissure branches. No evidence of intraluminal thrombus nor aneurysm in these vessels. Right A1 segment is patent. Left A1 segment is patent but thinner. 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 More distally in the anterior interhemispheric fissure there is prominent IM focal prominent diameter of the anterior cerebral artery which exhibits a diameter of 4.3 millimeters at this level. Posterior circulation: At the skull base both vertebral arteries contribute of the formation of the basilar artery which ascends in somewhat dolichoectatic fashion but with patent lumen and no evidence of intraluminal thrombus nor dissection. Distally the basilar artery gives off the superior cerebral arteries and above this level terminates as posterior cerebral arteries. The posterior cerebral arteries also benefit from thin posterior communicating arteries on both sides of the [id number]. There is no evidence of aneurysm at the tip of the basilar artery. CT Head : No evidence of intracranial hemorrhage. Again noted is abundant bilateral periventricular hypodensity consistent with chronic small vessel disease, as evident on study 1 day prior. IMPRESSION: 1. Patent intracerebral vessels with no evidence of intra arterial thrombus nor occlusion nor dissection. 2. There is a 2 millimeter nonthrombosed aneurysm on the left side of the anterior communicating artery. There is no evidence of hemorrhage at this level nor elsewhere in the brain 3. Focal fusiform prominence of the anterior cerebral artery in the anterior interhemispheric fissure noted, exhibiting diameter of 4-5 millimeters at this level. Exam(s) a CT:CT brain CTA EXAM: CT BRAIN CTA CLINICAL HISTORY: LUE weakness. Visual field deficit.. TECHNIQUE: Imaging Protocol: Axial CT angiography was performed with multi- slice acquisition and multi-planar and/or 3D reconstructions. IV Contrast Dose =85 cc CONTRAST MATERIAL: Intravenous: Omnipaque 350 Contrast volume:85 cc COMPARISON: Recent brain CT scan was reviewed. FINDINGS: CTA Brain W: Anterior circulation: Both internal carotid arteries are patent in the skull base-carotid canals as well as within the cavernous sinuses. Both middle cerebral arteries are patent out to the sylvian fissure branches. No evidence of intraluminal thrombus nor aneurysm in these vessels. Right A1 segment is patent. Left A1 segment is patent but thinner. 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 More distally in the anterior interhemispheric fissure there is prominent IM focal prominent diameter of the anterior cerebral artery which exhibits a diameter of 4.3 millimeters at this level. Posterior circulation: At the skull base both vertebral arteries contribute of the formation of the basilar artery which ascends in somewhat dolichoectatic fashion but with patent lumen and no evidence of intraluminal thrombus nor dissection. Distally the basilar artery gives off the superior cerebral arteries and above this level terminates as posterior cerebral arteries. The posterior cerebral arteries also benefit from thin posterior communicating arteries on both sides of the [id number]. There is no evidence of aneurysm at the tip of the basilar artery. CT Head : No evidence of intracranial hemorrhage. Again noted is abundant bilateral periventricular hypodensity consistent with chronic small vessel disease, as evident on study 1 day prior. IMPRESSION: 1. Patent intracerebral vessels with no evidence of intra arterial thrombus nor occlusion nor dissection. 2. There is a 2 millimeter nonthrombosed aneurysm on the left side of the anterior communicating artery. There is no evidence of hemorrhage at this level nor elsewhere in the brain Labs on day of discharge: Labs from last 24 hours 12/25/20 12/24/20 12/24/20 22:30 Unknown Unknown Albumin CSF Glucose CSF Albumin CSF IgG CSF IgG/Albumin CSF IgG Index CSF VDRL CSF Enterovirus (PCR) Cancelled CSF [place] IgG Ab CSF West [place] IgM Ab CSF [place] RNA Cancelled IgG IgG Synthesis Rate Syphilis Serology Lyme Disease Antibody COVID-19 Source Nasopharyx SARS-CoV-2 (PCR) Pending [place] Virus Source Cancelled Herpes Simplex Source Cancelled HSV I DNA PCR Cancelled HSV II DNA PCR Cancelled M. hominis Spec Source M. hominis (PCR) 12/24/20 12/24/20 12/24/20 16:41 16:41 13:12 Albumin Cancelled CSF Glucose Cancelled CSF Albumin Cancelled CSF IgG Cancelled CSF IgG/Albumin Cancelled CSF IgG Index Cancelled CSF VDRL Cancelled CSF Enterovirus (PCR) CSF [place] IgG Ab Cancelled CSF [place] IgM Ab Cancelled CSF [place] RNA IgG Cancelled IgG Synthesis Rate Cancelled Syphilis Serology Lyme Disease Antibody Negative COVID-19 Source SARS-CoV-2 (PCR) [place] Virus Source Herpes Simplex Source HSV I DNA PCR HSV II DNA PCR M. hominis Spec Source M. hominis (PCR) 12/24/20 12/24/20 13:12 13:04 Albumin CSF Glucose CSF Albumin CSF IgG CSF IgG/Albumin CSF IgG Index CSF VDRL CSF Enterovirus (PCR) CSF [place] IgG Ab CSF [place] IgM Ab CSF [place] RNA IgG IgG Synthesis Rate Syphilis Serology Negative Lyme Disease Antibody COVID-19 Source SARS-CoV-2 (PCR) West Nile Virus Source Herpes Simplex Source HSV I DNA PCR HSV II DNA PCR M. hominis Spec Source Cancelled M. hominis (PCR) Cancelled Preliminary micro results at discharge 12/24/20 13:25 Blood Culture - Preliminary Blood NO GROWTH 24 HOURS 12/24/20 13:12 Blood Culture - Preliminary Blood NO GROWTH 24 HOURS FORMERLY [facility] Medical History Abnormal cervical Papanicolaou smear (10/01/00) Age-related macular degeneration Ankle joint pain (06/21/13) Rickets as a child Balance problem Bilateral impacted cerumen (07/31/15) Bronchospasm Cataract (01/19/18) Cataract Chronic left shoulder pain (05/04/18) Depressive disorder (12/04/11) Diabetes Diverticulitis of colon 04/11 pre-op H P by Dr. Al Reid for lap sigmoid resection, secondary to acute episodes of diverticulitis. 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 Essential hypertension (10/14/13) Fall in exam room while getting off exam table Fatigue (06/21/13) Grief (03/04/16) Hip pain (06/24/13) Hypercalcemia (12/04/16) Hyperlipidemia (06/21/13) Hyponatremia (07/01/13) Hypothyroidism (06/24/13) Low back pain (06/21/13) XRay 09/09 - DJD, R hip DJD MRI - severe djd, no stenosis Low back pain (06/21/13) Multiple excoriations (07/20/14) Other specified cardiac dysrhythmias (10/01/04) bradycardia by ECG; Holter=rare PAC/PVC/burst SVT; <3sec pause Other specified cardiac dysrhythmias (10/01/04) Pelvic abscess (11/05/09) 10/10 CT: SMALL RESIDUAL ABSCESSED CAVITY IN CENTRAL PELVIS, W/ FISTULA BETWEEN ABSCESS SIGMOID COLON Pelvic abscess (11/05/09) Pruritic disorder (01/10/14) Reflux esophagitis (12/08/16) Rickets Sensorineural hearing loss, bilateral (01/14/18) Vaginitis and vulvovaginitis Wheezing (05/04/18) ? voacl cord dysfunction Surgical History Abdominal hysterectomy (~1983) Cholecystectomy (~1979) drainage of pelvic abcess Extraction of cataract LEFT EYE;12/14/17; DR. ALICEA Status post abdominal hysterectomy Status post cholecystectomy Status post hip replacement Status post incision and drainage Total replacement of hip (~2008) LEFT Family History Mother , AGE 92 Diabetes Heart disease Father Heart disease Stomach cancer Sister Depression Heart disease COPD (chronic obstructive pulmonary disease) Asthma Brother Diabetes Essential hypertension Heart disease Hyperlipidemia Asthma Social History Smoking/Tobacco Use Status: Never Smoking risk assessment performed?: Yes Alcohol Intake: former Drug use: Never Substance use type: does not use Caregiver/Support person: No Household members: spouse and none Housing: house Communication Needs: None Do you need help understanding health information?: Never Pets and animals: Yes Pets and animals: dog(s) Sexually active: No Do you think of yourself as: straight/heterosexual Current gender identity: female What is your relationship status?: How often do you talk on the phone with friends or family?: three or more times per week How often do you get together with friends or relatives?: once per week How often do you attend episcopalian or episcopal services?: 4 or more times per year Do you belong to any clubs or organized social groups?: no Panel score (0-1 are the most socially isolated patients): 2 What type of physical activity do you participate in: walking Duration: 15-30 minutes/day Frequency: 1-2 times per week Medina/Yazidi: Denominational Special medina needs: No Seatbelt use: always Helmet use: Yes Helmet use: always Drive intox or ride w/intox delivery driver assistant: No Do you feel safe at home: Yes Do you feel safe in your relationship?: Yes Victim of physical abuse: No Victim of emotional abuse: No Victim of sexual abuse: No Would you like helpful sources: No
[2020-12-26 09:36] LABS: Influenza A PCR Negative (Negative); Influenza B PCR Negative (Negative); RSV PCR Negative (Negative)
[2020-12-26 09:38] LABS: COVID-19 PCR Negative (Negative)
[2020-12-26 10:21] LABS: EBNA IgG Positive (Negative); EBV Interpretation (See Note); VCA IgG Positive (Negative); VCA IgM Negative (Negative)
[2020-12-26 13:01] LABS: Toxoplasma Ab, IgG Positive (Negative); Toxoplasma Ab, IgM Negative (Negative); Toxoplasma IgG Value 79 IU/mL
[2020-12-26 14:07] LABS: HSV 1 PCR, Blood Negative (Negative); HSV 2 PCR, Blood Negative (Negative)
[2020-12-26 14:23] LABS: Albumin 50.8 % (55.8-66.1); Total Protein 7.3 g/dL (6.3-8.2)
--- NOTE | 2020-12-26 14:47 | INDS_ITS ---
Date of service: 12/26/20 PT Notes Visit Reasons: ALTERED MENTAL STATUS, TIA, VOMITING Physical Therapy Inpatient Discharge Summary Date: 12/26/2020 Dates of service: 12/21/2020 through 12/24/2020 This is a clinical summary of care provided on the duration of dates listed above. No charge was made in the completion of this documentation. Referring Doctor: Vishnu fernandez MD PT Orders: PT CONSULT: Fall safety assessment. Frequent falls at home, admitted for TIA. Precautions: Fall. Standard. Activity as tolerated. Sensorineural hearing loss. Patient Profile/Admitting Diagnosis: Alla converts to comfort measures as of 12/25/2020 and is discharged from services at highest functional level. She is a 75-year-old female who presented to the ED on 12/20/2020 with suspected stroke with complaints of right-sided headache and weakness. Per ED notes, patient fell yesterday and has reportedly been demonstrating periods of being dazed for the past 2 days prior to admission. Patient is diagnosed with TIA, vomiting, dysphagia, altered mental status, hyponatremia, hypothyroidism, essential hypertension and urinary tract infection. On 12/24/2020, neurologist diagnosed patient with encephalopathy, focal seizures, cerebral aneurysm, and abnormal MRI which resulted to further functional mobility decline. PMHX: Medical History Abnormal cervical Papanicolaou smear (10/01/00) Age-related macular degeneration Ankle joint pain (06/21/13) Rickets as a child Balance problem Bilateral impacted cerumen (07/31/15) Bronchospasm Cataract (01/19/18) Cataract Chronic left shoulder pain (05/04/18) Depressive disorder (12/04/11) Diabetes Diverticulitis of colon 04/11 pre-op H P by Dr. Al Reid for lap sigmoid resection, secondary to acute episodes of diverticulitis. 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 Essential hypertension (10/14/13) Fall in exam room while getting off exam table Fatigue (06/21/13) Grief (03/04/16) Hip pain (06/24/13) Hypercalcemia (12/04/16) Hyperlipidemia (06/21/13) Hyponatremia (07/01/13) Hypothyroidism (06/24/13) Low back pain (06/21/13) XRay 09/09 - DJD, R hip DJD MRI - severe djd, no stenosis Low back pain (06/21/13) Multiple excoriations (07/20/14) Other specified cardiac dysrhythmias (10/01/04) bradycardia by ECG; Holter=rare PAC/PVC/burst SVT; <3sec pause Other specified cardiac dysrhythmias (10/01/04) Pelvic abscess (11/05/09) 10/10 CT: SMALL RESIDUAL ABSCESSED CAVITY IN CENTRAL PELVIS, W/ FISTULA BETWEEN ABSCESS SIGMOID COLON Pelvic abscess (11/05/09) Pruritic disorder (01/10/14) Reflux esophagitis (12/08/16) Rickets Sensorineural hearing loss, bilateral (01/14/18) Vaginitis and vulvovaginitis Wheezing (05/04/18) ? voacl cord dysfunction Surgical History Abdominal hysterectomy (~1983) Cholecystectomy (~1979) drainage of pelvic abcess Extraction of cataract LEFT EYE;12/14/17; DR. ALICEA Status post abdominal hysterectomy Status post cholecystectomy Status post hip replacement Status post incision and drainage Total replacement of hip (~2008) LEFT Social History/Home Situation: Lives alone in a trailer home with a ramp to enter. She indicates that she has a sister and a lady who comes in regularly to help with chores, grocery shopping, and medical transportation. She is modified independent using the front wheeled walker prior to admission. Equipment Owned/DME: Front wheeled walker Subjective: NT. See most recent FISH HATCHERY SPECIALIST notes. Objective: General Observation: NT. See most recent FISH HATCHERY SPECIALIST notes. Mental Status: NT. See most recent FISH HATCHERY SPECIALIST notes. Pain: NT. See most recent FISH HATCHERY SPECIALIST notes. ROM: As of 01/21/2021 re-testing Right Upper Extremity: Shoulder Flexion WFL. Shoulder abduction WFL. Elbow flexion WFL. Wrist flexion WFL. Opening and closing of hand WFL. Left Upper Extremity: Shoulder Flexion allows only up to 90 degrees as of retesting on 12/24/20. Shoulder abduction allows only up to 80 degrees as of retesting on 12/24/20. Elbow flexion WFL. Wrist flexion WFL. Opening and closing of hand WFL. Right Lower Extremity: Hip flexion WFL. Hip abduction WFL. Knee flexion WFL. Ankle dorsiflexion to neutral only. Ankle plantarflexion WFL. Left Lower Extremity: Hip flexion allows up to 90 degrees only as on retesting on 12/24/2020 . Hip abduction WFL. Knee flexion 30 to 90 degrees . Knee extension -30 degrees due to pain. Ankle dorsiflexion to neutral only. Ankle plantarflexion WFL. Strength: As of 01/21/2021 re-testing Right Upper Extremity: Shoulder flexors 4-/5. Shoulder abductors 4-/5. Elbow flexors 4/5. Elbow extensors 4/5. Stonework Tracer strong. Left Upper Extremity: Shoulder flexors 3-/5. Shoulder abductors 3-/5. Elbow flex ors 4-/5. Elbow extensors 4-/5. Stonework Tracer weak but functional Right Lower Extremity: Hip flexors 4-/5. Hip abductors 4-/5. Knee flexors 4/5. Knee extensors 4-/5. Ankle dorsiflexors 3-/5. Ankle plantarflexors 5/5. Left Lower Extremity:Hip flexors 3-/5. Hip abductors 3-/5. Knee flexors 3-/5. Knee extensors 3-/5. Ankle dorsiflexors 3-/5. Ankle plantarflexors 4-/5. Sensation: Intact as to pain and pressure on bilateral lower extremities. Bed Mobility/Transfers: As of 01/21/2021 retesting Sit to stand minimal assist Bed to chair minimal assist Chair to bed minimal assistt Gait: Guided patient through level surface ambulation of 20 feet using front wheeled walker with full weight bearing and contact-guard assist of 2 with orthopedic shoes on on B sides. Needed constant cueing for walker management and turning. Steps significantly small. Decreased awareness of self and objects contributing to risk for falls. Balance: Static Sitting: Normal Dynamic Sitting: Normal Static Standing: Fair Dynamic Standing: Fair Special Tests: Mobility Limitations Standardized Measure [facility] 6 clicks Basic Mobility Inpatient Short Form: Raw Score: 18 CMS Score: 47% deficit 4-stage balance test: Unable to maintain feet together, semitandem, full tandem and 1 legged stance for 10 seconds indicating at high risk for falls without use of a front wheeled walker. Dysmetria: Positive Dysdiadochokineisa: Positive Assessment: Alla converts to comfort measures as of 12/25/2020 with plan to transfer to SNF once accepted. Left visual field cut versus left hemineglect or a combination of both. BUE and LE strength asymmetric as of 12/24/2020 testing. Unable to discriminate distance of objects in front of her. Limited ability to perform rapid alternating movements. At high risk for falls as indicated by 4- stage balance test. Patient presents with clinical signs and symptoms consistent with current/admitting diagnoses that have resulted to mobility limitations, gait instability, generalized weakness, and impairment of motor control as demonstrated by the following impairment level findings: 1. Decreased strength to BUE/LE major muscle groups 2. Impaired standing balance 3. Impaired activity tolerance 4. Dysmetria 5. Dysdiadochokinesia 6. L hemineglect versus left visual field cut Impairments are contributing to the following functional limitations: 1. Increased dependence with transfers 2. Inability to safely ambulate without assistive device and physical assistance 3. Increase completion time for mobility ADL performance 4. Increased fall risk 5. Inability to negotiate steps alone safely Goals: Goals X1 week 1. Supine-Sit independent NOT MET 2. Sit-Supine independent NOT MET 3. Sit-Stand independent NOT MET 4. Stand-Sit independent NOT MET 5. Bed-Chair independent NOT MET 6. Chair-Bed independent NOT MET 7. Independent gait on level surface with use of least restrictive device for at least 300 feet without report of pain nor dyspnea NOT MET 8. Independent stair negotiation while holding onto bilateral rails for at least 10 steps without report of pain nor dyspnea NOT MET 9. Independent with home exercise program NOT MET 10. Good static and dynamic standing balance/tolerance NOT MET DISCHARGE RECOMMENDATIONS: Patient will benefit from [facility] facility placement for continued skilled physical therapy services in order to progress mobility level, strength, and balance in preparation for a safe discharge to home. TREATMENT CODE/TIME: [place] Thank you for the opportunity to participate in the care of this patient. Hayley Mendez PT, DPT, CLT [facility] [place], [place]
[2020-12-26 17:09] LABS: East Equine Enceph Ab, IgG <1:10 (<1:10); East Equine Enceph Ab, IgM <1:10 (<1:10)
--- NOTE | 2020-12-26 18:37 | PDOC.CMDIS ---
- If Service Date Differs Date of service: 12/26/20 Time of Service: 18:37 LACE Index Scoring Tool - Questions: Length of Stay (in days): 4 - 6 Acuity (Admit via E.D.?): Yes Comorbidities: Previous M.I., Cerebrovascular Disease E.D. Visits: 2 - Answers: Total Score: 11 Risk of Readmission: High Risk Care Management Discharge Reason for Hospitalization: Altered Mental Status, TIA, Vomiting Discharge Plan: Alla transitioned to the [facility] today via [facility] ambulance. 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 CM talked to her sister yesterday, who was prepared for her transition. She will continue to be followed by Palliative care at the [facility]. Patient/Family Education Needs: Review discharge instructions and expectations of care at the [facility], discussion of goals of care including comfort care. Services Needed at Discharge: Prison Facility ([facility]), Transportation ([facility])
[2020-12-27 01:59] LABS: Anaplasma phagocytophilum Negative (Negative); B. miyamotoi PCR Negative (Negative); Babesia divergens/MO-1 Negative (Negative); Babesia duncani Negative (Negative); Babesia microti Negative (Negative); Ehrlichia chaffeensis Negative (Negative); Ehrlichia ewingii/canis Negative (Negative); Ehrlichia muris eauclairensis Negative (Negative)
[2020-12-27 04:41] LABS: Vitamin D 25 Total 19.9 ng/ml (30-100)
[2020-12-27 18:29] LABS: Dilute Russell Viper Venom 39.7 secs (31.9-47.0); LA Cascade Summary (See Note); Silica Clotting Time 41.7 secs (30.2-48.4)
== END 2020-12-26 13:11 | disposition skilled nursing facility (03) | DRG 69 ==
LOC: ER 20:20 → MS 20:57
PROVIDERS: Family Medicine; General Practice; Nurse Practitioner Family; Psychiatry & Neurology Neurology; Admitting Provider Family Medicine; Emergency Provider Physician Assistant; PCP Family Medicine; Visit Provider Family Medicine
DX: G45.9 Transient cerebral ischemic attack, unspecified (principal); E87.1 Hypo-osmolality and hyponatremia; G81.94 Hemiplegia, unspecified affecting left nondominant side; R56.9 Unspecified convulsions; F01.50 Vascular dementia, unspecified severity, without behavioral disturbance, psychotic disturbance, mood disturbance, and anxiety; Z51.5 Encounter for palliative care; E03.9 Hypothyroidism, unspecified; I10 Essential (primary) hypertension; H35.3190 Nonexudative age-related macular degeneration, unspecified eye, stage unspecified; F32.9 Major depressive disorder, single episode, unspecified; E11.9 Type 2 diabetes mellitus without complications; H90.3 Sensorineural hearing loss, bilateral; I67.1 Cerebral aneurysm, nonruptured; Z66 Do not resuscitate; R13.10 Dysphagia, unspecified; R11.11 Vomiting without nausea; I25.2 Old myocardial infarction
CPT/HCPCS: 36415; 70496; 70498; 70553; 80048; 80053; 82306; 82945; 85652; 86652; 86698; 87040; 87116; 87529; 87798; 93005; 95711; 95718; 96361; 96374; 97110; 97162; 97530; 99219; 99223; 99226; 99232; 99233; 99239; 99254; 99285; J1650; 70450; 70551; 71046; 81003; 81015; 82040; 82042; 82607; 82784; 83735; 83880; 84165; 84484; 85025; 85049; 85610; 85730; 86140; 86592; 86618; 86664; 86665; 86777; 86778; 86788; 86789; 87109; 93010; J0133; J0780; J1100; J1953; J2060; J3490

== ENCOUNTER → 2020-12-24 08:03 | Outpatient (BNVA) | payer MEDICARE, MEDICAID, SELFPAY | PROVIDERS: PCP Family Medicine; Referring Provider Family Medicine; Visit Provider Psychiatry & Neurology Neurology | DX: R69 Illness, unspecified (principal) ==